=== PATIENT | female | born 1955 | race African-American/Black ===

== ENCOUNTER 2018-06-07 07:00 | Day surgery (SDC) | payer OTHER ==
[2018-06-03 13:21] LABS: Absolute Lymphocytes (CBC) 3.8 K/uL (0.7-4.9); Absolute Monocytes 0.5 K/uL (0.1-1.3); Absolute Neutrophil 3.8 K/uL (1.8-8.0); Basophils % 0.9 % (0-1.3); Eosinophils % 1.6 % (0-4.4); Hematocrit 41.7 % (36.0-45.0); Lymphocytes % 45.6 % (15.3-44.8); MCH 27.2 pg (27.0-35.0); MCV 84.9 fL (80-100); MPV 8.6 fL (7.6-11.3); Monocytes % 6.1 % (3.3-12.3); RBC Red Blood Cell Count 4.91 M/uL (3.86-4.86)
--- NOTE | 2018-06-03 13:22 | RAD REPORT ---
EXAM DESCRIPTION: RAD - Chest Single View - 06/03/2018 1:13 pm CLINICAL HISTORY: Pre-op Chest pain. COMPARISON: Abdomen 1 View (KUB) dated 12/18/2017; Chest Single View dated 04/17/2017; Chest Single Vie w dated 11/29/2016; Chest Single View dated 11/19/2016 FINDINGS: Portable technique limits examination quality. The lungs are grossly clear. The heart is normal in size. No displaced fractures. IMPRESSION: No acute intrathoracic process suspected.
[2018-06-03 13:28] LABS: Protime INR 0.87
[2018-06-03 13:34] LABS: Potassium 4.3 mmol/L (3.5-5.1)
--- OUTSIDE RECORDS SUMMARY | 2018-06-07 07:08 | XMS REPORT ---
:1955 Author Organization eClinicalWorks Care Team Providers Name Role Phone Tre Stevenson Provider Role Unavailable Allergies, Adverse Reactions, Alerts Substance Reaction Event Type Hydrocodone-Chlorpheniramine hives Drug Allergy Cymbalta vomiting Drug Allergy Problems Problem Type Condition Code Onset Dates Condition Status Assessment Pain in joint of right hand M25.541 Active Problem Essential hypertension I10 Active Problem Type 2 diabetes mellitus with E11.65 Active hyperglycemia Problem Mixed hyperlipidemia E78.2 Active Problem detention current use of insulin Z79.4 Active Problem Gastro-esophageal reflux disease K21.9 Active without esophagitis Problem Neuropathy G62.9 Active Problem Chronic maxillary sinusitis J32.0 Active Problem HTN (hypertension) I10 Active Problem Cigarette smoker F17.210 Active Problem Depression F32.9 Active Problem Inflammatory neuropathy G61.9 Active Problem Chronic obstructive pulmonary J44.9 Active disease Problem Dermatitis L30.9 Active Problem 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 Active Problem Trigger finger of right thumb M65.311 Active Problem Pain in joint of right hand M25.541 Active Problem Asthmatic bronchitis without J45.909 Active complication Problem Gastroesophageal reflux disease K21.9 Active without esophagitis Problem Trigger index finger of right hand M65.321 Active Problem Cardiac disease I51.9 Active Problem Chronic stable angina I20.8 Active Problem Stable angina I20.8 Active Problem Slow transit constipation K59.01 Active Problem Apnea, not elsewhere classified R06.81 Active Problem Allergic rhinitis J30.9 Active Assessment Trigger index finger of right hand M65.321 Active Problem Hyperlipidemia E78.5 Active Problem Otalgia, right ear H92.01 Active Problem Obesity E66.9 Active Problem Tachycardia R00.0 Active Problem Obstructive sleep apnea G47.33 Active Problem Diabetes mellitus type 2, E11.9 Active uncontrolled, without complications Problem Gastroparesis K31.84 Active Medications Medication Code Code Instructions Start End Status Dosage System Date Date Nitroglycerin [facility] 86646332518 400 MCG/SPRAY Active 1 spray Translingual Once a day as needed Reglan [facility] 77598817560 10 MG Orally Active not defined Plavix ND 59396460634 75 MG Orally Active 1 tablet Once a day Linzess ND 87445973755 290 MCG Orally April Active 1 capsule Once a day 2017 Meclizine HCl ND 89650603815 25 MG Orally Active 1 tablet as Once a day needed Dexilant [facility] 89019535036 60 MG Orally Active 1 capsule Once a day PredniSONE ND 68955810693 10 MG Orally Active 2 tablet Once a day Pantoprazole [facility] 76034797761 40 MG Orally Active 1 tablet Sodium Once a day Metformin HCl [facility] 09581030612 1000MG Active TAKE ONE TABLET BY MOUTH TWICE DAILY Zoloft [facility] 53706734464 100 MG Orally Active 1 tablet Once a day Patanase [facility] 02580107051 0.6 % Nasally Active 2 sprays in Twice a day each nostril Diflucan [facility] 33606820748 150 MG Orally Active 1 tablet Fluocinolone [facility] 42226855110 0.01 % Otic Active 5 applications Acetonide Twice a day into affected ear Lasix [facility] 19531319537 20 MG Orally Active 1 tablet Once a day Spiriva Respimat [facility] 30995724601 2.5 MCG/ACT March Active 2 puffs Inhalation , Once a day 2018 Cyclobenzaprine [facility] 88262408614 10 MG Orally Active 1 tablet as HCl Three times a needed day Gralise [facility] 88252874124 600 MG Orally Active 3 tablet with Once a day the evening meal Furosemide ND 42059384998 20MG Active TAKE ONE TABLET BY MOUTH ONCE DAILY IN THE MORNING NEEDED FOR EDEMA Irbesartan [facility] 55152382633 300MG Active TAKE ONE TABLET BY MOUTH ONCE DAILY Toujeo SoloStar [facility] 38804462254 300 UNIT/ML Active 60 units Subcutaneous once a day Toprol XL ND 09361502596 100 MG Orally Active 1 tablet Once a day Avapro [facility] 90073961686 300 MG Orally Active 1 tablet Once a day Gralise [facility] 79798779647 600MG Active TAKE THREE TABLETS BY MOUTH ONCE DAILY Xyzal [facility] 83090025234 5 MG Orally Active 1 tablet in Once a day the evening Albuterol Sulfate [facility] 07566302901 108 (90 Base) Active 2 puffs as HFA MCG/ACT needed Inhalation every 6 hrs Tramadol HCl [facility] 09565862060 50 MG Orally Active 1 tablet as every 6 hrs needed Invokana [facility] 12869180095 300 MG Orally Active 1 tablet Once a day Results No Known Results Summary Purpose eClinicalWorks Submission
--- OUTSIDE RECORDS SUMMARY | 2018-06-07 07:08 | XMS REPORT ---
:1955 Author Organization eClinicalWorks Care Team Providers Name Role Phone Huff, Micki Provider Role Unavailable Allergies, Adverse Reactions, Alerts Substance Reaction Event Type Hydrocodone-Chlorpheniramine hives Drug Allergy Cymbalta vomiting Drug Allergy Problems Problem Type Condition Code Onset Dates Condition Status Assessment detention current use of insulin Z79.4 Active Assessment Mixed hyperlipidemia E78.2 Active Assessment Chronic obstructive pulmonary J44.9 Active disease Assessment Neuropathy G62.9 Active Assessment Gastro-esophageal reflux disease K21.9 Active without esophagitis Assessment Type 2 diabetes mellitus with E11.65 Active hyperglycemia Problem Chronic maxillary sinusitis J32.0 Active Problem Type 2 diabetes mellitus with E11.65 Active hyperglycemia Problem Essential hypertension I10 Active Problem Chronic obstructive pulmonary J44.9 Active disease Problem Mixed hyperlipidemia E78.2 Active Problem Cigarette smoker F17.210 Active Problem detention current use of insulin Z79.4 Active Problem Inflammatory neuropathy G61.9 Active Problem Gastroesophageal reflux disease K21.9 Active without esophagitis Problem Cardiac disease I51.9 Active Problem 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 Active Problem Apnea, not elsewhere classified R06.81 Active Problem Obesity E66.9 Active Problem Neuropathy G62.9 Active Problem Dermatitis L30.9 Active Problem Gastro-esophageal reflux disease K21.9 Active without esophagitis Problem Otalgia, right ear H92.01 Active Problem Asthmatic bronchitis without J45.909 Active complication Problem Chronic stable angina I20.8 Active Problem Stable angina I20.8 Active Assessment Dermatitis L30.9 Active Problem Diabetes mellitus type 2, E11.9 Active uncontrolled, without complications Assessment Essential hypertension I10 Active Problem Gastroparesis K31.84 Active Assessment 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 Active Problem Allergic rhinitis J30.9 Active Assessment Chronic stable angina I20.8 Active Problem Hyperlipidemia E78.5 Active Problem HTN (hypertension) I10 Active Problem Depression F32.9 Active Problem Tachycardia R00.0 Active Problem Obstructive sleep apnea G47.33 Active Medications Medication Code Code Instructions Start End Status Dosage System Date Date [facility] 53880338824 10 MG Orally Active not defined Sia Hood ND 82464058792 300 UNIT/ML Active 54 units Subcutaneous once a day Metformin HCl ND 10016908951 1000 MG Orally Active 1 tablet with Twice a day meals Zoloft ND 50848134892 100 MG Orally Active 1 tablet Once a day Toprol XL ND 71946863826 100 MG Orally Active 1 tablet Once a day Xyzal ND 78409034199 5 MG Orally Active 1 tablet in Once a day the evening Lasix ND 31604908343 20 MG Orally Active 1 tablet Once a day Fluocinolone ND 63344791748 0.01 % Otic Active 5 Acetonide Twice a day applications into affected ear Albuterol Sulfate [facility] 85075909622 108 (90 Base) Active 2 puffs as HFA MCG/ACT needed Inhalation every 6 hrs Gralise [facility] 98316213686 600 MG Orally Active 3 tablet with Once a day the evening meal Furosemide ND 22144327738 20MG Active TAKE ONE TABLET BY MOUTH ONCE DAILY IN THE MORNING NEEDED FOR EDEMA Patanase [facility] 02147072943 0.6 % Nasally Active 2 sprays in Twice a day each nostril PredniSONE ND 49686933710 10 MG Orally Active 2 tablet Once a day Nitroglycerin [facility] 16379239197 400 MCG/SPRAY Active 1 spray Translingual Once a day as needed Spiriva Respimat [facility] 05560052964 2.5 MCG/ACT December Active 2 puffs Inhalation , Once a day 2018 Diflucan ND 06759389790 150 MG Orally Active 1 tablet Avapro [facility] 96855683912 300 MG Orally Active 1 tablet Once a day Tramadol HCl ND 51122254012 50 MG Orally Active 1 tablet as every 6 hrs needed Pantoprazole ND 73056523179 40 MG Orally [place] Active 1 tablet Sodium Once a day 2017 Dexilant [facility] 98015974896 60 MG Orally Active 1 capsule Once a day Plavix ND 69306750728 75 MG Orally Active 1 tablet Once a day Cyclobenzaprine ND 40655906978 10 MG Orally Active 1 tablet as HCl Three times a needed day Invokana [facility] 20288368903 300 MG Orally Active 1 tablet Once a day Meclizine HCl [facility] 91355172806 25 MG Orally Active 1 tablet as Once a day needed Results No Known Results Summary Purpose eClinicalWorks Submission
--- OUTSIDE RECORDS SUMMARY | 2018-06-07 07:08 | XMS REPORT ---
:1955 Author Organization eClinicalWorks Care Team Providers Name Role Phone Huff, Na Provider Role Unavailable Allergies, Adverse Reactions, Alerts Substance Reaction Event Type Hydrocodone-Chlorpheniramine hives Drug Allergy Cymbalta vomiting Drug Allergy Problems Problem Type Condition Code Onset Dates Condition Status Assessment Mixed hyperlipidemia E78.2 Active Assessment Chronic stable angina I20.8 Active Assessment Type 2 diabetes mellitus with E11.65 Active hyperglycemia Assessment Essential hypertension I10 Active Problem Type 2 diabetes mellitus with E11.65 Active hyperglycemia Problem Essential hypertension I10 Active Problem Mixed hyperlipidemia E78.2 Active 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 Problem Gastroparesis K31.84 Active Problem Gastro-esophageal reflux disease K21.9 Active without esophagitis Problem Tachycardia R00.0 Active Problem Neuropathy G62.9 Active Problem Obstructive sleep apnea G47.33 Active Problem Depression F32.9 Active Problem HTN (hypertension) I10 Active Problem Apnea, not elsewhere classified R06.81 Active Problem Chronic stable angina I20.8 Active Problem Inflammatory neuropathy G61.9 Active Problem Cigarette smoker F17.210 Active Assessment 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 Active Problem Slow transit constipation K59.01 Active Problem Chronic maxillary sinusitis J32.0 Active Assessment Hoarseness of voice R49.0 Active Problem 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 Active Assessment Polyp of larynx J38.1 Active Problem Chronic obstructive pulmonary J44.9 Active disease Problem Stable angina I20.8 Active Problem Dermatitis L30.9 Active Assessment Chronic obstructive pulmonary J44.9 Active disease Problem Asthmatic bronchitis without J45.909 Active complication Assessment Neuropathy G62.9 Active Problem Otalgia, right ear H92.01 Active Assessment Otalgia of right ear H92.01 Active Problem Cardiac disease I51.9 Active 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.4 Active Problem Gastroesophageal reflux disease K21.9 Active without esophagitis Assessment Gastro-esophageal reflux disease K21.9 Active without esophagitis Problem Hyperlipidemia E78.5 Active Assessment Slow transit constipation K59.01 Active Problem Diabetes mellitus type 2, E11.9 Active uncontrolled, without complications Problem Obesity E66.9 Active Problem Allergic rhinitis J30.9 Active Medications Medication Code Code Instructions Start End Status Dosage System Date Date Edison [facility] 84767297478 5 MG Orally Active 1 tablet in Once a day the evening Toprol XL ND 02646852300 100 MG Orally Active 1 tablet Once a day Zoloft ND 26291447717 100 MG Orally Active 1 tablet Once a day Tousarinao AdrianaoStar [facility] 48259150131 300 UNIT/ML Active 60 units Subcutaneous once a day Acetic Acid ND 49911867802 2 % Otic Three April Active 5 drops into times a day , affected ear 2017 2017 Metformin HCl [facility] 26463379679 1000MG Active TAKE ONE TABLET BY MOUTH TWICE DAILY Nitroglycerin [facility] 13919050463 400 MCG/SPRAY Active 1 spray Translingual Once a day as needed Patanase [facility] 22147209748 0.6 % Nasally Active 2 sprays in Twice a day each nostril Tramadol HCl [facility] 88488775114 50 MG Orally Active 1 tablet as every 6 hrs needed Lasix [facility] 54064635085 20 MG Orally Active 1 tablet Once a day Gralise [facility] 22411624123 600 MG Orally Active 3 tablet with Once a day the evening meal Furosemide ND 36792912043 20MG Active TAKE ONE TABLET BY MOUTH ONCE DAILY IN THE MORNING NEEDED FOR EDEMA Linzess [facility] 63221147596 290 MCG Orally April Active 1 capsule Once a day 2017 Gralise [facility] 22989282535 600MG Active TAKE THREE TABLETS BY MOUTH ONCE DAILY Spiriva Respimat [facility] 29267237935 2.5 MCG/ACT March Active 2 puffs Inhalation , Once a day 2018 Plavix [facility] 65364235553 75 MG Orally Active 1 tablet Once a day Cyclobenzaprine ND 88514728270 10 MG Orally Active 1 tablet as HCl Three times a needed day Irbesartan [facility] 61986660795 300MG Active TAKE ONE TABLET BY MOUTH ONCE DAILY Pantoprazole [facility] 95986831119 40 MG Orally Active 1 tablet Sodium Once a day Avapro [facility] 19860313738 300 MG Orally Active 1 tablet Once a day Reglan [facility] 13295429574 10 MG Orally Active not defined Diflucan [facility] 43154454579 150 MG Orally Active 1 tablet Meclizine HCl [facility] 32863432297 25 MG Orally Active 1 tablet as Once a day needed Albuterol Sulfate [facility] 83044217181 108 (90 Base) Active 2 puffs as HFA MCG/ACT needed Inhalation every 6 hrs PredniSONE [facility] 75582197698 10 MG Orally Active 2 tablet Once a day Invokana [facility] 76797059586 300 MG Orally Active 1 tablet Once a day Fluocinolone [facility] 98583477448 0.01 % Otic Active 5 applications Acetonide Twice a day into affected ear Dexilant [facility] 71015867539 60 MG Orally Active 1 capsule Once a day Results No Known Results Summary Purpose eClinicalWorks Submission
--- OUTSIDE RECORDS SUMMARY | 2018-06-07 07:08 | XMS REPORT ---
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 Active Problem Chronic obstructive pulmonary J44.9 Active disease Problem Stable angina I20.8 Active Problem Dermatitis L30.9 Active Problem Asthmatic bronchitis without J45.909 Active complication Problem Otalgia, right ear H92.01 Active Problem Cardiac disease I51.9 Active Problem Gastroesophageal reflux disease K21.9 Active without esophagitis Problem Hyperlipidemia E78.5 Active Problem Diabetes mellitus type 2, E11.9 Active uncontrolled, without complications Problem Obesity E66.9 Active Problem Allergic rhinitis J30.9 Active Medications No Known Medications Results No Known Results Summary Purpose eClinicalWorks Submission
[2018-06-07] MEDS ORDERED: HEPA 1000U/500MLS 1,000 UNIT/500 ML BAG IV ONE (07:18)
[2018-06-07] MEDS ORDERED: NICARDIPINE HCL 25 MG/10 ML IV ONE (07:19)
[2018-06-07] MEDS ORDERED: HEPARIN 5000 UNIT/ML 1 ML VIAL ONE (07:19)
[2018-06-07] MEDS ORDERED: LIDOCAINE 1% MPF 2 ML AMPULE ONE (07:19)
[2018-06-07] MEDS ORDERED: NITROGLYCERIN/D5W 25 MG/250 ML BTL IV ONE (07:20)
[2018-06-07] MEDS ORDERED: ATROPINE SULF 1 MG/10 ML SYR IV ONE (07:20)
[2018-06-07] MEDS ORDERED: NA CHLORIDE 0.9% 0 ML ONE (07:21)
[2018-06-07] MEDS ORDERED: LIDOCAINE 1% MPF 5 ML VIAL ONE (07:22)
[2018-06-07] MEDS ORDERED: NA CHLORIDE 0.9% 500 ML ONE (07:22)
[2018-06-07] MEDS ORDERED: FENTANYL CITR 100 MCG/2 ML ONE (08:15)
[2018-06-07] MEDS ORDERED: MIDAZOLAM HCL 2 MG/2 ML INJ ONE (08:15)
[2018-06-07 09:24] VITALS: TEMP 97
[2018-06-07 11:11] VITALS: BP 112/48; O2SAT 96
--- NOTE | 2018-06-07 19:28 | OP ---
Surgeon: Eloy Kapadia MD Primary Care Physician: Micki Huff DO. Procedures: Left heart catheterization, coronary left ventricular angiography. Findings: The patient's ejection fraction is hyperdynamic. Her left ventricular end-diastolic press ure was elevated at 20. Her coronaries have mild plaque, no significant stenosis. Procedure In Detail: The patient was brought to the cardiac shop laborer in a fasting state, sedated wit h Versed and fentanyl. Prepared and draped in usual sterile fashion. Right radial artery was identi fied. The Barbeau test was normal. A 1% lidocaine was used to anesthetize the skin around the right radial artery. The artery was then entered using a 21-gauge needle. A 0.021-inch diameter guidewir e was used to cannulate the artery. Then we used the modified Seldinger technique to place a 6-Frenc h radial sheath. The sheath was flushed and a radial cocktail was given consisting of nicardipine, h eparin, and nitroglycerin. We used a TIG catheter, guided into the ascending aorta using fluoroscopy and a Terumo Glidewire. We were able to use the same catheter to angiogram the right coronary, left coronary, and left ventricle. At the end of the procedure, the catheter was withdrawn over a J-wire . The sheath was flushed, removed, and the arteriotomy was closed using a TR band. Complications: None. Impression: The patient's dyspnea is due to COPD, continued smoking, and hypertensive heart disease. ALCIDES/MODL Voice ID: [id number] Report ID: [id number]
== END 2018-06-07 11:25 | disposition home or self-care (01) ==
LOC: CCL 07:00
PROVIDERS: ATTEND Internal Medicine
PROC: 4A023N7 Measurement of Cardiac Sampling and Pressure, Left Heart, Percutaneous Approach (ICD-10-PCS; principal; 2018-06-07)
PROC: B201YZZ Plain Radiography of Multiple Coronary Arteries using Other Contrast (ICD-10-PCS; 2018-06-07)
PROC: B205YZZ Plain Radiography of Left Heart using Other Contrast (ICD-10-PCS; 2018-06-07)
DX: I11.9 Hypertensive heart disease without heart failure (principal); I25.110 Atherosclerotic heart disease of native coronary artery with unstable angina pectoris; J44.9 Chronic obstructive pulmonary disease, unspecified; I10 Essential (primary) hypertension; I25.2 Old myocardial infarction; E11.9 Type 2 diabetes mellitus without complications; F17.210 Nicotine dependence, cigarettes, uncomplicated; Z79.4 Long term (current) use of insulin; Z88.6 Allergy status to analgesic agent; Z82.49 Family history of ischemic heart disease and other diseases of the circulatory system
CPT/HCPCS: 36415; 71045; 80048; 82962; 85025; 85610; 85730; 93458; C1893; J0583; J1644; J2001; J2250; J3010

== ENCOUNTER 2019-07-08 20:22 | Inpatient (IN) | payer OTHER ==
--- OUTSIDE RECORDS SUMMARY | 2019-07-08 20:24 | XMS REPORT ---
:1955 Author Organization [facility] Address [address] [place] [address] Dr. Marshall. [address] [place] [id number] Care Team Providers Name Role Phone Unavailable Unavailable Unavailable Problems This patient has no known problems. Allergies, Adverse Reactions, Alerts This patient has no known allergies or adverse reactions. Medications This patient has no known medications.
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
--- OUTSIDE RECORDS SUMMARY | 2019-07-08 20:25 | XMS REPORT ---
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 Active Problem Cigarette smoker F17.210 Active Problem Stable angina I20.8 Active Problem Chronic stable angina I20.8 Active Assessment Cigarette nicotine dependence F17.210 Active without complication Assessment Pain due to dental caries K02.9 Active Assessment Proteinuria, unspecified R80.9 Active Assessment Allergic rhinitis J30.9 Active Problem Apnea, not elsewhere classified R06.81 Active Problem 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 Active Problem Dermatitis L30.9 Active Problem Hypoglycemia associated with type 2 E11.649 Active diabetes mellitus Problem Pain in joint of right hand M25.541 Active Problem Slow transit constipation K59.01 Active Problem Cigarette nicotine dependence F17.210 Active without complication Problem Routine gynecological examination Z01.419 Active Problem Adult general medical exam Z00.00 Active Problem Trigger finger of right thumb M65.311 Active Problem Trigger index finger of right hand M65.321 Active Assessment Neuropathy G62.9 Active Assessment Chronic obstructive pulmonary J44.9 Active disease Assessment CKD (chronic kidney disease), stage N18.3 Active III Assessment Gingivitis, acute K05.00 Active Assessment Type 2 diabetes mellitus with other E11.69 Active specified complication Assessment Type 2 diabetes mellitus with other E11.29 Active diabetic kidney complication Assessment Urinary incontinence in female R32 Active Assessment Depression F32.9 Active Assessment Mixed hyperlipidemia E78.2 Active Assessment Essential hypertension I10 Active Problem Essential hypertension I10 Active Problem Neuropathy G62.9 Active Problem Mixed hyperlipidemia E78.2 Active Problem Other chronic pain G89.29 Active Assessment Type 2 diabetes mellitus with E11.65 Active hyperglycemia Problem Angina of effort I20.8 Active Problem Seasonal allergies J30.2 Active Problem Type 2 diabetes mellitus with other E11.29 Active diabetic kidney complication Problem JOSUÉ (obstructive sleep apnea) G47.33 Active Problem Chronic otitis externa of right H60.61 Active ear, unspecified type Problem Acute bronchitis, unspecified J20.9 Active organism Problem Chronic obstructive pulmonary J44.0 Active disease with acute lower respiratory infection Problem Otalgia, right ear H92.01 Active Problem Type 2 diabetes mellitus with other E11.69 Active specified complication Problem Chronic maxillary sinusitis J32.0 Active Problem Type 2 diabetes mellitus with E11.22 Active diabetic chronic kidney disease Problem Type 2 diabetes mellitus with E11.65 Active hyperglycemia Problem Cough productive of yellow sputum R05 Active Problem Gastro-esophageal reflux disease K21.9 Active without esophagitis Problem CKD (chronic kidney disease), stage N18.3 Active III Problem alf current use of insulin Z79.4 Active Problem Diabetes mellitus type 2, E11.9 Active uncontrolled, without complications Problem Gastroparesis K31.84 Active Problem Asthmatic bronchitis without J45.909 Active complication Problem Chronic obstructive pulmonary J44.9 Active disease Problem Cardiac disease I51.9 Active Problem Gastroesophageal reflux disease K21.9 Active without esophagitis Medications Medication Code Code Instructions Start End Status Dosage System Date Date Doxycycline [facility] 98836588302 100 MG Orally Active 1 capsule Hyclate twice a day Lasix [facility] 23328152233 20 MG Orally Active 1 tablet Once a day Patanase [facility] 08110499322 0.6 % Nasally Active 2 sprays in Twice a day each nostril FreeStyle Enriqueta [facility] 39204594091 - dailyk Active as directed Copan Flonase [facility] 01132557347 50 MCG/ACT Active 2 spray in Nasally Once a each nostril day Plavix [facility] 44889216080 75 MG Orally Active 1 tablet Once a day Albuterol Sulfate [facility] 66926656426 (2.5 MG/3ML) Active 3 ml as needed 0.083% Inhalation Three times a day prn sob/wheezing Albuterol Sulfate [facility] 00772044627 108 (90 Base) Active 2 puffs as MCG/ACT needed Inhalation every 6 hrs Reglan [facility] 13053476259 10 MG Orally Active not defined Azithromycin [facility] 18424044750 500 MG Orally Active as directed once a day Zyrtec Allergy [facility] 60208242904 10 MG Orally Active 1 tablet Once a day Zoloft [facility] 06710323012 100 MG Orally Active 1 tablet Once a day Spiriva Respimat [facility] 82696736324 2.5 MCG/ACT Active 2 puffs Inhalation Once a day Atorvastatin [facility] 27172341180 40 MG Orally Active 1 tablet Calcium Once a day Linzess [facility] 48245862773 290 MCG Orally Aug Active 1 capsule Once a day 2018 Acetic Acid [facility] 63680704501 2 % Otic Three Active 5 drops into times a day affected ear Humalog KwikPen [facility] 66655692076 100 UNIT/ML Active as directed Subcutaneous 4 units with each meal tid Metformin HCl [facility] 96570741985 1000MG Active TAKE ONE TABLET BY MOUTH TWICE DAILY FreeStyle Enriqueta [facility] 30535373164 - ND Active as directed Sensor System Fluocinolone [facility] 21354622395 0.01 % Otic Active 5 applications Acetonide Twice a day into affected ear Lantus SoloStar [facility] 07200969103 100 UNIT/ML Active 60 units Subcutaneous once a day Cyclobenzaprine [facility] 16727364466 10 MG Orally Active 1 tablet as HCl Three times a needed day Nitroglycerin [facility] 18052415531 400 MCG/SPRAY Active 1 spray Translingual Once a day as needed Metformin HCl [facility] 78955834706 1000MG Active TAKE ONE TABLET BY MOUTH TWICE DAILY Pantoprazole [facility] 83313669941 40 MG Orally Active 1 tablet Sodium Once a day Olmesartan-Amlodi [facility] 26928876908 20-5-12.5 MG Active 1 tablet pine-HCTZ Orally Once a day Tramadol HCl [facility] 49395071156 50 MG Orally Active 1 tablet as every 6 hrs needed PredniSONE [place] 41116444441 10 MG Orally Active 2 tablet Once a day Gabapentin [facility] 54722723031 600 MG orally Active 1 tablet Three times a day Results No Known Results Summary Purpose [employer] Submission
--- NOTE | 2019-07-08 20:57 | ER ---
Nurse's Notes [facility] Name: Tammy Walsh Age: 64 yrs Sex: Female : 1955 Arrival Date: 07/08/2019 Time: 20:24 Bed 6 Private MD: Diagnosis: Other chest pain;Chronic obstructive pulmonary disease, unspecified;Essential (primary) hypertension;Tobacco abuse counseling;Tobacco use;Type 2 diabetes mellitus;Obesity, unspecified;Unspecified kidney failure-insufficency;Hypomagnesemia Presentation: 07/08 20:41 Presenting complaint: Patient states: Left sided chest pain that radiates to her left aj1 shoulder, shortness of breath and fever since yesterday. Reports that she took some NTG and it helped for a little bit but then the pain came right back. Reports the pain is aggravated by walking. Patient wears home O2 PRN. Transition of care: patient was not received from another setting of care. Onset of symptoms was July 07, 2019. Risk Assessment: Do you want to hurt yourself or someone else? Patient reports no desire to harm self or others. Initial Sepsis Screen: Does the patient meet any 2 criteria? RR > 20 per min. HR > 90 bpm. Does the patient have a suspected source of infection? Yes: Productive cough/pneumonia If YES to both, name of provider notified: Toby Figueroa MD. Care prior to arrival: None. 20:41 Method Of Arrival: Wheelchair aj1 20:41 Acuity: PATRICIA 3 aj1 Triage Assessment: 20:48 General: Appears uncomfortable, Behavior is calm, cooperative, appropriate for age. aj1 Pain: Complains of pain in anterior aspect of left upper chest Pain radiates to posterior aspect of left shoulder Aggravated by walking. Neuro: Level of Consciousness is awake, alert, obeys commands. Cardiovascular: Reports chest pain, Patient's skin is warm and dry. Respiratory: Reports shortness of breath cough that is productive, Airway is patent Respiratory effort is even, Respiratory pattern is regular, symmetrical, tachypnea. Historical: - Allergies: 20:48 Hydrocodone-Acetaminophen (Sever Itching); aj1 - Home Meds: 20:48 aspirin 81 mg Oral chew 1 tab once daily [Active]; atorvastatin 40 mg Oral tab 1 tab aj1 once daily [Active]; Breo Ellipta inhalation [Active]; Cartia XT 180 mg Oral cp24 2 caps once daily [Active]; Gralise 600 mg Oral Tb24 3 tabs once daily [Active]; Humalog 4units before every meal or snack. Sub-Q [Active]; hydrochlorothiazide 12.5 mg Oral cap once daily [Active]; Lantus 65 units in the morning. Sub-Q [Active]; metformin 1,000 mg Oral tab 1 tab 2 times per day [Active]; metoprolol er 200mg daily [Active]; Nitroglycerin SL [Active]; olmesartan 12.5 Oral once daily [Active]; Plavix 75 mg Oral tab 1 tab once daily [Active]; Spiriva with HandiHaler inhalation [Active]; Symbicort 160-4.5 mcg/actuation inhalation HFAA 2 puffs 2 times per day [Active]; - PMHx: 20:48 COPD; Diabetes - NIDDM; Gastroparesis; Hypertension; Myocardial infarction; aj1 - Immunization history:: Flu vaccine is not up to date. - Social history:: Smoking status: Patient uses tobacco products. - Family history:: not pertinent. - Ebola Screening: : Patient denies travel to an Ebola-affected area in the 21 days before illness onset. Screenin:59 Abuse screen: Denies threats or abuse. Denies injuries from another. Nutritional ak1 screening: No deficits noted. Tuberculosis screening: No symptoms or risk factors identified. Fall Risk None identified. Assessment: 20:59 Reassessment: Patient appears in no apparent distress at this time. General: Appears in ak1 no apparent distress. comfortable, Behavior is calm, cooperative. Pain: Complains of pain in chest Pain began 1 day ago. Neuro: Level of Consciousness is awake, alert, obeys commands, Oriented to person, place, time, situation, Curriculum Specialist are equal bilaterally Moves all extremities. Gait is steady, Speech is normal. Cardiovascular: Reports chest pain, shortness of breath, Heart tones S1 S2 present. Respiratory: Reports shortness of breath cough that is Airway is patent Respiratory effort is labored, Breath sounds are clear Onset: The symptoms/episode began/occurred yesterday. GI: No signs and/or symptoms were reported involving the gastrointestinal system. : No signs and/or symptoms were reported regarding the genitourinary system. EENT: Nares pt wearing mask due to wound, burn from smoking while wearing oxygen. . Derm: No signs and/or symptoms reported regarding the dermatologic system. Musculoskeletal: No signs and/or symptoms reported regarding the musculoskeletal system. 21:02 General: Charge nurse at bedside to place midline for access. pt stated she either has ak1 an EJ or midline when coming to hospital. . 21:21 Reassessment: Patient appears in no apparent distress at this time. No changes from ak1 previously documented assessment. Patient and/or family updated on plan of care and expected duration. Pain level reassessed. Patient is alert, oriented x 3, equal unlabored respirations, skin warm/dry/pink. Patient states symptoms have improved. 22:10 Reassessment: Room available in 224, report called and handed over to RN Gina walker for continuity of care and management, informed her that patient is still for IV Magnesium Sulfate to be given. Vital Signs: 20:48 BP 142 / 40; Pulse 105; Resp 28; Temp 99.3; Pulse Ox 96% on R/A; Weight 115.67 kg (R); aj1 Height 5 ft. 5 in. (165.10 cm) (R); Pain 6/10; 21:21 BP 126 / 75; Pulse 101; Resp 26; Temp 99.3; Pulse Ox 100% on Nebulizer Mask; ak1 20:48 Body Mass Index 42.43 (115.67 kg, 165.10 cm) aj1 ED Course: 20:24 Patient arrived in ED. cl3 20:34 Toby Figueroa MD is Attending Physician. hannah 20:43 Triage completed. aj1 20:49 Radiology exam delayed due to lab results not completed at this time. (BUN/Creatinine) nj IV insertion attempt and/or patient not having appropriate IV at this time. 20:52 Adeola De Los Santos, RN is Primary Nurse. ak1 20:54 Austyn Lorenzo DO is Hospitalizing Provider. hannah 20:54 Arm band placed on Patient Patient triaged in ER bed 6. aj1 20:59 Patient has correct armband on for positive identification. Placed in gown. Bed in low ak1 position. Call light in reach. Side rails up X 1. Adult w/ patient. pvc monitor on. Pulse ox on. NIBP on. 20:59 Patient maintains SpO2 saturation greater than 95% on room air. O2 via pt uses c-pap ak1 and/or 2L NC as needed at home. 21:07 Initial lab(s) drawn, by me, sent to lab. First set of blood cultures drawn by me. fc Inserted 18 gauge 10 cm midline to right upper basilic vein on first attempt. Line with good blood return and flushes well. 21:27 XRAY Chest (1 view) In Process Unspecified. EDMS 22:[address] via stretcher. jg6 23:39 No provider procedures requiring assistance completed. Patient admitted, IV remains in ak1 place. Administered Medications: 21:15 Drug: Lovenox 1 mg/kg Route: Sub-Q; Site: right lower abdomen; ak1 21:23 Follow up: Response: No adverse reaction ak1 21:15 Drug: Zofran 4 mg Route: IVP; Site: right upper arm; ak1 21:22 Follow up: Response: No adverse reaction ak1 21:16 Drug: NS 0.9% 1000 ml Route: IV; Rate: 1 bolus; Site: right upper arm; ak1 23:09 Follow up: IV Status: Completed infusion; IV Intake: 1000ml ak1 21:16 Drug: Aspirin 81 mg Route: PO; ak1 21:22 Follow up: Response: No adverse reaction ak1 21:20 Drug: fentaNYL (PF) 25 mcg Route: IVP; Site: right upper arm; ak1 21:37 Follow up: Response: No adverse reaction; Pain is decreased; RASS: Alert and Calm (0) ak1 21:20 Drug: fentaNYL (PF) 25 mcg Route: IVP; Site: right upper arm; ak1 21:37 Follow up: Response: No adverse reaction; Pain is decreased; RASS: Alert and Calm (0) ak1 21:20 Drug: Xopenex 1.25 mg Route: Inhalation; ak1 21:20 Drug: AtroVENT Aerosol 0.5 mg Route: Inhalation; ak1 21:45 Drug: Tylenol 650 mg Route: PO; ak1 21:50 Follow up: Response: No adverse reaction ak1 21:45 Drug: SOLU-Medrol 125 mg Route: IVP; Site: right upper arm; ak1 21:50 Follow up: Response: No adverse reaction ak1 21:46 Drug: Xopenex 1.25 mg Route: Inhalation; ak1 21:57 Drug: levofloxacin 500 mg Volume: 100 ml; Route: IVPB; Infused Over: 60 mins; Site: ak1 right upper arm; 23:23 Follow up: Response: No adverse reaction; IV Status: Completed infusion; IV Intake: cc3 100ml 23:37 Drug: Magnesium Sulfate 2 grams {Note: sent up with pt for floor RN to continue .} ak1 Route: IVPB; Infused Over: 2 hrs; Site: right upper arm; 23:37 Follow up: IV Status: Infusion continued upon admission ak1 Point of Care Testing: Blood Glucose: 21:24 Blood Glucose: 180 mg/dL; ak1 Ranges: Intake: 23:09 IV: 1000ml; Total: 1000ml. ak1 23:23 IV: 100ml; Total: 1100ml. cc3 Outcome: 20:55 Decision to Hospitalize by Provider. [facility] 23:38 Patient left the ED. ak1 23:39 Admitted to Tele accompanied by tech, via wheelchair, with chart. ak1 23:39 Condition: improved 23:39 Instructed on the need for admit. Signatures: Dispatcher [employer] Ruma Irene, RN RN Toby Hugo MD MD cha Chretien, Felicia RN RN Adeola Wolff RN RN Vinh Finney Charlene cc3 Bonnie Orellana Charde 3
--- NOTE | 2019-07-08 20:57 | EDPHYS ---
Physician Documentation [facility] Name: Tammy Walsh Age: 64 yrs Sex: Female : 1955 Arrival Date: 07/08/2019 Time: 20:24 Bed 6 Private MD: ELAINE Physician Toby Figueroa HPI: 07/08 20:47 This 64 yrs old Black Female presents to ER via Wheelchair with complaints of Chest hannah Pain. 20:47 The patient or guardian reports chest pain that is located primarily in the substernal hannah area. Onset: 2 day(s) ago. The pain does not radiate. Associated signs and symptoms: The patient has no apparent associated signs or symptoms. The chest pain is described as a pressure. Duration: The patient or guardian reports multiple episodes, with no pattern. Modifying factors: The symptoms are alleviated by remaining still, the symptoms are aggravated by exertion. Severity of pain: At its worst the pain was mild moderate in the emergency department the pain is unchanged. Historical: - Allergies: 20:48 Hydrocodone-Acetaminophen (Sever Itching); aj1 - Home Meds: 20:48 aspirin 81 mg Oral chew 1 tab once daily [Active]; atorvastatin 40 mg Oral tab 1 tab aj1 once daily [Active]; Breo Ellipta inhalation [Active]; Cartia XT 180 mg Oral cp24 2 caps once daily [Active]; Gralise 600 mg Oral Tb24 3 tabs once daily [Active]; Humalog 4units before every meal or snack. Sub-Q [Active]; hydrochlorothiazide 12.5 mg Oral cap once daily [Active]; Lantus 65 units in the morning. Sub-Q [Active]; metformin 1,000 mg Oral tab 1 tab 2 times per day [Active]; metoprolol er 200mg daily [Active]; Nitroglycerin SL [Active]; olmesartan 12.5 Oral once daily [Active]; Plavix 75 mg Oral tab 1 tab once daily [Active]; Spiriva with HandiHaler inhalation [Active]; Symbicort 160-4.5 mcg/actuation inhalation HFAA 2 puffs 2 times per day [Active]; - PMHx: 20:48 COPD; Diabetes - NIDDM; Gastroparesis; Hypertension; Myocardial infarction; aj1 - Immunization history:: Flu vaccine is not up to date. - Social history:: Smoking status: Patient uses tobacco products. - Family history:: not pertinent. - Ebola Screening: : Patient denies travel to an Ebola-affected area in the 21 days before illness onset. ROS: 20:47 Constitutional: Negative for fever, chills, and weight loss, Eyes: Negative for injury, hannah pain, redness, and discharge, ENT: Negative for injury, pain, and discharge, Neck: Negative for injury, pain, and swelling, Abdomen/GI: Negative for abdominal pain, nausea, vomiting, diarrhea, and constipation, Back: Negative for injury and pain, : Negative for injury, bleeding, discharge, and swelling, MS/Extremity: Negative for injury and deformity, Skin: Negative for injury, rash, and discoloration, Neuro: Negative for headache, weakness, numbness, tingling, and seizure, Psych: Negative for depression, anxiety, suicide ideation, homicidal ideation, and hallucinations, Allergy/Immunology: Negative for hives, rash, and allergies, Endocrine: Negative for neck swelling, polydipsia, polyuria, polyphagia, and marked weight changes, Hematologic/Lymphatic: Negative for swollen nodes, abnormal bleeding, and unusual bruising. 20:47 Cardiovascular: Positive for chest pain. 20:47 Respiratory: Positive for cough, shortness of breath. Exam: 20:47 Constitutional: This is a well developed, well nourished patient who is awake, alert, hannah and in no acute distress. Head/Face: Normocephalic, atraumatic. Eyes: Pupils equal round and reactive to light, extra-ocular motions intact. Lids and lashes normal. Conjunctiva and sclera are non-icteric and not injected. Cornea within normal limits. Periorbital areas with no swelling, redness, or edema. ENT: Nares patent. No nasal discharge, no septal abnormalities noted. Tympanic membranes are normal and external auditory canals are clear. Oropharynx with no redness, swelling, or masses, exudates, or evidence of obstruction, uvula midline. Mucous membranes moist. Neck: Trachea midline, no thyromegaly or masses palpated, and no cervical lymphadenopathy. Supple, full range of motion without nuchal rigidity, or vertebral point tenderness. No Meningismus. Cardiovascular: Regular rate and rhythm with a normal S1 and S2. No gallops, murmurs, or rubs. Normal PMI, no JVD. No pulse deficits. Abdomen/GI: Soft, non-tender, with normal bowel sounds. No distension or tympany. No guarding or rebound. No evidence of tenderness throughout. Back: No spinal tenderness. No costovertebral tenderness. Full range of motion. Female : Normal external genitalia. Skin: Warm, dry with normal turgor. Normal color with no rashes, no lesions, and no evidence of cellulitis. MS/ Extremity: Pulses equal, no cyanosis. Neurovascular intact. Full, normal range of motion. Neuro: Awake and alert, GCS 15, oriented to person, place, time, and situation. Cranial nerves II-XII grossly intact. Motor strength 5/5 in all extremities. Sensory grossly intact. Cerebellar exam normal. Normal gait. Psych: Awake, alert, with orientation to person, place and time. Behavior, mood, and affect are within normal limits. 20:47 Chest/axilla: Inspection: normal, Palpation: tenderness, that is mild, Axilla: are normal, no abscess, Breasts: no acute changes, Lymph nodes: 20:47 Musculoskeletal/extremity: DVT Exam: No signs of deep vein thrombosis. no pain, no swelling, no tenderness, negative Homans' sign noted on exam, no appreciated bluish discoloration, no erythema, no increased warmth. Vital Signs: 20:48 BP 142 / 40; Pulse 105; Resp 28; Temp 99.3; Pulse Ox 96% on R/A; Weight 115.67 kg (R); aj1 Height 5 ft. 5 in. (165.10 cm) (R); Pain 6/10; 21:21 BP 126 / 75; Pulse 101; Resp 26; Temp 99.3; Pulse Ox 100% on Nebulizer Mask; ak1 20:48 Body Mass Index 42.43 (115.67 kg, 165.10 cm) aj MDM: 20:34 Patient medically screened. [facility] 20:50 Data reviewed: vital signs, nurses notes, lab test result(s), EKG, radiologic studies, [facility] CT scan, plain films. 07/08 20:36 Order name: Basic Metabolic Panel; Complete Time: 22:05 [facility] 07/08 20:36 Order name: CBC with Diff; Complete Time: 21:44 [facility] 07/08 20:36 Order name: LFT's; Complete Time: 22:05 [facility] 07/08 20:36 Order name: Magnesium; Complete Time: 22:05 [facility] 07/08 20:36 Order name: NT PRO-BNP; Complete Time: 22:05 [facility] 07/08 20:36 Order name: PT-INR; Complete Time: 21:46 [facility] 07/08 20:36 Order name: Troponin (emerg Dept Use Only); Complete Time: 22:05 [facility] 07/08 20:36 Order name: XRAY Chest (1 view) [facility] 07/08 20:47 Order name: Lipase; Complete Time: 21:44 [facility] 07/08 20:47 Order name: Blood Culture Adult (2) [facility] 07/08 20:47 Order name: Lactate; Complete Time: 22:05 [facility] 07/08 20:47 Order name: CT Aorta for Dissection [facility] 07/08 21:12 Order name: Influenza Screen (a \T\ B); Complete Time: 21:50 [facility] 07/08 20:36 Order name: EKG; Complete Time: 20:38 [facility] 07/08 20:36 Order name: Cardiac monitoring; Complete Time: 20:37 [facility] 07/08 20:36 Order name: EKG - Nurse/Tech; Complete Time: 20:37 [facility] 07/08 20:36 Order name: IV Saline Lock; Complete Time: 21:16 [facility] 07/08 20:36 Order name: Labs collected and sent; Complete Time: 21:16 [facility] 07/08 20:36 Order name: O2 Per Protocol; Complete Time: 20:37 [facility] 07/08 20:36 Order name: O2 Sat Monitoring; Complete Time: 20:37 [facility] Administered Medications: 21:15 Drug: Lovenox 1 mg/kg Route: Sub-Q; Site: right lower abdomen; ak1 21:23 Follow up: Response: No adverse reaction ak1 21:15 Drug: Zofran 4 mg Route: IVP; Site: right upper arm; ak1 21:22 Follow up: Response: No adverse reaction ak1 21:16 Drug: NS 0.9% 1000 ml Route: IV; Rate: 1 bolus; Site: right upper arm; ak1 23:09 Follow up: IV Status: Completed infusion; IV Intake: 1000ml ak1 21:16 Drug: Aspirin 81 mg Route: PO; ak1 21:22 Follow up: Response: No adverse reaction ak1 21:20 Drug: fentaNYL (PF) 25 mcg Route: IVP; Site: right upper arm; ak1 21:37 Follow up: Response: No adverse reaction; Pain is decreased; RASS: Alert and Calm (0) ak1 21:20 Drug: fentaNYL (PF) 25 mcg Route: IVP; Site: right upper arm; ak1 21:37 Follow up: Response: No adverse reaction; Pain is decreased; RASS: Alert and Calm (0) ak1 21:20 Drug: Xopenex 1.25 mg Route: Inhalation; ak1 21:20 Drug: AtroVENT Aerosol 0.5 mg Route: Inhalation; ak1 21:45 Drug: Tylenol 650 mg Route: PO; ak1 21:50 Follow up: Response: No adverse reaction ak1 21:45 Drug: SOLU-Medrol 125 mg Route: IVP; Site: right upper arm; ak1 21:50 Follow up: Response: No adverse reaction ak1 21:46 Drug: Xopenex 1.25 mg Route: Inhalation; ak1 21:57 Drug: levofloxacin 500 mg Volume: 100 ml; Route: IVPB; Infused Over: 60 mins; Site: [facility] right upper arm; 23:23 Follow up: Response: No adverse reaction; IV Status: Completed infusion; IV Intake: cc3 100ml 23:37 Drug: Magnesium Sulfate 2 grams {Note: sent up with pt for floor RN to continue .} ak1 Route: IVPB; Infused Over: 2 hrs; Site: right upper arm; 23:37 Follow up: IV Status: Infusion continued upon admission ak1 Point of Care Testing: Blood Glucose: 21:24 Blood Glucose: 180 mg/dL; ak1 Ranges: Critical Glucose Levels:Adult <50 mg/dl or >400 mg/dl <40 mg/dl or >180 mg/dl Disposition: 07/08/19 20:55 Hospitalization ordered by Austyn Lorenzo for Inpatient Admission. Preliminary diagnosis are Other chest pain, Chronic obstructive pulmonary disease, unspecified, Essential (primary) hypertension, Tobacco abuse counseling, Tobacco use, Type 2 diabetes mellitus, Obesity, unspecified, Unspecified kidney failure - insufficency, Hypomagnesemia. - Bed requested for Telemetry/MedSurg (Inpatient). - Status is Inpatient Admission. ak1 - Condition is Fair. - Problem is new. - Symptoms have improved. UTI on Admission? No Signatures: Dispatcher [employer] EDMS Ruma Dodge RN RN aj1 Toby Figueroa MD MD cha Krenek, Amber RN RN ak1 Sun Orellana RN RN Becca Espinoza cc3 Corrections: (The following items were deleted from the chart) 21:58 20:55 Hospitalization Ordered by Austyn Lorenzo DO for Inpatient Admission. Preliminary cg diagnosis is Other chest pain; Chronic obstructive pulmonary disease, unspecified; Essential (primary) hypertension; Tobacco abuse counseling; Tobacco use; Type 2 diabetes mellitus; Obesity, unspecified. Bed requested for Telemetry/MedSurg (Inpatient). Status is Inpatient Admission. Condition is Fair. Problem is new. Symptoms have improved. UTI on Admission? No. hannah 22:01 21:58 07/08/2019 20:55 Hospitalization Ordered by Austyn Lorenzo DO for Inpatient cg Admission. Preliminary diagnosis is Other chest pain; Chronic obstructive pulmonary disease, unspecified; Essential (primary) hypertension; Tobacco abuse counseling; Tobacco use; Type 2 diabetes mellitus; Obesity, unspecified. Bed requested for Telemetry/MedSurg (Inpatient). Status is Inpatient Admission. Condition is Fair. Problem is new. Symptoms have improved. UTI on Admission? No. cg 22:07 22:01 07/08/2019 20:55 Hospitalization Ordered by Austyn Lorenzo DO for Inpatient hannah Admission. Preliminary diagnosis is Other chest pain; Chronic obstructive pulmonary disease, unspecified; Essential (primary) hypertension; Tobacco abuse counseling; Tobacco use; Type 2 diabetes mellitus; Obesity, unspecified. Bed requested for Telemetry/MedSurg (Inpatient). Status is Inpatient Admission. Condition is Fair. Problem is new. Symptoms have improved. UTI on Admission? No. cg 23:38 22:07 07/08/2019 20:55 Hospitalization Ordered by Austyn Lorenzo DO for Inpatient ak1 Admission. Preliminary diagnosis is Other chest pain; Chronic obstructive pulmonary disease, unspecified; Essential (primary) hypertension; Tobacco abuse counseling; Tobacco use; Type 2 diabetes mellitus; Obesity, unspecified; Unspecified kidney failure - insufficency; Hypomagnesemia. Bed requested for Telemetry/MedSurg (Inpatient). Status is Inpatient Admission. Condition is Fair. Problem is new. Symptoms have improved. UTI on Admission? No. hannah
[2019-07-08] MEDS ORDERED: ASPIRIN 81 MG CHEWABLE TABLET ONE ×2 (20:58)
[2019-07-08] MEDS ORDERED: ONDANSETRON 4 MG/2 ML VIAL ONE (20:59)
[2019-07-08] MEDS ORDERED: ENOXAPARIN 100 MG/ML SYR SQ ONE (20:59)
[2019-07-08] MEDS ORDERED: FENTANYL CITR 100 MCG/2 ML ONE (20:59)
[2019-07-08] MEDS ORDERED: IPRATROPIUM BROM 0.5MG/2.5ML ONE (21:06)
[2019-07-08] MEDS ORDERED: LEVALBUTEROL 1.25 MG/3 ML NEB ONE ×2 (21:06→21:41)
[2019-07-08 21:23] LABS: Absolute Lymphocytes (CBC) 3.1 K/uL (0.7-4.9); Basophils % 1.1 % (0-1.3); Hematocrit 32.2 % (36.0-45.0); Lymphocytes % 27.1 % (15.3-44.8); RBC Red Blood Cell Count 3.88 M/uL (3.86-4.86)
[2019-07-08 21:39] LABS: Protime INR 0.97
[2019-07-08] MEDS ORDERED: ACETAMINOPHEN 325 MG TABLET ONE (21:41)
[2019-07-08] MEDS ORDERED: METHYLPREDNISOLONE 125 MG INJ ONE (21:41)
[2019-07-08] MEDS ORDERED: Levofloxacin500mg IV 500 MG/100 ML BAG IV ONE (21:55)
[2019-07-08 22:02] LABS: ALT/SGPT 22 U/L (12-78); AST/SGOT 17 U/L (15-37); Albumin 2.4 g/dL (3.4-5.0); Alkaline Phosphatase 112 U/L (45-117); BUN Blood Urea Nitrogen 15 mg/dL (7-18); Bicarbonate 30 mmol/L (21-32); Bilirubin Direct < 0.1 mg/dL (0-0.2); Bilirubin Total 0.1 mg/dL (0.2-1.0); Glucose Level 148 mg/dL (74-106); NT PRO-BNP 177 pg/mL (<125); Potassium 4.1 mmol/L (3.5-5.1); Protein, Total 6.9 g/dL (6.4-8.2); Sodium Level 136 mmol/L (136-145); Troponin (Emerg Dept Use Only) < 0.02 ng/mL (0.0-0.045)
[2019-07-08 22:05] LABS: Magnesium 1.3 mg/dL (1.8-2.4)
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
[2019-07-08] MEDS ORDERED: NITROGLYCERIN 0.4 MG/TAB SL PRN (22:42)
[2019-07-08] MEDS ORDERED: ALBUTEROL 2.5 MG/3 ML NEB SOL NEB PRN (22:42)
[2019-07-08] MEDS ORDERED: ACETAMINOPHEN 500 MG TAB PO PRN (22:42)
[2019-07-08] MEDS ORDERED: ONDANSETRON 4 MG/2 ML VIAL IV PRN (22:42)
[2019-07-08] MEDS ORDERED: Magnesium Sulfate 2gm IVPB 2 G/50 ML BAG IV ONE (23:35)
[2019-07-09] MEDS: NICOTINE 21 MG/PAT TD SCH ×2 (00:17→08:47)
[2019-07-09 00:36] LABS: CKMB Creatine Kinase MB 1.5 ng/mL (0.3-3.6); Creatine Phosphokinase 218 U/L (26-192); Ferritin 172.4 ng/mL (8-388); Transferrin 155 mg/dL (200-360); Troponin I < 0.02 ng/mL (0.0-0.045)
[2019-07-09 01:26] LABS: Urine Appearance CLEAR; Urine Bilirubin NEGATIVE (NEG); Urine Blood NEGATIVE (NEG); Urine Color YELLOW; Urine Glucose NEGATIVE (NEG); Urine Protein 2+ (NEG); Urine Specific Gravity >=1.030 (1.005-1.030); Urine Urobilinogen 0.2 mg/dL (0.2-1.0); Urine pH 5.5 (5.0-7.0)
[2019-07-09 01:35] LABS: Urine Microscopic Reflex ORDER UMIC
[2019-07-09 03:32] LABS: Urine Bacteria <20 /HPF (<20); Urine Culture Reflex Order NOT NEEDED; Urine RBC <5 /HPF (NONE SEEN)
[2019-07-09] MEDS: METOPROLOL XL 100 MG TAB PO SCH ×2 (05:04→17:03)
[2019-07-09 06:16] LABS: Absolute Lymphocytes (CBC) 1.3 K/uL (0.7-4.9); Basophils % 0.3 % (0-1.3); Hematocrit 29.2 % (36.0-45.0); Lymphocytes % 11.3 % (15.3-44.8); MPV 9.7 fL (7.6-11.3); RBC Red Blood Cell Count 3.66 M/uL (3.86-4.86)
[2019-07-09] MEDS: ARFORMOTEROL TARTRATE 15 MCG/2 ML VIAL.NEB NEB SCH ×2 (08:00→20:00)
[2019-07-09 08:13] LABS: CKMB Creatine Kinase MB 1.7 ng/mL (0.3-3.6); Creatine Phosphokinase 272 U/L (26-192); Troponin I < 0.02 ng/mL (0.0-0.045)
[2019-07-09 08:21] LABS: Magnesium 1.7 mg/dL (1.8-2.4); Potassium 5.2 mmol/L (3.5-5.1); Thyroid Stimulating Hormone 0.683 uIU/mL (0.360-3.740)
[2019-07-09] MEDS: CLOPIDOGREL 75 MG TABLET PO SCH (08:46)
[2019-07-09] MEDS: ASPIRIN EC 81 MG TAB PO SCH (08:46)
[2019-07-09] MEDS: ENOXAPARIN 40 MG/0.4 ML SQ SCH (08:46)
[2019-07-09] MEDS: INSULIN -REGULAR HUMAN 50 UNIT/0.5 ML ML SQ SCH ×4 (08:46→21:43)
[2019-07-09] MEDS: predniSONE 20 MG TAB PO SCH ×2 (08:47→21:44)
[2019-07-09] MEDS: DILTIAZEM HCL 180 MG SR CAP PO SCH (08:47)
[2019-07-09] MEDS: FAMOTIDINE 20 MG TAB PO SCH (08:47)
[2019-07-09] MEDS ORDERED: FAMOTIDINE 20 MG TAB PO SCH (09:00)
[2019-07-09 09:38] LABS: Anisocytosis 1+; Blood Morphology Comment NOTED (NOT SEEN); Platelet Estimate INCR; Poikilocytosis 1+; Urine White Blood Cell Casts OK
--- NOTE | 2019-07-09 11:43 | RAD REPORT ---
EXAM DESCRIPTION: RAD - Chest Single View - 07/08/2019 9:27 pm CLINICAL HISTORY: CHEST PAIN Chest pain. COMPARISON: Chest Single View dated 04/21/2019; Chest Single View dated 06/03/2018; Abdomen 1 View (KUB ) dated 12/18/2017; Chest Single View dated 04/17/2017; Angio Aorta For Dissection dated 07/08/2019 FINDINGS: Portable technique limits examination quality. Prominent diffuse COPD. Mild interstitial pulmonary edema suspected. The heart is moderately enlarged . No displaced fractures. IMPRESSION: Mild CHF.
[2019-07-09] MEDS ORDERED: SOD POLYSTYREN SUL 15 GM/60 ML UCUP PO ONE (12:01)
[2019-07-09] MEDS ORDERED: D50W 25 GM/50 ML SYRINGE IV PRN (12:49)
[2019-07-09] MEDS: INSULIN GLARGINE 100 UNITS/ML SQ SCH (13:11)
[2019-07-09] MEDS: NA CHLORIDE 0.9% 1,000 ML IV SCH (13:13)
--- NOTE | 2019-07-09 14:15 | EKG ---
Test Date: 2019-07-08 Test Time: 20:32:42 Supervisor Dials: GORGE MEASUREMENT RESULTS: Intervals: Rate: 106 LA: 224 QRSD: 66 QT: 322 QTc: 427 [place]: P: 83 LA: 224 QRS: 52 T: 77 INTERPRETIVE STATEMENTS: Sinus tachycardia with 1st degree AV block Septal infarct, age undetermined Abnormal ECG Compared to ECG 04/21/2019 20:08:18 First degree AV block now present Myocardial infarct finding now present Sinus rhythm no longer present Electronically Signed On 07-09-19 14:13:29 CDT by Malcolm Delacrzu
[2019-07-09 15:40] LABS: Creatine Phosphokinase 388 U/L (26-192); Troponin I < 0.02 ng/mL (0.0-0.045)
[2019-07-09] MEDS ORDERED: INSULIN -REGULAR HUMAN 50 UNIT/0.5 ML ML IV ONE ×2 (16:00→19:00)
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
[2019-07-09] MEDS: INSULIN LISPRO 100 UNIT/1 ML SQ SCH (16:56)
[2019-07-09] MEDS ORDERED: MAGNESIUM SULFATE 1 gm IVPB 1 GM/100 ML BAG IV ONE (17:00)
[2019-07-09] MEDS: IPRATROPIUM BROM 0.5MG/2.5ML NEB PRN (20:00)
[2019-07-09] MEDS ORDERED: TRAMADOL HCL 50 MG TAB PO PRN (20:06)
[2019-07-09] MEDS: HOME MED 1 EA UNK (Gabapentin [Gralise] 600 MG) PO SCH (21:00)
[2019-07-09 21:07] LABS: Potassium 4.7 mmol/L (3.5-5.1)
[2019-07-09] MEDS: ATORVASTATIN 40 MG TAB PO SCH (21:44)
[2019-07-10] MEDS: NA CHLORIDE 0.9% 1,000 ML IV SCH ×2 (01:13→14:40)
[2019-07-10] MEDS: METOPROLOL XL 100 MG TAB PO SCH ×2 (05:59→17:49)
[2019-07-10] MEDS: ARFORMOTEROL TARTRATE 15 MCG/2 ML VIAL.NEB NEB SCH ×3 (06:05→20:00)
[2019-07-10] MEDS: IPRATROPIUM BROM 0.5MG/2.5ML NEB PRN (06:05)
[2019-07-10 06:24] LABS: Absolute Lymphocytes (CBC) 1.7 K/uL (0.7-4.9); Basophils % 0.5 % (0-1.3); Hematocrit 27.5 % (36.0-45.0); Lymphocytes % 8.2 % (15.3-44.8); MPV 8.1 fL (7.6-11.3); RBC Red Blood Cell Count 3.35 M/uL (3.86-4.86)
[2019-07-10 06:38] LABS: Albumin 2.5 g/dL (3.4-5.0); Bilirubin Total 0.2 mg/dL (0.2-1.0); Potassium 4.8 mmol/L (3.5-5.1); Protein, Total 6.6 g/dL (6.4-8.2)
[2019-07-10] MEDS: INSULIN -REGULAR HUMAN 50 UNIT/0.5 ML ML SQ SCH ×5 (07:30→21:30)
[2019-07-10 08:43] LABS: Blood Morphology Comment NOT SEEN (NOT SEEN); Platelet Estimate ADEQ
[2019-07-10] MEDS: CLOPIDOGREL 75 MG TABLET PO SCH (09:00)
[2019-07-10] MEDS: HOME MED 1 EA UNK (Gabapentin [Gralise] 600 MG) PO SCH ×2 (09:00→21:00)
[2019-07-10] MEDS: NICOTINE 21 MG/PAT TD SCH (09:26)
[2019-07-10] MEDS: predniSONE 20 MG TAB PO SCH (09:27)
[2019-07-10] MEDS: FAMOTIDINE 20 MG TAB PO SCH (09:27)
[2019-07-10] MEDS: INSULIN LISPRO 100 UNIT/1 ML SQ SCH ×3 (09:27→17:49)
[2019-07-10] MEDS: ASPIRIN EC 81 MG TAB PO SCH (09:27)
[2019-07-10] MEDS: DILTIAZEM HCL 180 MG SR CAP PO SCH (09:28)
[2019-07-10] MEDS: INSULIN GLARGINE 100 UNITS/ML SQ SCH (09:28)
[2019-07-10] MEDS: ENOXAPARIN 40 MG/0.4 ML SQ SCH (09:30)
[2019-07-10 10:23] LABS: Phosphorus 5.3 mg/dL (2.5-4.9)
[2019-07-10] MEDS ORDERED: GLUCAGON 1 MG/VIAL IM PRN (11:38)
[2019-07-10] MEDS ORDERED: NA CHLORIDE 0.9% 1,000 ML IV ONE (12:00)
[2019-07-10] MEDS: PSEUDOEPHEDRINE 30 MG TAB PO SCH ×2 (12:41→21:32)
[2019-07-10] MEDS ORDERED: NA CHLORIDE 0.9% 1,000 ML IV SCH (18:00)
[2019-07-10] MEDS ORDERED: INSULIN GLARGINE 100 UNITS/ML SQ SCH (21:00)
[2019-07-10] MEDS: ATORVASTATIN 40 MG TAB PO SCH (21:31)
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
[2019-07-11 03:13] VITALS: O2SAT 96
[2019-07-11 04:57] VITALS: BMI 45.3
[2019-07-11] MEDS: METOPROLOL XL 100 MG TAB PO SCH (05:47)
[2019-07-11] MEDS: CLOPIDOGREL 75 MG TABLET PO SCH (08:07)
[2019-07-11] MEDS: DILTIAZEM HCL 180 MG SR CAP PO SCH (08:07)
[2019-07-11] MEDS: ASPIRIN EC 81 MG TAB PO SCH (08:07)
[2019-07-11] MEDS: FAMOTIDINE 20 MG TAB PO SCH (08:07)
[2019-07-11] MEDS: ENOXAPARIN 40 MG/0.4 ML SQ SCH ×2 (08:10→08:17)
[2019-07-11] MEDS: NICOTINE 21 MG/PAT TD SCH (08:10)
[2019-07-11] MEDS: INSULIN GLARGINE 100 UNITS/ML SQ SCH (08:11)
[2019-07-11] MEDS: INSULIN LISPRO 100 UNIT/1 ML SQ SCH (08:11)
[2019-07-11 08:31] VITALS: BP 135/70; TEMP 97.3
[2019-07-11 08:49] LABS: Potassium 4.3 mmol/L (3.5-5.1)
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
--- NOTE | 2019-07-11 11:21 | RAD REPORT ---
EXAM DESCRIPTION: Abdomen Pelvis W Contrast CLINICAL HISTORY: Upper abdomen pain COMPARISON: None. TECHNIQUE: CT ABDOMEN PELVIS WITH IV CONTRAST on 07/08/2019 10:27 PM CDT This exam was performed according to our departmental dose-optimization program, which includes autom ated exposure control, adjustment of the mA and/or kV according to patient size and/or use of iterati ve reconstruction technique. FINDINGS: Lower lungs are clear. Abdomen: The liver is normal in appearance. There is no biliary dilatation. Gallbladder is normal in appearance. There is fatty in attenuation. The pancreas and spleen are normal in appearance. Right ad renal low-density nodule measures 1.9 cm. Left low density adrenal nodule measures 1.5 cm. Kidneys ar e unremarkable. Abdominal aorta is normal in course and caliber without aneurysm. There is no free air. There is no r etroperitoneal adenopathy. Pelvis: There is no bowel obstruction. Urinary bladder is unremarkable. There is no free fluid. Appen diego is normal. Skeleton: There are no acute osseous findings. No suspicious bony lesions. IMPRESSION: No acute inflammatory process. Bilateral probable adrenal adenomas. Electronically signed by: Efren Graves MD 07/08/2019 11:27 PM CDT Due to temporary technical issues with the PACS/Fluency reporting system, reports are being signed by the in house radiologist as a courtesy to ensure prompt reporting. The interpreting radiologist is f ully responsible for the content of the report.
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
[2019-07-11] MEDS ORDERED: INSULIN GLARGINE 100 UNITS/ML SQ SCH (21:00)
[2019-07-12] MEDS ORDERED: predniSONE 10 MG TAB PO SCH (09:00)
== END 2019-07-11 09:45 | disposition home or self-care (01) | DRG 191 ==
LOC: ER 20:22 → 2ND 22:21 → OBSVTOIN 07-09 12:00
PROVIDERS: ADMIT Family Medicine; ATTEND Family Medicine
DX: J44.1 Chronic obstructive pulmonary disease with (acute) exacerbation (principal); I25.110 Atherosclerotic heart disease of native coronary artery with unstable angina pectoris; J96.10 Chronic respiratory failure, unspecified whether with hypoxia or hypercapnia; N17.9 Acute kidney failure, unspecified; E87.2 Acidosis; E87.1 Hypo-osmolality and hyponatremia; Z68.42 Body mass index [BMI] 45.0-49.9, adult; M62.82 Rhabdomyolysis; C34.90 Malignant neoplasm of unspecified part of unspecified bronchus or lung; Z99.81 Dependence on supplemental oxygen; E11.22 Type 2 diabetes mellitus with diabetic chronic kidney disease; E11.65 Type 2 diabetes mellitus with hyperglycemia; I12.9 Hypertensive chronic kidney disease with stage 1 through stage 4 chronic kidney disease, or unspecified chronic kidney disease; N18.3 Chronic kidney disease, stage 3 (moderate); E78.2 Mixed hyperlipidemia; E83.42 Hypomagnesemia; E87.5 Hyperkalemia; E66.01 Morbid (severe) obesity due to excess calories; K21.9 Gastro-esophageal reflux disease without esophagitis; G47.33 Obstructive sleep apnea (adult) (pediatric); F17.210 Nicotine dependence, cigarettes, uncomplicated
CPT/HCPCS: 36415; 71045; 71275; 74175; 80048; 80053; 80061; 80076; 81003; 81015; 82550; 82553; 82607; 82728; 82947; 82962; 83540; 83605; 83690; 83735; 83880; 84100; 84145; 84439; 84443; 84466; 84484; 85025; 85610; 87040; 87804; 93005; 94660; 96361; 96365; 96372; 96375; 99285; G0378; J1650; J2405; J2930; J3010; J3475; J7030; J7512; J7605; Q9967

== ENCOUNTER 2019-08-01 12:48 | Observation (INO) | payer OTHER ==
[2019-08-01 14:25] LABS: Absolute Lymphocytes (CBC) 3.6 K/uL (0.7-4.9); Basophils % 1.3 % (0-1.3); Hematocrit 32.9 % (36.0-45.0); Lymphocytes % 34.9 % (15.3-44.8); MPV 7.7 fL (7.6-11.3); RBC Red Blood Cell Count 3.96 M/uL (3.86-4.86)
[2019-08-01 14:26] LABS: Protime INR 0.95
--- NOTE | 2019-08-01 14:28 | EDPHYS ---
Physician Documentation [facility] Name: Tammy Walsh Age: 64 yrs Sex: Female : 1955 Arrival Date: 08/01/2019 Time: 12:49 Bed 26 Private MD: ED Physician Toby Figueroa HPI: 08/01 14:21 This 64 yrs old Black Female presents to ER via Wheelchair with complaints of Chest hannah Pain. 14:21 The patient or guardian reports chest pain that is located primarily in the substernal hannah area, anterior chest wall. Onset: just prior to arrival, this morning. The pain does not radiate. Associated signs and symptoms: The patient has no apparent associated signs or symptoms. The chest pain is described as a pressure. Severity of pain: At its worst the pain was mild moderate in the emergency department the pain is unchanged. The patient has experienced similar episodes in the past, several times. Historical: - Allergies: 12:57 Hydrocodone-Acetaminophen (Sever Itching); bp - PMHx: 12:57 COPD; Diabetes - NIDDM; Gastroparesis; Hypertension; Myocardial infarction; bp - Immunization history:: Adult Immunizations up to date. - Social history:: Smoking status: Patient uses tobacco products, smokes one pack cigarettes per day. - Ebola Screening: : No symptoms or risks identified at this time. - Family history:: not pertinent. ROS: 14:21 Constitutional: Negative for fever, chills, and weight loss, Eyes: Negative for injury, hannah pain, redness, and discharge, ENT: Negative for injury, pain, and discharge, Neck: Negative for injury, pain, and swelling, Respiratory: Negative for shortness of breath, cough, wheezing, and pleuritic chest pain, Abdomen/GI: Negative for abdominal pain, nausea, vomiting, diarrhea, and constipation, Back: Negative for injury and pain, : Negative for injury, bleeding, discharge, and swelling, MS/Extremity: Negative for injury and deformity, Skin: Negative for injury, rash, and discoloration, Neuro: Negative for headache, weakness, numbness, tingling, and seizure, Psych: Negative for depression, anxiety, suicide ideation, homicidal ideation, and hallucinations, Allergy/Immunology: Negative for hives, rash, and allergies, Endocrine: Negative for neck swelling, polydipsia, polyuria, polyphagia, and marked weight changes, Hematologic/Lymphatic: Negative for swollen nodes, abnormal bleeding, and unusual bruising. 14:21 Cardiovascular: Positive for chest pain, of the chest. Exam: 14:21 Constitutional: This is a well developed, well nourished patient who is awake, alert, hannah and in no acute distress. Head/Face: Normocephalic, atraumatic. Eyes: Pupils equal round and reactive to light, extra-ocular motions intact. Lids and lashes normal. Conjunctiva and sclera are non-icteric and not injected. Cornea within normal limits. Periorbital areas with no swelling, redness, or edema. ENT: Nares patent. No nasal discharge, no septal abnormalities noted. Tympanic membranes are normal and external auditory canals are clear. Oropharynx with no redness, swelling, or masses, exudates, or evidence of obstruction, uvula midline. Mucous membranes moist. Neck: Trachea midline, no thyromegaly or masses palpated, and no cervical lymphadenopathy. Supple, full range of motion without nuchal rigidity, or vertebral point tenderness. No Meningismus. Chest/axilla: Normal chest wall appearance and motion. Nontender with no deformity. No lesions are appreciated. Cardiovascular: Regular rate and rhythm with a normal S1 and S2. No gallops, murmurs, or rubs. Normal PMI, no JVD. No pulse deficits. Respiratory: Lungs have equal breath sounds bilaterally, clear to auscultation and percussion. No rales, rhonchi or wheezes noted. No increased work of breathing, no retractions or nasal flaring. Abdomen/GI: Soft, non-tender, with normal bowel sounds. No distension or tympany. No guarding or rebound. No evidence of tenderness throughout. Back: No spinal tenderness. No costovertebral tenderness. Full range of motion. Female : Normal external genitalia. Skin: Warm, dry with normal turgor. Normal color with no rashes, no lesions, and no evidence of cellulitis. MS/ Extremity: Pulses equal, no cyanosis. Neurovascular intact. Full, normal range of motion. Neuro: Awake and alert, GCS 15, oriented to person, place, time, and situation. Cranial nerves II-XII grossly intact. Motor strength 5/5 in all extremities. Sensory grossly intact. Cerebellar exam normal. Normal gait. Psych: Awake, alert, with orientation to person, place and time. Behavior, mood, and affect are within normal limits. Vital Signs: 12:58 BP 151 / 60; Pulse 98; Resp 20; Temp 97.8; Pulse Ox 97% ; Weight 115.21 kg; Height 5 bp ft. 5 in. (165.10 cm); 14:56 BP 116 / 65; Pulse 93; Resp 17; Temp 98.4(O); Pulse Ox 97% ; lt1 16:00 BP 132 / 67; Pulse 95; Resp 18; Pulse Ox 98% on R/A; aj1 17:00 BP 107 / 51; Pulse 92; Resp 20; Pulse Ox 96% on R/A; aj1 12:58 Body Mass Index 42.27 (115.21 kg, 165.10 cm) bp NIH Stroke Scale Scores: 14:29 NIHSS Score: 0 hannah Procedures: 14:29 Peripheral line: by aseptic technique a peripheral line was placed in the left external hannah jugular vein. MDM: 13:12 Patient medically screened. hannah 14:24 Data reviewed: vital signs, nurses notes, lab test result(s), EKG, radiologic studies, the [facility] CT scan, plain films. 08/01 13:13 Order name: Basic Metabolic Panel; Complete Time: 15:36 [facility] 08/01 13:13 Order name: CBC with Diff; Complete Time: 15:36 [facility] 08/01 13:13 Order name: LFT's; Complete Time: 15:36 [facility] 08/01 13:13 Order name: Magnesium; Complete Time: 15:36 [facility] 08/01 13:13 Order name: NT PRO-BNP; Complete Time: 15:36 [facility] 08/01 13:13 Order name: PT-INR; Complete Time: 15:36 [facility] 08/01 13:13 Order name: Troponin (emerg Dept Use Only); Complete Time: 15:36 [facility] 08/01 13:13 Order name: XRAY Chest (1 view); Complete Time: 15:36 [facility] 08/01 13:13 Order name: Lipase; Complete Time: 15:36 [facility] 08/01 13:13 Order name: Urine Culture [facility] 08/01 13:13 Order name: EKG; Complete Time: 13:15 [facility] 08/01 13:13 Order name: Cardiac monitoring; Complete Time: 13:18 [facility] 08/01 13:13 Order name: EKG - Nurse/Tech; Complete Time: 13:18 [facility] 08/01 13:13 Order name: IV Saline Lock; Complete Time: 14:25 [facility] 08/01 13:13 Order name: Labs collected and sent; Complete Time: 14:25 [facility] 08/01 13:13 Order name: O2 Per Protocol; Complete Time: 13:17 [facility] 08/01 13:13 Order name: O2 Sat Monitoring; Complete Time: 13:17 [facility] Administered Medications: 14:36 Drug: morphine 4 mg {Note: RASS score 1 patient is restless.} Route: IVP; Site: left aj1 jugular; 15:21 Follow up: Response: No adverse reaction; Pain is decreased; RASS: Alert and Calm (0) [facility] 14:37 Drug: Zofran 4 mg Route: IVP; Site: left jugular; aj1 15:21 Follow up: Response: No adverse reaction aj1 15:08 Drug: Aspirin 162 mg Route: PO; ca1 15:21 Follow up: Response: No adverse reaction [facility] 15:55 Drug: Magnesium Sulfate 1 grams Route: IVPB; Infused Over: 1 hrs; Site: left jugular; ca1 17:06 Follow up: IV Status: Completed infusion; IV Intake: 100ml aj Disposition: 08/01/19 14:26 Hospitalization ordered by Shayna Pleitez for Inpatient Admission. Preliminary diagnosis are Other chest pain, Obesity, unspecified, Type 2 diabetes mellitus, Hypomagnesemia, Unspecified kidney failure. - Bed requested for Telemetry/MedSurg (Inpatient). - Status is Inpatient Admission. aj1 - Condition is Stable. - Problem is new. - Symptoms have improved. UTI on Admission? No NIH Stroke Scale - NIH Stroke Score Date: 08/01/2019 Time: 14:29 Total Score = 0 1a. Level of Consciousness (LOC) - 0(Alert) 1b. Level of Consciousness (LOC) (Year \T\ Age) - 0(Both) 1c. LOC Commands (Open \T\ Closes Eyes/Cooling System Operator) - 0(Both) 2. Best Gaze (Lateral Gaze Paresis) - 0(Normal) 3. Visual Field Loss - 0(No visual loss) 4. Facial Palsy - 0(Normal) 5a. Left Arm: Motor (10-second hold) - 0(No drift) 5b. Right Arm: Motor (10-second hold) - 0(No drift) 6a. Left Leg: Motor (5-second hold - always test supine) - 0(No drift) 6b. Right Leg: Motor (5-second hold - always test supine) - 0(No drift) 7. Limb Ataxia (finger/nose \T\ heel/kyle - test with eyes open) - 0(Absent) 8. Sensory Loss (pinprick arms/legs/face) - 0(Normal) 9. Best Language: Aphasia (description/naming/reading) - 0(No aphasia) 10. Dysarthria (speech clarity - read or repeat words) - 0(Normal) 11. Extinction and Inattention (visual/tactile/auditory/spatial/personal) - 0(No abnormality) Initials: hannah Signatures: Dispatcher [employer] EDMS Ruma Dodge RN RN aj1 Liliana Parada RN RN dw Anderson, Corey, MD MD cha Peltier, Brian, RN RN bp Acob, Cheryl, RN RN ca1 Corrections: (The following items were deleted from the chart) 16:13 14:26 Hospitalization Ordered by Shayna Pleitez MD for Inpatient Admission. [facility] Preliminary diagnosis is Other chest pain; Obesity, unspecified; Type 2 diabetes mellitus. Bed requested for Telemetry/MedSurg (Inpatient). Status is Inpatient Admission. Condition is Stable. Problem is new. Symptoms have improved. UTI on Admission? No. hannah 17:06 16:13 08/01/2019 14:26 Hospitalization Ordered by Shayna Pleitez MD for Inpatient Admission. Preliminary diagnosis is Other chest pain; Obesity, unspecified; Type 2 diabetes mellitus; Hypomagnesemia; Unspecified kidney failure. Bed requested for Telemetry/MedSurg (Inpatient). Status is Inpatient Admission. Condition is Stable. Problem is new. Symptoms have improved. UTI on Admission? No. hannah 18:08 17:06 08/01/2019 14:26 Hospitalization Ordered by Shayna Pleitez MD for Inpatient aj1 Admission. Preliminary diagnosis is Other chest pain; Obesity, unspecified; Type 2 diabetes mellitus; Hypomagnesemia; Unspecified kidney failure. Bed requested for Telemetry/MedSurg (Inpatient). Status is Inpatient Admission. Condition is Stable. Problem is new. Symptoms have improved. UTI on Admission? No.
--- NOTE | 2019-08-01 14:28 | ER ---
Nurse's Notes [facility] Name: Tammy Walsh Age: 64 yrs Sex: Female : 1955 Arrival Date: 08/01/2019 Time: 12:49 Bed 26 Private MD: Diagnosis: Other chest pain;Obesity, unspecified;Type 2 diabetes mellitus;Hypomagnesemia;Unspecified kidney failure Presentation: 08/01 12:57 Presenting complaint: Patient states: SUBSTERNAL CHEST PAIN x2 HR, RELIEVED WITH NTG. bp Transition of care: patient was not received from another setting of care. Onset of symptoms is unknown. Risk Assessment: Do you want to hurt yourself or someone else? Patient reports no desire to harm self or others. Initial Sepsis Screen: Does the patient meet any 2 criteria? No. Patient's initial sepsis screen is negative. Does the patient have a suspected source of infection? No. Patient's initial sepsis screen is negative. Care prior to arrival: Medication(s) given: Nitroglycerin, 0.4 mg SL x 1. 12:57 Method Of Arrival: Wheelchair bp 12:57 Acuity: PATRICIA 2 bp Historical: - Allergies: 12:57 Hydrocodone-Acetaminophen (Sever Itching); bp - PMHx: 12:57 COPD; Diabetes - NIDDM; Gastroparesis; Hypertension; Myocardial infarction; bp - Immunization history:: Adult Immunizations up to date. - Social history:: Smoking status: Patient uses tobacco products, smokes one pack cigarettes per day. - Ebola Screening: : No symptoms or risks identified at this time. - Family history:: not pertinent. Screenin:00 Abuse screen: Denies threats or abuse. Denies injuries from another. Nutritional aj1 screening: No deficits noted. Tuberculosis screening: No symptoms or risk factors identified. 18:07 Fall Risk None identified. aj1 Assessment: 13:00 General: Appears uncomfortable, Behavior is cooperative, anxious. Pain: Complains of aj1 pain in mid-sternal area Pain does not radiate. Pain currently is 9 out of 10 on a pain scale. Quality of pain is described as sharp, Pain began 2 hours ago. Neuro: Level of Consciousness is awake, alert, obeys commands, Oriented to person, place, time, situation. Cardiovascular: Reports chest pain, Heart tones S1 S2 present Patient's skin is warm and dry. Rhythm is regular. Cardiovascular: Denies diaphoresis, nausea, palpitations. Respiratory: Reports shortness of breath Airway is patent Respiratory effort is even, unlabored, Respiratory pattern is symmetrical, Breath sounds are clear bilaterally. GI: No signs and/or symptoms were reported involving the gastrointestinal system. : No signs and/or symptoms were reported regarding the genitourinary system. EENT: No signs and/or symptoms were reported regarding the EENT system. Derm: No signs and/or symptoms reported regarding the dermatologic system. Skin is pink, warm \T\ dry. normal. Musculoskeletal: No signs and/or symptoms reported regarding the musculoskeletal system. Circulation, motion, and sensation intact. 14:00 Reassessment: Patient appears in no apparent distress at this time. No changes from aj1 previously documented assessment. Patient and/or family updated on plan of care and expected duration. Pain level reassessed. Patient is alert, oriented x 3, equal unlabored respirations, skin warm/dry/pink. 14:30 Reassessment: Patient states that she would like medication for pain and something for aj1 muscle spasms as well. Reports that she is having muscle spasms in her upper back. Notified Dr. Figueroa. Order received. 15:00 Reassessment: Patient and/or family updated on plan of care and expected duration. Pain aj1 level reassessed. General: Appears in no apparent distress. comfortable, Behavior is calm, cooperative, appropriate for age. Pain: Pain currently is 4 out of 10 on a pain scale. Neuro: Level of Consciousness is awake, alert, obeys commands. Cardiovascular: Patient's skin is warm and dry. Rhythm is sinus rhythm. Respiratory: Airway is patent Respiratory effort is even, unlabored, Respiratory pattern is regular, symmetrical. Derm: No signs and/or symptoms reported regarding the dermatologic system. Skin is pink, warm \T\ dry. normal. 16:00 Reassessment: Patient appears in no apparent distress at this time. No changes from aj1 previously documented assessment. Patient and/or family updated on plan of care and expected duration. Pain level reassessed. Patient is alert, oriented x 3, equal unlabored respirations, skin warm/dry/pink. 17:04 Reassessment: Patient and/or family updated on plan of care and expected duration. Pain aj1 level reassessed. General: Appears in no apparent distress. comfortable, Behavior is calm, cooperative, appropriate for age. Neuro: Level of Consciousness is awake, alert, obeys commands, Oriented to person, place, time, situation. Cardiovascular: Patient's skin is warm and dry. Rhythm is sinus rhythm. Respiratory: Airway is patent Respiratory effort is even, unlabored, Respiratory pattern is regular, symmetrical. GI: No signs and/or symptoms were reported involving the gastrointestinal system. : No signs and/or symptoms were reported regarding the genitourinary system. EENT: No signs and/or symptoms were reported regarding the EENT system. Derm: No signs and/or symptoms reported regarding the dermatologic system. Skin is pink, warm \T\ dry. normal. Musculoskeletal: No signs and/or symptoms reported regarding the musculoskeletal system. Circulation, motion, and sensation intact. 17:45 Reassessment: Patient appears in no apparent distress at this time. No changes from aj1 previously documented assessment. Patient and/or family updated on plan of care and expected duration. Pain level reassessed. Patient is alert, oriented x 3, equal unlabored respirations, skin warm/dry/pink. Vital Signs: 12:58 BP 151 / 60; Pulse 98; Resp 20; Temp 97.8; Pulse Ox 97% ; Weight 115.21 kg; Height 5 bp ft. 5 in. (165.10 cm); 14:56 BP 116 / 65; Pulse 93; Resp 17; Temp 98.4(O); Pulse Ox 97% ; lt1 16:00 BP 132 / 67; Pulse 95; Resp 18; Pulse Ox 98% on R/A; aj1 17:00 BP 107 / 51; Pulse 92; Resp 20; Pulse Ox 96% on R/A; aj1 12:58 Body Mass Index 42.27 (115.21 kg, 165.10 cm) bp NIH Stroke Scale Scores: 14:29 NIHSS Score: 0 hannah ED Course: 12:49 Patient arrived in ED. as 12:57 Triage completed. bp 12:58 Arm band placed on. EKG completed in triage. Results shown to MD. bp 12:59 Ruma Dodge, RN is Primary Nurse. aj1 13:00 Patient has correct armband on for positive identification. classroom monitor on. Pulse aj1 ox on. NIBP on. 13:00 No provider procedures requiring assistance completed. Patient maintains SpO2 aj1 saturation greater than 95% on room air. 13:12 Toby Figueroa MD is Attending Physician. hannah 14:25 Shayna Pleitez MD is Hospitalizing Provider. hannah 14:28 XRAY Chest (1 view) In Process Unspecified. EDMS 16:07 EKG done, by biomedical instrument technician. reviewed by Toby Figueroa MD. sm3 18:07 Patient admitted, IV remains in place. aj1 Administered Medications: 14:36 Drug: morphine 4 mg {Note: RASS score 1 patient is restless.} Route: IVP; Site: left aj1 jugular; 15:21 Follow up: Response: No adverse reaction; Pain is decreased; RASS: Alert and Calm (0) aj1 14:37 Drug: Zofran 4 mg Route: IVP; Site: left jugular; aj1 15:21 Follow up: Response: No adverse reaction aj1 15:08 Drug: Aspirin 162 mg Route: PO; ca1 15:21 Follow up: Response: No adverse reaction aj1 15:55 Drug: Magnesium Sulfate 1 grams Route: IVPB; Infused Over: 1 hrs; Site: left jugular; ca1 17:06 Follow up: IV Status: Completed infusion; IV Intake: 100ml aj1 Intake: 17:06 IV: 100ml; Total: 100ml. aj1 Outcome: 14:26 Decision to Hospitalize by Provider. hannah 18:07 Admitted to Tele accompanied by tech, via stretcher, with chart. aj1 18:07 Condition: good 18:07 Discharge instructions given to patient, Instructed on the need for admit, Demonstrated understanding of instructions. 18:08 Patient left the ED. aj1 NIH Stroke Scale - NIH Stroke Score Date: 08/01/2019 Time: 14:29 Total Score = 0 1a. Level of Consciousness (LOC) - 0(Alert) 1b. Level of Consciousness (LOC) (Year \T\ Age) - 0(Both) 1c. LOC Commands (Open \T\ Closes Eyes/Taping Supervisor) - 0(Both) 2. Best Gaze (Lateral Gaze Paresis) - 0(Normal) 3. Visual Field Loss - 0(No visual loss) 4. Facial Palsy - 0(Normal) 5a. Left Arm: Motor (10-second hold) - 0(No drift) 5b. Right Arm: Motor (10-second hold) - 0(No drift) 6a. Left Leg: Motor (5-second hold - always test supine) - 0(No drift) 6b. Right Leg: Motor (5-second hold - always test supine) - 0(No drift) 7. Limb Ataxia (finger/nose \T\ heel/kyle - test with eyes open) - 0(Absent) 8. Sensory Loss (pinprick arms/legs/face) - 0(Normal) 9. Best Language: Aphasia (description/naming/reading) - 0(No aphasia) 10. Dysarthria (speech clarity - read or repeat words) - 0(Normal) 11. Extinction and Inattention (visual/tactile/auditory/spatial/personal) - 0(No abnormality) Initials: hannah Signatures: Dispatcher [employer] Ruma Irene RN RN aj1 Toby Figueroa MD MD cha Martinez, Adolph Ann RN RN Tasha uSltana sm3 Sarika Sneed RN RN ca1 Mirlande Worthy lt1
[2019-08-01] MEDS ORDERED: MORPHINE 4 MG/ML SYR ONE (14:29)
[2019-08-01] MEDS ORDERED: ONDANSETRON 4 MG/2 ML VIAL ONE (14:29)
[2019-08-01 14:48] LABS: BUN Blood Urea Nitrogen 24 mg/dL (7-18); Bicarbonate 26 mmol/L (21-32); Glucose Level 212 mg/dL (74-106); Potassium 4.1 mmol/L (3.5-5.1); Sodium Level 135 mmol/L (136-145)
[2019-08-01 14:49] LABS: ALT/SGPT 22 U/L (12-78); AST/SGOT 18 U/L (15-37); Albumin 2.4 g/dL (3.4-5.0); Alkaline Phosphatase 108 U/L (45-117); Bilirubin Direct < 0.1 mg/dL (0-0.2); Lipase 135 U/L (73-393); Magnesium 1.7 mg/dL (1.8-2.4); NT PRO-BNP 186 pg/mL (<125); Protein, Total 7.1 g/dL (6.4-8.2); Troponin (Emerg Dept Use Only) < 0.02 ng/mL (0.0-0.045)
--- NOTE | 2019-08-01 14:52 | RAD REPORT ---
EXAM DESCRIPTION: RAD - Chest Single View - 08/01/2019 2:27 pm CLINICAL HISTORY: Chest pain COMPARISON: July 08 TECHNIQUE: AP portable chest image was obtained 1414 hours . FINDINGS: Motion degradation is present. Large body habitus also contributes to limited evaluation. No focal mass or consolidations seen. Cardiac silhouette is enlarged similar to comparison. No vascul ar engorgement. Trachea is midline. No measurable pleural effusion and no pneumothorax. No acute bony abnormality seen. No acute aortic findings suspected. IMPRESSION: Motion degraded, limited examination showing no acute cardiopulmonary finding. No significant change from comparison.
[2019-08-01 14:54] LABS: Bilirubin Total < 0.1 mg/dL (0.2-1.0)
[2019-08-01] MEDS ORDERED: ASPIRIN EC 81 MG TAB PO ONE (15:07)
[2019-08-01] MEDS ORDERED: MAGNESIUM SULFATE 1 gm IVPB 1 GM/100 ML BAG IV ONE (15:50)
--- NOTE | 2019-08-01 15:50 | EKG ---
Test Date: 2019-08-01 Test Time: 12:55:59 Java Tech: STACEY MEASUREMENT RESULTS: Intervals: Rate: 98 MA: 186 QRSD: 66 QT: 330 QTc: 421 Alpha: P: 80 MA: 186 QRS: 42 T: 77 INTERPRETIVE STATEMENTS: Normal sinus rhythm Normal ECG Compared to ECG 07/08/2019 20:32:42 Sinus tachycardia no longer present First degree AV block no longer present Myocardial infarct finding no longer present Electronically Signed On 08-01-19 15:49:52 CDT by Eloy Kapadia
[2019-08-01] MEDS: INSULIN -REGULAR HUMAN 50 UNIT/0.5 ML ML SQ SCH ×2 (17:50→19:50)
[2019-08-01] MEDS ORDERED: MORPHINE 4 MG/ML SYR IV PRN (17:50)
[2019-08-01] MEDS ORDERED: ALPRAZOLAM 0.25 MG TABLET PO PRN (17:50)
[2019-08-01] MEDS ORDERED: NITROGLYCERIN 0.4 MG/TAB SL PRN (17:50)
--- NOTE | 2019-08-01 17:52 | P.HP ---
Certification for Inpatient Patient admitted to: Observation With expected LOS: <2 Midnights Practitioner: I am a practitioner with admitting privileges, knowledge of patient current condition, hospital course, and medical plan of care. Services: Services provided to patient in accordance with Admission requirements found in Title 42 Section 412.3 of the Code of Federal Regulations Patient History Date of Service: 08/01/19 Primary Care Provider: Dr. Huff Reason for admission: Chest pain History of Present Illness: This is a 64-year-old female with past medical history of nicotine dependence, COPD, hypertension, myocardial infarction 2003, diabetes who presents to the emergency room with complaints of chest pain. Patient complains of right-sided and mid sternal chest pain that started when she was lying on her couch, radiating to her back and up to her throat. She describes it as a steady common BD pain that has been progressively getting worse. She did take nitro x3. The pain improved with this but returned afterwards and got progressively worse. This pain is associated with shortness of breath and lightheadedness. She states that any movement worsens this. No alleviating factors. She also started to have some right arm pain and the pain was so unbearable that she came to the emergency room. In the ER, blood pressure was 151/60, heart rate of 98, respirations of 20, afebrile at 97.8 and satting 97% on room air. His labs were remarkable for creatinine slightly elevated at 1.51 and blood sugars elevated to 212. Troponin was negative x1. EKG was normal sinus rhythm. Chest x-ray without any acute abnormalities. In the ER, she received morphine, Zofran, aspirin and magnesium. At the time of my exam, she was alert oriented x3, in no acute distress and hemodynamically stable. She stated that the pain was still there, she could feel it but not as bad as when she 1st came in. Allergies hydrocodone Allergy (Intermediate, Verified 07/08/19 23:50) Itching Hydrocodone-Acetaminophen Allergy (Uncoded 07/08/19 23:50) Itching Home medications list reviewed: Yes Home Medications: Aspirin Enteric Coated [ASPIRIN 81 MG EC*] 81 mg PO DAILY 07/29/13 Clopidogrel Bisulfate [Plavix*] 75 mg PO DAILY 07/29/13 Metformin HCl [Glucophage*] 1,000 mg PO BID 07/29/13 Nitroglycerin [place] [Nitrolingual [place]*] 4.9 gm TL PRN PRN 08/10/13 Dexlansoprazole [Dexilant] 60 mg PO DAILY 05/06/16 Gabapentin [Gralise] 600 mg PO BID 06/13/16 Metoprolol Succinate [Toprol Xl] 1 pill PO BID 11/19/16 Insulin Glargine,Hum.rec.anlog [Lantus] 65 units SQ AMB AD NAS 07/08/19 Diltiazem Cd [Cardizem Cd] 180 mg PO DAILY #0 cap 07/11/19 Insulin Lispro [Humalog*] 8 unit SQ TIDWM #1 vial 07/11/19 predniSONE [Deltasone*] 10 mg PO DAILY #5 tab 07/11/19 - Past Medical/Surgical History Diabetic: Yes -: Hypertension -: COPD, chronic oxygen use -: Diabetes mellitus type 2, non insulin dependent -: CAD -: History of TIA -: Hyperlipidemia -: Obstructive sleep apnea on CPAP -: Tobacco abuse -: Cholecystectomy -: Tubal -: -: Exploratory laparoscopic -: Breast biopsy Psychosocial/ Personal History: Patient is , lives at home - Family History mom -: Hypertension, Cancer Notes: lung cx dad -: Heart disease, Hypertension - Social History Alcohol use: Yes CD- Drugs: No Caffeine use: Yes Review of Systems 10-point ROS is otherwise unremarkable Physical Examination - Physical Exam General: Alert, In no apparent distress, Oriented x3, Obese HEENT: Atraumatic, PERRLA, Mucous membr. moist/pink, EOMI, Sclerae nonicteric Neck: Supple, 2+ carotid pulse no bruit, No LAD, Without JVD or thyroid abnormality Respiratory: Clear to auscultation bilaterally, Normal air movement Cardiovascular: Regular rate/rhythm, Normal S1 S2 Gastrointestinal: Normal bowel sounds, No tenderness Musculoskeletal: No tenderness Integumentary: No rashes Neurological: Normal gait, Normal speech, Normal strength at 5/5 x4 extr, Normal tone, Normal affect Lymphatics: No axilla or inguinal lymphadenopathy - Studies Laboratory Data (last 24 hrs) 08/01/19 14:05: PT 11.2, INR 0.95 08/01/19 14:05: WBC 10.2, Hgb 10.8 L, Hct 32.9 L, Plt Count 553 H 08/01/19 14:05: Sodium 135 L, Potassium 4.1, BUN 24 H, Creatinine 1.51 H, Glucose 212 H, Magnesium 1.7 L, Total Bilirubin < 0.1 L, AST 18, ALT 22, Alkaline Phosphatase 108, Lipase 135 Assessment and Plan - Problems (Diagnosis) (1) Chest pain Onset Date: 05/06/16 Current Visit: No Status: Acute Plan: Admit to floor with tele -Heart score:4 -troponin negative x1. Trend troponin -EKG with normal sinus rhythm -chest pain guidelines: Beta-yosvany, aspirin, Plavix, statin and IVIS-inhibitor -morphine for pain control -sublingual nitro as needed -echo ordered, pending -cardiology consults, waiting recommendations Qualifiers: Chest pain type: unspecified Qualified Code(s): R07.9 - Chest pain, unspecified (2) Coronary artery disease Current Visit: No Status: Chronic Qualifiers: Coronary Disease-Associated Artery/Lesion type: [place] artery [place] vs. transplanted heart: [place] heart Associated angina: with stable angina Qualified Code(s): I25.118 - Atherosclerotic heart disease of [place] coronary artery with other forms of angina pectoris (3) Essential hypertension Current Visit: No Status: Chronic Plan: Stable, continue to monitor and adjust medications as needed (4) Diabetes mellitus Current Visit: Yes Status: Acute Plan: Accu-Cheks, mild sliding scale insulin -monitor blood sugars and adjust as needed Qualifiers: Diabetes mellitus type: type 2 Diabetes mellitus nursing home insulin use: without middle or intermediate school principal use Diabetes mellitus complication status: with hyperglycemia Qualified Code(s): E11.65 - Type 2 diabetes mellitus with hyperglycemia (5) ARSENIO (acute kidney injury) Current Visit: Yes Status: Acute Plan: Unsure if patient with underlying chronic renal disease. -gentle hydration -monitor kidney function via labs -avoid nephrotoxic medications (6) Hyperlipidemia Current Visit: No Status: Chronic Plan: Continue statin therapy Qualifiers: Hyperlipidemia type: mixed hyperlipidemia Qualified Code(s): E78.2 - Mixed hyperlipidemia (7) Nicotine dependence Current Visit: Yes Status: Chronic Plan: Counseled Qualifiers: Nicotine product type: cigarettes Substance use status: uncomplicated Qualified Code(s): F17.210 - Nicotine dependence, cigarettes, uncomplicated (8) Lung mass Current Visit: Yes Status: Acute Plan: Patient continues to have outpatient workup with Dr. Simmons -she will continue management as an outpatient (9) Adrenal mass Current Visit: Yes Status: Acute Plan: Patient states that she was also found to have an adrenal mass, workup is pending as an outpatient. She does have an appointment scheduled with a physician in [place] on . (10) Morbid obesity Current Visit: No Status: Chronic - Plan DVT prophylaxis: Aspirin/Plavix GI prophylaxis: None Diet: Heart healthy Disposition: Pending symptomatic improvement. Anticipate discharge in the next 24 hr once cleared by Cardiology Discharge Plan: Home Plan to discharge in: 48 Hours - Advance Directives Does patient have a Living Will: No Does patient have a Durable POA for Healthcare: No Time Spent Managing Pts Care (In Minutes): 55
[2019-08-01] MEDS: METOPROLOL TAR 25 MG TAB PO SCH (19:48)
[2019-08-01 19:51] VITALS: BMI 42.5
[2019-08-01 20:52] LABS: Urine Appearance CLOUDY; Urine Bilirubin NEGATIVE (NEG); Urine Blood NEGATIVE (NEG); Urine Color YELLOW; Urine Glucose 1+ (NEG); Urine Protein 3+ (NEG); Urine Urobilinogen 0.2 mg/dL (0.2-1.0)
[2019-08-01 20:53] LABS: Urine Microscopic Reflex ORDER UMIC
[2019-08-01 22:15] LABS: Urine Bacteria >50 /HPF (<20); Urine RBC <5 /HPF (NONE SEEN)
[2019-08-01 22:16] LABS: Urine Culture Reflex Order REFLEXED; Urine Mucus 2+ /HPF (NONE SEEN)
[2019-08-01 23:48] VITALS: O2SAT 96
--- NOTE | 2019-08-02 05:32 | EKG ---
Test Date: 2019-08-01 Test Time: 15:41:20 Mac Operator: ANETTE MEASUREMENT RESULTS: Intervals: Rate: 87 ND: 194 QRSD: 70 QT: 342 QTc: 411 [place]: P: 78 ND: 194 QRS: 83 T: 53 INTERPRETIVE STATEMENTS: Normal sinus rhythm Low voltage QRS Borderline ECG Compared to ECG 08/01/2019 12:55:59 Low QRS voltage now present Electronically Signed On 08-02-19 05:32:12 CDT by Eloy Kapadia
[2019-08-02] MEDS: INSULIN -REGULAR HUMAN 50 UNIT/0.5 ML ML SQ SCH ×2 (07:30→11:30)
[2019-08-02 07:31] LABS: Absolute Lymphocytes (CBC) 2.9 K/uL (0.7-4.9); Basophils % 0.8 % (0-1.3); Hematocrit 29.7 % (36.0-45.0); MPV 7.9 fL (7.6-11.3); RBC Red Blood Cell Count 3.61 M/uL (3.86-4.86)
[2019-08-02 07:39] LABS: Potassium 4.7 mmol/L (3.5-5.1)
[2019-08-02] MEDS: METOPROLOL TAR 25 MG TAB PO SCH (08:44)
[2019-08-02] MEDS ORDERED: ASPIRIN EC 81 MG TAB PO SCH (09:00)
[2019-08-02] MEDS ORDERED: D5 0.45 NS 1,000 ML IV SCH (09:00)
[2019-08-02] MEDS ORDERED: LISINOPRIL 10 MG TAB PO SCH (09:00)
[2019-08-02] MEDS ORDERED: CYCLOBENZAPRINE 10 MG TAB PO PRN (11:57)
[2019-08-02] MEDS ORDERED: NYSTATIN PO PRN (11:57)
--- NOTE | 2019-08-02 12:11 | EKG ---
Test Date: 2019-08-02 Test Time: 11:27:58 Metal Roofer: STACEY MEASUREMENT RESULTS: Intervals: Rate: 95 DC: 204 QRSD: 64 QT: 322 QTc: 404 [place]: P: 87 DC: 204 QRS: 65 T: 78 INTERPRETIVE STATEMENTS: Normal sinus rhythm Low voltage QRS Borderline ECG Compared to ECG 08/01/2019 15:41:20 No significant changes Electronically Signed On 08-02-19 12:10:01 CDT by Malcolm Delacruz
[2019-08-02] MEDS: INSULIN LISPRO 100 UNIT/1 ML SQ SCH ×2 (13:00→13:13)
[2019-08-02] MEDS ORDERED: ALBUTEROL INHALER 60 PUFF/8 GM IH SCH (13:00)
[2019-08-02] MEDS ORDERED: METOPROLOL XL 100 MG TAB PO SCH (14:00)
[2019-08-02] MEDS ORDERED: GABAPENTIN 300 MG CAP PO SCH (14:00)
--- NOTE | 2019-08-02 16:26 | ECHO ---
HEIGHT: 5 ft 5 in WEIGHT: 255 lb 0 oz DATE OF STUDY: 08/02/[address]: Shayna Pleitez MD 2-DIMENSIONAL: YES M.MODE: YES DOPPLER: YES COLOR FLOW: YES TDS: PORTABLE: DEFINITY: BUBBLE STUDY: DIAGNOSIS: CHEST PAIN CARDIAC HISTORY: CATHERIZATION: NO SURGERY: NO PROSTHETIC VALVE: NO PACEMAKER: NO MEASUREMENTS (cm) DIASTOLIC (NORMALS) SYSTOLIC (NORMALS) IVSd 1.4 (0.6-1.2) LA Diam 3.4 (1.9-4.0) LVEF 61% LVIDd 3.8 (3.5-5.7) LVIDs 2.6 (2.0-3.5) %FS 32% LVPWd 1.1 (0.6-1.2) Ao Diam 3.1 (2.0-3.7) 2 DIMENSIONAL ASSESSMENT: RIGHT ATRIUM: NORMAL LEFT ATRIUM: NORMAL RIGHT VENTRICLE: NORMAL LEFT VENTRICLE: NORMAL TRICUSPID VALVE: NORMAL MITRAL VALVE: NORMAL PULMONIC VALVE: NORMAL AORTIC VALVE: NORMAL PERICARDIAL EFFUSION: NONE AORTIC ROOT: NORMAL LEFT VENTRICULAR WALL MOTION: NORMAL DOPPLER/COLOR FLOW: NORMAL COMMENTS: NORMAL TWO DIMENSIONAL ECHOCARDIOGRAM WITH DOPPLER. NO WALL MOTION ABNORMALITY. NO EFFUSION. TECHNOLOGIST: BENTON SIGALA
[2019-08-02] MEDS ORDERED: SUCRALFATE 1 GM TABLET PO SCH (16:30)
[2019-08-02 16:44] VITALS: BP 112/57; TEMP 98
[2019-08-02] MEDS ORDERED: VENTOLIN IH SCH (17:00)
[2019-08-02] MEDS ORDERED: HOME MED 1 EA UNK (Metoprolol Succinate [Toprol Xl] 200 MG) PO SCH (21:00)
[2019-08-02] MEDS ORDERED: DILTIAZEM HCL 180 MG SR CAP PO SCH (21:00)
[2019-08-02] MEDS ORDERED: ATORVASTATIN 40 MG TAB PO SCH (21:00)
--- NOTE | 2019-08-03 00:11 | DS ---
Date of Discharge: 08/02/2019 Consultants: Dr. Delacruz with Cardiology. Procedures: None. Discharge Diagnoses: 1.Unstable angina, ACS ruled out. 2.Coronary artery disease, [place] artery and [place] heart, status post cardiac catheterization last year with angina. 3.Essential hypertension, stable. 4.Acute kidney injury versus acute on chronic kidney injury. 5.Lung mass. Patient does not want any further workup. Understands that this could be malignant. 6.Nicotine dependence with cigarette smoking, counseled. 7.Mixed hyperlipidemia, stable. 8.Diabetes mellitus type 2 with long-term use of insulin with hyperglycemia, uncontrolled. 9.Morbid obesity, body mass index of 42. Hospital Course: Patient is a 64-year-old female with past medical history of hypertension, hyperlip idemia, diabetes, coronary artery disease who has had a cardiac catheterization last year with no richie nts placed, comes in again with chest pain. Patient was admitted to the hospital. ACS was ruled out . Patient was seen by Cardiology, did not recommend any further invasive workup echocardiogram was o btained. Her triglyceride levels did show elevation, levels were 160. HDL was low. 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 Her kidney function was slightly above baseline, unclear if she has chronic kidney disease, narciso galvan, has had elevated kidney function since April of this year. Patient's pain improved, may be relat ed to her lung mass versus musculoskeletal pain. She has decided not to pursue any further diagnosis of her lung mass. She understands that this is very likely malignant and can spread leading to othe r morbidity and possibly even . She has seen Pulmonology in the past. Since she does not wish to have any chemotherapy or radiation therapy, no biopsy or bronchoscopy was done as outpatient. Brittany tania does follow with Pulmonology on an outpatient basis. She also has an adrenal nodule that was fo und incidentally last visit and is following up with urologist at the [facility] for further eval uation. The patient overall did well over the course of the hospital stay. She was then cleared for discharge from cardiac standpoint. Discharge Condition: Stable. Activity: As tolerated. Medications: As per medication reconciliation list. Followup: Follow up with primary care physician in 2-3 days. Follow up with organ tuner, Dr. Lilliam hogue in 2 weeks. Return to ER for worsening condition. Keep appointment with urologist at [facility] as scheduled. Physical Examination: General: Awake, alert, oriented, appears older than stated age. Morbidly obese female. CV: S1, S2. Regular rate and rhythm. Peripheral pulses present. Respiratory: Moving air well bilaterally. No wheezing or stridor. Gastrointestinal: Abdomen is soft, nontender, nondistended. Positive bowel sounds. Extremities: No clubbing, cyanosis, or edema. Neurologic: Nonfocal. SA/MODL Voice ID: [id number] Report ID: [id number]
--- NOTE | 2019-08-03 01:05 | CON ---
Date of Consultation: 08/02/[address] Pleitez's service on 08/01/2019. Patient was seen on 08/02/2019. Reason For Consultation: Chest pain. History Of Present Illness: Ms. Walsh is a 64-year-old black woman, who has a history of COPD, [place], coronary artery disease, hypertension, and dyslipidemia. Her last catheterization in 2018 cal[place] ws very minimal coronary artery disease. She has a history of gastroparesis. She apparently has a h istory of lung mass in the right upper lobe and she had decided not to do any workup on her. Marixa tly, because of her COPD, she has a very high risk for biopsy. The patient decided not to have any f urther workup or treatment for it, came in with right-sided chest pain, nonradiating. No nausea, vom iting, diaphoresis, PND, orthopnea, pedal edema, palpitations, or syncope. Her creatinine was 1.51. Magnesium was 1.7. Troponin and BNP were negative. Chest x-ray was negative. EKG showed nonspecif ic changes. The patient also has a history of sleep apnea. Allergies: SHE IS ALLERGIC TO CODEINE. Review of Systems: Negative. Social History: Negative. Family History: Negative. Medications: Listed by Dr. Pleitez. Physical Examination: Vital Signs: Stable. She was afebrile. HEENT: Negative. Neck: Supple with no bruit. Chest: Clear to auscultation and percussion. Cardiac: Revealed a regular rhythm and rate. No murmurs, gallops, or rubs. Abdomen: Benign. Extremities: Revealed no clubbing, cyanosis, or edema. Diagnostic Data: Diagnostic data that were available were stated earlier. Impression And Plan: Atypical chest pain, most likely pleuritic in nature. Recent catheterization a year ago showed minimal coronary artery disease. I doubt that she has progressed since her symptoms are not cardiac in nature. Echocardiogram has been ordered to rule out pericardial effusion or sandoval carditis. I do not think she is a candidate for a Lexiscan secondary to her weight. Her blood press ure, diabetes, COPD, and dyslipidemia seems to be well controlled. She needs to have her magnesium s upplemented. She has renal insufficiency that needs to be observed. Her sleep apnea is controlled w ith CPAP. Her obesity needs to be addressed, and she was counseled on diet, low-fat, low-cholesterol , low-salt diet. She has a pulmonary mass that she does not want have to be worked up because of her COPD and her risk factors. We will see what her echo shows prior to making any final decisions. RADHA Voice ID: [id number] Report ID: [id number]
[2019-08-03] MEDS ORDERED: INSULIN GLARGINE 100 UNITS/ML SQ SCH (09:00)
[2019-08-03] MEDS ORDERED: CLOPIDOGREL 75 MG TABLET PO SCH (09:00)
--- OUTSIDE RECORDS SUMMARY | 2019-08-27 19:58 | XMS REPORT ---
:1955 Author Organization [facility] Address [address] [place] [address] Dr. Colón [address] [place] [id number] Care Team Providers Name Role Phone CLINTON FROST I. Unavailable Unavailable Problems This patient has no known problems. Allergies, Adverse Reactions, Alerts This patient has no known allergies or adverse reactions. Medications This patient has no known medications. Results Test Description Test Time Test Comments Text Results Atomic Results Result Comments POCT-GLUCOSE METER 2019-08-22 17:11:00 Test Item Value Reference Range Comments POC-GLUCOSE METER (BEAKER) 330 mg/dL 70-110 : TESTED AT [address] (test nnkl=5794) [place], [address]: Application Dba/Commercial Intelligence Manager [id number] for Cha Valadez POCT-GLUCOSE [id number] 13:26:00 Test Item Value Reference Range Comments POC-GLUCOSE METER (BEAKER) 343 mg/dL 70-110 : TESTED AT [address] (test occv=5244) [facility], [address]: Application Dba/Commercial Intelligence Manager [id number] for TIMOTHYMOIZ ANDERSONT C-REACTIVE [id number] 11:30:00 Test Item Value Reference Range Comments C-REACTIVE PROTEIN (BEAKER) (test sxjl=524) 2.34 mg/dL 0.00-0.50 [id number] 11:27:00 Test Item Value Reference Range Comments FIBRINOGEN LEVEL (BEAKER) (test jwaq=127) 866 mg/dl 225-434 [id number] 11:24:00 Test Item Value Reference Range Comments D-DIMER QUANTITATIVE (BEAKER) (test leyz=862) 1.66 MG/L FEU <0.50 Intended Use: The D-Dimer Assay can be used to aid in the diagnosis of Deep Vein Thrombosis (DVT) and Pulmonary Embolism Disease (PED).In patients with low pre-test probability, various studies concerning STA Liatest D-dimer test have reported that with a cutoff value of 0.50 MG/L FEU, the Negative Predictive Value (NPV) regarding the exclusion of thrombosis is within 95-100% range.POCT- GLUCOSE [id number] 09:05:00 Test Item Value Reference Range Comments POC-GLUCOSE METER (BEAKER) 283 mg/dL 70-110 : TESTED AT [facility] [address] [facility] (test hfkd=3258) [facility], [address]: Application Dba/Commercial Intelligence Manager [id number] for OMEGA, JASON RAD, CHEST, 1 VIEW, NON [id number] 07:47:00Reason for exam:->CHFFINAL REPORT CLINICAL HISTORY: CHF TECHNIQUE: 1 view of the chest. COMPARISON: 08/19/2019 IMPRESSION: Pulmonary vascular congestive findings appear slightly decreased. There is no lobar consolidation or significant pleural fluid. Cardiomegaly is unchanged. Signed: Monisha Castro MDReport Verified Date/Time: 08/22/2019 07:47:58 Reading Location: [facility] Radiology Reading Room Electronically signed by: MONISHA CASTRO M.D. on 07:47 AMBASIC METABOLIC [id number] 05:32:00 Test Item Value Reference Range Comments SODIUM (BEAKER) (test 136 meq/L 136-145 kegk=086) POTASSIUM (BEAKER) (test 4.8 meq/L 3.5-5.1 rymr=035) CHLORIDE (BEAKER) (test 98 meq/L 98-107 xhng=594) CO2 (BEAKER) (test 31 meq/L 22-29 eaqg=206) BLOOD UREA NITROGEN 26 mg/dL 7-21 (BEAKER) (test vcuy=335) CREATININE (BEAKER) (test 1.54 mg/dL 0.57-1.25 jdvr=670) GLUCOSE RANDOM (BEAKER) 224 mg/dL 70-105 (test sayj=068) CALCIUM (BEAKER) (test 9.0 mg/dL 8.4-10.2 tikb=578) EGFR (BEAKER) (test 41 mL/min/1.73 sq m ESTIMATED GFR IS NOT yrmt=6821) ACCURATE CREATININE CLEARANCE IN PREDICTING GLOMERULAR FILTRATION RATE. ESTIMATED GFR IS NOT APPLICABLE FOR DIALYSIS PATIENTS. B-TYPE NATRIURETIC FACTOR (BNP)2019-08-22 05:21:00 Test Item Value Reference Range Comments B-TYPE NATRIURETIC PEPTIDE (BEAKER) (test wdaz=876) 15 pg/mL 0-100 CBC W/PLT COUNT & AUTO [id number] 04:59:00 Test Item Value Reference Range Comments WHITE BLOOD CELL COUNT (BEAKER) (test wtne=069) 9.1 K/ L 3.5-10.5 RED BLOOD CELL COUNT (BEAKER) (test iifa=032) 3.57 M/ L 3.93-5.22 HEMOGLOBIN (BEAKER) (test esje=312) 9.3 GM/DL 11.2-15.7 HEMATOCRIT (BEAKER) (test ftoh=480) 30.4 % 34.1-44.9 MEAN CORPUSCULAR VOLUME (BEAKER) (test xbyw=550) 85.2 fL 79.4-94.8 MEAN CORPUSCULAR HEMOGLOBIN (BEAKER) (test 26.1 pg 25.6-32.2 lgtq=415) MEAN CORPUSCULAR HEMOGLOBIN CONC (BEAKER) (test 30.6 GM/DL 32.2-35.5 ihjq=321) RED CELL DISTRIBUTION WIDTH (BEAKER) (test 14.9 % 11.7-14.4 xegt=951) PLATELET COUNT (BEAKER) (test iamz=346) 447 K/CU MM 150-450 MEAN PLATELET VOLUME (BEAKER) (test ojkc=228) 9.4 fL 9.4-12.3 NUCLEATED RED BLOOD CELLS (BEAKER) (test 0 /100 WBC 0-0 spde=215) NEUTROPHILS RELATIVE PERCENT (BEAKER) (test 64 % refh=257) LYMPHOCYTES RELATIVE PERCENT (BEAKER) (test 24 % awii=724) MONOCYTES RELATIVE PERCENT (BEAKER) (test 8 % wpwa=416) EOSINOPHILS RELATIVE PERCENT (BEAKER) (test 2 % hwdz=536) BASOPHILS RELATIVE PERCENT (BEAKER) (test 1 % kbim=975) NEUTROPHILS ABSOLUTE COUNT (BEAKER) (test 5.89 K/ L 1.56-6.13 thlg=928) LYMPHOCYTES ABSOLUTE COUNT (BEAKER) (test 2.23 K/ L 1.18-3.74 zacw=702) MONOCYTES ABSOLUTE COUNT (BEAKER) (test 0.75 K/ L 0.24-0.36 doar=007) EOSINOPHILS ABSOLUTE COUNT (BEAKER) (test 0.18 K/ L 0.04-0.36 farm=694) BASOPHILS ABSOLUTE COUNT (BEAKER) (test 0.06 K/ L 0.01-0.08 vjda=881) IMMATURE GRANULOCYTES-RELATIVE PERCENT (BEAKER) 0 % 0-1 (test ekul=5335) POCT-GLUCOSE [id number] 18:31:00 Test Item Value Reference Range Comments POC-GLUCOSE METER (BEAKER) 220 mg/dL 70-110 : TESTED AT [address] (test qefc=5590) [facility], [address]: Application Dba/Commercial Intelligence Manager [id number] for LEAH, AURA POCT-GLUCOSE [id number] 18:30:00 Test Item Value Reference Range Comments POC-GLUCOSE METER (BEAKER) 186 mg/dL 70-110 : TESTED AT [address] (test gumh=2919) [facility], [address]: Application Dba/Commercial Intelligence Manager [id number] for LEAH, AURA POCT-GLUCOSE [id number] 18:29:00 Test Item Value Reference Range Comments POC-GLUCOSE METER (BEAKER) 183 mg/dL 70-110 : Notified RN/MD: TESTED AT (test esem=0053) [address], [address]: Application Dba/Commercial Intelligence Manager [id number] for LEAH, AURA POCT-GLUCOSE [id number] 18:29:00 Test Item Value Reference Range Comments POC-GLUCOSE METER (BEAKER) 66 mg/dL 70-110 : Notified RN/MD: TESTED AT (test zkef=7497) [address], [address]: Application Dba/Commercial Intelligence Manager [id number] for LEAH, AURA POCT-GLUCOSE [id number] 18:29:00 Test Item Value Reference Range Comments POC-GLUCOSE METER (BEAKER) 49 mg/dL 70-110 : TESTED AT [address] (test ehby=6691) [facility], [address]: Application Dba/Commercial Intelligence Manager [id number] for LEAH, AURA CALCIUM, [id number] 10:55:00 Test Item Value Reference Range Comments CALCIUM IONIZED (BEAKER) (test zqff=714) 1.07 mmol/L 1.12-1.27 PH, BLOOD (BEAKER) (test izia=6692) 7.35 [id number] 08:46:00 Test Item Value Reference Range Comments MAGNESIUM (BEAKER) (test gpda=594) 2.4 mg/dL 1.6-2.6 BASIC METABOLIC [id number] 06:27:00 Test Item Value Reference Range Comments SODIUM (BEAKER) (test 138 meq/L 136-145 ocqu=892) POTASSIUM (BEAKER) (test 4.2 meq/L 3.5-5.1 vjjh=042) CHLORIDE (BEAKER) (test 99 meq/L 98-107 uevx=368) CO2 (BEAKER) (test 31 meq/L 22-29 ashy=169) BLOOD UREA NITROGEN 26 mg/dL 7-21 (BEAKER) (test ubkf=110) CREATININE (BEAKER) (test 1.59 mg/dL 0.57-1.25 ztdp=490) GLUCOSE RANDOM (BEAKER) 67 mg/dL 70-105 (test jfzm=014) CALCIUM (BEAKER) (test 9.3 mg/dL 8.4-10.2 zskm=198) EGFR (BEAKER) (test 40 mL/min/1.73 sq m ESTIMATED GFR IS NOT ocpc=1735) ACCURATE CREATININE CLEARANCE IN PREDICTING GLOMERULAR FILTRATION RATE. ESTIMATED GFR IS NOT APPLICABLE FOR DIALYSIS PATIENTS. CBC W/PLT COUNT & AUTO [id number] 05:23:00 Test Item Value Reference Range Comments WHITE BLOOD CELL COUNT (BEAKER) (test qlzt=437) 9.9 K/ L 3.5-10.5 RED BLOOD CELL COUNT (BEAKER) (test yfkc=551) 3.50 M/ L 3.93-5.22 HEMOGLOBIN (BEAKER) (test zzyd=572) 9.0 GM/DL 11.2-15.7 HEMATOCRIT (BEAKER) (test mtli=369) 29.3 % 34.1-44.9 MEAN CORPUSCULAR VOLUME (BEAKER) (test ftra=316) 83.7 fL 79.4-94.8 MEAN CORPUSCULAR HEMOGLOBIN (BEAKER) (test 25.7 pg 25.6-32.2 kcot=830) MEAN CORPUSCULAR HEMOGLOBIN CONC (BEAKER) (test 30.7 GM/DL 32.2-35.5 vhfb=711) RED CELL DISTRIBUTION WIDTH (BEAKER) (test 15.0 % 11.7-14.4 vvnf=886) PLATELET COUNT (BEAKER) (test zofx=531) 522 K/CU MM 150-450 MEAN PLATELET VOLUME (BEAKER) (test stnl=852) 9.5 fL 9.4-12.3 NUCLEATED RED BLOOD CELLS (BEAKER) (test 0 /100 WBC 0-0 eczl=500) NEUTROPHILS RELATIVE PERCENT (BEAKER) (test 66 % zdca=661) LYMPHOCYTES RELATIVE PERCENT (BEAKER) (test 25 % nrra=195) MONOCYTES RELATIVE PERCENT (BEAKER) (test 7 % lyee=682) EOSINOPHILS RELATIVE PERCENT (BEAKER) (test 1 % qtqe=549) BASOPHILS RELATIVE PERCENT (BEAKER) (test 1 % xibp=509) NEUTROPHILS ABSOLUTE COUNT (BEAKER) (test 6.46 K/ L 1.56-6.13 hrdv=588) LYMPHOCYTES ABSOLUTE COUNT (BEAKER) (test 2.44 K/ L 1.18-3.74 vdps=929) MONOCYTES ABSOLUTE COUNT (BEAKER) (test 0.71 K/ L 0.24-0.36 bbzc=857) EOSINOPHILS ABSOLUTE COUNT (BEAKER) (test 0.14 K/ L 0.04-0.36 qiuy=288) BASOPHILS ABSOLUTE COUNT (BEAKER) (test 0.06 K/ L 0.01-0.08 iism=070) IMMATURE GRANULOCYTES-RELATIVE PERCENT (BEAKER) 0 % 0-1 (test zygw=9741) POCT-GLUCOSE [id number] 21:59:00 Test Item Value Reference Range Comments POC-GLUCOSE METER (BEAKER) 242 mg/dL 70-110 : Notified RN/MD: TESTED AT (test yqht=8696) [address], [address]: Application Dba/Commercial Intelligence Manager [id number] for SHMUEL DUNCAN POCT-GLUCOSE [id number] 18:12:00 Test Item Value Reference Range Comments POC-GLUCOSE METER (BEAKER) 230 mg/dL 70-110 : Notified RN/MD: TESTED AT (test nssh=5132) [address], [address]: Application Dba/Commercial Intelligence Manager [id number] for KEHINDE LYNN [id number] 13:39:00 Test Item Value Reference Range Comments RPR SCREEN (BEAKER) (test hxne=955) Nonreactive Nonreactive POCT-GLUCOSE [id number] 12:07:00 Test Item Value Reference Range Comments POC-GLUCOSE METER (BEAKER) 142 mg/dL 70-110 : Notified RN/MD: TESTED AT (test ndmt=5169) [address], [address]: Application Dba/Commercial Intelligence Manager [id number] for KEHINDE LYNN POCT-GLUCOSE [id number] 10:56:00 Test Item Value Reference Range Comments POC-GLUCOSE METER (BEAKER) 116 mg/dL 70-110 : TESTED AT [address] (test stnm=1730) [facility], [address]: Application Dba/Commercial Intelligence Manager [id number] for KEHINDE LYNN HEMOGLOBIN [id number] 08:52:00 Test Item Value Reference Range Comments HEMOGLOBIN A1C (BEAKER) (test xcks=788) 10.3 % 4.3-6.1 BASIC METABOLIC [id number] 05:10:00 Test Item Value Reference Range Comments SODIUM (BEAKER) (test 138 meq/L 136-145 huez=375) POTASSIUM (BEAKER) (test 4.8 meq/L 3.5-5.1 ylkc=586) CHLORIDE (BEAKER) (test 101 meq/L 98-107 psym=738) CO2 (BEAKER) (test 30 meq/L 22-29 jqvf=687) BLOOD UREA NITROGEN 25 mg/dL 7-21 (BEAKER) (test kliw=258) CREATININE (BEAKER) (test 1.30 mg/dL 0.57-1.25 ojxw=292) GLUCOSE RANDOM (BEAKER) 168 mg/dL 70-105 (test yhur=642) CALCIUM (BEAKER) (test 9.2 mg/dL 8.4-10.2 pfuo=826) EGFR (BEAKER) (test 50 mL/min/1.73 sq m ESTIMATED GFR IS NOT aril=3181) ACCURATE CREATININE CLEARANCE IN PREDICTING GLOMERULAR FILTRATION RATE. ESTIMATED GFR IS NOT APPLICABLE FOR DIALYSIS PATIENTS. CBC W/PLT COUNT & AUTO [id number] 04:56:00 Test Item Value Reference Range Comments WHITE BLOOD CELL COUNT (BEAKER) (test hvtn=737) 12.3 K/ L 3.5-10.5 RED BLOOD CELL COUNT (BEAKER) (test udhc=433) 3.48 M/ L 3.93-5.22 HEMOGLOBIN (BEAKER) (test tafx=000) 9.2 GM/DL 11.2-15.7 HEMATOCRIT (BEAKER) (test ibvo=474) 29.2 % 34.1-44.9 MEAN CORPUSCULAR VOLUME (BEAKER) (test pfuf=881) 83.9 fL 79.4-94.8 MEAN CORPUSCULAR HEMOGLOBIN (BEAKER) (test 26.4 pg 25.6-32.2 bgos=089) MEAN CORPUSCULAR HEMOGLOBIN CONC (BEAKER) (test 31.5 GM/DL 32.2-35.5 rmis=861) RED CELL DISTRIBUTION WIDTH (BEAKER) (test 15.1 % 11.7-14.4 qlwv=701) PLATELET COUNT (BEAKER) (test njjm=948) 500 K/CU MM 150-450 MEAN PLATELET VOLUME (BEAKER) (test zyrz=759) 10.0 fL 9.4-12.3 NUCLEATED RED BLOOD CELLS (BEAKER) (test 0 /100 WBC 0-0 dnty=179) NEUTROPHILS RELATIVE PERCENT (BEAKER) (test 71 % qgnd=783) LYMPHOCYTES RELATIVE PERCENT (BEAKER) (test 21 % mbux=711) MONOCYTES RELATIVE PERCENT (BEAKER) (test 7 % xonk=094) EOSINOPHILS RELATIVE PERCENT (BEAKER) (test 1 % vkeg=288) BASOPHILS RELATIVE PERCENT (BEAKER) (test 1 % cjmb=717) NEUTROPHILS ABSOLUTE COUNT (BEAKER) (test 8.73 K/ L 1.56-6.13 ywyr=775) LYMPHOCYTES ABSOLUTE COUNT (BEAKER) (test 2.59 K/ L 1.18-3.74 zcwn=584) MONOCYTES ABSOLUTE COUNT (BEAKER) (test 0.81 K/ L 0.24-0.36 vjjc=632) EOSINOPHILS ABSOLUTE COUNT (BEAKER) (test 0.10 K/ L 0.04-0.36 lzrg=046) BASOPHILS ABSOLUTE COUNT (BEAKER) (test 0.06 K/ L 0.01-0.08 xbra=693) IMMATURE GRANULOCYTES-RELATIVE PERCENT (BEAKER) 0 % 0-1 (test tryw=2666) TSH/FREE T4 IF [id number] 04:12:00 Test Item Value Reference Range Comments THYROID STIMULATING HORMONE (BEAKER) (test 0.80 uIU/mL 0.35-4.94 zgfs=740) VITAMIN B12 AND [id number] 04:12:00 Test Item Value Reference Range Comments VITAMIN B12 (BEAKER) (test eiti=287) 733 pg/mL 213-816 FOLATE (BEAKER) (test pjgq=547) 10.6 ng/mL >=7.0 RAD, CHEST, 1 VIEW, NON [id number] 02:03:00Reason for exam:->respiratory distressShould this be performed at the bedside?->YesFINAL REPORT INDICATION: respiratory distress COMPARISON: None TECHNIQUE: Single frontal view of the chest. FINDINGS: Lungs and pleura: Diffuse pulmonary venous congestion with hazy borders compatible interstitial edema. No consolidative airspace. No effusion.Heart and mediastinum: Mild cardiomegaly. Moderate calcifications of the aortic arch.Osseous structures: No acute abnormality.Other: None. IMPRESSION: Pulmonary venous congestion with diffuse interstitial edema. An atypical pneumonia could have a similar appearance which would need to be excluded clinically. Signed: Archie Ramirez [facility] Verified Date/Time: 08/20/2019 02:03:23 TROPONIN [id number] 23:15:00 Test Item Value Reference Range Comments TROPONIN I (BEAKER) (test enyf=065) < ng/mL 0.00-0.03 Troponin I (TnI) levels must be interpreted in the context of the presenting symptoms and the clinical findings. Elevated TnI levels indicate myocardial damage, but are not specific for ischemic heart disease. Elevated TnI levels are seen in patients with other cardiac conditions (including myocarditis and congestive heart failure), and slight TnI elevations occur in patients with other conditions, including sepsis, renal failure, acidosis, acute neurological disease, and persistent tachyarrhythmia.LIPID [id number] 23:09:00 Test Item Value Reference Range Comments TRIGLYCERIDES (BEAKER) (test ppmg=565) 63 mg/dL CHOLESTEROL (BEAKER) (test hqjv=236) 124 mg/dL HDL CHOLESTEROL (CALLIE) (test sxls=893) 38 mg/dL LDL CHOLESTEROL CALCULATED (TULIOAKER) (test 73 mg/dL ksmr=576) Triglyceride Reference Range: Low Risk <150 Borderline 150- 199 High Risk 200-499 Very High Risk >=500Cholesterol Reference Range: Low Risk <200 Borderline 200-239 High Risk > 240HDL Cholesterol Reference Range: Low Risk >=60 High Risk <40LDL Cholesterol Reference Range: Optimal <100 Near Optimal 100-129 Borderline 130-159 High 160-189 Very High >=190CT, CTANG [id number] 20:23:00FINAL REPORT CT, BRAIN/STROKE PROTOCOL, CT, CEREBRAL PERFUSION ANALYSIS, CT, CAROTID , ANGIO, CT, CTANGIO BRAIN INDICATION: stroke COMPARISON: None TECHNIQUE: Rapid acquisition spiral images were obtained between the aortic arch and the cranial vertex during intravenous contrastinfusion to reconstruct axial images and angiographic 3D maximum intensity projections (MIP) .Three dimensional reformatted images were created at a dedicated workstation. Precontrast images of the brain were also obtained. Perfusion imaging technique:Arterial input function: ACAVenous outflow function: TorcularSite of normal perfusion: right anterior territory Stenosis evaluation reported in compliance with NASCET criteria. DOSE REDUCTION: Dose modulation, iterative reconstruction, and/or weight-based adjustment of the mA/kV was utilized to reduce the radiation dose to as low as reasonably achievable. FINDINGS:CTA head:There are areas of hypoattenuation with loss of jacobsen-white differentiation in the anterior left temporal lobe. No acute intracranial hemorrhage. There is no hydrocephalus or midline shift. The skull is intact. No intracranial aneurysm, focal stenosis, or proximal branch vessel occlusion. Left [employer]RA[employer] is predominantly supplied by P- comm. Diminutive vertebrobasilar system. The major intradural venous sinuses are patent. CTA neck:Great vessel origins: No occlusion or high-grade stenosis. Carotid arteries: No occlusion or high-grade stenosis. Vertebral arteries: Poor visualization of the bilateral vertebral arteries due to diminutive caliber. Moderate degenerative changes of the cervical spine. There is a 1.5 x 2 cm spiculated nodule in the posterior right lung apex. Emphysema inthe visualized lung apices. CT PERFUSION PARAMETRIC MAPS: CBF: Decreased in the left MCA territory.MTT: Elevated in the left MCA territory.CBV: Small region of decreased CBV in the left MCA territory, remainder symmetric.TTP: Elevated in the left MCA territory. IMPRESSION: 1.Small acute infarct in the left MCA territory, with a larger region of tissue at risk.2.No acute intracranial hemorrhage.3.Nocorresponding arterial occlusion or high-grade stenosis.4.Diminutive bilateral cervical vertebral arteries, poorly visualized.5.Incidental right lung apex spiculated nodule measuring up to 2 cm. These findings were discussed with CLINTON FROST MD on 08/19/2019 8:16 PM. Signed: Mckenzie Esquivel MDReport Verified Date/Time: 08/19/2019 20:23:29 CT, CAROTID, [id number] 20:23:00FINAL REPORT CT, BRAIN/ STROKE PROTOCOL, CT, CEREBRAL PERFUSION ANALYSIS, CT, CAROTID, ANGIO, CT, CTANGIO BRAIN INDICATION: stroke COMPARISON: None TECHNIQUE: Rapid acquisition spiral images were obtained between the aortic arch and the cranial vertex during intravenous contrastinfusion to reconstruct axial images and angiographic 3D maximum intensity projections (MIP) .Three dimensional reformatted images were created at a dedicated workstation. Precontrast images of the brain were also obtained. Perfusion imaging technique:Arterial input function: ACAVenous outflow function: TorcularSite of normal perfusion: right anterior territory Stenosis evaluation reported in compliance with NASCET criteria. DOSE REDUCTION: Dose modulation, iterative reconstruction, and/or weight-based adjustment of the mA/kV was utilized to reduce the radiation dose to as low as reasonably achievable. FINDINGS:CTA head:There are areas of hypoattenuation with loss of jacobsen-white differentiation in the anterior left temporal lobe. No acute intracranial hemorrhage. There is no hydrocephalus or midline shift. The skull is intact. No intracranial aneurysm, focal stenosis, or proximal branch vessel occlusion. Left [employer] is predominantly supplied by P- comm. Diminutive vertebrobasilar system. The major intradural venous sinuses are patent. CTA neck:Great vessel origins: No occlusion or high-grade stenosis. Carotid arteries: No occlusion or high-grade stenosis. Vertebral arteries: Poor visualization of the bilateral vertebral arteries due to diminutive caliber. Moderate degenerative changes of the cervical spine. There is a 1.5 x 2 cm spiculated nodule in the posterior right lung apex. Emphysema inthe visualized lung apices. CT PERFUSION PARAMETRIC MAPS: CBF: Decreased in the left MCA territory.MTT: Elevated in the left MCA territory.CBV: Small region of decreased CBV in the left MCA territory, remainder symmetric.TTP: Elevated in the left MCA territory. IMPRESSION: 1.Small acute infarct in the left MCA territory, with a larger region of tissue at risk.2.No acute intracranial hemorrhage.3.Nocorresponding arterial occlusion or high-grade stenosis.4.Diminutive bilateral cervical vertebral arteries, poorly visualized.5.Incidental right lung apex spiculated nodule measuring up to 2 cm. These findings were discussed with CLINTON FROST MD on 08/19/2019 8:16 PM. Signed: Mckenzie Esquivel Verified Date/Time: 08/19/2019 20:23:29 CT, CEREBRAL PERFUSION [id number] 20:23:00FINAL REPORT CT, BRAIN/STROKE PROTOCOL, CT, CEREBRAL PERFUSION ANALYSIS, CT, CAROTID , ANGIO, CT, CTANGIO BRAIN INDICATION: stroke COMPARISON: None TECHNIQUE: Rapid acquisition spiral images were obtained between the aortic arch and the cranial vertex during intravenous contrastinfusion to reconstruct axial images and angiographic 3D maximum intensity projections (MIP) .Three dimensional reformatted images were created at a dedicated workstation. Precontrast images of the brain were also obtained. Perfusion imaging technique:Arterial input function: ACAVenous outflow function: TorcularSite of normal perfusion: right anterior territory Stenosis evaluation reported in compliance with NASCET criteria. DOSE REDUCTION: Dose modulation, iterative reconstruction, and/or weight-based adjustment of the mA/kV was utilized to reduce the radiation dose to as low as reasonably achievable. FINDINGS:CTA head:There are areas of hypoattenuation with loss of jacobsen-white differentiation in the anterior left temporal lobe. No acute intracranial hemorrhage. There is no hydrocephalus or midline shift. The skull is intact. No intracranial aneurysm, focal stenosis, or proximal branch vessel occlusion. Left [employer] is predominantly supplied by P- comm. Diminutive vertebrobasilar system. The major intradural venous sinuses are patent. CTA neck:Great vessel origins: No occlusion or high-grade stenosis. Carotid arteries: No occlusion or high-grade stenosis. Vertebral arteries: Poor visualization of the bilateral vertebral arteries due to diminutive caliber. Moderate degenerative changes of the cervical spine. There is a 1.5 x 2 cm spiculated nodule in the posterior right lung apex. Emphysema inthe visualized lung apices. CT PERFUSION PARAMETRIC MAPS: CBF: Decreased in the left MCA territory.MTT: Elevated in the left MCA territory.CBV: Small region of decreased CBV in the left MCA territory, remainder symmetric.TTP: Elevated in the left MCA territory. IMPRESSION: 1.Small acute infarct in the left MCA territory, with a larger region of tissue at risk.2.No acute intracranial hemorrhage.3.Nocorresponding arterial occlusion or high-grade stenosis.4.Diminutive bilateral cervical vertebral arteries, poorly visualized.5.Incidental right lung apex spiculated nodule measuring up to 2 cm. These findings were discussed with CLINTON FROST MD on 08/19/2019 8:16 PM. Signed: Mckenzie Esquivel Verified Date/Time: 08/19/2019 20:23:29 CT, BRAIN/STROKE [id number] 20:23:00FINAL REPORT CT, BRAIN/STROKE PROTOCOL, CT, CEREBRAL PERFUSION ANALYSIS, CT, CAROTID, ANGIO, CT, CTANGIO BRAIN INDICATION: stroke COMPARISON: None TECHNIQUE: Rapid acquisition spiral images were obtained between the aortic arch and the cranial vertex during intravenous contrastinfusion to reconstruct axial images and angiographic 3D maximum intensity projections (MIP) .Three dimensional reformatted images were created at a dedicated workstation. Precontrast images of the brain were also obtained. Perfusion imaging technique:Arterial input function: ACAVenous outflow function: TorcularSite of normal perfusion: right anterior territory Stenosis evaluation reported in compliance with NASCET criteria. DOSE REDUCTION: Dose modulation, iterative reconstruction, and/or weight-based adjustment of the mA/kV was utilized to reduce the radiation dose to as low as reasonably achievable. FINDINGS:CTA head:There are areas of hypoattenuation with loss of jacobsen-white differentiation in the anterior left temporal lobe. No acute intracranial hemorrhage. There is no hydrocephalus or midline shift. The skull is intact. No intracranial aneurysm, focal stenosis, or proximal branch vessel occlusion. Left [employer] is predominantly supplied by P- comm. Diminutive vertebrobasilar system. The major intradural venous sinuses are patent. CTA neck:Great vessel origins: No occlusion or high-grade stenosis. Carotid arteries: No occlusion or high-grade stenosis. Vertebral arteries: Poor visualization of the bilateral vertebral arteries due to diminutive caliber. Moderate degenerative changes of the cervical spine. There is a 1.5 x 2 cm spiculated nodule in the posterior right lung apex. Emphysema inthe visualized lung apices. CT PERFUSION PARAMETRIC MAPS: CBF: Decreased in the left MCA territory.MTT: Elevated in the left MCA territory.CBV: Small region of decreased CBV in the left MCA territory, remainder symmetric.TTP: Elevated in the left MCA territory.
--- OUTSIDE RECORDS SUMMARY | 2019-08-27 19:58 | XMS REPORT ---
:1955 Author Organization [employer] Care Team Providers Name Role Phone Huff, Micki Provider Role Unavailable Allergies No Known Allergies Problems Problem Type Condition Code Onset Dates Condition Status Problem Depression F32.9 Active Problem HTN (hypertension) I10 Active Problem Inflammatory neuropathy G61.9 Active Problem Obstructive sleep apnea G47.33 Active Problem Cigarette smoker F17.210 Active Problem Stable angina I20.8 Active Problem Chronic stable angina I20.8 Active Problem Dermatitis L30.9 Active Problem 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 Active Problem Apnea, not elsewhere classified R06.81 Active Problem Slow transit constipation K59.01 Active Problem Pain in joint of right hand M25.541 Active Problem Hypoglycemia associated with type 2 E11.649 Active diabetes mellitus Problem Cigarette nicotine dependence F17.210 Active without complication Problem Routine gynecological examination Z01.419 Active Problem Adult general medical exam Z00.00 Active Problem Trigger finger of right thumb M65.311 Active Problem Trigger index finger of right hand M65.321 Active Problem CKD (chronic kidney disease), stage N18.3 Active III Problem Seasonal allergies J30.2 Active Problem Other chronic pain G89.29 Active Problem Angina of effort I20.8 Active Problem Neuropathy G62.9 Active Problem Essential hypertension I10 Active Problem skilled nursing current use of insulin Z79.4 Active Problem Gastro-esophageal reflux disease K21.9 Active without esophagitis Problem Type 2 diabetes mellitus with E11.65 Active hyperglycemia Problem Chronic maxillary sinusitis J32.0 Active Problem JOSUÉ (obstructive sleep apnea) G47.33 Active Problem Mixed hyperlipidemia E78.2 Active Problem Type 2 diabetes mellitus with other E11.29 Active diabetic kidney complication Problem Type 2 diabetes mellitus with E11.22 Active diabetic chronic kidney disease Problem Chronic obstructive pulmonary J44.0 Active disease with acute lower respiratory infection Problem Type 2 diabetes mellitus with other E11.69 Active specified complication Problem Unstable angina I20.0 Active Problem Gastroesophageal reflux disease, K21.9 Active esophagitis presence not specified Problem Hypomagnesemia E83.42 Active Problem Chronic obstructive pulmonary J44.9 Active disease Problem Chronic otitis externa of right H60.61 Active ear, unspecified type Problem Asthmatic bronchitis without J45.909 Active complication Problem Acute bronchitis, unspecified J20.9 Active organism Problem Gastroesophageal reflux disease K21.9 Active without esophagitis Problem Mass of both adrenal glands E27.8 Active Problem Cardiac disease I51.9 Active Problem Cough productive of yellow sputum R05 Active Problem Otalgia, right ear H92.01 Active Problem Allergic rhinitis J30.9 Active Problem Hyperlipidemia E78.5 Active Problem Tachycardia R00.0 Active Problem Obesity E66.9 Active Problem Diabetes mellitus type 2, E11.9 Active uncontrolled, without complications Problem Gastroparesis K31.84 Active Medications No Known Medications Results No Known Results Summary Purpose [employer] Submission
--- OUTSIDE RECORDS SUMMARY | 2019-08-27 19:59 | XMS REPORT ---
[...] Active Problem Essential hypertension I10 Active Problem longterm current use of insulin Z79.4 Active Problem [...]
== END 2019-08-02 17:30 | disposition home or self-care (01) ==
LOC: ER 12:48 → ERHOLD 15:46 → 4TH 17:40
PROVIDERS: ADMIT Family Medicine; ATTEND Family Medicine
DX: I25.110 Atherosclerotic heart disease of native coronary artery with unstable angina pectoris (principal); I10 Essential (primary) hypertension; R91.8 Other nonspecific abnormal finding of lung field; F17.210 Nicotine dependence, cigarettes, uncomplicated; E78.2 Mixed hyperlipidemia; N17.9 Acute kidney failure, unspecified; E11.65 Type 2 diabetes mellitus with hyperglycemia; E66.01 Morbid (severe) obesity due to excess calories; Z68.41 Body mass index [BMI] 40.0-44.9, adult; I25.2 Old myocardial infarction; J44.9 Chronic obstructive pulmonary disease, unspecified; Z99.81 Dependence on supplemental oxygen
CPT/HCPCS: 96365; 93005 ×3; 93306; 87088; 85025 ×2; 87086; 80048 ×2; 36415; 83735; 85610; 80061; 82962 ×6; 80076; 84484 ×3; 83690; 83880; 71045; 96375; 99285; J1815; J3475; J2405; G0378 ×3; 81003; 81015

== ENCOUNTER 2019-08-08 17:51 | Inpatient (IN) | payer OTHER ==
[2019-08-08] MEDS ORDERED: ALBUTEROL 2.5 MG/3 ML NEB SOL ONE (18:37)
--- NOTE | 2019-08-08 19:27 | RAD REPORT ---
EXAM DESCRIPTION: RAD - Chest Single View - 08/08/2019 6:58 pm CLINICAL HISTORY: Chest pain COMPARISON: August 01 TECHNIQUE: AP portable chest image was obtained 1851 hours . FINDINGS: No focal lung parenchymal process. Prominent soft tissues overlie the chest increasing den sity. This is an artifact of body habitus and portable technique. Heart and vasculature are normal. N o measurable pleural effusion and no pneumothorax. No acute bony abnormality seen. No acute aortic fi ndings suspected. IMPRESSION: No acute cardiopulmonary process. No significant change from comparison.
[2019-08-08 19:59] LABS: Absolute Lymphocytes (CBC) 3.3 K/uL (0.7-4.9); Hematocrit 30.5 % (36.0-45.0); Lymphocytes % 31.5 % (15.3-44.8); MPV 7.7 fL (7.6-11.3); RBC Red Blood Cell Count 3.72 M/uL (3.86-4.86)
[2019-08-08 20:02] LABS: Protime INR 0.94
[2019-08-08 20:31] LABS: ALT/SGPT 28 U/L (12-78); AST/SGOT 30 U/L (15-37); Albumin 2.6 g/dL (3.4-5.0); Alkaline Phosphatase 117 U/L (45-117); BUN Blood Urea Nitrogen 26 mg/dL (7-18); Bicarbonate 29 mmol/L (21-32); Bilirubin Direct < 0.1 mg/dL (0-0.2); Bilirubin Total 0.1 mg/dL (0.2-1.0); Creatine Phosphokinase 219 U/L (26-192); Glucose Level 99 mg/dL (74-106); Lipase 77 U/L (73-393); Magnesium 1.7 mg/dL (1.8-2.4); NT PRO-BNP 196 pg/mL (<125); Potassium 4.3 mmol/L (3.5-5.1); Protein, Total 7.3 g/dL (6.4-8.2); Sodium Level 140 mmol/L (136-145); Troponin (Emerg Dept Use Only) < 0.02 ng/mL (0.0-0.045)
[2019-08-08] MEDS ORDERED: LORazepam 2 MG/ML VIAL ONE (21:57)
[2019-08-08] MEDS ORDERED: predniSONE 20 MG TAB ONE (21:57)
--- NOTE | 2019-08-08 22:03 | ER ---
Nurse's Notes [facility] Name: Tammy Walsh Age: 64 yrs Sex: Female : 1955 Arrival Date: 08/08/2019 Time: 17:53 Bed 2 Private MD: Micki Huff Diagnosis: Shortness of breath;Chest Pain;Back Pain Presentation: 08/08 18:19 Presenting complaint: Patient states: midsternal chest pain started yesterday, SOB when iw lying back, productive cough. Transition of care: patient was not received from another setting of care. Onset of symptoms was August 07, 2019. Risk Assessment: Do you want to hurt yourself or someone else? Patient reports no desire to harm self or others. Initial Sepsis Screen: Does the patient meet any 2 criteria? No. Patient's initial sepsis screen is negative. Does the patient have a suspected source of infection? No. Patient's initial sepsis screen is negative. Care prior to arrival: None. 18:19 Method Of Arrival: Wheelchair iw 18:19 Acuity: PATRICIA 3 iw Historical: - Allergies: 18:21 Hydrocodone-Acetaminophen (Sever Itching); iw - PMHx: 18:21 COPD; Diabetes - NIDDM; Gastroparesis; Hypertension; Myocardial infarction; iw - PSHx: 18:21 Cholecystectomy; ; Hernia repair; Tubal ligation; iw - Social history:: Smoking status: Patient uses tobacco products, smokes one pack cigarettes per day. - Ebola Screening: : Patient negative for fever greater than or equal to 101.5 degrees Fahrenheit, and additional compatible Ebola Virus Disease symptoms Patient denies exposure to infectious person Patient denies travel to an Ebola-affected area in the 21 days before illness onset No symptoms or risks identified at this time. - Family history:: not pertinent. - Hospitalizations: : No recent hospitalization is reported. Screenin:38 Abuse screen: Denies threats or abuse. Nutritional screening: No deficits noted. ea Tuberculosis screening: No symptoms or risk factors identified. Fall Risk None identified. Assessment: 19:38 General: Appears uncomfortable, Behavior is calm, cooperative, appropriate for age. ea Pain: Complains of pain in chest Pain does not radiate. Pain currently is 7 out of 10 on a pain scale. Neuro: Level of Consciousness is awake, alert, obeys commands, Oriented to person, place, time, situation. Cardiovascular: Patient's skin is warm and dry. Respiratory: Airway is patent Respiratory effort is even, unlabored, Respiratory pattern is regular, symmetrical. Derm: Skin is pink, warm \T\ dry. Musculoskeletal: Circulation, motion, and sensation intact. 20:51 Reassessment: Patient and/or family updated on plan of care and expected duration. Pain ea level reassessed. Patient is alert, oriented x 3, equal unlabored respirations, skin warm/dry/pink. 21:30 Reassessment: Patient and/or family updated on plan of care and expected duration. Pain ea level reassessed. Patient is alert, oriented x 3, equal unlabored respirations, skin warm/dry/pink. Pt refused multiple sticks, reports she rather wait for lab results before being stuck for IV. 22:00 Reassessment: Patient and/or family updated on plan of care and expected duration. Pain ea level reassessed. Patient is alert, oriented x 3, equal unlabored respirations, skin warm/dry/pink. 23:55 Reassessment: Patient and/or family updated on plan of care and expected duration. Pain ea level reassessed. Patient is alert, oriented x 3, equal unlabored respirations, skin warm/dry/pink. Report called to Jigar DANGELO on fourth floor. 08/09 00:07 Reassessment: Patient and/or family updated on plan of care and expected duration. Pain ea level reassessed. Patient is alert, oriented x 3, equal unlabored respirations, skin warm/dry/pink. Pt admitted to fourth floor via stretcher, per tech. Pt tolerating well. Vital Signs: 08/08 18:21 BP 96 / 79; Pulse 96; Resp 22 S; Pulse Ox 96% on R/A; iw 19:39 BP 116 / 68; Pulse 90; Resp 18; Pulse Ox 99% on R/A; ea 20:51 BP 111 / 61; Pulse 88; Resp 20; Pulse Ox 96% on R/A; ea 21:00 BP 90 / 65; Pulse 88; Resp 20; Pulse Ox 90% ; ea 22:00 BP 111 / 61; Pulse 90; Resp 21; Pulse Ox 98% ; ea 23:30 BP 108 / 67; Pulse 88; Resp 20; Temp 98(TE); Pulse Ox 98% on 2 lpm NC; ea 21:00 pt placed on 2 L of O2 per nasal cannula ea ED Course: 17:53 Patient arrived in ED. rg4 17:53 Micki Huff MD is Private Physician. rg4 18:12 Cliff Baig MD is Attending Physician. wa 18:19 Nj Alexander, RN is Primary Nurse. sg 18:20 Triage completed. iw 18:22 Arm band placed on. iw 18:29 Patient has correct armband on for positive identification. Placed in gown. Bed in low mh5 position. Call light in reach. Side rails up X2. Adult w/ patient. Warm blanket given. monitoring analyst on. Pulse ox on. NIBP on. 18:29 EKG done, by ED staff, reviewed by Cliff Baig MD. [facility] 18:52 XRAY CXR (1 view) In Process Unspecified. EDMS 19:39 Patient maintains SpO2 saturation greater than 95% on room air. ea 22:01 Kaye Eduardo MD is Hospitalizing Provider. wa 23:48 No provider procedures requiring assistance completed. Patient did not have IV access ea during this emergency room visit. Administered Medications: 18:45 Drug: Albuterol 2.5 mg Route: Inhalation; ca1 22:24 Drug: predniSONE 60 mg Route: PO; ea 23:56 Follow up: Response: No adverse reaction ea 22:24 Drug: Ativan 0.5 mg Route: IM; Site: right deltoid; ea 23:55 Follow up: Response: No adverse reaction ea 22:34 Drug: Lovenox 100 mg Route: Sub-Q; Site: left lower abdomen; ea 23:55 Follow up: Response: No adverse reaction ea Outcome: 22:00 Instructed on the need for admit. ea 22:01 Decision to Hospitalize by Provider. wa 23:48 Condition: stable ea 08/09 00:08 Admitted to Med/surg accompanied by tech, via stretcher, with oxygen, with chart, ea Report called to Jigar DANGELO 00:09 Patient left the ED. ea Signatures: Dispatcher [employer] EDMS Nj Alexander RN RN sg Williams, Irene, RN RN iw Garcia, Rubi rg4 Valery Espino 5 Pema Kauffman RN RN ea Appiah, William, MD MD or Acob, Sarika, RN RN ca1
--- NOTE | 2019-08-08 22:03 | EDPHYS ---
Physician Documentation [facility] Name: Tammy Walsh Age: 64 yrs Sex: Female : 1955 Arrival Date: 08/08/2019 Time: 17:53 Bed 2 Private MD: Micki Huff ED Physician Cliff Baig HPI: 08/08 19:07 This 64 yrs old Black Female presents to ER via Wheelchair with complaints of Chest wa Pain. 19:07 The patient or guardian reports chest pain that is located primarily in the substernal wa area. Onset: yesterday. The pain does not radiate. Associated signs and symptoms: Pertinent positives: cough, shortness of breath. The chest pain is described as aching. Duration: The patient or guardian reports a single episode, that is now resolved. Modifying factors: The symptoms are alleviated by nothing. the symptoms are aggravated by laying flat. Severity of pain: At its worst the pain was mild in the emergency department the pain is unchanged. The patient has experienced similar episodes in the past, several times. 08/09 10:26 The patient has been recently seen by a physician: in this ED. wa Historical: - Allergies: 08/08 18:21 Hydrocodone-Acetaminophen (Sever Itching); iw - PMHx: 18:21 COPD; Diabetes - NIDDM; Gastroparesis; Hypertension; Myocardial infarction; iw - PSHx: 18:21 Cholecystectomy; ; Hernia repair; Tubal ligation; iw - Social history:: Smoking status: Patient uses tobacco products, smokes one pack cigarettes per day. - Ebola Screening: : Patient negative for fever greater than or equal to 101.5 degrees Fahrenheit, and additional compatible Ebola Virus Disease symptoms Patient denies exposure to infectious person Patient denies travel to an Ebola-affected area in the 21 days before illness onset No symptoms or risks identified at this time. - Family history:: not pertinent. - Hospitalizations: : No recent hospitalization is reported. ROS: 19:09 Constitutional: Negative for fever, chills, and weight loss, Eyes: Negative for injury, wa pain, redness, and discharge, ENT: Negative for injury, pain, and discharge, Neck: Negative for injury, pain, and swelling, Abdomen/GI: Negative for abdominal pain, nausea, vomiting, diarrhea, and constipation, Back: Negative for injury and pain, : Negative for injury, bleeding, discharge, and swelling, MS/Extremity: Negative for injury and deformity, Skin: Negative for injury, rash, and discoloration, Neuro: Negative for headache, weakness, numbness, tingling, and seizure, Psych: Negative for depression, anxiety, suicide ideation, homicidal ideation, and hallucinations. 19:09 Cardiovascular: Positive for chest pain, Negative for edema, palpitations. 19:09 Respiratory: Positive for cough, shortness of breath, at rest. Negative for acute changes. Exam: 19:10 Constitutional: This is a well developed, well nourished patient who is awake, alert, wa and in no acute distress. Head/Face: Normocephalic, atraumatic. Eyes: Pupils equal round and reactive to light, extra-ocular motions intact. Lids and lashes normal. Conjunctiva and sclera are non-icteric and not injected. Cornea within normal limits. Periorbital areas with no swelling, redness, or edema. ENT: Nares patent. No nasal discharge, no septal abnormalities noted. Tympanic membranes are normal and external auditory canals are clear. Oropharynx with no redness, swelling, or masses, exudates, or evidence of obstruction, uvula midline. Mucous membranes moist. Neck: Trachea midline, no thyromegaly or masses palpated, and no cervical lymphadenopathy. Supple, full range of motion without nuchal rigidity, or vertebral point tenderness. No Meningismus. Chest/axilla: Normal chest wall appearance and motion. Nontender with no deformity. No lesions are appreciated. Cardiovascular: Regular rate and rhythm with a normal S1 and S2. No gallops, murmurs, or rubs. Normal PMI, no JVD. No pulse deficits. Respiratory: Lungs have equal breath sounds bilaterally, clear to auscultation and percussion. No rales, rhonchi or wheezes noted. No increased work of breathing, no retractions or nasal flaring. Abdomen/GI: Soft, non-tender, with normal bowel sounds. No distension or tympany. No guarding or rebound. No evidence of tenderness throughout. Back: No spinal tenderness. No costovertebral tenderness. Full range of motion. Skin: Warm, dry with normal turgor. Normal color with no rashes, no lesions, and no evidence of cellulitis. MS/ Extremity: Pulses equal, no cyanosis. Neurovascular intact. Full, normal range of motion. Neuro: Awake and alert, GCS 15, oriented to person, place, time, and situation. Cranial nerves II-XII grossly intact. Motor strength 5/5 in all extremities. Sensory grossly intact. Cerebellar exam normal. Normal gait. Vital Signs: 18:21 BP 96 / 79; Pulse 96; Resp 22 S; Pulse Ox 96% on R/A; iw 19:39 BP 116 / 68; Pulse 90; Resp 18; Pulse Ox 99% on R/A; ea 20:51 BP 111 / 61; Pulse 88; Resp 20; Pulse Ox 96% on R/A; ea 21:00 BP 90 / 65; Pulse 88; Resp 20; Pulse Ox 90% ; ea 22:00 BP 111 / 61; Pulse 90; Resp 21; Pulse Ox 98% ; ea 23:30 BP 108 / 67; Pulse 88; Resp 20; Temp 98(TE); Pulse Ox 98% on 2 lpm NC; ea 21:00 pt placed on 2 L of O2 per nasal cannula ea MDM: 18:12 Patient medically screened. mi 19:12 Differential diagnosis: abnormal EKG, acute myocardial infarction, acute pericarditis, wa coronary artery disease chest wall pain, congestive heart failure pulmonary embolus, unstable angina, COPD. 21:45 Data reviewed: vital signs, nurses notes. Test interpretation: by ED physician or mi midlevel provider: labs noted for renal insufficiency. anemia. elevated d-dimer. CXR noted with no acute process. 21:47 Test interpretation: by ED physician or midlevel provider: EKG: HR 92. sinus. 1st deg mi AV block. no acute ischemic changes. 21:55 Response to treatment: the patient's symptoms have mildly improved after treatment. ED mi course: mildly improved. will admit for further eval. pulm consult. may need VQ to r/o PE. will give lovenox. 22:00 Physician consultation: Kaye Eduardo MD. mi 08/08 18:33 Order name: BMP; Complete Time: 20:55 mi 08/08 18:33 Order name: CBC with Diff; Complete Time: 20:55 mi 08/08 18:33 Order name: CPK; Complete Time: 20:55 mi 08/08 18:33 Order name: D-Dimer; Complete Time: 20:55 08/08 18:33 Order name: Hepatic Function; Complete Time: 20:55 08/08 18:33 Order name: Lipase; Complete Time: 20:55 08/08 18:33 Order name: Magnesium; Complete Time: 20:55 08/08 18:33 Order name: NT PRO-BNP; Complete Time: 20:55 08/08 18:33 Order name: PT-INR; Complete Time: 20:55 08/08 18:33 Order name: Troponin (emerg Dept Use Only); Complete Time: 20:55 08/08 18:34 Order name: Urine Microscopic Only mi 08/08 22:54 Order name: CBC with Automated Diff EDMS 08/08 22:54 Order name: CBC with Automated Diff EDMS 08/08 22:54 Order name: Comprehensive Metabolic Panel EDMS 08/08 18:33 Order name: XRAY CXR (1 view); Complete Time: 20:55 08/08 22:54 Order name: Comprehensive Metabolic Panel EDMS 08/08 22:54 Order name: Lactate EDMS 08/08 22:54 Order name: Lactate EDMS 08/08 22:54 Order name: Lipid Profile EDMS 08/08 22:54 Order name: Lipid Profile EDMS 08/08 22:54 Order name: Magnesium EDMS 08/08 22:54 Order name: Magnesium EDMS 08/08 22:54 Order name: Phosphorus EDMS 08/08 22:54 Order name: Phosphorus EDMS 08/08 22:54 Order name: NT PRO-BNP EDMS 08/08 22:54 Order name: NT PRO-BNP EDMS 08/08 23:05 Order name: Pulmonary Ventilation Imag EDMS 08/08 18:33 Order name: EKG; Complete Time: 18:34 08/08 18:33 Order name: Cardiac monitoring; Complete Time: 18:38 08/08 18:33 Order name: EKG - Nurse/Tech; Complete Time: 18:38 08/08 18:33 Order name: O2 Per Protocol; Complete Time: 18:38 08/08 18:33 Order name: O2 Sat Monitoring; Complete Time: 18:39 08/08 18:34 Order name: Urine Dipstick-Ancillary (obtain specimen); Complete Time: 18:48 08/08 22:54 Order name: CONS Physician Consult EDMS 08/08 22:54 Order name: Regular EDMS Administered Medications: 18:45 Drug: Albuterol 2.5 mg Route: Inhalation; ca1 22:24 Drug: predniSONE 60 mg Route: PO; ea 23:56 Follow up: Response: No adverse reaction ea 22:24 Drug: Ativan 0.5 mg Route: IM; Site: right deltoid; ea 23:55 Follow up: Response: No adverse reaction ea 22:34 Drug: Lovenox 100 mg Route: Sub-Q; Site: left lower abdomen; ea 23:55 Follow up: Response: No adverse reaction ea Disposition: 08/08/19 22:01 Hospitalization ordered by Kaye Eduardo for Observation. Preliminary diagnosis are Shortness of breath, Chest Pain, Back Pain. - Bed requested for Telemetry/MedSurg (observation). - Status is Observation. ea - Condition is Stable. - Problem is an acute exacerbation. - Symptoms have improved. UTI on Admission? No Signatures: Dispatcher [employer] [facility] Esther Albarado RN RN iw Garcia, Cindy, RN RN cg Antunez, Elena, RN RN ea Appiah, William, MD MD wa Acob, Cheryl RN RN ca1 Corrections: (The following items were deleted from the chart) 22: 22:01 Hospitalization Ordered by Kaye Eduardo MD for Observation. Preliminary mi diagnosis is Shortness of breath; Chest Pain; Back Pain. Bed requested for Telemetry/MedSurg (observation). Status is Observation. Condition is Stable. Problem is an acute exacerbation. Symptoms have improved. UTI on Admission? No. mi 23:10 22:02 08/08/2019 22:01 Hospitalization Ordered by Kaye Eduardo MD for Observation. Preliminary diagnosis is Shortness of breath; Chest Pain; Back Pain. Bed requested for Telemetry/MedSurg (observation). Status is Observation. Condition is Stable. Problem is an acute exacerbation. Symptoms have improved. UTI on Admission? No. mi 08/09 00:09 08/08 23:10 08/08/2019 22:01 Hospitalization Ordered by Kaye Eduardo MD for ea Observation. Preliminary diagnosis is Shortness of breath; Chest Pain; Back Pain. Bed requested for Telemetry/MedSurg (observation). Status is Observation. Condition is Stable. Problem is an acute exacerbation. Symptoms have improved. UTI on Admission? No. cg
[2019-08-08] MEDS ORDERED: ENOXAPARIN 100 MG/ML SYR SQ ONE (22:32)
[2019-08-08] MEDS ORDERED: ACETAMINOPHEN 500 MG TAB PO PRN (22:47)
[2019-08-08] MEDS ORDERED: ONDANSETRON 4 MG/2 ML VIAL IV PRN (22:47)
[2019-08-08] MEDS ORDERED: NA CHLORIDE 0.9% 1,000 ML IV SCH (23:00)
[2019-08-08] MEDS ORDERED: dexAMETHasone 10 MG/ML VIAL IM ONE (23:03)
[2019-08-08] MEDS ORDERED: TRAMADOL 37.5mg/APAP 325mg PER TAB PO PRN (23:31)
[2019-08-09] MEDS: dexAMETHasone 4 MG/ML VIAL ONE ×2 (00:49→02:17)
[2019-08-09] MEDS ORDERED: ALBUTEROL 2.5 MG/3 ML NEB SOL NEB SCH (02:00)
[2019-08-09] MEDS ORDERED: IPRATROPIUM BROM 0.5MG/2.5ML NEB SCH (02:00)
[2019-08-09 06:43] LABS: Basophils % 0.5 % (0-1.3); Hematocrit 30.5 % (36.0-45.0); Lymphocytes % 11.2 % (15.3-44.8); MPV 8.2 fL (7.6-11.3); RBC Red Blood Cell Count 3.72 M/uL (3.86-4.86)
[2019-08-09] MEDS ORDERED: IPRATROPIUM BROM 0.5MG/2.5ML NEB PRN (06:56)
[2019-08-09 06:58] VITALS: BMI 42.5
[2019-08-09 06:58] LABS: Albumin 2.5 g/dL (3.4-5.0); Bilirubin Total 0.1 mg/dL (0.2-1.0); Magnesium 1.8 mg/dL (1.8-2.4); Phosphorus 4.9 mg/dL (2.5-4.9); Protein, Total 7.7 g/dL (6.4-8.2)
[2019-08-09 07:04] LABS: Blood Morphology Comment NOTED (NOT SEEN); Burr Cells 1+; Hypochromasia 1+; Platelet Estimate INCR; Poikilocytosis 1+
[2019-08-09] MEDS ORDERED: CYCLOBENZAPRINE 10 MG TAB PO PRN (07:33)
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
[2019-08-09] MEDS ORDERED: PNEUMOCOCCAL VACCINE 0.5 ML IMVAC ONE (08:00)
[2019-08-09] MEDS ORDERED: INFLUENZA VACCINE (for 3y+) 0.5 ML DOSE IMVAC ONE ×2 (08:00→21:00)
[2019-08-09] MEDS: ARFORMOTEROL TARTRATE 15 MCG/2 ML VIAL.NEB NEB SCH ×2 (08:10→20:00)
[2019-08-09] MEDS: ALBUTEROL 2.5 MG/3 ML NEB SOL NEB PRN ×2 (08:10→14:30)
[2019-08-09 08:21] LABS: Urine Appearance CLEAR; Urine Bilirubin NEGATIVE (NEG); Urine Blood NEGATIVE (NEG); Urine Color YELLOW; Urine Glucose NEGATIVE (NEG); Urine Protein 2+ (NEG); Urine Specific Gravity 1.015 (1.005-1.030); Urine Urobilinogen 0.2 mg/dL (0.2-1.0); Urine pH 5.5 (5.0-7.0)
[2019-08-09 08:27] LABS: Urine Microscopic Reflex ORDER UMIC
--- NOTE | 2019-08-09 08:33 | P.CNS ---
Date of Consult: 08/09/19 Chief Complaint: Respiratory distress History of Present Illness: Patient is 64 years of age well known to me with a history of COPD recurrent frequent exacerbations active smoker admitted to the hospital again with worsening shortness of breath orthopnea productive cough Ray maximum bronchodilator therapy at home unable to use CPAP recently diagnosed with the right upper lobe lung mass denies any fever chills his renal impairment Allergies hydrocodone Allergy (Intermediate, Verified 07/08/19 23:50) Itching Hydrocodone-Acetaminophen Allergy (Uncoded 07/08/19 23:50) Itching Home Medications: Acetaminophen 650 mg PO Q4H PRN 08/09/19 Albuterol Sulfate [Proair Hfa] 2 puff IH QID 08/09/19 Aspirin Chewable [Aspirin Chewable*] 81 mg PO DAILY 08/09/19 Atorvastatin Calcium [Lipitor] 40 mg PO BEDTIME 08/09/19 Budesonide/Formoterol Fumarate [Symbicort 160-4.5 Mcg Inhaler] 1 puff IH DAILY 08/09/19 Clopidogrel Bisulfate [Plavix*] 75 mg PO DAILY 08/09/19 Cyclobenzaprine [Flexeril] 5 mg PO BEDTIME 08/09/19 Diltiazem HCl [Cartia Xt] 1 cap PO BID 08/09/19 Ibuprofen [Ibu] 600 mg PO Q6H PRN 08/09/19 Insulin Glargine Human [Lantus*] 65 units SQ DAILY 08/09/19 Insulin Lispro [Humalog*] 8 units SQ TIDWM 08/09/19 Metformin HCl 1,000 mg PO BID 08/09/19 Metoprolol Tartrate [Lopressor] 200 mg PO BID 08/09/19 Olmesartan/Amlodipin/Hcthiazid [Flfnlvd-Snmoky-Vouc 20-5-12.5] 1 tab PO DAILY Pantoprazole [Protonix Tab*] 40 mg PO DAILY 08/09/19 hydroCHLOROthiazide [Hydrochlorothiazide*] 12.5 mg PO DAILY 08/09/19 predniSONE [Deltasone*] 10 mg PO DAILY 08/09/19 - Past Medical/Surgical History Diabetic: Yes -: Hypertension -: COPD, chronic oxygen use -: Diabetes mellitus type 2, insulin dependent -: CAD -: History of TIA -: Hyperlipidemia -: Obstructive sleep apnea on CPAP -: Tobacco abuse -: [place] 2003 -: DIABETIC NEUROPATHY -: Cholecystectomy -: Tubal (ECTOPIC) -: -: Exploratory laparotomy -: Breast biopsy Psychosocial/ Personal History: Patient is , lives at home - Family History Father Medical History: Heart disease, Hypertension Mother Medical History: Hypertension, Cancer Sister Medical History: Cancer Notes: - BREAST CANCER Brother Medical History: Cancer Notes: - LUNG AND BRAIN CANCER mom Medical History: Hypertension, Cancer Notes: lung cx dad Medical History: Heart disease, Hypertension - Social History Smoking Status: Current every day smoker Alcohol use: No CD- Drugs: No Caffeine use: No Place of Residence: Home Review of Systems General: Weakness Respiratory: Cough, Shortness of Breath Cardiovascular: Edema (Bilateral edema) Physical Examination Temp Pulse Resp BP Pulse Ox 97.2 F 90 20 135/62 95 08/09/19 07:46 08/09/19 07:46 08/09/19 07:46 08/09/19 07:46 08/09/19 07:46 General: Alert, Oriented x3, Mild distress Respiratory: Expiratory wheezes Cardiovascular: Regular rate/rhythm, Normal S1 S2, Edema (1+ edema) Gastrointestinal: Normal bowel sounds, Soft and benign Musculoskeletal: No clubbing Laboratory Data (last 24 hrs) 08/08/19 19:47: PT 11.1, INR 0.94 08/08/19 19:47: WBC 10.6, Hgb 10.1 L, Hct 30.5 L, Plt Count 570 H 08/08/19 19:47: Sodium 140, Potassium 4.3, BUN 26 H, Creatinine 1.65 H, Glucose 99, Magnesium 1.7 L, Total Bilirubin 0.1 L, AST 30, ALT 28, Alkaline Phosphatase 117, Lipase 77 - Problems (1) COPD with acute exacerbation Current Visit: Yes Status: Acute Plan: Patient is 64 years of age admitted with COPD exacerbation she has recurrent frequent exacerbations continues to smoke non compliant with CPAP in worse in the past 2 weeks complaining of orthopnea normal echocardiogram is chronic renal failure white count is normal chest x-ray no obvious infiltrate patient appears to be mildly hypoxic the diagnosis right upper lobe lung mass workup is pending suggest some diuresis may have diastolic dysfunction of the recent echocardiogram was normal sputum cultures levofloxacin patient is at risk for resistant organisms
[2019-08-09 08:46] LABS: Urine Bacteria <20 /HPF (<20); Urine Culture Reflex Order NOT NEEDED; Urine RBC NONE SEEN /HPF (NONE SEEN)
[2019-08-09] MEDS ORDERED: INSULIN GLARGINE 100 UNITS/ML SQ SCH (09:00)
[2019-08-09] MEDS: DILTIAZEM HCL 180 MG SR CAP PO SCH ×2 (09:00→20:47)
[2019-08-09] MEDS ORDERED: CEFTRIAXONE 1 GM/NS 50 ML 1 GM/50 ML BAG IV SCH (09:00)
[2019-08-09] MEDS ORDERED: AZITHROMYCIN IV 500 MG in NA CHLORIDE 0.9% 250 ML IVPB SCH (09:00)
[2019-08-09] MEDS ORDERED: OLMESARTAN PO SCH (09:00)
[2019-08-09] MEDS ORDERED: HCTHIAZID PO SCH (09:00)
[2019-08-09] MEDS ORDERED: ASPIRIN 81 MG CHEWABLE TABLET PO SCH (09:00)
[2019-08-09] MEDS ORDERED: AZITHROMYCIN 250 MG TAB PO SCH (09:00)
[2019-08-09] MEDS ORDERED: predniSONE 20 MG TAB PO SCH (09:00)
[2019-08-09] MEDS: FUROSEMIDE 20 MG/ 2ML VIAL IV SCH ×2 (09:00→18:09)
[2019-08-09] MEDS ORDERED: AMLODIPIN PO SCH (09:00)
[2019-08-09] MEDS ORDERED: [UNRECOGNIZED DRUG - OTHER] PO SCH (09:00)
[2019-08-09] MEDS: METOPROLOL XL 100 MG TAB PO SCH ×2 (09:29→20:48)
[2019-08-09] MEDS: SUCRALFATE 1 GM TABLET PO SCH ×2 (09:29→15:40)
[2019-08-09] MEDS: predniSONE 10 MG TAB PO SCH ×2 (09:30→20:48)
[2019-08-09] MEDS: VALSARTAN 80 MG TAB PO SCH (09:30)
[2019-08-09] MEDS: levoFLOXacin 500 MG TAB PO SCH (09:30)
[2019-08-09] MEDS: CLOPIDOGREL 75 MG TABLET PO SCH (09:30)
[2019-08-09] MEDS: AMLODIPINE 5 MG TAB PO SCH (09:30)
[2019-08-09] MEDS: PANTOPRAZOLE 40MG TABLET PO SCH (09:30)
[2019-08-09] MEDS: ASPIRIN 81 MG CHEWABLE TABLET PO SCH (09:30)
[2019-08-09] MEDS: hydroCHLOROthiazide 12.5 MG CAP PO SCH (09:31)
[2019-08-09] MEDS: ENOXAPARIN 40 MG/0.4 ML SQ SCH (09:31)
--- NOTE | 2019-08-09 10:32 | P.PN ---
Subjective Date of Service: 08/09/19 Primary Care Provider: Dr. Huff; Pulmonary-Dr. Simmons Chief Complaint: Respiratory distress Subjective: Doing well (Patient slightly improved.) Physical Examination - Vital Signs Temperature: 98.5 F Blood Pressure: 137/62 Pulse: 92 Respirations: 20 Pulse Ox (%): 93 - Physical Exam General: Alert, In no apparent distress, Oriented x3, Cooperative HEENT: Atraumatic Neck: Supple Respiratory: Expiratory wheezes, Inspiratory wheezes Cardiovascular: Normal pulses, Regular rate/rhythm Gastrointestinal: Normal bowel sounds, Soft and benign, Non-distended, No tenderness, No masses, No rebound, No guarding Musculoskeletal: No erythema, No tenderness, No warmth Integumentary: No tenderness/swelling, No erythema, No warmth, No cyanosis Neurological: Normal speech, Normal strength at 5/5 x4 extr, Normal tone, Normal affect - Studies Laboratory Data (last 24 hrs) 08/08/19 19:47: PT 11.1, INR 0.94 08/08/19 19:47: WBC 10.6, Hgb 10.1 L, Hct 30.5 L, Plt Count 570 H 08/08/19 19:47: Sodium 140, Potassium 4.3, BUN 26 H, Creatinine 1.65 H, Glucose 99, Magnesium 1.7 L, Total Bilirubin 0.1 L, AST 30, ALT 28, Alkaline Phosphatase 117, Lipase 77 Medications List Reviewed: Yes Assessment & Plan Discharge Plan: Home Plan to discharge in: 24 Hours Physician Review Additional Text: Impression: Acute on chronic respiratory failure secondary to COPD exacerbation with possible acute on chronic diastolic CHF Diabetes mellitus type 2, insulin dependent Hypertension Adrenal adenoma with noted pulmonary nodule Chronic renal disease stage III Hyperlipidemia Tobacco abuse Obstructive sleep apnea Obesity, BMI 42 Plan: Acute on chronic respiratory failure secondary to COPD exacerbation with possible acute on chronic diastolic CHF: Continue with COPD treatment. Spoke with pulmonology. Pulmonology suspects CHF. Patient started on IV Lasix. Continue 1500 cc per day fluid restriction. Continue to monitor closely. Will recheck chest x-ray tomorrow. Recent echocardiogram reviewed. Continue DVT prophylaxis-Lovenox. Patient will need continue with home oxygen at discharge. Patient desires a more portable oxygen. Will have social secretary help in this. Anticipate discharge in the next 24 hr with clinical improvement and clearance by pulmonology. Diabetes mellitus type 2, insulin dependent: Continue basal insulin. Patient on sliding scale as well. Will monitor and adjust appropriately. Hypertension: Patient takes multiple medications. Restart hypertensive medication. Will monitor and adjust appropriately. Adrenal adenoma with noted pulmonary nodule: Patient reports seen a specialist up in [place]. Patient to have special CT scan to further evaluate. Patient will likely get PET-CT in the near future. Chronic renal disease stage III: Continue to monitor closely. Hyperlipidemia: Continue home medication. Tobacco abuse: Tobacco cessation addressed in detail. Obstructive sleep apnea: Patient non compliant with CPAP. Obesity, BMI 42: Continue to address lifestyle modification education.
--- NOTE | 2019-08-09 12:13 | EKG ---
Test Date: 2019-08-08 Test Time: 18:22:47 Manager Branch: [place] MEASUREMENT RESULTS: Intervals: Rate: 92 NH: 230 QRSD: 72 QT: 344 QTc: 425 [place]: P: 78 NH: 230 QRS: 68 T: 72 INTERPRETIVE STATEMENTS: Sinus rhythm with 1st degree AV block Otherwise normal ECG Compared to ECG 08/02/2019 11:27:58 First degree AV block now present Electronically Signed On 08-09-19 12:09:27 CDT by Malcolm Delacruz
--- NOTE | 2019-08-09 12:24 | RAD REPORT ---
EXAM DESCRIPTION: Prachi Burkett And Danny (2 Views)08/09/2019 12:00 pm CLINICAL HISTORY: Shortness of breath COMPARISON: August 08, 2019 FINDINGS: The lungs appear clear of acute infiltrate. The heart is normal size Prominence of the mediastinum is present IMPRESSION: Prominence of the mediastinum likely lymphadenopathy
[2019-08-09] MEDS ORDERED: D50W 25 GM/50 ML SYRINGE IV PRN (14:01)
[2019-08-09] MEDS ORDERED: GLUCAGON 1 MG/VIAL IM PRN (14:01)
[2019-08-09] MEDS: IPRATROPIUM BROM 0.5MG/2.5ML NEB SCH ×2 (14:30→20:00)
[2019-08-09 14:41] LABS: Blood Gas Oxyhemoglobin 83.5 % (94-97); Blood O2 Saturation 85.6 % (92-98.5)
[2019-08-09] MEDS: INSULIN -REGULAR HUMAN 50 UNIT/0.5 ML ML SQ SCH ×3 (15:40→20:48)
[2019-08-09] MEDS ORDERED: ATORVASTATIN 40 MG TAB PO SCH (21:00)
[2019-08-09] MEDS ORDERED: BENZONATATE 100 MG CAP PO PRN (21:55)
[2019-08-09] MEDS ORDERED: INSULIN 70/30 100 UNITS/ML SQ ONE (23:00)
[2019-08-10] MEDS: IPRATROPIUM BROM 0.5MG/2.5ML NEB SCH (02:00)
[2019-08-10 05:40] LABS: Absolute Lymphocytes (CBC) 1.9 K/uL (0.7-4.9); Basophils % 0.5 % (0-1.3); Hematocrit 27.9 % (36.0-45.0); Lymphocytes % 14.2 % (15.3-44.8); MPV 7.5 fL (7.6-11.3); RBC Red Blood Cell Count 3.41 M/uL (3.86-4.86)
[2019-08-10 06:14] LABS: Magnesium 1.9 mg/dL (1.8-2.4); Potassium 5.2 mmol/L (3.5-5.1)
[2019-08-10] MEDS ORDERED: IPRATROPIUM BROM 0.5MG/2.5ML NEB PRN (07:21)
[2019-08-10] MEDS: ARFORMOTEROL TARTRATE 15 MCG/2 ML VIAL.NEB NEB SCH (07:25)
[2019-08-10] MEDS: ALBUTEROL 2.5 MG/3 ML NEB SOL NEB PRN (07:25)
[2019-08-10] MEDS: INSULIN -REGULAR HUMAN 50 UNIT/0.5 ML ML SQ SCH ×2 (08:01→11:34)
[2019-08-10] MEDS: ENOXAPARIN 40 MG/0.4 ML SQ SCH (08:01)
[2019-08-10] MEDS: hydroCHLOROthiazide 12.5 MG CAP PO SCH (08:02)
[2019-08-10] MEDS: METOPROLOL XL 100 MG TAB PO SCH (08:02)
[2019-08-10] MEDS: SUCRALFATE 1 GM TABLET PO SCH (08:03)
[2019-08-10] MEDS: ASPIRIN 81 MG CHEWABLE TABLET PO SCH (08:03)
[2019-08-10] MEDS: PANTOPRAZOLE 40MG TABLET PO SCH (08:03)
[2019-08-10] MEDS: AMLODIPINE 5 MG TAB PO SCH (08:03)
[2019-08-10] MEDS: levoFLOXacin 500 MG TAB PO SCH (08:04)
[2019-08-10] MEDS: predniSONE 10 MG TAB PO SCH (08:04)
[2019-08-10] MEDS: CLOPIDOGREL 75 MG TABLET PO SCH (08:04)
[2019-08-10 09:00] VITALS: TEMP 97
[2019-08-10] MEDS ORDERED: INSULIN GLARGINE 100 UNITS/ML SQ SCH (09:00)
--- NOTE | 2019-08-10 09:13 | RAD REPORT ---
EXAM DESCRIPTION: Prachi Burkett And Lat (2 Views)08/10/2019 8:48 am CLINICAL HISTORY: Shortness of breath COMPARISON: August 09, 2019 FINDINGS: There is borderline mild interstitial pulmonary edema. The heart remains enlarged. Mediastinal lymphadenopathy is again demonstrated
[2019-08-10] MEDS: DILTIAZEM HCL 180 MG SR CAP PO SCH (10:08)
[2019-08-10] MEDS: VALSARTAN 80 MG TAB PO SCH (10:09)
[2019-08-10] MEDS: FUROSEMIDE 20 MG/ 2ML VIAL IV SCH (10:13)
--- NOTE | 2019-08-10 10:13 | P.DS ---
Admission Date: 08/09/19 Discharge Date: 08/10/19 Primary Care Provider: Dr. Huff; Pulmonary-Dr. Simmons Disposition: DC HOME/HOME HEALTH CARE Discharge Condition: GOOD Reason for Admission: Respiratory distress Consultations: Pulmonary-Dr. Simmons Procedures: Follow up CXR: COMPARISON: August 09, 2019 FINDINGS: There is borderline mild interstitial pulmonary edema. The heart remains enlarged. Mediastinal lymphadenopathy is again demonstrated Medical Problem List: Acute on chronic respiratory failure secondary to COPD exacerbation with possible acute on chronic diastolic CHF Diabetes mellitus type 2, insulin dependent Hypertension Adrenal adenoma with noted pulmonary nodule Chronic renal disease stage III Hyperlipidemia Tobacco abuse Obstructive sleep apnea Obesity, BMI 42 GERD Brief History of Present Illness: 64-year-old female presented to the emergency room with shortness of breath. Patient with underlying COPD. Possible CHF was suspected. Patient was admitted for further evaluation and treatment. Hospital Course: Patient presented with acute on chronic respiratory failure secondary to COPD exacerbation with possible acute on chronic diastolic CHF. Patient was given COPD treatment. Pulmonology was consulted. Pulmonology suspected diastolic CHF. Patient was started on IV Lasix with improvement. Education on fluid restriction was addressed in detail. Recent echocardiogram reviewed. Normal ejection fraction was noted. Patient responded to diuretic therapy. Repeat x- ray showed improvement. Case discussed at length with pulmonology. At discharge she will continue with Lasix 40 mg 1 pill once daily. She will continue with a 1500 cc per day fluid restriction and low-salt diet. She is to monitor her weight daily. If her weight increases by more than 5 lb she is to contact pulmonology for further recommendation. Patient will continue with her COPD medications-Symbicort 2 puffs twice daily and albuterol 2 puffs 3 times a day as needed for shortness of breath. Patient also takes chronic steroid- prednisone 10 mg daily. Patient will continue with chronic home oxygen to maintain sats above 93%. Compliance with oxygen addressed in detail. Compliance with tobacco cessation addressed in detail. Patient not to smoke when using her oxygen. Recommend follow up with pulmonology in 1-2 weeks to follow up this hospitalization and continue her care. Recommend to recheck lab -BMP in 1 week to monitor her progress. Patient with diabetes mellitus type 2 insulin dependent. Blood sugar remained stable. Metformin was discontinued due to her chronic renal disease. At discharge metformin will remain discontinued. She will continue with Lantus 65 units subcu daily and Humalog 8 units 3 times a day with meals for her diabetes. Recommend to maintain blood sugars less 140 fasting and less than 200 after meals. Further adjustment can be done by her PCP. Patient with hypertension. Patient takes multiple medications. She will continue with her current regimen-cardia XT 180 mg 1 pill twice daily, metoprolol 200 mg 1 pill twice daily, Olmesartan/Norvasc/hydrochlorothiazide 5/ 20/12.5 mg daily and hydrochlorothiazide 12.5 mg daily.. Recommend to maintain blood pressure less than 150/80. Further adjustment can be done by her PCP. Patient with chronic renal disease stage III. This has remained stable. At discharge metformin has been discontinued. Recommend no further use of nonsteroidal anti-inflammatories. Future medications will need to be renally dosed. Recommend to recheck lab-BMP in 1 week to monitor progress. Patient with hyperlipidemia. Patient will continue with her medication-Lipitor 40 mg daily at discharge. Patient with GERD. Patient will continue with Protonix 40 mg daily. Patient with history of CAD. Patient will continue with aspirin 81 mg daily and Plavix 75 mg daily. Patient with tobacco abuse. Tobacco cessation addressed in detail. Patient plans to quit. Patient with obstructive sleep apnea. Patient has been non compliant in the past with her CPAP. Education in the importance of compliance addressed in detail. Patient plans to continue with her CPAP. Patient with history of adrenal adenoma with pulmonary nodule. Patient plans to follow up with pulmonology to further address. Patient likely to get a PET- CT scan in the near future to further evaluate. Vital Signs/Physical Exam: Temp Pulse Resp BP Pulse Ox 97.0 F 97 H 18 117/59 L 100 08/10/19 08:00 08/10/19 08:03 08/10/19 08:00 08/10/19 08:03 08/10/19 08:00 General: Alert, In no apparent distress, Oriented x3, Cooperative HEENT: Atraumatic Neck: Supple Respiratory: Clear to auscultation bilaterally, Normal air movement Cardiovascular: Normal pulses, Regular rate/rhythm Gastrointestinal: Normal bowel sounds, Soft and benign, Non-distended, No tenderness, No masses, No rebound, No guarding Musculoskeletal: No erythema, No tenderness, No warmth Integumentary: No tenderness/swelling, No erythema, No warmth, No cyanosis Neurological: Normal speech, Normal strength at 5/5 x4 extr, Normal tone, Normal affect Laboratory Data at Discharge: WBC 13.4 K/uL (4.3-10.9) H D 08/10/19 05:23 Hgb 9.4 g/dL (12.0-15.0) L 08/10/19 05:23 Hct 27.9 % (36.0-45.0) L 08/10/19 05:23 Plt Count 538 K/uL (152-406) H 08/10/19 05:23 PT 11.1 SECONDS (9.5-12.5) 08/08/19 19:47 INR 0.94 08/08/19 19:47 Sodium 138 mmol/L (136-145) 08/10/19 05:23 Potassium 4.9 mmol/L (3.5-5.1) 08/10/19 09:05 BUN 37 mg/dL (7-18) H 08/10/19 05:23 Creatinine 1.37 mg/dL (0.55-1.3) H 08/10/19 05:23 Glucose 191 mg/dL (74-106) H 08/10/19 05:23 Phosphorus 4.9 mg/dL (2.5-4.9) 08/09/19 06:08 Magnesium 1.9 mg/dL (1.8-2.4) 08/10/19 05:23 Total Bilirubin 0.1 mg/dL (0.2-1.0) L 08/09/19 06:08 AST 25 U/L (15-37) 08/09/19 06:08 ALT 30 U/L (12-78) 08/09/19 06:08 Alkaline Phosphatase 124 U/L (45-117) H 08/09/19 06:08 Triglycerides 72 mg/dL (<150) 08/09/19 06:08 Cholesterol 116 mg/dL (<200) 08/09/19 06:08 HDL Cholesterol 40 mg/dL (40-60) 08/09/19 06:08 Cholesterol/HDL Ratio 2.90 08/09/19 06:08 Lipase 77 U/L (73-393) 08/08/19 19:47 Home Medications: Acetaminophen 650 mg PO Q4H PRN 08/09/19 Albuterol Sulfate [Proair Hfa] 2 puff IH QID 08/09/19 Aspirin Chewable [Aspirin Chewable*] 81 mg PO DAILY 08/09/19 Atorvastatin Calcium [Lipitor*] 40 mg PO BEDTIME 08/09/19 Budesonide/Formoterol Fumarate [Symbicort 160-4.5 Mcg Inhaler] 1 puff IH DAILY 08/09/19 Clopidogrel Bisulfate [Plavix*] 75 mg PO DAILY 08/09/19 Cyclobenzaprine [Flexeril*] 5 mg PO BEDTIME 08/09/19 Diltiazem HCl [Cartia Xt] 1 cap PO BID 08/09/19 Insulin Glargine Human [Lantus*] 65 units SQ DAILY 08/09/19 Insulin Lispro [Humalog*] 8 units SQ TIDWM 08/09/19 Metoprolol Tartrate [Lopressor*] 200 mg PO BID 08/09/19 Olmesartan/Amlodipin/Hcthiazid [Thitmxv-Yeeyvz-Zmkl 20-5-12.5] 1 tab PO DAILY Pantoprazole [Protonix Tab*] 40 mg PO DAILY 08/09/19 hydroCHLOROthiazide [Hydrochlorothiazide*] 12.5 mg PO DAILY 08/09/19 predniSONE [Deltasone*] 10 mg PO DAILY 08/09/19 Furosemide [Lasix] 40 mg PO DAILY #30 tab 08/10/19 New Medications: Furosemide [Lasix] 40 mg PO DAILY #30 tab Patient Discharge Instructions: 1. Recommend follow up with her PCP in 1 week to follow up this hospitalization. 2. Patient presented with acute on chronic respiratory failure secondary to COPD exacerbation with possible acute on chronic diastolic CHF. Patient was given COPD treatment. Pulmonology was consulted. Pulmonology suspected diastolic CHF. Patient was started on IV Lasix with improvement. Education on fluid restriction was addressed in detail. Recent echocardiogram reviewed. Normal ejection fraction was noted. Patient responded to diuretic therapy. Repeat x-ray showed improvement. Case discussed at length with pulmonology. At discharge she will continue with Lasix 40 mg 1 pill once daily. She will continue with a 1500 cc per day fluid restriction and low-salt diet. She is to monitor her weight daily. If her weight increases by more than 5 lb she is to contact pulmonology for further recommendation. Patient will continue with her COPD medications-Symbicort 2 puffs twice daily and albuterol 2 puffs 3 times a day as needed for shortness of breath. Patient also takes chronic steroid-prednisone 10 mg daily. Patient will continue with chronic home oxygen to maintain sats above 93%. Compliance with oxygen addressed in detail. Compliance with tobacco cessation addressed in detail. Patient not to smoke when using her oxygen. Recommend follow up with pulmonology in 1-2 weeks to follow up this hospitalization and continue her care. Recommend to recheck lab-BMP in 1 week to monitor her progress. 3. Patient with diabetes mellitus type 2 insulin dependent. Blood sugar remained stable. Metformin was discontinued due to her chronic renal disease. At discharge metformin will remain discontinued. She will continue with Lantus 65 units subcu daily and Humalog 8 units 3 times a day with meals for her diabetes. Recommend to maintain blood sugars less 140 fasting and less than 200 after meals. Further adjustment can be done by her PCP. 4. Patient with hypertension. Patient takes multiple medications. She will continue with her current regimen-cardia XT 180 mg 1 pill twice daily, metoprolol 200 mg 1 pill twice daily, Olmesartan/Norvasc/hydrochlorothiazide 5/20/12.5 mg daily and hydrochlorothiazide 12.5 mg daily.. Recommend to maintain blood pressure less than 150/80. Further adjustment can be done by her PCP. 5. Patient with chronic renal disease stage III. This has remained stable. At discharge metformin has been discontinued. Recommend no further use of nonsteroidal anti- inflammatories. Future medications will need to be renally dosed. Recommend to recheck lab-BMP in 1 week to monitor progress. 6. Patient with hyperlipidemia. Patient will continue with her medication-Lipitor 40 mg daily at discharge. 7. Patient with GERD. Patient will continue with Protonix 40 mg daily. 8. Patient with history of CAD. Patient will continue with aspirin 81 mg daily and Plavix 75 mg daily. 9. Patient with tobacco abuse. Tobacco cessation addressed in detail. Patient plans to quit. 10. Patient with obstructive sleep apnea. Patient has been non compliant in the past with her CPAP. Education in the importance of compliance addressed in detail. Patient plans to continue with her CPAP. 11. Patient with history of adrenal adenoma with pulmonary nodule. Patient plans to follow up with pulmonology to further address. Patient likely to get a PET-CT scan in the near future to further evaluate. Diet: ADA Activity: Fall precautions Time spent managing pt's care (in minutes): 55
[2019-08-10 10:14] VITALS: BP 110/60
[2019-08-10 11:26] VITALS: O2SAT 94
--- NOTE | 2019-08-10 12:03 | P.PN ---
Subjective Date of Service: 08/10/19 Primary Care Provider: Dr. Huff; Pulmonary-Dr. Simmons Chief Complaint: COPD exacerbation Subjective: Improving (Improving patient was able to lie down still has some cough congestion patient has oxygen at home suffer non compliant with her medication) Review of Systems General: Weakness Respiratory: Cough, Shortness of Breath Physical Examination - Vital Signs Temperature: 97.0 F Blood Pressure: 110/60 Pulse: 97 Respirations: 18 Pulse Ox (%): 100 - Physical Exam General: Alert, In no apparent distress, Oriented x3 Respiratory: Expiratory wheezes Cardiovascular: No edema, Regular rate/rhythm, Normal S1 S2 - Studies Medications List Reviewed: Yes Assessment & Plan - Problems (Diagnosis) (1) COPD with acute exacerbation Current Visit: Yes Status: Acute Plan: Patient admitted with COPD exacerbation patient has 3+ gram-negative rods in the sputum recommend treatment with levofloxacin 250 mg for 7 days wait final identification was likely Pseudomonas continue with diuretics may have diastolic dysfunction patient is hypoxic hypercapnic he is scheduled to have out patient CT scan Physician Review Additional Text: Impression: Acute on chronic respiratory failure secondary to COPD exacerbation with possible acute on chronic diastolic CHF Diabetes mellitus type 2, insulin dependent Hypertension Adrenal adenoma with noted pulmonary nodule Chronic renal disease stage III Hyperlipidemia Tobacco abuse Obstructive sleep apnea Obesity, BMI 42 Plan: Acute on chronic respiratory failure secondary to COPD exacerbation with possible acute on chronic diastolic CHF: Continue with COPD treatment. Spoke with pulmonology. Pulmonology suspects CHF. Patient started on IV Lasix. Continue 1500 cc per day fluid restriction. Continue to monitor closely. Will recheck chest x-ray tomorrow. Recent echocardiogram reviewed. Continue DVT prophylaxis-Lovenox. Patient will need continue with home oxygen at discharge. Patient desires a more portable oxygen. Will have social worker aide help in this. Anticipate discharge in the next 24 hr with clinical improvement and clearance by pulmonology. Diabetes mellitus type 2, insulin dependent: Continue basal insulin. Patient on sliding scale as well. Will monitor and adjust appropriately. Hypertension: Patient takes multiple medications. Restart hypertensive medication. Will monitor and adjust appropriately. Adrenal adenoma with noted pulmonary nodule: Patient reports seen a specialist up in [place]. Patient to have special CT scan to further evaluate. Patient will likely get PET-CT in the near future. Chronic renal disease stage III: Continue to monitor closely. Hyperlipidemia: Continue home medication. Tobacco abuse: Tobacco cessation addressed in detail. Obstructive sleep apnea: Patient non compliant with CPAP. Obesity, BMI 42: Continue to address lifestyle modification education.
[2019-08-10] MEDS ORDERED: INSULIN 70/30 100 UNITS/ML SQ ONE (21:54)
== END 2019-08-10 12:51 | disposition home health service (06) | DRG 291 ==
LOC: ER 17:51 → ERHOLD 22:50 → 4TH 23:58 → OBSVTOIN 08-09 16:18
PROVIDERS: ADMIT Hospitalist; ATTEND Hospitalist
DX: I13.0 Hypertensive heart and chronic kidney disease with heart failure and stage 1 through stage 4 chronic kidney disease, or unspecified chronic kidney disease (principal); I50.33 Acute on chronic diastolic (congestive) heart failure; J96.20 Acute and chronic respiratory failure, unspecified whether with hypoxia or hypercapnia; J44.1 Chronic obstructive pulmonary disease with (acute) exacerbation; Z68.41 Body mass index [BMI] 40.0-44.9, adult; N18.3 Chronic kidney disease, stage 3 (moderate); E11.22 Type 2 diabetes mellitus with diabetic chronic kidney disease; E78.5 Hyperlipidemia, unspecified; K21.9 Gastro-esophageal reflux disease without esophagitis; I25.10 Atherosclerotic heart disease of native coronary artery without angina pectoris; F17.210 Nicotine dependence, cigarettes, uncomplicated; G47.33 Obstructive sleep apnea (adult) (pediatric); D35.00 Benign neoplasm of unspecified adrenal gland; E66.9 Obesity, unspecified
CPT/HCPCS: 36415; 71045; 71046; 80048; 80053; 80061; 80076; 81003; 81015; 82550; 82805; 82947; 83605; 83690; 83735; 83880; 84100; 84132; 84484; 85025; 85379; 85610; 87070; 87077; 87186; 87205; 93005; 94640; 94760; 96372; 99285; G0378; J1650; J1815; J1940; J7512; J7605

== ENCOUNTER 2019-08-19 17:30 | Emergency (ER) | payer OTHER ==
--- NOTE | 2019-08-19 17:57 | RAD REPORT ---
EXAM DESCRIPTION: CT - Ct Stroke Brain Wo Cont - 08/19/2019 5:50 pm CLINICAL HISTORY: CONFUSED Headache, CVA symptomology COMPARISON: Head Brain Wo Cont dated 04/17/2017; Facial Bones W/ Mpr dated 04/17/2017 TECHNIQUE: All CT scans are performed using dose optimization technique as appropriate and may inclu de automated exposure control or mA/KV adjustment according to patient size. FINDINGS: No intracranial hemorrhage, hydrocephalus or extra-axial fluid collection.Moderate diminis hed density is seen in the distribution of the left middle cerebral artery compatible with nonhemorrh agic acute CVA. The paranasal sinuses and mastoids are clear. The calvarium is intact. IMPRESSION: Moderate-size nonhemorrhagic acute CVA suspected left MCA territory. The findings were discussed with Dr. Yang in the ER 5:48 p.m. 08/19/2019 by telephone.
[2019-08-19] MEDS ORDERED: ONDANSETRON 4 MG/2 ML VIAL ONE (18:02)
--- NOTE | 2019-08-19 18:13 | EDPHYS ---
Physician Documentation [facility] Name: Tammy Walsh Age: 64 yrs Sex: Female : 1955 Arrival Date: 08/19/2019 Time: 17:31 Bed 4 Private MD: Micki Huff ED Physician Everett Yang HPI: 08/19 17:51 This 64 yrs old Black Female presents to ER via Unassigned with complaints of Altered rn Mental Status. 17:51 The patient presents with confusion, decreased responsiveness. Onset: The rn symptoms/episode began/occurred at 14:00. Possible causes: unknown. Family reports last known normal 1330 today, after that family and caregiver noticed repetitive speech, decreased responsiveness, and slumping to her right side. Patient began vomiting shortly before arrival. Takes plavix and aspirin for cardiac problems. No recent trauma or surgery/procedure.. 17:51 Current symptoms: In the emergency department the patient's symptoms are unchanged from rn the initial presentation. The patient has not experienced similar symptoms in the past. Historical: - Allergies: 17:48 Hydrocodone-Acetaminophen (Sever Itching); sg - PMHx: 17:48 COPD; Diabetes - NIDDM; Gastroparesis; Hypertension; Myocardial infarction; sg - PSHx: 17:48 Cholecystectomy; ; Hernia repair; Tubal ligation; sg - Immunization history:: Adult Immunizations unknown. - Social history:: Smoking status: Patient/guardian denies using tobacco. - Ebola Screening: : Patient negative for fever greater than or equal to 101.5 degrees Fahrenheit, and additional compatible Ebola Virus Disease symptoms Patient denies exposure to infectious person Patient denies travel to an Ebola-affected area in the 21 days before illness onset No symptoms or risks identified at this time. - Family history:: not pertinent. - Hospitalizations: : No recent hospitalization is reported. Vital Signs: 17:45 Temp 97.9; sg 17:46 Weight 115.8 kg (M); sg 17:50 BP 155 / 78; Pulse 88; Resp 18; Pulse Ox 99% on R/A; sg NIH Stroke Scale Scores: 17:48 NIHSS Score: 12 sg Esther Coma Score: 17:48 Eye Response: to pain(2). Verbal Response: inappropriate words(3). Motor Response: sg withdraws from pain(4). Total: 9. 17:51 Eye Response: spontaneous(4). Verbal Response: inappropriate words(3). Motor Response: rn obeys commands(6). Total: 13. MDM: 17:47 Patient medically screened. rn 17:54 ED course: Call to [facility] for consultation regarding TPA or not.. rn 18:09 ED course: Consulted with Neurologist at [facility], , sent him video image and read rn neurology read, given size, and on 2 blood thinners, with expanded tpa window, does not currently recommend TPA at this time. Recommends expedited transfer, [facility], as she is thrombectomy candidate. . 08/19 17:42 Order name: Ct Stroke Brain Wo Cont EDMS 08/19 17:49 Order name: CT Stroke Brain w/o Contrast rn 08/19 17:49 Order name: Stroke CXR 1 View rn 08/19 18:29 Order name: Glucose, Ancillary Testing EDHI 08/19 17:49 Order name: Accucheck; Complete Time: 17:50 rn 08/19 17:49 Order name: Cardiac monitoring; Complete Time: 17:49 rn 08/19 17:49 Order name: IV Saline Lock; Complete Time: 18:41 rn 08/19 17:49 Order name: NPO; Complete Time: 17:49 rn 08/19 17:49 Order name: O2 Per Protocol; Complete Time: 17:49 rn 08/19 17:49 Order name: O2 Sat Monitoring; Complete Time: 17:49 rn 08/19 17:49 Order name: Stroke Swallow Screen; Complete Time: 19:38 rn Administered Medications: 18:25 Drug: Zofran 4 mg Route: IM; Site: left deltoid; sg 18:50 Follow up: Response: No adverse reaction; Vomiting decreased sg 18:41 Not Given (Other Intervention Used): Zofran 4 mg IVP once; over 2 minutes sg Disposition: 18:09 Critical Care:. rn Disposition: 08/19/19 18:13 Transfer ordered to [facility]. Diagnosis are Acute ischemic stroke, left MCA, Altered mental status, unspecified. - Reason for transfer: Higher level of care. - Accepting physician is . - Condition is Serious. - Problem is new. - Symptoms are unchanged. Critical care time excluding procedures: 18:09 Critical care time: Bedside Care: 25 minutes, Consultation: 5 minutes. Total time: 30 rn minutes NIH Stroke Scale - NIH Stroke Score Date: 08/19/2019 Time: 17:48 Total Score = 12 1a. Level of Consciousness (LOC) - 1(Not Alert) 1b. Level of Consciousness (LOC) (Year \T\ Age) - 2(Neither) 1c. LOC Commands (Open \T\ Closes Eyes/[employer] Ambassador) - 2(Neither) 2. Best Gaze (Lateral Gaze Paresis) - 0(Normal) 3. Visual Field Loss - 0(No visual loss) 4. Facial Palsy - 0(Normal) 5a. Left Arm: Motor (10-second hold) - 0(No drift) 5b. Right Arm: Motor (10-second hold) - 0(No drift) 6a. Left Leg: Motor (5-second hold - always test supine) - 0(No drift) 6b. Right Leg: Motor (5-second hold - always test supine) - 0(No drift) 7. Limb Ataxia (finger/nose \T\ heel/kyle - test with eyes open) - 0(Absent) 8. Sensory Loss (pinprick arms/legs/face) - 2(Severe to total loss) 9. Best Language: Aphasia (description/naming/reading) - 2(Severe aphasia) 10. Dysarthria (speech clarity - read or repeat words) - 2(Severe) 11. Extinction and Inattention (visual/tactile/auditory/spatial/personal) - 1(Present) Initials: sg Signatures: Dispatcher [employer] Nj Huynh RN RN Everett Yang MD MD international editorial producer: (The following items were deleted from the chart) 18:58 18:13 08/19/2019 18:13 Transfer ordered to [facility]. sg Diagnosis is Acute ischemic stroke, left MCA; Altered mental status, unspecified. Reason for transfer: Higher level of care. Accepting physician is . Condition is Serious. Problem is new. Symptoms are unchanged. rn
--- NOTE | 2019-08-19 18:13 | ER ---
Nurse's Notes [facility] Name: Tammy Walsh Age: 64 yrs Sex: Female : 1955 Arrival Date: 08/19/2019 Time: 17:31 Bed 4 Private MD: Micki Huff Diagnosis: Acute ischemic stroke, left MCA;Altered mental status, unspecified Presentation: 08/19 17:47 Presenting complaint: family stats confusion, repeating sentences since 1300 and la1 vomiting. Onset of symptoms was August 19, 2019 at 13:00. 17:47 Acuity: PATRICIA 2 la1 17:50 Transition of care: patient was not received from another setting of care. Risk jl7 Assessment: Do you want to hurt yourself or someone else? Patient reports no desire to harm self or others. Initial Sepsis Screen: Does the patient meet any 2 criteria? No. Patient's initial sepsis screen is negative. Does the patient have a suspected source of infection? No. Patient's initial sepsis screen is negative. Care prior to arrival: None. 17:50 Method Of Arrival: Wheelchair jl7 Historical: - Allergies: 17:48 Hydrocodone-Acetaminophen (Sever Itching); sg - PMHx: 17:48 COPD; Diabetes - NIDDM; Gastroparesis; Hypertension; Myocardial infarction; sg - PSHx: 17:48 Cholecystectomy; ; Hernia repair; Tubal ligation; sg - Immunization history:: Adult Immunizations unknown. - Social history:: Smoking status: Patient/guardian denies using tobacco. - Ebola Screening: : Patient negative for fever greater than or equal to 101.5 degrees Fahrenheit, and additional compatible Ebola Virus Disease symptoms Patient denies exposure to infectious person Patient denies travel to an Ebola-affected area in the 21 days before illness onset No symptoms or risks identified at this time. - Family history:: not pertinent. - Hospitalizations: : No recent hospitalization is reported. Screenin:48 The patient has not been NPO before screening. The patient is not alert, or is unable sg to follow commands. Bedside swallow screening discontinued. Patient kept NPO until cleared by Speech Therapy or Physician. The patient failed the bedside swallow screening. The patient will be kept NPO until cleared by Speech Therapy or Physician. 17:48 VAN Screening: Arm Drift: Patient shows no arm weakness. sg 18:55 Abuse screen: Denies threats or abuse. Denies injuries from another. Nutritional sg screening: No deficits noted. Tuberculosis screening: No symptoms or risk factors identified. Never had TB. Fall Risk None identified. Assessment: 17:33 Reassessment: pt to CT via wheelchair with LORETO Acosta. jl7 17:42 Reassessment: pt returned from CT. sg 17:45 Reassessment: pt actively vomiting undigested food at this time, suction available at HOB. 17:48 Reassessment: xray at bedside. sg 17:50 General: Appears distressed, obese, well groomed, well developed, well nourished, sg Behavior is agitated, uncooperative. Pain: Unable to use pain scale. Does not appear to understand pain scale. FLACC scale score is 6 out of 10. Neuro: Level of Consciousness is awake, confused, Oriented to none Moves all extremities. Speech is slurred, Facial symmetry appears normal. Cardiovascular: Heart tones S1 S2 present Capillary refill is brisk in bilateral fingers Patient's skin is warm and dry. Respiratory: Airway is patent Respiratory effort is even, unlabored, Respiratory pattern is regular, symmetrical. GI: Abdomen is round obese, Parent/caregiver reports the patient having vomiting. EENT: Nares are clear bilaterally Oral mucosa is moist. Derm: Skin is intact, is healthy with good turgor, Skin is dry, Skin is normal, Skin temperature is warm. Musculoskeletal: Circulation, motion, and sensation intact. Range of motion: intact in all extremities. 18:00 Reassessment: states " locate someone to insert a line." will attempt to sg obatin IV access. 18:24 Reassessment: pt confused, unable to answer questions appropriately at this time, pt sg family at bedside, 20 G LFA access established at this time, unable to obtain blood specimen, notified. 18:30 Reassessment: No changes from previously documented assessment. pt appears drowsy, sg unable to follow commands at this time, has episodes of restlessness and attempts to get out of bed. 18:38 Reassessment: at bedside updating pt and pt family that the pt will need sg transfer to Neuro unit due to CT scan results, instructed that the receiving facility neurologist states that due to the patients medical history and the onset of symptoms the patient is not a candidate for TPA, pt family stated understanding. 18:40 Reassessment: Report given to Brian DANGELO with [facility]. Reassessment: [facility] at bedside for IV attempt due to Transfer center requesting 18 G IV access for probable procedure once arrives at facility, IV attempt unsuccessful to left forearm, a pressure dressing has been applied and bleeding contolled. 18:50 Reassessment: pt states that the pt had a CVA in the year of 1987. 18:52 Reassessment: [employer] at bedside, report given to flight nurse and in flight refueling manager pt family at bedside at this time. Vital Signs: 17:45 Temp 97.9; sg 17:46 Weight 115.8 kg (M); sg 17:50 BP 155 / 78; Pulse 88; Resp 18; Pulse Ox 99% on R/A; sg [place] Coma Score: 17:48 Eye Response: to pain(2). Verbal Response: inappropriate words(3). Motor Response: sg withdraws from pain(4). Total: 9. 17:51 Eye Response: spontaneous(4). Verbal Response: inappropriate words(3). Motor Response: rn obeys commands(6). Total: 13. NIH Stroke Scale Scores: 17:48 NIHSS Score: 12 sg ED Course: 17:20 Inserted saline lock: 20 gauge in left forearm, using aseptic technique. sg 17:20 unable to obtain blood specimen from IV, IV flushed with 10 mL NS no signs of sg infiltration noted at this time. research phlebotomist at bedside at this time, no blood specimen obtained. 17:31 Patient arrived in ED. ag5 17:32 Micki Huff MD is Private Physician. ag5 17:34 Rosario Tirado RN is Primary Nurse. jl7 17:[address] via wheelchair. eh 17:44 Patient has correct armband on for positive identification. Bed in low position. Call sg light in reach. Side rails up X2. environmental monitoring specialist on. Pulse ox on. NIBP on. Verbal reassurance given. Head of bed elevated. 17:45 Ct Stroke Brain Wo Cont In Process Unspecified. EDMS 17:47 Everett Yang MD is Attending Physician. rn 17:47 Arm band placed on. sg 17:48 Triage completed. la1 18:29 Stroke CXR 1 View In Process Unspecified. EDMS 18:50 No provider procedures requiring assistance completed. Patient transferred, IV remains sg in place. intact, No redness/swelling at site. Administered Medications: 18:25 Drug: Zofran 4 mg Route: IM; Site: left deltoid; sg 18:50 Follow up: Response: No adverse reaction; Vomiting decreased sg 18:41 Not Given (Other Intervention Used): Zofran 4 mg IVP once; over 2 minutes sg Outcome: 18:13 ER care complete, transfer ordered by . rn 18:55 Transferred by helicopter to [facility], Transfer form completed. sg 18:55 critical 18:55 Instructed on the need for transfer, safety practices, Demonstrated understanding of instructions. 18:58 Patient left the ED. NIH Stroke Scale - NIH Stroke Score Date: 08/19/2019 Time: 17:48 Total Score = 12 1a. Level of Consciousness (LOC) - 1(Not Alert) 1b. Level of Consciousness (LOC) (Year \\T\\ Age) - 2(Neither) 1c. LOC Commands (Open \\T\\ Closes Eyes/Imaging Account Manager) - 2(Neither) 2. Best Gaze (Lateral Gaze Paresis) - 0(Normal) 3. Visual Field Loss - 0(No visual loss) 4. Facial Palsy - 0(Normal) 5a. Left Arm: Motor (10-second hold) - 0(No drift) 5b. Right Arm: Motor (10-second hold) - 0(No drift) 6a. Left Leg: Motor (5-second hold - always test supine) - 0(No drift) 6b. Right Leg: Motor (5-second hold - always test supine) - 0(No drift) 7. Limb Ataxia (finger/nose \\T\\ heel/kyle - test with eyes open) - 0(Absent) 8. Sensory Loss (pinprick arms/legs/face) - 2(Severe to total loss) 9. Best Language: Aphasia (description/naming/reading) - 2(Severe aphasia) 10. Dysarthria (speech clarity - read or repeat words) - 2(Severe) 11. Extinction and Inattention (visual/tactile/auditory/spatial/personal) - 1(Present) Initials: sg Signatures: Dispatcher [employer] EDNj Acharya RN RN sg Hagler, Ervin eh Nieto, Roman, MD MD rn Christa, Dave RN RN la1 Rosario Tirado RN RN jl7 Idalia Aaron 5
--- NOTE | 2019-08-19 18:37 | RAD REPORT ---
EXAM DESCRIPTION: RAD - Chest Single View - 08/19/2019 6:29 pm CLINICAL HISTORY: AMS Chest pain. COMPARISON: Chest Pa And Lat (2 Views) dated 08/10/2019; Chest Pa And Lat (2 Views) dated 08/09/2019 ; Chest Single View dated 08/08/2019; Chest Single View dated 08/01/2019 FINDINGS: Portable technique limits examination quality. Mild interstitial pulmonary edema. The heart is mildly enlarged in size. No displaced fractures. IMPRESSION: Mild CHF.
[2019-08-19 19:14] VITALS: TEMP 97.9
[2019-08-19 19:15] VITALS: BP 155/78; O2SAT 99
== END 2019-08-19 18:58 | disposition short-term general hospital (02) ==
LOC: ER 17:30
DX: I63.9 Cerebral infarction, unspecified (principal); I25.2 Old myocardial infarction; Z88.6 Allergy status to analgesic agent
CPT/HCPCS: 82947; 70450; 71045; 96372; 99285; J2405; 93005

== ENCOUNTER 2019-08-23 10:57 | Emergency (ER) | payer OTHER ==
[2019-08-23] MEDS ORDERED: dexAMETHasone 10 MG/ML VIAL ONE (11:28)
[2019-08-23] MEDS ORDERED: Magnesium Sulfate 2gm IVPB 2 G/50 ML BAG IV ONE (11:28)
[2019-08-23] MEDS ORDERED: IPRATROPIUM BROM 0.5MG/2.5ML ONE ×2 (11:28→15:16)
[2019-08-23] MEDS ORDERED: ALBUTEROL 2.5 MG/3 ML NEB SOL ONE ×2 (11:28→15:16)
--- NOTE | 2019-08-23 12:19 | EKG ---
Test Date: 2019-08-23 Test Time: 11:31:54 Shredder Operator: STACEY MEASUREMENT RESULTS: Intervals: Rate: 100 RI: 168 QRSD: 68 QT: 322 QTc: 415 Cutler: P: 88 RI: 168 QRS: 74 T: 59 INTERPRETIVE STATEMENTS: Normal sinus rhythm Low voltage QRS Cannot rule out Anterior infarct, age undetermined Abnormal ECG Compared to ECG 08/08/2019 18:22:47 Low QRS voltage now present Myocardial infarct finding now present First degree AV block no longer present Electronically Signed On 08-23-19 12:19:06 CARE DIRECTOR by Malcolm Delacruz
--- NOTE | 2019-08-23 12:28 | RAD REPORT ---
EXAM DESCRIPTION: RAD - Chest Single View - 08/23/2019 11:49 am CLINICAL HISTORY: Cough COMPARISON: August 19 TECHNIQUE: AP portable chest image was obtained 1142 hours . FINDINGS: Lungs are underinflated. Very large body habitus and portable technique are substantially limiting factors. Lung bases are poorly visualized. In the mid and upper lung prakash no focal mass or consolidation. Upper lobe vasculature within normal limits. Heart size is normal. No measurable pleural effusion and no pneumothorax. No acute bony abno rmality seen. No acute aortic findings suspected. IMPRESSION: Exam is substantially limited but no acute cardiopulmonary process seen.
[2019-08-23 14:22] LABS: ALT/SGPT 32 U/L (12-78); AST/SGOT 28 U/L (15-37); Albumin 2.5 g/dL (3.4-5.0); Alkaline Phosphatase 97 U/L (45-117); BUN Blood Urea Nitrogen 21 mg/dL (7-18); Bicarbonate 33 mmol/L (21-32); Bilirubin Direct < 0.1 mg/dL (0-0.2); Bilirubin Total 0.1 mg/dL (0.2-1.0); Glucose Level 193 mg/dL (74-106); NT PRO-BNP 302 pg/mL (<125); Potassium 4.7 mmol/L (3.5-5.1); Protein, Total 7.6 g/dL (6.4-8.2); Sodium Level 140 mmol/L (136-145); Troponin (Emerg Dept Use Only) < 0.02 ng/mL (0.0-0.045)
[2019-08-23 14:36] LABS: Hematocrit 28.4 % (36.0-45.0)
[2019-08-23 14:40] LABS: Absolute Lymphocytes (CBC) 1.7 K/uL (0.7-4.9); Lymphocytes % 18.8 % (15.3-44.8); MPV 8.5 fL (7.6-11.3); RBC Red Blood Cell Count 3.51 M/uL (3.86-4.86)
[2019-08-23] MEDS ORDERED: LIDOCAINE 1% MPF 5 ML VIAL ONE (14:56)
[2019-08-23] MEDS ORDERED: DIPHENHYDRAMINE 50 MG/ML VIAL ONE (15:02)
--- NOTE | 2019-08-23 16:46 | EDPHYS ---
Physician Documentation [facility] Name: Tammy Walsh Age: 64 yrs Sex: Female : 1955 Arrival Date: 08/23/2019 Time: 11:01 Bed 16 Private MD: ED Physician Cliff Baig HPI: 08/23 11:30 This 64 yrs old Black Female presents to ER via EMS with complaints of Shortness Of wa Breath. 11:30 The patient has shortness of breath at rest. Onset: The symptoms/episode began/occurred wa today. Duration: The symptoms are continuous, and are steadily getting worse. The patient's shortness of breath is aggravated by coughing, is alleviated by nothing. Associated signs and symptoms: Pertinent positives: productive cough, Pertinent negatives: fever, nausea, vomiting. Severity of symptoms: At their worst the symptoms were moderate in the emergency department the symptoms are worse moderately. The patient has experienced similar episodes in the past, multiple times. The patient has been recently seen by a physician: just returned home from [facility] after a mild stroke, per family.. h/o COPD. still smokes. . Historical: - Allergies: 11:04 Hydrocodone-Acetaminophen (Sever Itching); sg - PMHx: 11:04 COPD; Diabetes - NIDDM; Gastroparesis; Hypertension; Myocardial infarction; CVA; sg - PSHx: 11:04 Cholecystectomy; ; Hernia repair; Tubal ligation; sg - Immunization history:: Adult Immunizations up to date. - Social history:: Smoking status: Patient/guardian denies using tobacco. - Ebola Screening: : Patient negative for fever greater than or equal to 101.5 degrees Fahrenheit, and additional compatible Ebola Virus Disease symptoms Patient denies exposure to infectious person Patient denies travel to an Ebola-affected area in the 21 days before illness onset No symptoms or risks identified at this time. - Family history:: not pertinent. - Hospitalizations: : No recent hospitalization is reported. ROS: 11:32 Constitutional: Negative for fever, chills, and weight loss, Eyes: Negative for injury, wa pain, redness, and discharge, ENT: Negative for injury, pain, and discharge, Neck: Negative for injury, pain, and swelling, Abdomen/GI: Negative for abdominal pain, nausea, vomiting, diarrhea, and constipation, Back: Negative for injury and pain, : Negative for injury, bleeding, discharge, and swelling, MS/Extremity: Negative for injury and deformity, Skin: Negative for injury, rash, and discoloration, Neuro: Negative for headache, weakness, numbness, tingling, and seizure, Psych: Negative for depression, anxiety, suicide ideation, homicidal ideation, and hallucinations. 11:32 Cardiovascular: Negative for chest pain, edema, orthopnea, palpitations, paroxysmal nocturnal dyspnea. 11:32 Respiratory: Positive for cough, with clear sputum, shortness of breath, on exertion. wheezing, expiratory. 11:32 All other systems are negative. Exam: 11:33 Head/Face: Normocephalic, atraumatic. Eyes: Pupils equal round and reactive to light, wa extra-ocular motions intact. Lids and lashes normal. Conjunctiva and sclera are non-icteric and not injected. Cornea within normal limits. Periorbital areas with no swelling, redness, or edema. ENT: Nares patent. No nasal discharge, no septal abnormalities noted. Tympanic membranes are normal and external auditory canals are clear. Oropharynx with no redness, swelling, or masses, exudates, or evidence of obstruction, uvula midline. Mucous membranes moist. Neck: Trachea midline, no thyromegaly or masses palpated, and no cervical lymphadenopathy. Supple, full range of motion without nuchal rigidity, or vertebral point tenderness. No Meningismus. Chest/axilla: Normal chest wall appearance and motion. Nontender with no deformity. No lesions are appreciated. Abdomen/GI: Soft, non-tender, with normal bowel sounds. No distension or tympany. No guarding or rebound. No evidence of tenderness throughout. Back: No spinal tenderness. No costovertebral tenderness. Full range of motion. Skin: Warm, dry with normal turgor. Normal color with no rashes, no lesions, and no evidence of cellulitis. MS/ Extremity: Pulses equal, no cyanosis. Neurovascular intact. Full, normal range of motion. Neuro: Awake and alert, GCS 15, oriented to person, place, time, and situation. Cranial nerves II-XII grossly intact. Motor strength 5/5 in all extremities. Sensory grossly intact. Cerebellar exam normal. Normal gait. Psych: Awake, alert, with orientation to person, place and time. Behavior, mood, and affect are within normal limits. 11:33 Constitutional: The patient appears alert, appears winded. noted paroxysmal coughing spells 11:33 Cardiovascular: Rate: tachycardic, Rhythm: regular, Pulses: no pulse deficits are appreciated, Heart sounds: normal, Edema: is not appreciated, JVD: is not appreciated. 11:33 Respiratory: mild respiratory distress is noted, Respirations: normal, Breath sounds: decreased breath sounds, are heard in the right posterior middle lobe and right posterior lower lobe, wheezing: that is mild, is heard diffusely. Vital Signs: 11:05 BP 109 / 77; Pulse 103; Resp 17; Temp 98.4; Pulse Ox 92% on R/A; sg 14:04 BP 110 / 72; Pulse 97; Resp 17; Temp 98.7; Pulse Ox 98% on 2 lpm NC; sg MDM: 11:10 Patient medically screened. fl 11:35 Differential diagnosis: Bronchitis CHF exacerbation, Chronic Obstructive Pulmonary wa Disease Myocardial Infarction pneumonia, pulmonary edema, reactive airway disease. 13:51 Data reviewed: vital signs, nurses notes. ED course: moving air a bit better. hard wa stick. just obtained IV. will give meds and reassess. 17:12 Special discussion: improved prior to departure. declined observation for further fl monitoring and treatments. I advised for her to return immediately if worsening and or change her mind about getting admitted. 08/23 11:20 Order name: Flu; Complete Time: 14:51 fl 08/23 11:21 Order name: Blood Culture Adult (2) fl 08/23 11:21 Order name: BMP; Complete Time: 14:38 fl 08/23 11:21 Order name: CBC with Diff; Complete Time: 14:50 fl 08/23 11:21 Order name: Hepatic Function; Complete Time: 14:50 fl 08/23 11:21 Order name: Magnesium; Complete Time: 14:51 fl 08/23 11:21 Order name: XRAY CXR (1 view); Complete Time: 12:42 fl 08/23 11:21 Order name: NT PRO-BNP; Complete Time: 14:50 fl 08/23 11:21 Order name: PT-INR; Complete Time: 14:51 fl 08/23 11:21 Order name: Troponin (emerg Dept Use Only); Complete Time: 14:51 fl 08/23 11:21 Order name: EKG; Complete Time: 11: fl 08/23 11:21 Order name: Cardiac monitoring; Complete Time: 13: fl 08/23 11:21 Order name: EKG - Nurse/Tech; Complete Time: 13: fl 08/23 11:21 Order name: O2 Per Protocol; Complete Time: 13: fl 08/23 11:21 Order name: O2 Sat Monitoring; Complete Time: 13: fl Administered Medications: 11:42 Drug: Albuterol 2.5 mg Route: Inhalation; sg 11:42 Drug: AtroVENT Aerosol 0.5 mg Route: Inhalation; sg 13:50 Drug: Magnesium Sulfate 2 grams Route: IVPB; Infused Over: 2 hrs; Site: left sg antecubital; 13:50 Drug: Decadron - Dexamethasone 10 mg Route: IVP; Site: left antecubital; sg 15:10 Drug: Benadryl 6.25 mg Route: IVP; Site: left antecubital; sg 15:11 Not Given (Duplicate Order): Benadryl 12.5 mg IVP once sg Disposition: 08/23/19 16:45 Discharged to Home. Impression: Cough, Shortness of Breath, COPD Exacerbation. - Condition is Stable. - Discharge Instructions: Chronic Obstructive Pulmonary Disease Exacerbation. - Prescriptions for Robitussin Cough- Chest Ilan DM - take 10 milliliter by ORAL route every 6 hours As needed; 150 milliliter. - Medication Reconciliation Form, Thank You Letter, Antibiotic Education, Prescription Opioid Use form. - Follow up: Private Physician; When: 1 - 2 days; Reason: Recheck today's complaints. - Problem is an acute exacerbation. - Symptoms have improved. - Notes: use your albuterol as needed as discussed. return here immediately if worsening Signatures: Dispatcher [employer] EDMS Nj Alexander RN RN Cliff Baig MD MD fl Corrections: (The following items were deleted from the chart) 17:01 16:45 08/23/2019 16:45 Discharged to Home. Impression: Cough; Shortness of Breath; COPD sg Exacerbation. Condition is Stable. Forms are Medication Reconciliation Form, Thank You Letter, Antibiotic Education, Prescription Opioid Use. Follow up: Private Physician; When: 1 - 2 days; Reason: Recheck today's complaints. Problem is an acute exacerbation. Symptoms have improved. wa
--- NOTE | 2019-08-23 16:46 | ER ---
Nurse's Notes [facility] Name: Tammy Walsh Age: 64 yrs Sex: Female : 1955 Arrival Date: 08/23/2019 Time: 11:01 Bed 16 Private MD: Diagnosis: Cough;Shortness of Breath;COPD Exacerbation Presentation: 08/23 11:01 Presenting complaint: EMS states: pt has had shortness of breath this morning, reports sg a cough, denies fever chills that she knows of at this time, denies use of home o2. Transition of care: patient was not received from another setting of care. Onset of symptoms was August 23, 2019. Risk Assessment: Do you want to hurt yourself or someone else? Patient reports no desire to harm self or others. Initial Sepsis Screen: Does the patient meet any 2 criteria? No. Patient's initial sepsis screen is negative. Does the patient have a suspected source of infection? No. Patient's initial sepsis screen is negative. Care prior to arrival: None. 11:01 Method Of Arrival: EMS: [facility] sg 11: Acuity: PATRICIA 3 sg Triage Assessment: 11:04 General: Appears in no apparent distress. ill, well groomed, well developed, well sg nourished, Behavior is calm, cooperative, appropriate for age, quiet. Pain: Denies pain. Neuro: Level of Consciousness is awake, alert, obeys commands, Oriented to person, place, time, situation. Cardiovascular: Capillary refill is brisk in bilateral fingers Patient's skin is warm and dry. Chest pain is denied. Respiratory: Reports cough that is productive, since yesterday Airway is patent Respiratory effort is even, unlabored, Respiratory pattern is regular, symmetrical, Onset: The symptoms/episode began/occurred yesterday, the patient has mild shortness of breath. GI: Abdomen is round non-distended, obese, Reports tolerance of fluids, tolerance of food. Derm: Skin is pink, warm \T\ dry. Musculoskeletal: Circulation, motion, and sensation intact. Range of motion: intact in all extremities. Historical: - Allergies: 11:04 Hydrocodone-Acetaminophen (Sever Itching); sg - PMHx: 11:04 COPD; Diabetes - NIDDM; Gastroparesis; Hypertension; Myocardial infarction; CVA; sg - PSHx: 11:04 Cholecystectomy; ; Hernia repair; Tubal ligation; sg - Immunization history:: Adult Immunizations up to date. - Social history:: Smoking status: Patient/guardian denies using tobacco. - Ebola Screening: : Patient negative for fever greater than or equal to 101.5 degrees Fahrenheit, and additional compatible Ebola Virus Disease symptoms Patient denies exposure to infectious person Patient denies travel to an Ebola-affected area in the 21 days before illness onset No symptoms or risks identified at this time. - Family history:: not pertinent. - Hospitalizations: : No recent hospitalization is reported. Screenin:15 Abuse screen: Denies threats or abuse. Denies injuries from another. Nutritional sg screening: No deficits noted. Tuberculosis screening: No symptoms or risk factors identified. Never had TB. Fall Risk None identified. Assessment: 11:10 Reassessment: Patient appears in no apparent distress at this time. sg 12:00 Reassessment: [place] DANGELO, notified of no IV access for pt at this time. sg 12:30 Reassessment: notified of no IV access established. sg 13:50 Reassessment: at bedside updating pt on radiology results, awaiting lab sg results at this time, pt reports feeling hungry and not having eaten today, orders reg diet tray at this time. 14:06 Reassessment: Patient appears in no apparent distress at this time. Patient and/or sg family updated on plan of care and expected duration. Pain level reassessed. Patient is alert, oriented x 3, equal unlabored respirations, skin warm/dry/pink. pt eating reg diet tray at this time, tolerating well, will continue to monitor Patient states feeling better. Vital Signs: 11:05 BP 109 / 77; Pulse 103; Resp 17; Temp 98.4; Pulse Ox 92% on R/A; sg 14:04 BP 110 / 72; Pulse 97; Resp 17; Temp 98.7; Pulse Ox 98% on 2 lpm NC; sg ED Course: 11:01 Patient arrived in ED. sg 11:01 Arm band placed on. sg 11:03 Triage completed. sg 11:06 Nj Alexander, LORETO is Primary Nurse. sg 11:10 Cliff Baig MD is Attending Physician. wa 11:15 Patient has correct armband on for positive identification. Bed in low position. Call sg light in reach. supervisor poultry farm on. Pulse ox on. NIBP on. Warm blanket given. Head of bed elevated. 11:37 EKG done, by principal technologist. reviewed by Cliff Baig MD. at1 11:51 XRAY CXR (1 view) In Process Unspecified. EDMS 12:00 Missed attempt(s): 22 gauge in right antecubital area. Bleeding controlled, band aid sg applied, catheter tip intact. 12:30 Missed attempt(s): 22 gauge in right wrist. Bleeding controlled, band aid applied, sg catheter tip intact. 13:50 Initial lab(s) drawn, by ED staff, sent to lab. Inserted saline lock: 22 gauge in left sg antecubital area, using aseptic technique. Blood collected. 17:00 No provider procedures requiring assistance completed. IV discontinued, intact, sg bleeding controlled, No redness/swelling at site. Pressure dressing applied. Administered Medications: 11:42 Drug: Albuterol 2.5 mg Route: Inhalation; sg 11:42 Drug: AtroVENT Aerosol 0.5 mg Route: Inhalation; sg 13:50 Drug: Magnesium Sulfate 2 grams Route: IVPB; Infused Over: 2 hrs; Site: left sg antecubital; 13:50 Drug: Decadron - Dexamethasone 10 mg Route: IVP; Site: left antecubital; sg 15:10 Drug: Benadryl 6.25 mg Route: IVP; Site: left antecubital; sg 15:11 Not Given (Duplicate Order): Benadryl 12.5 mg IVP once sg Outcome: 16:45 Discharge ordered by . [place] 17:00 Discharged to home via wheelchair, with family. 17:00 Condition: good 17:00 Discharge instructions given to patient, family, Instructed on discharge instructions, follow up and referral plans. medication usage, safety practices, Demonstrated understanding of instructions, follow-up care, medications, Prescriptions given X 1. 17:01 Patient left the ED. Signatures: Dispatcher [employer] EDMS Nj Alexander RN RN Silvia Patel, manager highway EKG Tat1 Cliff Baig MD MD wa
[2019-08-23 18:09] VITALS: BP 110/72; TEMP 98.7; O2SAT 98
--- OUTSIDE RECORDS SUMMARY | 2019-08-28 23:17 | XMS REPORT ---
[...] Active Problem Essential hypertension I10 Active Problem [facility] current use of insulin Z79.4 Active Problem [...]
--- OUTSIDE RECORDS SUMMARY | 2019-08-28 23:17 | XMS REPORT ---
:1955 [facility] Address [address] [place] [address] Dr. Colón [address] [place] [id number] Care Team Providers Name Role Phone CLINTON [...] (BEAKER) 330 mg/dL 70-110 : TESTED AT [address] (test sqvs=1370) [place], [address]: Buffing Turner And Counter/Blood Bank Technologist [id number] for Cha Valadez POCT-GLUCOSE [id number] 13:26:00 Test Item Value Reference Range Comments POC-GLUCOSE METER (BEAKER) 343 mg/dL 70-110 : TESTED AT [address] (test ynuu=8074) [facility], [address]: Buffing Turner And Counter/Blood Bank Technologist [id number] for TIMOTHYMOIZ ANDERSONT C-REACTIVE [id number] 11:30:00 Test Item Value Reference Range Comments C-REACTIVE PROTEIN (BEAKER) (test jdeh=274) 2.34 mg/dL 0.00-0.50 [id number] 11:27:00 Test Item Value Reference Range Comments FIBRINOGEN LEVEL (BEAKER) (test kgpp=568) 866 mg/dl 225-434 [id number] 11:24:00 Test Item Value Reference Range Comments D-DIMER QUANTITATIVE (BEAKER) (test wabb=551) 1.66 MG/L FEU <0.50 Intended Use: The [...] of thrombosis is within 95-100% range.POCT- GLUCOSE [id number] 09:05:00 Test Item Value Reference Range Comments POC-GLUCOSE METER (BEAKER) 283 mg/dL 70-110 : TESTED AT [facility] [address] [facility] (test omkk=7692) [facility], [address]: Buffing [employer] And Counter/Blood Bank Technologist [id number] for OMEGA, JASON RAD, CHEST, 1 VIEW, NON [id number] 07:47:00Reason for exam:->CHFFINAL REPORT CLINICAL HISTORY: CHF TECHNIQUE: 1 view of the chest. COMPARISON: 08/19/2019 IMPRESSION: Pulmonary vascular congestive findings appear slightly decreased. There is no lobar consolidation or significant pleural fluid. Cardiomegaly is unchanged. Signed: Monisha Castro MDReport Verified Date/Time: 08/22/2019 07:47:58 Reading Location: [facility] Radiology Reading Room Electronically signed by: MONISHA CASTRO M.D. on 07:47 AMBASIC METABOLIC [id number] 05:32:00 Test Item Value Reference Range Comments SODIUM (BEAKER) (test 136 meq/L 136-145 clrk=050) POTASSIUM (BEAKER) (test 4.8 meq/L 3.5-5.1 cqnq=699) CHLORIDE (BEAKER) (test 98 meq/L 98-107 crsj=603) CO2 (BEAKER) (test 31 meq/L 22-29 xlvn=356) BLOOD UREA NITROGEN 26 mg/dL 7-21 (BEAKER) (test kens=520) CREATININE (BEAKER) (test 1.54 mg/dL 0.57-1.25 oguv=003) GLUCOSE RANDOM (BEAKER) 224 mg/dL 70-105 (test gykq=640) CALCIUM (BEAKER) (test 9.0 mg/dL 8.4-10.2 ajwc=342) EGFR (BEAKER) (test 41 mL/min/1.73 sq m ESTIMATED GFR IS NOT aelb=8695) ACCURATE CREATININE CLEARANCE IN PREDICTING GLOMERULAR FILTRATION RATE. ESTIMATED GFR IS NOT APPLICABLE FOR DIALYSIS PATIENTS. B-TYPE NATRIURETIC FACTOR (BNP)2019-08-22 05:21:00 Test Item Value Reference Range Comments B-TYPE NATRIURETIC PEPTIDE (BEAKER) (test gwpv=865) 15 pg/mL 0-100 CBC W/PLT COUNT & AUTO [id number] 04:59:00 Test Item Value Reference Range Comments WHITE BLOOD CELL COUNT (BEAKER) (test ceff=303) 9.1 K/ L 3.5-10.5 RED BLOOD CELL COUNT (BEAKER) (test tzuo=450) 3.57 M/ L 3.93-5.22 HEMOGLOBIN (BEAKER) (test qwik=295) 9.3 GM/DL 11.2-15.7 HEMATOCRIT (BEAKER) (test sodn=397) 30.4 % 34.1-44.9 MEAN CORPUSCULAR VOLUME (BEAKER) (test coda=701) 85.2 fL 79.4-94.8 MEAN CORPUSCULAR HEMOGLOBIN (BEAKER) (test 26.1 pg 25.6-32.2 oiys=183) MEAN CORPUSCULAR HEMOGLOBIN CONC (BEAKER) (test 30.6 GM/DL 32.2-35.5 tdbf=170) RED CELL DISTRIBUTION WIDTH (BEAKER) (test 14.9 % 11.7-14.4 msrv=489) PLATELET COUNT (BEAKER) (test pcjq=203) 447 K/CU MM 150-450 MEAN PLATELET VOLUME (BEAKER) (test srll=452) 9.4 fL 9.4-12.3 NUCLEATED RED BLOOD CELLS (BEAKER) (test 0 /100 WBC 0-0 wazz=974) NEUTROPHILS RELATIVE PERCENT (BEAKER) (test 64 % fjfj=691) LYMPHOCYTES RELATIVE PERCENT (BEAKER) (test 24 % wymg=765) MONOCYTES RELATIVE PERCENT (BEAKER) (test 8 % ectn=625) EOSINOPHILS RELATIVE PERCENT (BEAKER) (test 2 % kxjy=739) BASOPHILS RELATIVE PERCENT (BEAKER) (test 1 % hzyq=629) NEUTROPHILS ABSOLUTE COUNT (BEAKER) (test 5.89 K/ L 1.56-6.13 geru=382) LYMPHOCYTES ABSOLUTE COUNT (BEAKER) (test 2.23 K/ L 1.18-3.74 frrz=195) MONOCYTES ABSOLUTE COUNT (BEAKER) (test 0.75 K/ L 0.24-0.36 wtex=030) EOSINOPHILS ABSOLUTE COUNT (BEAKER) (test 0.18 K/ L 0.04-0.36 cegt=759) BASOPHILS ABSOLUTE COUNT (BEAKER) (test 0.06 K/ L 0.01-0.08 pbty=846) IMMATURE GRANULOCYTES-RELATIVE PERCENT (BEAKER) 0 % 0-1 (test grsa=6362) POCT-GLUCOSE [id number] 18:31:00 Test Item Value Reference Range Comments POC-GLUCOSE METER (BEAKER) 220 mg/dL 70-110 : TESTED AT [address] (test gkwu=4684) [facility], [address]: Buffing Turner And Counter/Blood Bank Technologist [id number] for LEAH, AURA POCT-GLUCOSE [id number] 18:30:00 Test Item Value Reference Range Comments POC-GLUCOSE METER (BEAKER) 186 mg/dL 70-110 : TESTED AT [address] (test iapj=7046) [facility], [address]: Buffing Turner And Counter/Blood Bank Technologist [id number] for LEAH, AURA POCT-GLUCOSE [id number] 18:29:00 Test Item Value Reference Range Comments POC-GLUCOSE METER (BEAKER) 183 mg/dL 70-110 : Notified RN/MD: TESTED AT (test tqns=6355) [address], [address]: Buffing Turner And Counter/Blood Bank Technologist [id number] for LEAH, AURA POCT-GLUCOSE [id number] 18:29:00 Test Item Value Reference Range Comments POC-GLUCOSE METER (BEAKER) 66 mg/dL 70-110 : Notified RN/MD: TESTED AT (test bgeo=4132) [address], [address]: Buffing Turner And Counter/Blood Bank Technologist [id number] for LEAH, AURA POCT-GLUCOSE [id number] 18:29:00 Test Item Value Reference Range Comments POC-GLUCOSE METER (BEAKER) 49 mg/dL 70-110 : TESTED AT [address] (test bpog=8522) [facility], [address]: Buffing Turner And Counter/Blood Bank Technologist [id number] for LEAH, AURA CALCIUM, [id number] 10:55:00 Test Item Value Reference Range Comments CALCIUM IONIZED (BEAKER) (test hhhj=329) 1.07 mmol/L 1.12-1.27 PH, BLOOD (BEAKER) (test cgtb=0025) 7.35 [id number] 08:46:00 Test Item Value Reference Range Comments MAGNESIUM (BEAKER) (test frvf=834) 2.4 mg/dL 1.6-2.6 BASIC METABOLIC [id number] 06:27:00 Test Item Value Reference Range Comments SODIUM (BEAKER) (test 138 meq/L 136-145 djah=811) POTASSIUM (BEAKER) (test 4.2 meq/L 3.5-5.1 etnd=141) CHLORIDE (BEAKER) (test 99 meq/L 98-107 lfok=286) CO2 (BEAKER) (test 31 meq/L 22-29 ksye=414) BLOOD UREA NITROGEN 26 mg/dL 7-21 (BEAKER) (test pddp=527) CREATININE (BEAKER) (test 1.59 mg/dL 0.57-1.25 sfmm=756) GLUCOSE RANDOM (BEAKER) 67 mg/dL 70-105 (test zogj=535) CALCIUM (BEAKER) (test 9.3 mg/dL 8.4-10.2 ozmp=964) EGFR (BEAKER) (test 40 mL/min/1.73 sq m ESTIMATED GFR IS NOT eksk=3723) ACCURATE CREATININE CLEARANCE IN PREDICTING GLOMERULAR FILTRATION RATE. ESTIMATED GFR IS NOT APPLICABLE FOR DIALYSIS PATIENTS. CBC W/PLT COUNT & AUTO [id number] 05:23:00 Test Item Value Reference Range Comments WHITE BLOOD CELL COUNT (BEAKER) (test sycx=316) 9.9 K/ L 3.5-10.5 RED BLOOD CELL COUNT (BEAKER) (test gshf=360) 3.50 M/ L 3.93-5.22 HEMOGLOBIN (BEAKER) (test oahm=055) 9.0 GM/DL 11.2-15.7 HEMATOCRIT (BEAKER) (test fkvg=103) 29.3 % 34.1-44.9 MEAN CORPUSCULAR VOLUME (BEAKER) (test vmqt=778) 83.7 fL 79.4-94.8 MEAN CORPUSCULAR HEMOGLOBIN (BEAKER) (test 25.7 pg 25.6-32.2 zeuq=754) MEAN CORPUSCULAR HEMOGLOBIN CONC (BEAKER) (test 30.7 GM/DL 32.2-35.5 nonp=230) RED CELL DISTRIBUTION WIDTH (BEAKER) (test 15.0 % 11.7-14.4 xegb=486) PLATELET COUNT (BEAKER) (test ekqq=613) 522 K/CU MM 150-450 MEAN PLATELET VOLUME (BEAKER) (test vtml=735) 9.5 fL 9.4-12.3 NUCLEATED RED BLOOD CELLS (BEAKER) (test 0 /100 WBC 0-0 zfrp=317) NEUTROPHILS RELATIVE PERCENT (BEAKER) (test 66 % twmq=055) LYMPHOCYTES RELATIVE PERCENT (BEAKER) (test 25 % qkqu=969) MONOCYTES RELATIVE PERCENT (BEAKER) (test 7 % phjf=066) EOSINOPHILS RELATIVE PERCENT (BEAKER) (test 1 % plqn=088) BASOPHILS RELATIVE PERCENT (BEAKER) (test 1 % xwzu=560) NEUTROPHILS ABSOLUTE COUNT (BEAKER) (test 6.46 K/ L 1.56-6.13 hvis=537) LYMPHOCYTES ABSOLUTE COUNT (BEAKER) (test 2.44 K/ L 1.18-3.74 ippm=145) MONOCYTES ABSOLUTE COUNT (BEAKER) (test 0.71 K/ L 0.24-0.36 pqfo=795) EOSINOPHILS ABSOLUTE COUNT (BEAKER) (test 0.14 K/ L 0.04-0.36 apfy=326) BASOPHILS ABSOLUTE COUNT (BEAKER) (test 0.06 K/ L 0.01-0.08 kvne=951) IMMATURE GRANULOCYTES-RELATIVE PERCENT (BEAKER) 0 % 0-1 (test ehah=6028) POCT-GLUCOSE [id number] 21:59:00 Test Item Value Reference Range Comments POC-GLUCOSE METER (BEAKER) 242 mg/dL 70-110 : Notified RN/MD: TESTED AT (test ymte=9763) [address], [address]: Buffing Turner [employer] Counter/Blood Bank Technologist [id number] for SHMUEL DUNCAN POCT-GLUCOSE [id number] 18:12:00 Test Item Value Reference Range Comments POC-GLUCOSE METER (BEAKER) 230 mg/dL 70-110 : Notified RN/MD: TESTED AT (test bldy=7344) [address], [address]: Buffing Turner And Counter/Blood Bank Technologist [id number] for KEHINDE LYNN [id number] 13:39:00 Test Item Value Reference Range Comments RPR SCREEN (BEAKER) (test mxfa=312) Nonreactive Nonreactive POCT-GLUCOSE [id number] 12:07:00 Test Item Value Reference Range Comments POC-GLUCOSE METER (BEAKER) 142 mg/dL 70-110 : Notified RN/MD: TESTED AT (test fgql=5761) [address], [address]: Buffing Turner And Counter/Blood Bank Technologist [id number] for KEHINDE LYNN POCT-GLUCOSE [id number] 10:56:00 Test Item Value Reference Range Comments POC-GLUCOSE METER (BEAKER) 116 mg/dL 70-110 : TESTED AT [address] (test yean=9858) [facility], [address]: Buffing Turner And Counter/Blood Bank Technologist [id number] for KEHINDE LYNN HEMOGLOBIN [id number] 08:52:00 Test Item Value Reference Range Comments HEMOGLOBIN A1C (BEAKER) (test cwtb=123) 10.3 % 4.3-6.1 BASIC METABOLIC [id number] 05:10:00 Test Item Value Reference Range Comments SODIUM (BEAKER) (test 138 meq/L 136-145 iklt=614) POTASSIUM (BEAKER) (test 4.8 meq/L 3.5-5.1 hypc=891) CHLORIDE (BEAKER) (test 101 meq/L 98-107 fgdq=017) CO2 (BEAKER) (test 30 meq/L 22-29 qqag=007) BLOOD UREA NITROGEN 25 mg/dL 7-21 (BEAKER) (test nafx=846) CREATININE (BEAKER) (test 1.30 mg/dL 0.57-1.25 bgnc=284) GLUCOSE RANDOM (BEAKER) 168 mg/dL 70-105 (test hent=692) CALCIUM (BEAKER) (test 9.2 mg/dL 8.4-10.2 invi=704) EGFR (BEAKER) (test 50 mL/min/1.73 sq m ESTIMATED GFR IS NOT tmva=4168) ACCURATE CREATININE CLEARANCE IN PREDICTING GLOMERULAR FILTRATION RATE. ESTIMATED GFR IS NOT APPLICABLE FOR DIALYSIS PATIENTS. CBC W/PLT COUNT & AUTO [id number] 04:56:00 Test Item Value Reference Range Comments WHITE BLOOD CELL COUNT (BEAKER) (test omfx=265) 12.3 K/ L 3.5-10.5 RED BLOOD CELL COUNT (BEAKER) (test yzzy=593) 3.48 M/ L 3.93-5.22 HEMOGLOBIN (BEAKER) (test gzdc=267) 9.2 GM/DL 11.2-15.7 HEMATOCRIT (BEAKER) (test crfq=280) 29.2 % 34.1-44.9 MEAN CORPUSCULAR VOLUME (BEAKER) (test thnd=025) 83.9 fL 79.4-94.8 MEAN CORPUSCULAR HEMOGLOBIN (BEAKER) (test 26.4 pg 25.6-32.2 nllm=464) MEAN CORPUSCULAR HEMOGLOBIN CONC (BEAKER) (test 31.5 GM/DL 32.2-35.5 dhrq=841) RED CELL DISTRIBUTION WIDTH (BEAKER) (test 15.1 % 11.7-14.4 vkwp=718) PLATELET COUNT (BEAKER) (test pcot=556) 500 K/CU MM 150-450 MEAN PLATELET VOLUME (BEAKER) (test qhcq=642) 10.0 fL 9.4-12.3 NUCLEATED RED BLOOD CELLS (BEAKER) (test 0 /100 WBC 0-0 mpqr=145) NEUTROPHILS RELATIVE PERCENT (BEAKER) (test 71 % xjah=696) LYMPHOCYTES RELATIVE PERCENT (BEAKER) (test 21 % vhta=423) MONOCYTES RELATIVE PERCENT (BEAKER) (test 7 % fvbn=054) EOSINOPHILS RELATIVE PERCENT (BEAKER) (test 1 % jrfc=705) BASOPHILS RELATIVE PERCENT (BEAKER) (test 1 % ktgs=209) NEUTROPHILS ABSOLUTE COUNT (BEAKER) (test 8.73 K/ L 1.56-6.13 yjcm=069) LYMPHOCYTES ABSOLUTE COUNT (BEAKER) (test 2.59 K/ L 1.18-3.74 aocj=158) MONOCYTES ABSOLUTE COUNT (BEAKER) (test 0.81 K/ L 0.24-0.36 ejuk=010) EOSINOPHILS ABSOLUTE COUNT (BEAKER) (test 0.10 K/ L 0.04-0.36 dwtq=542) BASOPHILS ABSOLUTE COUNT (BEAKER) (test 0.06 K/ L 0.01-0.08 dogm=609) IMMATURE GRANULOCYTES-RELATIVE PERCENT (BEAKER) 0 % 0-1 (test cpxo=7182) TSH/FREE T4 IF [id number] 04:12:00 Test Item Value Reference Range Comments THYROID STIMULATING HORMONE (BEAKER) (test 0.80 uIU/mL 0.35-4.94 kxtv=156) VITAMIN B12 AND [id number] 04:12:00 Test Item Value Reference Range Comments VITAMIN B12 (BEAKER) (test dtjw=726) 733 pg/mL 213-816 FOLATE (BEAKER) (test zzop=513) 10.6 ng/mL >=7.0 RAD, CHEST, 1 VIEW, NON [id number] 02:03:00Reason for exam:->respiratory distressShould this be performed [...] to be excluded clinically. Signed: Archie Ramirez [facility] Verified Date/Time: 08/20/2019 02:03:23 TROPONIN [id number] 23:15:00 Test Item Value Reference Range Comments TROPONIN I (BEAKER) (test hzfp=849) < ng/mL 0.00-0.03 Troponin I (TnI) levels [...] acidosis, acute neurological disease, and persistent tachyarrhythmia.LIPID [id number] 23:09:00 Test Item Value Reference Range Comments TRIGLYCERIDES (BEAKER) (test zddp=481) 63 mg/dL CHOLESTEROL (BEAKER) (test qubk=201) 124 mg/dL HDL CHOLESTEROL (CALLIE) (test rlsk=501) 38 mg/dL LDL CHOLESTEROL CALCULATED (TULIOAKER) (test 73 mg/dL fhyk=444) Triglyceride Reference Range: Low Risk <150 Borderline 150- 199 High Risk 200-499 Very High Risk >=500Cholesterol Reference Range: Low Risk <200 Borderline 200-239 High Risk > 240HDL Cholesterol Reference Range: Low Risk >=60 High Risk <40LDL Cholesterol Reference Range: Optimal <100 Near Optimal 100-129 Borderline 130-159 High 160-189 Very High >=190CT, CTANG [id number] 20:23:00FINAL REPORT CT, BRAIN/STROKE PROTOCOL, CT, CEREBRAL [...] stenosis, or proximal branch vessel occlusion. Left FIELD KILN BURNER is predominantly supplied by P- comm. Diminutive [...] MDReport Verified Date/Time: 08/19/2019 20:23:29 CT, CAROTID, [id number] 20:23:00FINAL REPORT CT, BRAIN/ STROKE PROTOCOL, CT, [...] stenosis, or proximal branch vessel occlusion. Left FIELD KILN BURNER is predominantly supplied by P- comm. Diminutive [...] Verified Date/Time: 08/19/2019 20:23:29 CT, CEREBRAL PERFUSION [id number] 20:23:00FINAL REPORT CT, BRAIN/STROKE PROTOCOL, CT, CEREBRAL [...] stenosis, or proximal branch vessel occlusion. Left FIELD KILN BURNER is predominantly supplied by P- comm. Diminutive [...] Esquivel Verified Date/Time: 08/19/2019 20:23:29 CT, BRAIN/STROKE [id number] 20:23:00FINAL REPORT CT, BRAIN/STROKE PROTOCOL, CT, CEREBRAL [...] stenosis, or proximal branch vessel occlusion. Left FIELD KILN BURNER is predominantly supplied by P- comm. Diminutive [...]
== END 2019-08-23 17:01 | disposition home or self-care (01) ==
LOC: ER 10:57
DX: J44.1 Chronic obstructive pulmonary disease with (acute) exacerbation (principal); R05 Cough; I10 Essential (primary) hypertension; I25.2 Old myocardial infarction; Z88.5 Allergy status to narcotic agent
CPT/HCPCS: 93005; 87040; 85025; 80048; 36415; 83735; 85610; 80076; 84484; 83880; 87804 ×2; 71045; 96375; 96374; 99285; J1200; J1100; J3475

== ENCOUNTER 2019-08-28 15:10 | Observation (INO) | payer OTHER ==
[2019-08-28] MEDS: METOPROLOL XL 100 MG TAB PO SCH ×2 (06:00→21:32)
[2019-08-28] MEDS ORDERED: METHYLPREDNISOLONE 125 MG INJ ONE (16:03)
[2019-08-28] MEDS ORDERED: AZITHROMYCIN 250 MG TAB ONE (16:03)
[2019-08-28] MEDS ORDERED: LEVALBUTEROL 1.25 MG/3 ML NEB ONE (16:03)
[2019-08-28] MEDS ORDERED: FUROSEMIDE 40 MG/4 ML VIAL ONE (16:04)
[2019-08-28] MEDS ORDERED: KETOROLAC 30 MG/ML INJ ONE (16:04)
[2019-08-28 16:35] LABS: Absolute Lymphocytes (CBC) 2.2 K/uL (0.7-4.9); Hematocrit 30.3 % (36.0-45.0); Lymphocytes % 16.4 % (15.3-44.8); MPV 7.9 fL (7.6-11.3); RBC Red Blood Cell Count 3.71 M/uL (3.86-4.86)
[2019-08-28 16:41] LABS: Protime INR 0.99
[2019-08-28 16:51] LABS: ALT/SGPT 41 U/L (12-78); AST/SGOT 36 U/L (15-37); Albumin 2.6 g/dL (3.4-5.0); Alkaline Phosphatase 96 U/L (45-117); BUN Blood Urea Nitrogen 27 mg/dL (7-18); Bicarbonate 33 mmol/L (21-32); Bilirubin Direct < 0.1 mg/dL (0-0.2); Bilirubin Total 0.1 mg/dL (0.2-1.0); CKMB Creatine Kinase MB 1.2 ng/mL (0.3-3.6); Creatine Phosphokinase 144 U/L (26-192); Glucose Level 156 mg/dL (74-106); Lipase 133 U/L (73-393); Magnesium 1.9 mg/dL (1.8-2.4); NT PRO-BNP 240 pg/mL (<125); Potassium 4.8 mmol/L (3.5-5.1); Protein, Total 7.5 g/dL (6.4-8.2); Sodium Level 138 mmol/L (136-145); Troponin (Emerg Dept Use Only) < 0.02 ng/mL (0.0-0.045)
--- NOTE | 2019-08-28 17:01 | ER ---
Nurse's Notes [facility] Name: Tammy Walsh Age: 64 yrs Sex: Female : 1955 Arrival Date: 08/28/2019 Time: 15:12 Bed 5 Private MD: Micki Huff Diagnosis: Other chest pain Presentation: 08/28 15:16 Presenting complaint: Mother states: I have had chest pain since yesterday, had recent la1 stroke. On plavix. Transition of care: patient was not received from another setting of care. Onset of symptoms was August 28, 2019. Risk Assessment: Do you want to hurt yourself or someone else? Patient reports no desire to harm self or others. Initial Sepsis Screen: Does the patient meet any 2 criteria? No. Patient's initial sepsis screen is negative. Does the patient have a suspected source of infection? No. Patient's initial sepsis screen is negative. Care prior to arrival: None. 15:16 Method Of Arrival: Wheelchair la1 15:16 Acuity: PATRICIA 2 la1 Historical: - Allergies: 15:17 Hydrocodone-Acetaminophen (Sever Itching); la1 - PMHx: 15:17 COPD; CVA; Diabetes - NIDDM; Gastroparesis; Hypertension; Myocardial infarction; la1 - Immunization history:: Adult Immunizations up to date. - Social history:: Smoking status: unknown Patient/guardian denies using alcohol, street drugs, The patient lives with family. - Ebola Screening: : No symptoms or risks identified at this time. - Family history:: not pertinent. Screenin:30 Abuse screen: Denies threats or abuse. Denies injuries from another. Nutritional hb screening: No deficits noted. Tuberculosis screening: No symptoms or risk factors identified. Fall Risk None identified. Assessment: 15:35 General: Appears in no apparent distress. Behavior is calm, cooperative. Pain: hb Complains of pain in chest Pain does not radiate. Pain currently is 2 out of 10 on a pain scale. Quality of pain is described as pressure, Pain began 1 day ago. Neuro: Level of Consciousness is awake, alert, obeys commands, Oriented to person, place, time, situation. Cardiovascular: Heart tones S1 S2 present Capillary refill < 3 seconds Patient's skin is warm and dry. Respiratory: Reports shortness of breath on exertion cough that is productive, Airway is patent Respiratory effort is even, unlabored, Respiratory pattern is regular, symmetrical, Breath sounds are clear bilaterally. GI: No signs and/or symptoms were reported involving the gastrointestinal system. : No signs and/or symptoms were reported regarding the genitourinary system. EENT: No signs and/or symptoms were reported regarding the EENT system. Derm: Skin is intact, is healthy with good turgor. Musculoskeletal: No signs and/or symptoms reported regarding the musculoskeletal system. 16:20 Reassessment: Patient appears in no apparent distress at this time. No changes from hb previously documented assessment. Patient and/or family updated on plan of care and expected duration. Pain level reassessed. Patient is alert, oriented x 3, equal unlabored respirations, skin warm/dry/pink. 17:18 Reassessment: Pt c/o nausea. Dr. Dyson notified, Zofran administered as ordered. hb Family remains at bedside. 17:59 Reassessment: Patient appears in no apparent distress at this time. Patient and/or hb family updated on plan of care and expected duration. Pain level reassessed. Patient is alert, oriented x 3, equal unlabored respirations, skin warm/dry/pink. 18:25 Reassessment: Patient appears in no apparent distress at this time. No changes from previously documented assessment. Patient and/or family updated on plan of care and expected duration. Pain level reassessed. Patient is alert, oriented x 3, equal unlabored respirations, skin warm/dry/pink. 20:01 Reassessment: Patient appears in no apparent distress at this time. Patient resting, lp1 eyes closed, respirations unlabored; family at bedside, aware of admission. Vital Signs: 15:17 BP 109 / 64; Pulse 100; Resp 16; Temp 98.3; Pulse Ox 100% on R/A; la1 16:05 BP 126 / 70; Pulse 98; Resp 20; Pulse Ox 96% on R/A; hb 17:02 Pulse 89; Resp 18; Pulse Ox 97% on R/A; hb 17:57 BP 133 / 74; Pulse 95; Resp 22; Pulse Ox 95% on 2 lpm NC; hb 19:45 BP 142 / 66; Pulse 92; Resp 22; Pulse Ox 97% on 2 lpm NC; lp1 ED Course: 15:12 Patient arrived in ED. mr 15:13 Micki Huff MD is Private Physician. mr 15:16 Triage completed. la1 15:17 Arm band placed on left wrist. la1 15:35 Kaye Dyson MD is Attending Physician. ma2 15:44 Orin Javed RN is Primary Nurse. hb 16:02 Patient maintains SpO2 saturation greater than 95% on room air. hb 16:30 Patient has correct armband on for positive identification. Placed in gown. Bed in low hb position. Call light in reach. Side rails up X 1. pvc monitor on. Pulse ox on. NIBP on. 16:31 Inserted saline lock: 22 gauge in left antecubital area, using aseptic technique. Blood ss collected. 16:59 XRAY CXR (1 view) In Process Unspecified. EDMS 17:00 Gerry Simmons MD is Hospitalizing Provider. ma2 19:55 No provider procedures requiring assistance completed. Patient admitted, IV remains in lp1 place. Administered Medications: 16:10 Drug: Xopenex 1.25 mg Route: Inhalation; hb 17:17 Follow up: Response: No adverse reaction hb 16:28 Drug: Lasix 40 mg Route: IVP; Site: left antecubital; hb 17:17 Follow up: Response: No adverse reaction hb 16:28 Drug: TORadol 30 mg Route: IVP; Site: left antecubital; hb 16:28 Follow up: Response: No adverse reaction hb 16:29 Drug: SOLU-Medrol 125 mg Route: IVP; Site: left antecubital; hb 17:05 Follow up: Response: No adverse reaction sg 16:30 Drug: Zithromax 500 mg Route: PO; hb 17:16 Follow up: Response: No adverse reaction hb 17:16 Drug: Zofran 4 mg Route: IVP; Site: left antecubital; hb 18:00 Follow up: Response: No adverse reaction sg 18:00 Follow up: Response: No adverse reaction sg Outcome: 17:00 Decision to Hospitalize by Provider. ma2 19:56 Condition: stable lp1 19:56 Instructed on the need for admit. 20:01 Admitted to Med/surg via stretcher, room 225, with oxygen, with chart, Report called to lp1 LORETO Collins 20:15 Patient left the ED. lp1 Signatures: Dispatcher [employer] EDMS Nj Alexander RN RN Vidhi Martini mr RodolfoIndia zaidi RN RN ss Eva Quiroz RN RN lp1 Dave Goodwin RN RN la1 Baxter, Heather, RN RN hb Alzahri, Mohammad, MD MD ma2 Corrections: (The following items were deleted from the chart) 17:59 17:02 Pulse 89bpm; Resp 18bpm; Pulse Ox 99% RA; hb hb
--- NOTE | 2019-08-28 17:01 | EDPHYS ---
Physician Documentation [facility] Name: Tammy Walsh Age: 64 yrs Sex: Female : 1955 Arrival Date: 08/28/2019 Time: 15:12 Bed 5 Private MD: Micki Huff ED Physician Kaye Dyson HPI: 08/28 15:48 This 64 yrs old Black Female presents to ER via Wheelchair with complaints of Chest ma2 Pain. 15:48 The patient or guardian reports chest pain that is located primarily in the substernal ma2 area. Onset: gradually, 2 day(s) ago. Associated signs and symptoms: Pertinent negatives: abdominal pain, dizziness, lower extremity pain, lightheadedness, syncope, vomiting. Severity of pain: At its worst the pain was moderate in the emergency department the pain is unchanged. The patient has not experienced similar symptoms in the past. Historical: - Allergies: 15:17 Hydrocodone-Acetaminophen (Sever Itching); la1 - PMHx: 15:17 COPD; CVA; Diabetes - NIDDM; Gastroparesis; Hypertension; Myocardial infarction; la1 - Immunization history:: Adult Immunizations up to date. - Social history:: Smoking status: unknown Patient/guardian denies using alcohol, street drugs, The patient lives with family. - Ebola Screening: : No symptoms or risks identified at this time. - Family history:: not pertinent. ROS: 15:48 Constitutional: Negative for fever, chills, and weight loss. ma2 15:48 All other systems are negative. Exam: 15:48 Constitutional: This is a well developed, well nourished patient who is awake, alert, ma2 and in no acute distress. Head/Face: Normocephalic, atraumatic. Eyes: Pupils equal round and reactive to light, extra-ocular motions intact. Lids and lashes normal. Conjunctiva and sclera are non-icteric and not injected. Cornea within normal limits. Periorbital areas with no swelling, redness, or edema. ENT: Nares patent. No nasal discharge, no septal abnormalities noted. Tympanic membranes are normal and external auditory canals are clear. Oropharynx with no redness, swelling, or masses, exudates, or evidence of obstruction, uvula midline. Mucous membranes moist. Neck: Trachea midline, no thyromegaly or masses palpated, and no cervical lymphadenopathy. Supple, full range of motion without nuchal rigidity, or vertebral point tenderness. No Meningismus. Chest/axilla: Normal chest wall appearance and motion. Nontender with no deformity. No lesions are appreciated. Cardiovascular: Regular rate and rhythm with a normal S1 and S2. No gallops, murmurs, or rubs. Normal PMI, no JVD. No pulse deficits. Respiratory: Lungs wheezes expiratory equal bilaterally. No rales, rhonchi or wheezes noted. No increased work of breathing, no retractions or nasal flaring. Abdomen/GI: Soft, non-tender, with normal bowel sounds. No distension or tympany. No guarding or rebound. No evidence of tenderness throughout. MS/ Extremity: Pulses equal, no cyanosis. Neurovascular intact. Full, normal range of motion. Vital Signs: 15:17 BP 109 / 64; Pulse 100; Resp 16; Temp 98.3; Pulse Ox 100% on R/A; la1 16:05 BP 126 / 70; Pulse 98; Resp 20; Pulse Ox 96% on R/A; hb 17:02 Pulse 89; Resp 18; Pulse Ox 97% on R/A; hb 17:57 BP 133 / 74; Pulse 95; Resp 22; Pulse Ox 95% on 2 lpm NC; hb 19:45 BP 142 / 66; Pulse 92; Resp 22; Pulse Ox 97% on 2 lpm NC; lp1 MDM: 15:35 Patient medically screened. ma2 15:48 Differential diagnosis: abnormal EKG, gastroesophageal reflux disease (GERD), pulmonary ma2 embolus. 15:50 Differential diagnosis: pulmonary embolus, stable angina. ma2 16:59 JENNIFER Risk Score: 1- Known CAD. Data reviewed: vital signs, nurses notes. Counseling: I ma2 had a detailed discussion with the patient and/or guardian regarding: the historical points, exam findings, and any diagnostic results supporting the discharge/admit diagnosis, the presence of at least one elevated blood pressure reading (>120/80) during this emergency department visit, the need for further work-up and treatment in the hospital. ED course: will admit for chest pain discussed with dr. simmons. 08/28 15:48 Order name: BMP; Complete Time: 16:52 ma2 08/28 15:48 Order name: CBC with Diff; Complete Time: 16:52 wy2 08/28 15:48 Order name: Ckmb; Complete Time: 16:52 wy2 08/28 15:48 Order name: CPK; Complete Time: 16:52 wy2 08/28 15:48 Order name: D-Dimer; Complete Time: 16:52 wy2 08/28 15:48 Order name: Hepatic Function; Complete Time: 16:52 wy2 08/28 15:48 Order name: XRAY CXR (1 view) [facility] 08/28 15:48 Order name: Lipase; Complete Time: 16:52 wy2 08/28 15:48 Order name: Magnesium; Complete Time: 16:52 [facility] 08/28 15:48 Order name: NT PRO-BNP; Complete Time: 16:52 wy2 08/28 15:48 Order name: PT-INR; Complete Time: 16:52 wy2 08/28 15:48 Order name: Ptt, Activated; Complete Time: 16:52 [facility] 08/28 15:48 Order name: Troponin (emerg Dept Use Only); Complete Time: 16:52 [facility] 08/28 17:28 Order name: Urine Dipstick--Ancillary (enter results) 08/28 15:48 Order name: EKG; Complete Time: 15:49 wy2 08/28 15:48 Order name: Cardiac monitoring; Complete Time: 16:29 wy2 08/28 15:48 Order name: EKG - Nurse/Tech; Complete Time: 16:29 wy2 08/28 15:48 Order name: IV Saline Lock; Complete Time: 16:29 wy2 08/28 15:48 Order name: Labs collected and sent; Complete Time: 16:29 wy2 08/28 15:48 Order name: O2 Per Protocol; Complete Time: 16:30 wy2 08/28 15:48 Order name: O2 Sat Monitoring; Complete Time: 16:30 wy2 08/28 17:13 Order name: CONS Physician Consult EDDC 08/28 17:13 Order name: Heart Healthy EDDC Administered Medications: 16:10 Drug: Xopenex 1.25 mg Route: Inhalation; hb 17:17 Follow up: Response: No adverse reaction hb 16:28 Drug: Lasix 40 mg Route: IVP; Site: left antecubital; hb 17:17 Follow up: Response: No adverse reaction hb 16:28 Drug: TORadol 30 mg Route: IVP; Site: left antecubital; hb 16:28 Follow up: Response: No adverse reaction hb 16:29 Drug: SOLU-Medrol 125 mg Route: IVP; Site: left antecubital; hb 17:05 Follow up: Response: No adverse reaction sg 16:30 Drug: Zithromax 500 mg Route: PO; hb 17:16 Follow up: Response: No adverse reaction hb 17:16 Drug: Zofran 4 mg Route: IVP; Site: left antecubital; hb 18:00 Follow up: Response: No adverse reaction sg 18:00 Follow up: Response: No adverse reaction sg Disposition: 08/28/19 17:00 Hospitalization ordered by Gerry Simmons for Observation. Preliminary diagnosis is Other chest pain. - Bed requested for Telemetry/MedSurg (observation). - Status is Observation. lp1 - Condition is Stable. - Problem is new. - Symptoms are unchanged. UTI on Admission? No Signatures: Dispatcher [employer] EDLiliana Temple RN RN dw Eva Quiroz RN RN lp1 Dave Goodwin RN RN la1 Orin Javed RN RN Kaye Dyson MD MD ma2 Brittney Warren Steven RN sg Corrections: (The following items were deleted from the chart) 17:25 17:00 Hospitalization Ordered by Gerry Simmons MD for Observation. Preliminary eb diagnosis is Other chest pain. Bed requested for Telemetry/MedSurg (observation). Status is Observation. Condition is Stable. Problem is new. Symptoms are unchanged. UTI on Admission? No. ma2 19:08 17:25 08/28/2019 17:00 Hospitalization Ordered by Gerry Simmons MD for Observation. dw Preliminary diagnosis is Other chest pain. Bed requested for Telemetry/MedSurg (observation). Status is Observation. Condition is Stable. Problem is new. Symptoms are unchanged. UTI on Admission? No. eb 20:15 19:08 08/28/2019 17:00 Hospitalization Ordered by Gerry Simmons MD for Observation. lp1 Preliminary diagnosis is Other chest pain. Bed requested for Telemetry/MedSurg (observation). Status is Observation. Condition is Stable. Problem is new. Symptoms are unchanged. UTI on Admission? No. dw
[2019-08-28] MEDS ORDERED: MORPHINE 2 MG/ML SYR IV PRN (17:08)
[2019-08-28] MEDS ORDERED: NITROGLYCERIN 0.4 MG/TAB SL PRN (17:08)
[2019-08-28] MEDS ORDERED: ONDANSETRON 4 MG/2 ML VIAL ONE (17:11)
--- NOTE | 2019-08-28 17:26 | RAD REPORT ---
EXAM DESCRIPTION: Prachi Single View08/28/2019 4:59 pm CLINICAL HISTORY: Congestion COMPARISON: August 19, 2019 FINDINGS: The lungs appear clear of acute infiltrate. The heart is normal size Mediastinum is prominent consistent with lymphadenopathy
--- NOTE | 2019-08-28 18:29 | P.HP ---
Certification for Inpatient Patient admitted to: Observation With expected LOS: <2 Midnights Practitioner: I am a practitioner with admitting privileges, knowledge of patient current condition, hospital course, and medical plan of care. Services: Services provided to patient in accordance with Admission requirements found in Title 42 Section 412.3 of the Code of Federal Regulations Patient History Date of Service: 08/28/19 Reason for admission: Chest pain History of Present Illness: Patient is 64 years of age with multiple medical problems recurrent hospital admission history of terminal COPD presumed lung cancer and coronary artery disease started having some chest discomfort for the past 3-4 days described this is retrosternal intermittently with nitroglycerin she does have a history of coronary artery disease and has had stents placed has chronic shortness of breath Allergies hydrocodone Allergy (Intermediate, Verified 07/08/19 23:50) Itching Hydrocodone-Acetaminophen Allergy (Uncoded 07/08/19 23:50) Itching Home Medications: Acetaminophen 650 mg PO Q4H PRN 08/09/19 Albuterol Sulfate [Proair Hfa] 2 puff IH QID 08/09/19 Aspirin Chewable [Aspirin Chewable*] 81 mg PO DAILY 08/09/19 Atorvastatin Calcium [Lipitor*] 40 mg PO BEDTIME 08/09/19 Budesonide/Formoterol Fumarate [Symbicort 160-4.5 Mcg Inhaler] 1 puff IH DAILY 08/09/19 Clopidogrel Bisulfate [Plavix*] 75 mg PO DAILY 08/09/19 Cyclobenzaprine [Flexeril*] 5 mg PO BEDTIME 08/09/19 Diltiazem HCl [Cartia Xt] 1 cap PO BID 08/09/19 Insulin Glargine Human [Lantus*] 65 units SQ DAILY 08/09/19 Insulin Lispro [Humalog*] 8 units SQ TIDWM 08/09/19 Metoprolol Tartrate [Lopressor*] 200 mg PO BID 08/09/19 Olmesartan/Amlodipin/Hcthiazid [Sctxtue-Stfuxl-Ucmw 20-5-12.5] 1 tab PO DAILY Pantoprazole [Protonix Tab*] 40 mg PO DAILY 08/09/19 hydroCHLOROthiazide [Hydrochlorothiazide*] 12.5 mg PO DAILY 08/09/19 predniSONE [Deltasone*] 10 mg PO DAILY 08/09/19 Furosemide [Lasix] 40 mg PO DAILY #30 tab 08/10/19 Levofloxacin [Levaquin] 500 mg PO DAILY #7 tablet 08/10/19 - Past Medical/Surgical History Diabetic: Yes -: Hypertension -: COPD, chronic oxygen use -: Diabetes mellitus type 2, insulin dependent -: CAD -: History of TIA -: Hyperlipidemia -: Obstructive sleep apnea on CPAP -: Tobacco abuse -: [place] 2003 -: DIABETIC NEUROPATHY -: Cholecystectomy -: Tubal (ECTOPIC) -: -: Exploratory laparotomy -: Breast biopsy Psychosocial/ Personal History: Patient is , lives at home - Family History Father -: Heart disease, Hypertension Mother -: Hypertension, Cancer Sister -: Cancer Notes: - BREAST CANCER Brother -: Cancer Notes: - LUNG AND BRAIN CANCER mom -: Hypertension, Cancer Notes: lung cx dad -: Heart disease, Hypertension - Social History Alcohol use: No CD- Drugs: No Caffeine use: No Review of Systems General: Weakness Respiratory: Shortness of Breath Cardiovascular: Chest Pain Musculoskeletal: Other (Patient in complaining some pain in her right leg all however she is able to ambulate) Physical Examination - Vital Signs Temperature: 98.3 F Blood Pressure: 109/64 Pulse: 100 Pulse Ox (%): 100 - Physical Exam General: Alert, In no apparent distress, Oriented x3 Neck: Supple Respiratory: Clear to auscultation bilaterally, Diminished Cardiovascular: No edema, Normal pulses, Regular rate/rhythm, Normal S1 S2 Gastrointestinal: Normal bowel sounds, Soft and benign Musculoskeletal: No clubbing, No swelling Integumentary: No rashes - Studies Laboratory Data (last 24 hrs) 08/28/19 16:24: PT 11.7, INR 0.99, APTT 22.3 L 08/28/19 16:24: WBC 13.3 H D, Hgb 10.1 L, Hct 30.3 L, Plt Count 619 H 08/28/19 16:24: Sodium 138, Potassium 4.8, BUN 27 H, Creatinine 1.28, Glucose 156 H, Magnesium 1.9, Total Bilirubin 0.1 L, AST 36, ALT 41, Alkaline Phosphatase 96, Lipase 133 Assessment and Plan - Problems (Diagnosis) (1) Chest pain Onset Date: 05/06/16 Current Visit: No Status: Acute Plan: Patient is 64 years of age multiple medical problems admitted with chest pain she has a history of coronary artery disease has been complaining of chest pain for the past 3 or 4 days described as a retrosternal relieved with nitroglycerin chemistries reviewed shows a mildly anemic troponins are so far negative patient was recently transferred to [place] for the possibility of stroke he has had some chest discomfort may be from the ED presumed lung cancer Qualifiers: Chest pain type: unspecified Qualified Code(s): R07.9 - Chest pain, unspecified (2) Lung mass Current Visit: No Status: Acute Plan: Patient has a history of a lung mass and has refused any workup treatment presumed cancer also has mediastinal adenopathy - Advance Directives Does patient have a Living Will: No Does patient have a Durable POA for Healthcare: No
[2019-08-28] MEDS ORDERED: IPRATROPIUM BROM 0.5MG/2.5ML NEB SCH (20:00)
[2019-08-28] MEDS ORDERED: ARFORMOTEROL TARTRATE 15 MCG/2 ML VIAL.NEB NEB SCH (20:00)
[2019-08-28] MEDS: IPRATROPIUM BROM 0.5MG/2.5ML NEB SCH (20:00)
[2019-08-28 20:28] VITALS: BMI 42.7
[2019-08-28 20:45] LABS: Urine Blood NEGATIVE (NEG); Urine Glucose NEGATIVE (NEG); Urine Protein 3+ (NEG); Urine pH 6.5 (5.0-7.0)
[2019-08-28] MEDS: INSULIN -REGULAR HUMAN 50 UNIT/0.5 ML ML SQ SCH (21:00)
[2019-08-28] MEDS ORDERED: METOPROLOL TAR 50 MG TAB PO SCH (21:00)
--- NOTE | 2019-08-28 21:06 | P.PN ---
Subjective Date of Service: 08/28/19 Chief Complaint: Chest pain Physical Examination - Vital Signs Temperature: 98.3 F Blood Pressure: 142/66 Pulse: 92 Respirations: 22 Pulse Ox (%): 100 - Studies Laboratory Data (last 24 hrs) 08/28/19 16:24: PT 11.7, INR 0.99, APTT 22.3 L 08/28/19 16:24: WBC 13.3 H D, Hgb 10.1 L, Hct 30.3 L, Plt Count 619 H 08/28/19 16:24: Sodium 138, Potassium 4.8, BUN 27 H, Creatinine 1.28, Glucose 156 H, Magnesium 1.9, Total Bilirubin 0.1 L, AST 36, ALT 41, Alkaline Phosphatase 96, Lipase 133 Assessment & Plan Physician Review Additional Text: Impression: Chest pain with history of CAD/Chronic diastolic CHF HTN Hyperlipidemia End stage COPD on chronic oxygen/steroid DM Type 2 insulin dependent with Hyperglycemia Chronic renal disease GERD Hx of Lung mass/adrenal adenoma/mediastinal adenopathy
[2019-08-28] MEDS: ENOXAPARIN 100 MG/ML SYR SQ SCH (21:33)
[2019-08-28] MEDS: ARFORMOTEROL TARTRATE 15 MCG/2 ML VIAL.NEB NEB SCH (21:45)
[2019-08-29] MEDS: IPRATROPIUM BROM 0.5MG/2.5ML NEB SCH ×3 (02:00→14:00)
--- OUTSIDE RECORDS SUMMARY | 2019-08-29 07:11 | XMS REPORT ---
:1955 [facility] Address [address] [place] [address] Dr. Colón [address] [place] [id number] Care Team Providers Name Role Phone CLINTON [...] (BEAKER) 330 mg/dL 70-110 : TESTED AT [address] (test hybd=4685) [place], [address]: [employer] Installation Helper/Credit Operations Processor [id number] for Cha Valadez POCT-GLUCOSE [id number] 13:26:00 Test Item Value Reference Range Comments POC-GLUCOSE METER (BEAKER) 343 mg/dL 70-110 : TESTED AT [address] (test hwib=0472) [facility], [address]: [employer] Installation Helper/[employer] Operations Processor [id number] for SERGEY PAUL C-REACTIVE [id number] 11:30:00 Test Item Value Reference Range Comments C-REACTIVE PROTEIN (BEAKER) (test sknl=653) 2.34 mg/dL 0.00-0.50 [id number] 11:27:00 Test Item Value Reference Range Comments FIBRINOGEN LEVEL (BEAKER) (test gwez=966) 866 mg/dl 225-434 [id number] 11:24:00 Test Item Value Reference Range Comments D-DIMER QUANTITATIVE (BEAKER) (test tcxw=439) 1.66 MG/L FEU <0.50 Intended Use: The [...] of thrombosis is within 95-100% range.POCT- GLUCOSE [id number] 09:05:00 Test Item Value Reference Range Comments POC-GLUCOSE METER (BEAKER) 283 mg/dL 70-110 : TESTED AT [facility] [address] [facility] (test rqen=7210) [facility], [address]: [employer] Installation Helper/[employer] Operations Processor [id number] for OMEGA, JASON RAD, CHEST, 1 VIEW, NON [id number] 07:47:00Reason for exam:->CHFFINAL REPORT CLINICAL HISTORY: CHF TECHNIQUE: 1 view of the chest. COMPARISON: 08/19/2019 IMPRESSION: Pulmonary vascular congestive findings appear slightly decreased. There is no lobar consolidation or significant pleural fluid. Cardiomegaly is unchanged. Signed: Monisha Castro MDReport Verified Date/Time: 08/22/2019 07:47:58 Reading Location: [facility] Radiology Reading Room Electronically signed by: MONISHA CASTRO M.D. on 07:47 AMBASIC METABOLIC [id number] 05:32:00 Test Item Value Reference Range Comments SODIUM (BEAKER) (test 136 meq/L 136-145 vfgq=776) POTASSIUM (BEAKER) (test 4.8 meq/L 3.5-5.1 pbxf=242) CHLORIDE (BEAKER) (test 98 meq/L 98-107 pxnw=603) CO2 (BEAKER) (test 31 meq/L 22-29 bwga=958) BLOOD UREA NITROGEN 26 mg/dL 7-21 (BEAKER) (test vxrg=349) CREATININE (BEAKER) (test 1.54 mg/dL 0.57-1.25 twak=580) GLUCOSE RANDOM (BEAKER) 224 mg/dL 70-105 (test gxej=098) CALCIUM (BEAKER) (test 9.0 mg/dL 8.4-10.2 auaw=573) EGFR (BEAKER) (test 41 mL/min/1.73 sq m ESTIMATED GFR IS NOT wwol=9424) ACCURATE CREATININE CLEARANCE IN PREDICTING GLOMERULAR FILTRATION RATE. ESTIMATED GFR IS NOT APPLICABLE FOR DIALYSIS PATIENTS. B-TYPE NATRIURETIC FACTOR (BNP)2019-08-22 05:21:00 Test Item Value Reference Range Comments B-TYPE NATRIURETIC PEPTIDE (BEAKER) (test awtk=163) 15 pg/mL 0-100 CBC W/PLT COUNT & AUTO [id number] 04:59:00 Test Item Value Reference Range Comments WHITE BLOOD CELL COUNT (BEAKER) (test wgkf=834) 9.1 K/ L 3.5-10.5 RED BLOOD CELL COUNT (BEAKER) (test ngku=429) 3.57 M/ L 3.93-5.22 HEMOGLOBIN (BEAKER) (test gtgf=954) 9.3 GM/DL 11.2-15.7 HEMATOCRIT (BEAKER) (test endc=316) 30.4 % 34.1-44.9 MEAN CORPUSCULAR VOLUME (BEAKER) (test ixai=946) 85.2 fL 79.4-94.8 MEAN CORPUSCULAR HEMOGLOBIN (BEAKER) (test 26.1 pg 25.6-32.2 insh=430) MEAN CORPUSCULAR HEMOGLOBIN CONC (BEAKER) (test 30.6 GM/DL 32.2-35.5 imfs=068) RED CELL DISTRIBUTION WIDTH (BEAKER) (test 14.9 % 11.7-14.4 tyep=167) PLATELET COUNT (BEAKER) (test xvsy=411) 447 K/CU MM 150-450 MEAN PLATELET VOLUME (BEAKER) (test ptfr=927) 9.4 fL 9.4-12.3 NUCLEATED RED BLOOD CELLS (BEAKER) (test 0 /100 WBC 0-0 fkgt=801) NEUTROPHILS RELATIVE PERCENT (BEAKER) (test 64 % bmbc=095) LYMPHOCYTES RELATIVE PERCENT (BEAKER) (test 24 % ejzm=160) MONOCYTES RELATIVE PERCENT (BEAKER) (test 8 % brvm=017) EOSINOPHILS RELATIVE PERCENT (BEAKER) (test 2 % yqgm=768) BASOPHILS RELATIVE PERCENT (BEAKER) (test 1 % vgmm=422) NEUTROPHILS ABSOLUTE COUNT (BEAKER) (test 5.89 K/ L 1.56-6.13 rtiy=596) LYMPHOCYTES ABSOLUTE COUNT (BEAKER) (test 2.23 K/ L 1.18-3.74 jjmw=094) MONOCYTES ABSOLUTE COUNT (BEAKER) (test 0.75 K/ L 0.24-0.36 atnv=440) EOSINOPHILS ABSOLUTE COUNT (BEAKER) (test 0.18 K/ L 0.04-0.36 qgwg=164) BASOPHILS ABSOLUTE COUNT (BEAKER) (test 0.06 K/ L 0.01-0.08 ilob=941) IMMATURE GRANULOCYTES-RELATIVE PERCENT (BEAKER) 0 % 0-1 (test lclf=3364) POCT-GLUCOSE [id number] 18:31:00 Test Item Value Reference Range Comments POC-GLUCOSE METER (BEAKER) 220 mg/dL 70-110 : TESTED AT [address] (test qfns=7850) [facility], [address]: Marble Installation Helper/Credit Operations Processor [id number] for LEAH, AURA POCT-GLUCOSE [id number] 18:30:00 Test Item Value Reference Range Comments POC-GLUCOSE METER (BEAKER) 186 mg/dL 70-110 : TESTED AT [address] (test gxmy=4602) [facility], [address]: Marble Installation Helper/Credit Operations Processor [id number] for LEAH, AURA POCT-GLUCOSE [id number] 18:29:00 Test Item Value Reference Range Comments POC-GLUCOSE METER (BEAKER) 183 mg/dL 70-110 : Notified RN/MD: TESTED AT (test czmx=6903) [address], [address]: Marble Installation Helper/Credit Operations Processor [id number] for LEAH, AURA POCT-GLUCOSE [id number] 18:29:00 Test Item Value Reference Range Comments POC-GLUCOSE METER (BEAKER) 66 mg/dL 70-110 : Notified RN/MD: TESTED AT (test cxsj=6314) [address], [address]: Marble Installation Helper/Credit Operations Processor [id number] for LEAH, AURA POCT-GLUCOSE [id number] 18:29:00 Test Item Value Reference Range Comments POC-GLUCOSE METER (BEAKER) 49 mg/dL 70-110 : TESTED AT [address] (test ouak=2827) [facility], [address]: Marble Installation Helper/Credit Operations Processor EK=[id number] for LEAH, AURA CALCIUM, [id number] 10:55:00 Test Item Value Reference Range Comments CALCIUM IONIZED (BEAKER) (test lhdz=496) 1.07 mmol/L 1.12-1.27 PH, BLOOD (BEAKER) (test coze=8834) 7.35 [id number] 08:46:00 Test Item Value Reference Range Comments MAGNESIUM (BEAKER) (test vkwu=122) 2.4 mg/dL 1.6-2.6 BASIC METABOLIC [id number] 06:27:00 Test Item Value Reference Range Comments SODIUM (BEAKER) (test 138 meq/L 136-145 vbld=575) POTASSIUM (BEAKER) (test 4.2 meq/L 3.5-5.1 cwpc=885) CHLORIDE (BEAKER) (test 99 meq/L 98-107 hkde=216) CO2 (BEAKER) (test 31 meq/L 22-29 kbiz=780) BLOOD UREA NITROGEN 26 mg/dL 7-21 (BEAKER) (test fhil=616) CREATININE (BEAKER) (test 1.59 mg/dL 0.57-1.25 hfww=856) GLUCOSE RANDOM (BEAKER) 67 mg/dL 70-105 (test tseg=007) CALCIUM (BEAKER) (test 9.3 mg/dL 8.4-10.2 ztcw=264) EGFR (BEAKER) (test 40 mL/min/1.73 sq m ESTIMATED GFR IS NOT ogaz=2699) ACCURATE CREATININE CLEARANCE IN PREDICTING GLOMERULAR FILTRATION RATE. ESTIMATED GFR IS NOT APPLICABLE FOR DIALYSIS PATIENTS. CBC W/PLT COUNT & AUTO [id number] 05:23:00 Test Item Value Reference Range Comments WHITE BLOOD CELL COUNT (BEAKER) (test urqx=937) 9.9 K/ L 3.5-10.5 RED BLOOD CELL COUNT (BEAKER) (test rthm=284) 3.50 M/ L 3.93-5.22 HEMOGLOBIN (BEAKER) (test njxc=679) 9.0 GM/DL 11.2-15.7 HEMATOCRIT (BEAKER) (test wmni=886) 29.3 % 34.1-44.9 MEAN CORPUSCULAR VOLUME (BEAKER) (test zute=202) 83.7 fL 79.4-94.8 MEAN CORPUSCULAR HEMOGLOBIN (BEAKER) (test 25.7 pg 25.6-32.2 dyuy=490) MEAN CORPUSCULAR HEMOGLOBIN CONC (BEAKER) (test 30.7 GM/DL 32.2-35.5 cgku=635) RED CELL DISTRIBUTION WIDTH (BEAKER) (test 15.0 % 11.7-14.4 wlwk=741) PLATELET COUNT (BEAKER) (test klxi=424) 522 K/CU MM 150-450 MEAN PLATELET VOLUME (BEAKER) (test mhzt=074) 9.5 fL 9.4-12.3 NUCLEATED RED BLOOD CELLS (BEAKER) (test 0 /100 WBC 0-0 agrx=528) NEUTROPHILS RELATIVE PERCENT (BEAKER) (test 66 % jpxx=659) LYMPHOCYTES RELATIVE PERCENT (BEAKER) (test 25 % wjdw=249) MONOCYTES RELATIVE PERCENT (BEAKER) (test 7 % mzfj=802) EOSINOPHILS RELATIVE PERCENT (BEAKER) (test 1 % tvgp=694) BASOPHILS RELATIVE PERCENT (BEAKER) (test 1 % cybl=083) NEUTROPHILS ABSOLUTE COUNT (BEAKER) (test 6.46 K/ L 1.56-6.13 gsne=855) LYMPHOCYTES ABSOLUTE COUNT (BEAKER) (test 2.44 K/ L 1.18-3.74 siqa=083) MONOCYTES ABSOLUTE COUNT (BEAKER) (test 0.71 K/ L 0.24-0.36 wexf=347) EOSINOPHILS ABSOLUTE COUNT (BEAKER) (test 0.14 K/ L 0.04-0.36 hmrv=493) BASOPHILS ABSOLUTE COUNT (BEAKER) (test 0.06 K/ L 0.01-0.08 vbpe=301) IMMATURE GRANULOCYTES-RELATIVE PERCENT (BEAKER) 0 % 0-1 (test erig=6400) POCT-GLUCOSE [id number] 21:59:00 Test Item Value Reference Range Comments POC-GLUCOSE METER (BEAKER) 242 mg/dL 70-110 : Notified RN/MD: TESTED AT (test xzhd=7977) [address], [address]: [employer]ble Installation Helper/Credit Operations Processor [id number] for SHMUEL DUNCAN POCT-GLUCOSE [id number] 18:12:00 Test Item Value Reference Range Comments POC-GLUCOSE METER (BEAKER) 230 mg/dL 70-110 : Notified RN/MD: TESTED AT (test lgzk=5856) [address], [address]: Marble Installation Helper/Credit Operations Processor [id number] for KEHINDE LYNN [id number] 13:39:00 Test Item Value Reference Range Comments RPR SCREEN (BEAKER) (test gqyy=417) Nonreactive Nonreactive POCT-GLUCOSE [id number] 12:07:00 Test Item Value Reference Range Comments POC-GLUCOSE METER (BEAKER) 142 mg/dL 70-110 : Notified RN/MD: TESTED AT (test obaw=3536) [place] [id number] [facility], [address]: Marble Installation Helper/Credit Operations Processor [id number] for KEHINDE LYNN POCT-GLUCOSE [id number] 10:56:00 Test Item Value Reference Range Comments POC-GLUCOSE METER (BEAKER) 116 mg/dL 70-110 : TESTED AT [address] (test sbgn=8925) [facility], [address]: Marble Installation Helper/Credit Operations Processor [id number] for KEHINDE LYNN HEMOGLOBIN [id number] 08:52:00 Test Item Value Reference Range Comments HEMOGLOBIN A1C (BEAKER) (test oawc=594) 10.3 % 4.3-6.1 BASIC METABOLIC [id number] 05:10:00 Test Item Value Reference Range Comments SODIUM (BEAKER) (test 138 meq/L 136-145 gzbf=028) POTASSIUM (BEAKER) (test 4.8 meq/L 3.5-5.1 ytuw=132) CHLORIDE (BEAKER) (test 101 meq/L 98-107 bcel=482) CO2 (BEAKER) (test 30 meq/L 22-29 ihfz=410) BLOOD UREA NITROGEN 25 mg/dL 7-21 (BEAKER) (test weio=121) CREATININE (BEAKER) (test 1.30 mg/dL 0.57-1.25 obnv=387) GLUCOSE RANDOM (BEAKER) 168 mg/dL 70-105 (test iljw=560) CALCIUM (BEAKER) (test 9.2 mg/dL 8.4-10.2 kpxj=873) EGFR (BEAKER) (test 50 mL/min/1.73 sq m ESTIMATED GFR IS NOT hzvw=3881) ACCURATE CREATININE CLEARANCE IN PREDICTING GLOMERULAR FILTRATION RATE. ESTIMATED GFR IS NOT APPLICABLE FOR DIALYSIS PATIENTS. CBC W/PLT COUNT & AUTO [id number] 04:56:00 Test Item Value Reference Range Comments WHITE BLOOD CELL COUNT (BEAKER) (test cpui=974) 12.3 K/ L 3.5-10.5 RED BLOOD CELL COUNT (BEAKER) (test iagb=982) 3.48 M/ L 3.93-5.22 HEMOGLOBIN (BEAKER) (test uyzb=403) 9.2 GM/DL 11.2-15.7 HEMATOCRIT (BEAKER) (test lhka=564) 29.2 % 34.1-44.9 MEAN CORPUSCULAR VOLUME (BEAKER) (test gaeu=139) 83.9 fL 79.4-94.8 MEAN CORPUSCULAR HEMOGLOBIN (BEAKER) (test 26.4 pg 25.6-32.2 wjhs=199) MEAN CORPUSCULAR HEMOGLOBIN CONC (BEAKER) (test 31.5 GM/DL 32.2-35.5 qthy=358) RED CELL DISTRIBUTION WIDTH (BEAKER) (test 15.1 % 11.7-14.4 rjbt=425) PLATELET COUNT (BEAKER) (test dmrk=181) 500 K/CU MM 150-450 MEAN PLATELET VOLUME (BEAKER) (test rkmb=103) 10.0 fL 9.4-12.3 NUCLEATED RED BLOOD CELLS (BEAKER) (test 0 /100 WBC 0-0 gden=626) NEUTROPHILS RELATIVE PERCENT (BEAKER) (test 71 % jzus=434) LYMPHOCYTES RELATIVE PERCENT (BEAKER) (test 21 % tsuv=433) MONOCYTES RELATIVE PERCENT (BEAKER) (test 7 % wyui=787) EOSINOPHILS RELATIVE PERCENT (BEAKER) (test 1 % aaic=645) BASOPHILS RELATIVE PERCENT (BEAKER) (test 1 % muxk=325) NEUTROPHILS ABSOLUTE COUNT (BEAKER) (test 8.73 K/ L 1.56-6.13 dbrp=782) LYMPHOCYTES ABSOLUTE COUNT (BEAKER) (test 2.59 K/ L 1.18-3.74 jgwl=492) MONOCYTES ABSOLUTE COUNT (BEAKER) (test 0.81 K/ L 0.24-0.36 dqsz=021) EOSINOPHILS ABSOLUTE COUNT (BEAKER) (test 0.10 K/ L 0.04-0.36 pfbf=352) BASOPHILS ABSOLUTE COUNT (BEAKER) (test 0.06 K/ L 0.01-0.08 nzyz=557) IMMATURE GRANULOCYTES-RELATIVE PERCENT (BEAKER) 0 % 0-1 (test jpnb=7722) TSH/FREE T4 IF [id number] 04:12:00 Test Item Value Reference Range Comments THYROID STIMULATING HORMONE (BEAKER) (test 0.80 uIU/mL 0.35-4.94 kvac=536) VITAMIN B12 AND [id number] 04:12:00 Test Item Value Reference Range Comments VITAMIN B12 (BEAKER) (test lwos=461) 733 pg/mL 213-816 FOLATE (BEAKER) (test yvat=617) 10.6 ng/mL >=7.0 RAD, CHEST, 1 VIEW, NON [id number] 02:03:00Reason for exam:->respiratory distressShould this be performed [...] to be excluded clinically. Signed: Archie Ramirez [facility] Verified Date/Time: 08/20/2019 02:03:23 TROPONIN [id number] 23:15:00 Test Item Value Reference Range Comments TROPONIN I (BEAKER) (test crel=149) < ng/mL 0.00-0.03 Troponin I (TnI) levels [...] acidosis, acute neurological disease, and persistent tachyarrhythmia.LIPID [id number] 23:09:00 Test Item Value Reference Range Comments TRIGLYCERIDES (BEAKER) (test tcly=689) 63 mg/dL CHOLESTEROL (BEAKER) (test vwde=463) 124 mg/dL HDL CHOLESTEROL (KAITLYNN) (test bynm=056) 38 mg/dL LDL CHOLESTEROL CALCULATED (AKER) (test 73 mg/dL rdfs=065) Triglyceride Reference Range: Low Risk <150 Borderline 150- 199 High Risk 200-499 Very High Risk >=500Cholesterol Reference Range: Low Risk <200 Borderline 200-239 High Risk > 240HDL Cholesterol Reference Range: Low Risk >=60 High Risk <40LDL Cholesterol Reference Range: Optimal <100 Near Optimal 100-129 Borderline 130-159 High 160-189 Very High >=190CT, CTANG [id number] 20:23:00FINAL REPORT CT, BRAIN/STROKE PROTOCOL, CT, CEREBRAL [...] stenosis, or proximal branch vessel occlusion. Left SOLE BLACKER is predominantly supplied by P- comm. Diminutive [...] FROST MD on 08/19/2019 8:16 PM. Signed: Mona Esquivel MDReport Verified Date/Time: 08/19/2019 20:23:29 CT, CAROTID, [id number] 20:23:00FINAL REPORT CT, BRAIN/ STROKE PROTOCOL, CT, [...] stenosis, or proximal branch vessel occlusion. Left SOLE BLACKER is predominantly supplied by P- comm. Diminutive [...] FROST MD on 08/19/2019 8:16 PM. Signed: Mona Esquivel Verified Date/Time: 08/19/2019 20:23:29 CT, CEREBRAL PERFUSION [id number] 20:23:00FINAL REPORT CT, BRAIN/STROKE PROTOCOL, CT, CEREBRAL [...] stenosis, or proximal branch vessel occlusion. Left SOLE BLACKER is predominantly supplied by P- comm. Diminutive [...] FROST MD on 08/19/2019 8:16 PM. Signed: Mona Esquivel Verified Date/Time: 08/19/2019 20:23:29 CT, BRAIN/STROKE [id number] 20:23:00FINAL REPORT CT, BRAIN/STROKE PROTOCOL, CT, CEREBRAL [...] stenosis, or proximal branch vessel occlusion. Left SOLE BLACKER is predominantly supplied by P- comm. Diminutive [...]
--- OUTSIDE RECORDS SUMMARY | 2019-08-29 07:12 | XMS REPORT ---
[...] Active Problem Essential hypertension I10 Active Problem prison current use of insulin Z79.4 Active Problem [...]
--- OUTSIDE RECORDS SUMMARY | 2019-08-29 07:12 | XMS REPORT ---
[...] Active Problem Essential hypertension I10 Active Problem [facility] current use of insulin Z79.4 Active Problem [...]
[2019-08-29] MEDS: ARFORMOTEROL TARTRATE 15 MCG/2 ML VIAL.NEB NEB SCH (08:02)
--- NOTE | 2019-08-29 08:39 | EKG ---
Test Date: 2019-08-28 Test Time: 15:29:18 Gerent[employer] Physiotherapist: JOAN MEASUREMENT RESULTS: Intervals: Rate: 98 MT: 230 QRSD: 62 QT: 308 QTc: 393 [place]: P: 85 MT: 230 QRS: 51 T: 75 INTERPRETIVE STATEMENTS: Sinus rhythm with 1st degree AV block Otherwise normal ECG Compared to ECG 08/23/2019 11:31:54 First degree AV block now present Myocardial infarct finding no longer present Electronically Signed On 08-29-19 08:37:56 REO ASSET MANAGER by Eloy Kapadia
[2019-08-29] MEDS: INSULIN -REGULAR HUMAN 50 UNIT/0.5 ML ML SQ SCH ×2 (08:47→11:58)
[2019-08-29] MEDS: ENOXAPARIN 100 MG/ML SYR SQ SCH (08:48)
[2019-08-29] MEDS ORDERED: predniSONE 10 MG TAB PO SCH (09:00)
[2019-08-29] MEDS ORDERED: PANTOPRAZOLE 40MG TABLET PO SCH (09:00)
[2019-08-29] MEDS ORDERED: CLOPIDOGREL 75 MG TABLET PO SCH (09:00)
[2019-08-29] MEDS ORDERED: HOME MED 1 EA UNK (Budesonide/Formoterol Fumarate [Symbicort 160-4.5 Mcg Inhaler] 1 PUFF) IH SCH (09:00)
[2019-08-29] MEDS ORDERED: METOPROLOL TAR 50 MG TAB PO SCH (09:00)
[2019-08-29] MEDS ORDERED: ASPIRIN 325 MG TAB PO SCH (09:00)
[2019-08-29] MEDS ORDERED: INSULIN GLARGINE 100 UNITS/ML SQ SCH (09:00)
[2019-08-29 10:18] VITALS: O2SAT 95
--- NOTE | 2019-08-29 11:01 | P.DS ---
Admission Date: 08/28/19 Discharge Date: 08/29/19 Primary Care Provider: Pulmonary-Dr. Simmons Disposition: ROUTINE DISCHARGE Discharge Condition: GOOD Reason for Admission: Chest pain Consultations: Cardiology-Dr. Kapadia Procedures: CXR: COMPARISON: August 19, 2019 FINDINGS: The lungs appear clear of acute infiltrate. The heart is normal size Mediastinum is prominent consistent with lymphadenopathy Medical Problem List: Chest pain with history of CAD/Chronic diastolic CHF HTN Hyperlipidemia End stage COPD on chronic oxygen/steroid DM Type 2 insulin dependent with Hyperglycemia Chronic renal disease, stage III GERD Hx of Lung mass/adrenal adenoma/mediastinal adenopathy Brief History of Present Illness: 64-year-old female presented to the emergency room with chest pain. Patient with multiple medical problems including CAD with prior stent, COPD end-stage, presumed lung cancer with metastasis, hypertension, diabetes, chronic renal disease. Patient reported chest pain. Initial cardiac enzymes negative. Patient was admitted for further evaluation. Hospital Course: Patient presented with chest pain. Cardiac enzymes unremarkable. Patient with history of CAD and chronic diastolic CHF. Patient seen and evaluated by Cardiology. Cardiology recommended no further workup at this time. At discharge patient will continue with her current medications including aspirin 81 mg daily, Plavix 75 mg daily, metoprolol 200 mg twice daily, Lipitor 40 mg daily and Lasix 40 mg daily as needed for increased edema. Patient will continue with a 1500 cc per day fluid restriction and low-salt diet. Patient should monitor her weight daily. If her weight increases by more than 5 lb she is to contact her PCP to further address. Recommend follow up with cardiology in 2-4 weeks to monitor progress. Patient with underlying hypertension. Patient takes multiple medications. Medications were adjusted during her stay. Blood pressure was well controlled with only metoprolol 200 mg 1 pill twice daily. Medications including diltiazem , hydrochlorothiazide, combination pill of Olmesartan/Norvasc/ hydrochlorothiazide has been discontinued. At discharge she will only continue with metoprolol 200 mg 1 pill twice daily. She is to monitor blood pressures daily. If ruled blood pressure increases above 150 systolic she is to contact her PCP for further recommendation. Patient with hyperlipidemia. At discharge patient will continue with Lipitor 40 mg daily. Patient with end-stage COPD on chronic oxygen and steroids. Patient will continue with oxygen to maintain sats above 93%. Patient will continue with prednisone 10 mg daily. Patient will also continue with Symbicort 2 puffs twice daily and Pro air 2 puffs 3 times a day as needed for shortness of breath. Recommendation is for the patient to follow up with pulmonology in 2-4 weeks to monitor progress. Patient with did diabetes type 2 insulin dependent with hyperglycemia. Insulin was given during the course of her stay. At discharge she will continue with her insulin regimen of Lantus 65 units at bedtime. Patient will also continue with regular sliding scale. Recommend to maintain blood sugars less 140 fasting and less than 200 after meals. Further adjustment can be done by her PCP. Patient with chronic renal disease stage III. This has remained stable. Recommend no further use of nonsteroidal anti-inflammatories. Future medications will need to be renally dosed. Patient with GERD. At discharge she will continue with Protonix 40 mg daily. Patient with history of lung mass, adrenal mass and mediastinal adenopathy. Patient followed by pulmonology. Pulmonology reports patient does not want any further workup. This was readdressed with the patient. Patient reports that she does not want any further workup even if this is presumed cancer. She prefers not to have any chemotherapy, radiation or cancer treatment in the future. Vital Signs/Physical Exam: Temp Pulse Resp BP Pulse Ox 97.8 F 97 H 18 115/62 93 08/29/19 08:00 08/29/19 08:46 08/29/19 08:00 08/29/19 08:46 08/29/19 08:00 General: Alert, In no apparent distress, Oriented x3, Cooperative HEENT: Atraumatic Neck: Supple Respiratory: Clear to auscultation bilaterally, Normal air movement Cardiovascular: Normal pulses, Regular rate/rhythm Gastrointestinal: Normal bowel sounds, Soft and benign, Non-distended Musculoskeletal: No erythema, No tenderness, No warmth Integumentary: No erythema, No warmth, No cyanosis Neurological: Normal speech, Normal strength at 5/5 x4 extr, Normal tone, Normal affect Laboratory Data at Discharge: WBC 13.3 K/uL (4.3-10.9) H D 08/28/19 16:24 Hgb 10.1 g/dL (12.0-15.0) L 08/28/19 16:24 Hct 30.3 % (36.0-45.0) L 08/28/19 16:24 Plt Count 619 K/uL (152-406) H 08/28/19 16:24 PT 11.7 SECONDS (9.5-12.5) 08/28/19 16:24 INR 0.99 08/28/19 16:24 APTT 22.3 SECONDS (24.3-36.9) L 08/28/19 16:24 Sodium 138 mmol/L (136-145) 08/28/19 16:24 Potassium 4.8 mmol/L (3.5-5.1) 08/28/19 16:24 BUN 27 mg/dL (7-18) H 08/28/19 16:24 Creatinine 1.28 mg/dL (0.55-1.3) 08/28/19 16:24 Glucose 156 mg/dL (74-106) H 08/28/19 16:24 Magnesium 1.9 mg/dL (1.8-2.4) 08/28/19 16:24 Total Bilirubin 0.1 mg/dL (0.2-1.0) L 08/28/19 16:24 AST 36 U/L (15-37) 08/28/19 16:24 ALT 41 U/L (12-78) 08/28/19 16:24 Alkaline Phosphatase 96 U/L (45-117) 08/28/19 16:24 Troponin I < 0.02 ng/mL (0.0-0.045) 08/29/19 05:31 Lipase 133 U/L (73-393) 08/28/19 16:24 Home Medications: Acetaminophen 650 mg PO Q4H PRN 08/09/19 Albuterol Sulfate [Proair Hfa] 2 puff IH QID 08/09/19 Aspirin Chewable [Aspirin Chewable*] 81 mg PO DAILY 08/09/19 Atorvastatin Calcium [Lipitor*] 40 mg PO BEDTIME 08/09/19 Budesonide/Formoterol Fumarate [Symbicort 160-4.5 Mcg Inhaler] 1 puff IH DAILY 08/09/19 Clopidogrel Bisulfate [Plavix*] 75 mg PO DAILY 08/09/19 Insulin Glargine Human [Lantus*] 65 units SQ DAILY 08/09/19 Insulin Lispro [Humalog*] 8 units SQ TIDWM 08/09/19 Metoprolol Tartrate [Lopressor*] 200 mg PO BID 08/09/19 Pantoprazole [Protonix Tab*] 40 mg PO DAILY 08/09/19 Furosemide [Lasix*] 40 mg PO DAILY PRN #30 tab 08/29/19 predniSONE [Deltasone*] 10 mg PO DAILY tab 08/29/19 New Medications: Furosemide [Lasix*] 40 mg PO DAILY PRN #30 tab PRN Reason: Shortness Of Breath Patient Discharge Instructions: 1. Recommend follow up with her PCP in 1 week to follow up this hospitalization. 2. Patient presented with chest pain. Cardiac enzymes unremarkable. Patient with history of CAD and chronic diastolic CHF. Patient seen and evaluated by Cardiology. Cardiology recommended no further workup at this time. At discharge patient will continue with her current medications including aspirin 81 mg daily, Plavix 75 mg daily, metoprolol 200 mg twice daily, Lipitor 40 mg daily and Lasix 40 mg daily as needed for increased edema. Patient will continue with a 1500 cc per day fluid restriction and low-salt diet. Patient should monitor her weight daily. If her weight increases by more than 5 lb she is to contact her PCP to further address. Recommend follow up with cardiology in 2-4 weeks to monitor progress. 3. Patient with underlying hypertension. Patient takes multiple medications. Medications were adjusted during her stay. Blood pressure was well controlled with only metoprolol 200 mg 1 pill twice daily. Medications including diltiazem, hydrochlorothiazide, combination pill of Olmesartan/Norvasc /hydrochlorothiazide has been discontinued. At discharge she will only continue with metoprolol 200 mg 1 pill twice daily. She is to monitor blood pressures daily. If ruled blood pressure increases above 150 systolic she is to contact her PCP for further recommendation. 4. Patient with hyperlipidemia. At discharge patient will continue with Lipitor 40 mg daily. 5. Patient with end-stage COPD on chronic oxygen and steroids. Patient will continue with oxygen to maintain sats above 93%. Patient will continue with prednisone 10 mg daily. Patient will also continue with Symbicort 2 puffs twice daily and Pro air 2 puffs 3 times a day as needed for shortness of breath. Recommendation is for the patient to follow up with pulmonology in 2-4 weeks to monitor progress. 6. Patient with did diabetes type 2 insulin dependent with hyperglycemia. Insulin was given during the course of her stay. At discharge she will continue with her insulin regimen of Lantus 65 units at bedtime. Patient will also continue with regular sliding scale. Recommend to maintain blood sugars less 140 fasting and less than 200 after meals. Further adjustment can be done by her PCP. 7. Patient with chronic renal disease stage III. This has remained stable. Recommend no further use of nonsteroidal anti-inflammatories. Future medications will need to be renally dosed. 8. Patient with GERD. At discharge she will continue with Protonix 40 mg daily. 9. Patient with history of lung mass, adrenal mass and mediastinal adenopathy. Patient followed by pulmonology. Pulmonology reports patient does not want any further workup. This was readdressed with the patient. Patient reports that she does not want any further workup even if this is presumed cancer. She prefers not to have any chemotherapy, radiation or cancer treatment in the future. Diet: ADA Activity: Fall precautions Time spent managing pt's care (in minutes): 55
[2019-08-29 14:03] VITALS: BP 127/60; TEMP 97.9
--- NOTE | 2019-08-29 14:32 | RAD REPORT ---
EXAM DESCRIPTION: US - Extrem Venous W Compress Benjie - 08/29/2019 2:26 pm CLINICAL HISTORY: edema to left leg Bilateral leg edema and swelling. COMPARISON: Extrem Venous W Compress Benjie dated 06/13/2016 TECHNIQUE: Real-time sonographic interrogation of the left and right lower extremity deep venous sys tems was performed. FINDINGS: Normal compressibility, flow augmentation, phasic flow and spontaneous flow is identified in both the left and right lower extremity deep venous systems. IMPRESSION: No sonographic evidence of left or right lower extremity deep venous thrombosis.
--- NOTE | 2019-08-29 16:07 | CON ---
History Of Present Illness: Ms. Walsh came to the hospital with chest pain. Her chest pain lasted for several days without changing. It went away overnight since she has been here. Cardiac enzymes are normal. The patient had a cardiac cath in 2018, roughly 1 year ago that showed no significant c oronary heart disease. She has hyperdynamic left ventricle and echocardiography shows left ventricul ar hypertrophy, although it is not consistent with asymmetric septal hypertrophy and hypertrophic car diomyopathy. We think it is from poorly controlled blood pressure for the most part. She has some e nlarged lymph nodes. A CAT scan of her chest presumed to be malignant, but there is no plan to biops y them. The patient refuses any kind of chemoradiation therapy or resection. She has severe obstruc tive lung disease. Continues to be a tobacco user. Medications: Her outpatient medications have been atorvastatin, olmesartan, amlodipine, hydrochlorot hiazide, insulin, diltiazem, clopidogrel, albuterol, acetaminophen, metoprolol, Protonix, insulin, as pirin, budesonide, formoterol, and furosemide. Physical Examination: Vital Signs: Ms. Walsh is 5 feet 5 inches, 256 pounds. General: Obese, alert, oriented, pleasant, not in distress. Lungs: Do not reveal wheezes. Heart: Regular rate and rhythm. No significant murmur. Laboratory Data: Her EKG does not show infarction, injury, or ischemia. Impression: I think the patient has an unusual medication regimen. She is on 2 different calcium bl ockers, amlodipine in a combination pill and diltiazem. Given her hypertrophic cardiomyopathy, I thi nk I would favor the high doses of diltiazem and metoprolol. It would be okay to continue the high d oses of metoprolol use. The combination pill if that is to be used that I would be used diltiazem. She could use nitroglycerin as needed and most of her pain probably is from her cardiac hypertrophies , given her medicines to slower heart rate, lower her blood pressure should relieve any pain she has. There is no need to repeat a cardiac cath or a s tress test at this point. ALCIDES/FAM Voice ID: [id number] Report ID: [id number]
[2019-08-29] MEDS ORDERED: ATORVASTATIN 20 MG TAB PO SCH (21:00)
[2019-08-29] MEDS ORDERED: CYCLOBENZAPRINE 10 MG TAB PO SCH (21:00)
== END 2019-08-29 14:23 | disposition home or self-care (01) ==
LOC: ER 15:10 → SUPCPDRO 15:10 → ERHOLD 18:59 → 2ND 20:11
PROVIDERS: ADMIT Internal Medicine Sleep Medicine; ATTEND Family Medicine
DX: R07.9 Chest pain, unspecified (principal); I50.32 Chronic diastolic (congestive) heart failure; J44.9 Chronic obstructive pulmonary disease, unspecified; I25.10 Atherosclerotic heart disease of native coronary artery without angina pectoris; E78.5 Hyperlipidemia, unspecified; G47.33 Obstructive sleep apnea (adult) (pediatric); R91.8 Other nonspecific abnormal finding of lung field; I11.0 Hypertensive heart disease with heart failure; E11.22 Type 2 diabetes mellitus with diabetic chronic kidney disease; I13.0 Hypertensive heart and chronic kidney disease with heart failure and stage 1 through stage 4 chronic kidney disease, or unspecified chronic kidney disease; N18.9 Chronic kidney disease, unspecified; K21.9 Gastro-esophageal reflux disease without esophagitis; E11.65 Type 2 diabetes mellitus with hyperglycemia; N18.3 Chronic kidney disease, stage 3 (moderate); Z99.81 Dependence on supplemental oxygen
CPT/HCPCS: 93005; 87070; 85025; 80048; 36415; 83735; 82550; 87205; 85610; 82947 ×4; 85379; 80076; 85730; 81003; 84484 ×3; 82553; 83690; 83880; 71045; 93970; 94640 ×3; 94760 ×2; 96375; 96374; 99285; J1940; J7512; J1650 ×2; J1815; J7605 ×2; J2930; J2405; G0378 ×3

== ENCOUNTER 2019-09-03 00:08 | Emergency (ER) | payer OTHER ==
--- OUTSIDE RECORDS SUMMARY | 2019-09-03 00:12 | XMS REPORT ---
:1955 [facility] Address [address] [place] [address] Dr. Colón [address] [place] [id number] Care Team Providers Name Role Phone CLINTON [...] (BEAKER) 330 mg/dL 70-110 : TESTED AT [address] (test lbiu=0745) [place], [address]: Hand Blocker/Seed Laboratory Assistant [id number] for Cha Valadez POCT-GLUCOSE [id number] 13:26:00 Test Item Value Reference Range Comments POC-GLUCOSE METER (BEAKER) 343 mg/dL 70-110 : TESTED AT [address] (test mzqd=9066) [facility], [address]: Hand Blocker/Seed Laboratory Assistant [id number] for TIMOTHYMOIZ ANDERSONT C-REACTIVE [id number] 11:30:00 Test Item Value Reference Range Comments C-REACTIVE PROTEIN (BEAKER) (test ymwm=287) 2.34 mg/dL 0.00-0.50 [id number] 11:27:00 Test Item Value Reference Range Comments FIBRINOGEN LEVEL (BEAKER) (test ytfi=778) 866 mg/dl 225-434 [id number] 11:24:00 Test Item Value Reference Range Comments D-DIMER QUANTITATIVE (BEAKER) (test bhsl=104) 1.66 MG/L FEU <0.50 Intended Use: The [...] of thrombosis is within 95-100% range.POCT- GLUCOSE [id number] 09:05:00 Test Item Value Reference Range Comments POC-GLUCOSE METER (BEAKER) 283 mg/dL 70-110 : TESTED AT [facility] [address] [facility] (test aalm=4562) [facility], [address]: Hand Blocker/Seed Laboratory Assistant [id number] for OMEGA, JASON RAD, CHEST, 1 VIEW, NON [id number] 07:47:00Reason for exam:->CHFFINAL REPORT CLINICAL HISTORY: CHF TECHNIQUE: 1 view of the chest. COMPARISON: 08/19/2019 IMPRESSION: Pulmonary vascular congestive findings appear slightly decreased. There is no lobar consolidation or significant pleural fluid. Cardiomegaly is unchanged. Signed: Monisha Castro MDReport Verified Date/Time: 08/22/2019 07:47:58 Reading Location: [facility] Radiology Reading Room Electronically signed by: MONISHA CASTRO M.D. on 07:47 AMBASIC METABOLIC [id number] 05:32:00 Test Item Value Reference Range Comments SODIUM (BEAKER) (test 136 meq/L 136-145 mhdl=765) POTASSIUM (BEAKER) (test 4.8 meq/L 3.5-5.1 iwbq=623) CHLORIDE (BEAKER) (test 98 meq/L 98-107 rcsi=705) CO2 (BEAKER) (test 31 meq/L 22-29 nhcc=691) BLOOD UREA NITROGEN 26 mg/dL 7-21 (BEAKER) (test hxxx=690) CREATININE (BEAKER) (test 1.54 mg/dL 0.57-1.25 pcen=261) GLUCOSE RANDOM (BEAKER) 224 mg/dL 70-105 (test jugx=590) CALCIUM (BEAKER) (test 9.0 mg/dL 8.4-10.2 puth=373) EGFR (BEAKER) (test 41 mL/min/1.73 sq m ESTIMATED GFR IS NOT pmyo=8815) ACCURATE CREATININE CLEARANCE IN PREDICTING GLOMERULAR FILTRATION RATE. ESTIMATED GFR IS NOT APPLICABLE FOR DIALYSIS PATIENTS. B-TYPE NATRIURETIC FACTOR (BNP)2019-08-22 05:21:00 Test Item Value Reference Range Comments B-TYPE NATRIURETIC PEPTIDE (BEAKER) (test qina=629) 15 pg/mL 0-100 CBC W/PLT COUNT & AUTO [id number] 04:59:00 Test Item Value Reference Range Comments WHITE BLOOD CELL COUNT (BEAKER) (test auko=522) 9.1 K/ L 3.5-10.5 RED BLOOD CELL COUNT (BEAKER) (test ifgx=597) 3.57 M/ L 3.93-5.22 HEMOGLOBIN (BEAKER) (test jkcm=470) 9.3 GM/DL 11.2-15.7 HEMATOCRIT (BEAKER) (test pvvy=359) 30.4 % 34.1-44.9 MEAN CORPUSCULAR VOLUME (BEAKER) (test henc=787) 85.2 fL 79.4-94.8 MEAN CORPUSCULAR HEMOGLOBIN (BEAKER) (test 26.1 pg 25.6-32.2 tlnn=705) MEAN CORPUSCULAR HEMOGLOBIN CONC (BEAKER) (test 30.6 GM/DL 32.2-35.5 tvcw=191) RED CELL DISTRIBUTION WIDTH (BEAKER) (test 14.9 % 11.7-14.4 mihy=481) PLATELET COUNT (BEAKER) (test lhop=838) 447 K/CU MM 150-450 MEAN PLATELET VOLUME (BEAKER) (test cyhd=165) 9.4 fL 9.4-12.3 NUCLEATED RED BLOOD CELLS (BEAKER) (test 0 /100 WBC 0-0 zlfn=019) NEUTROPHILS RELATIVE PERCENT (BEAKER) (test 64 % kzal=814) LYMPHOCYTES RELATIVE PERCENT (BEAKER) (test 24 % qzfv=450) MONOCYTES RELATIVE PERCENT (BEAKER) (test 8 % cejc=106) EOSINOPHILS RELATIVE PERCENT (BEAKER) (test 2 % vaju=350) BASOPHILS RELATIVE PERCENT (BEAKER) (test 1 % hwub=725) NEUTROPHILS ABSOLUTE COUNT (BEAKER) (test 5.89 K/ L 1.56-6.13 pkuj=842) LYMPHOCYTES ABSOLUTE COUNT (BEAKER) (test 2.23 K/ L 1.18-3.74 usvr=741) MONOCYTES ABSOLUTE COUNT (BEAKER) (test 0.75 K/ L 0.24-0.36 wlhy=130) EOSINOPHILS ABSOLUTE COUNT (BEAKER) (test 0.18 K/ L 0.04-0.36 pqhw=928) BASOPHILS ABSOLUTE COUNT (BEAKER) (test 0.06 K/ L 0.01-0.08 ldsz=660) IMMATURE GRANULOCYTES-RELATIVE PERCENT (BEAKER) 0 % 0-1 (test rpsh=5846) POCT-GLUCOSE [id number] 18:31:00 Test Item Value Reference Range Comments POC-GLUCOSE METER (BEAKER) 220 mg/dL 70-110 : TESTED AT [address] (test ewmx=4001) [facility], [address]: Hand Blocker/Seed Laboratory Assistant [id number] for LEAH, AURA POCT-GLUCOSE [id number] 18:30:00 Test Item Value Reference Range Comments POC-GLUCOSE METER (BEAKER) 186 mg/dL 70-110 : TESTED AT [address] (test jruy=0970) [facility], [address]: Hand Blocker/Seed Laboratory Assistant [id number] for LEAH, AURA POCT-GLUCOSE [id number] 18:29:00 Test Item Value Reference Range Comments POC-GLUCOSE METER (BEAKER) 183 mg/dL 70-110 : Notified RN/MD: TESTED AT (test icao=6231) [address], [address]: Hand Blocker/Seed Laboratory Assistant [id number] for LEAH, AURA POCT-GLUCOSE [id number] 18:29:00 Test Item Value Reference Range Comments POC-GLUCOSE METER (BEAKER) 66 mg/dL 70-110 : Notified RN/MD: TESTED AT (test pxmg=9070) [address], [address]: Hand Blocker/Seed Laboratory Assistant [id number] for LEAH, AURA POCT-GLUCOSE [id number] 18:29:00 Test Item Value Reference Range Comments POC-GLUCOSE METER (BEAKER) 49 mg/dL 70-110 : TESTED AT [address] (test dhuu=6635) [facility], [address]: Hand Blocker/Seed Laboratory Assistant [id number] for LEAH, AURA CALCIUM, [id number] 10:55:00 Test Item Value Reference Range Comments CALCIUM IONIZED (BEAKER) (test mhyq=200) 1.07 mmol/L 1.12-1.27 PH, BLOOD (BEAKER) (test klbi=9170) 7.35 [id number] 08:46:00 Test Item Value Reference Range Comments MAGNESIUM (BEAKER) (test nfdx=760) 2.4 mg/dL 1.6-2.6 BASIC METABOLIC [id number] 06:27:00 Test Item Value Reference Range Comments SODIUM (BEAKER) (test 138 meq/L 136-145 mtmk=529) POTASSIUM (BEAKER) (test 4.2 meq/L 3.5-5.1 odup=400) CHLORIDE (BEAKER) (test 99 meq/L 98-107 mwzh=462) CO2 (BEAKER) (test 31 meq/L 22-29 wdzn=894) BLOOD UREA NITROGEN 26 mg/dL 7-21 (BEAKER) (test yzmo=411) CREATININE (BEAKER) (test 1.59 mg/dL 0.57-1.25 wscc=505) GLUCOSE RANDOM (BEAKER) 67 mg/dL 70-105 (test zbhw=407) CALCIUM (BEAKER) (test 9.3 mg/dL 8.4-10.2 auir=106) EGFR (BEAKER) (test 40 mL/min/1.73 sq m ESTIMATED GFR IS NOT jfli=8103) ACCURATE CREATININE CLEARANCE IN PREDICTING GLOMERULAR FILTRATION RATE. ESTIMATED GFR IS NOT APPLICABLE FOR DIALYSIS PATIENTS. CBC W/PLT COUNT & AUTO [id number] 05:23:00 Test Item Value Reference Range Comments WHITE BLOOD CELL COUNT (BEAKER) (test mbrs=136) 9.9 K/ L 3.5-10.5 RED BLOOD CELL COUNT (BEAKER) (test wwso=884) 3.50 M/ L 3.93-5.22 HEMOGLOBIN (BEAKER) (test vcts=144) 9.0 GM/DL 11.2-15.7 HEMATOCRIT (BEAKER) (test yqpe=032) 29.3 % 34.1-44.9 MEAN CORPUSCULAR VOLUME (BEAKER) (test mgat=037) 83.7 fL 79.4-94.8 MEAN CORPUSCULAR HEMOGLOBIN (BEAKER) (test 25.7 pg 25.6-32.2 gmwj=406) MEAN CORPUSCULAR HEMOGLOBIN CONC (BEAKER) (test 30.7 GM/DL 32.2-35.5 wbol=268) RED CELL DISTRIBUTION WIDTH (BEAKER) (test 15.0 % 11.7-14.4 igon=293) PLATELET COUNT (BEAKER) (test bqln=399) 522 K/CU MM 150-450 MEAN PLATELET VOLUME (BEAKER) (test xzbl=811) 9.5 fL 9.4-12.3 NUCLEATED RED BLOOD CELLS (BEAKER) (test 0 /100 WBC 0-0 otms=863) NEUTROPHILS RELATIVE PERCENT (BEAKER) (test 66 % lhae=470) LYMPHOCYTES RELATIVE PERCENT (BEAKER) (test 25 % anga=115) MONOCYTES RELATIVE PERCENT (BEAKER) (test 7 % qzpm=177) EOSINOPHILS RELATIVE PERCENT (BEAKER) (test 1 % cmpx=278) BASOPHILS RELATIVE PERCENT (BEAKER) (test 1 % hlnb=637) NEUTROPHILS ABSOLUTE COUNT (BEAKER) (test 6.46 K/ L 1.56-6.13 dmfg=227) LYMPHOCYTES ABSOLUTE COUNT (BEAKER) (test 2.44 K/ L 1.18-3.74 ryyp=830) MONOCYTES ABSOLUTE COUNT (BEAKER) (test 0.71 K/ L 0.24-0.36 xnvo=469) EOSINOPHILS ABSOLUTE COUNT (BEAKER) (test 0.14 K/ L 0.04-0.36 ninq=577) BASOPHILS ABSOLUTE COUNT (BEAKER) (test 0.06 K/ L 0.01-0.08 lwhj=575) IMMATURE GRANULOCYTES-RELATIVE PERCENT (BEAKER) 0 % 0-1 (test syjt=4058) POCT-GLUCOSE [id number] 21:59:00 Test Item Value Reference Range Comments POC-GLUCOSE METER (BEAKER) 242 mg/dL 70-110 : Notified RN/MD: TESTED AT (test tsep=1854) [address], [address]: Hand Blocker/Seed Laboratory Assistant [id number] for SHMUEL DUNCAN POCT-GLUCOSE [id number] 18:12:00 Test Item Value Reference Range Comments POC-GLUCOSE METER (BEAKER) 230 mg/dL 70-110 : Notified RN/MD: TESTED AT (test uwqv=7760) [address], [address]: Hand Blocker/Seed Laboratory Assistant [id number] for KEHINDE LYNN [id number] 13:39:00 Test Item Value Reference Range Comments RPR SCREEN (BEAKER) (test ijld=433) Nonreactive Nonreactive POCT-GLUCOSE [id number] 12:07:00 Test Item Value Reference Range Comments POC-GLUCOSE METER (BEAKER) 142 mg/dL 70-110 : Notified RN/MD: TESTED AT (test inhk=3704) [address], [address]: Hand Blocker/Seed Laboratory Assistant [id number] for KEHINDE LYNN POCT-GLUCOSE [id number] 10:56:00 Test Item Value Reference Range Comments POC-GLUCOSE METER (BEAKER) 116 mg/dL 70-110 : TESTED AT [address] (test gusq=3774) [facility], [address]: Hand Blocker/Seed Laboratory Assistant [id number] for KEHINDE LYNN HEMOGLOBIN [id number] 08:52:00 Test Item Value Reference Range Comments HEMOGLOBIN A1C (BEAKER) (test ragk=799) 10.3 % 4.3-6.1 BASIC METABOLIC [id number] 05:10:00 Test Item Value Reference Range Comments SODIUM (BEAKER) (test 138 meq/L 136-145 xmgr=899) POTASSIUM (BEAKER) (test 4.8 meq/L 3.5-5.1 kbvq=197) CHLORIDE (BEAKER) (test 101 meq/L 98-107 llha=905) CO2 (BEAKER) (test 30 meq/L 22-29 aybf=421) BLOOD UREA NITROGEN 25 mg/dL 7-21 (BEAKER) (test tqee=777) CREATININE (BEAKER) (test 1.30 mg/dL 0.57-1.25 wvte=578) GLUCOSE RANDOM (BEAKER) 168 mg/dL 70-105 (test oupc=719) CALCIUM (BEAKER) (test 9.2 mg/dL 8.4-10.2 mtnp=559) EGFR (BEAKER) (test 50 mL/min/1.73 sq m ESTIMATED GFR IS NOT qpzr=9025) ACCURATE CREATININE CLEARANCE IN PREDICTING GLOMERULAR FILTRATION RATE. ESTIMATED GFR IS NOT APPLICABLE FOR DIALYSIS PATIENTS. CBC W/PLT COUNT & AUTO [id number] 04:56:00 Test Item Value Reference Range Comments WHITE BLOOD CELL COUNT (BEAKER) (test ivee=408) 12.3 K/ L 3.5-10.5 RED BLOOD CELL COUNT (BEAKER) (test mpci=929) 3.48 M/ L 3.93-5.22 HEMOGLOBIN (BEAKER) (test rolu=804) 9.2 GM/DL 11.2-15.7 HEMATOCRIT (BEAKER) (test zvhj=780) 29.2 % 34.1-44.9 MEAN CORPUSCULAR VOLUME (BEAKER) (test wxmq=592) 83.9 fL 79.4-94.8 MEAN CORPUSCULAR HEMOGLOBIN (BEAKER) (test 26.4 pg 25.6-32.2 jxav=294) MEAN CORPUSCULAR HEMOGLOBIN CONC (BEAKER) (test 31.5 GM/DL 32.2-35.5 fzyk=202) RED CELL DISTRIBUTION WIDTH (BEAKER) (test 15.1 % 11.7-14.4 asgn=205) PLATELET COUNT (BEAKER) (test admu=181) 500 K/CU MM 150-450 MEAN PLATELET VOLUME (BEAKER) (test erfn=001) 10.0 fL 9.4-12.3 NUCLEATED RED BLOOD CELLS (BEAKER) (test 0 /100 WBC 0-0 qlex=783) NEUTROPHILS RELATIVE PERCENT (BEAKER) (test 71 % zsiz=202) LYMPHOCYTES RELATIVE PERCENT (BEAKER) (test 21 % ftkv=439) MONOCYTES RELATIVE PERCENT (BEAKER) (test 7 % pldj=944) EOSINOPHILS RELATIVE PERCENT (BEAKER) (test 1 % pdhk=682) BASOPHILS RELATIVE PERCENT (BEAKER) (test 1 % ukwz=364) NEUTROPHILS ABSOLUTE COUNT (BEAKER) (test 8.73 K/ L 1.56-6.13 arbx=505) LYMPHOCYTES ABSOLUTE COUNT (BEAKER) (test 2.59 K/ L 1.18-3.74 qoxp=079) MONOCYTES ABSOLUTE COUNT (BEAKER) (test 0.81 K/ L 0.24-0.36 kika=901) EOSINOPHILS ABSOLUTE COUNT (BEAKER) (test 0.10 K/ L 0.04-0.36 uhhp=104) BASOPHILS ABSOLUTE COUNT (BEAKER) (test 0.06 K/ L 0.01-0.08 zqcr=712) IMMATURE GRANULOCYTES-RELATIVE PERCENT (BEAKER) 0 % 0-1 (test uvao=7243) TSH/FREE T4 IF [id number] 04:12:00 Test Item Value Reference Range Comments THYROID STIMULATING HORMONE (BEAKER) (test 0.80 uIU/mL 0.35-4.94 mnws=675) VITAMIN B12 AND [id number] 04:12:00 Test Item Value Reference Range Comments VITAMIN B12 (BEAKER) (test bqkj=031) 733 pg/mL 213-816 FOLATE (BEAKER) (test gymw=040) 10.6 ng/mL >=7.0 RAD, CHEST, 1 VIEW, NON [id number] 02:03:00Reason for exam:->respiratory distressShould this be performed [...] to be excluded clinically. Signed: Archie Ramirez [facility] Verified Date/Time: 08/20/2019 02:03:23 TROPONIN [id number] 23:15:00 Test Item Value Reference Range Comments TROPONIN I (BEAKER) (test ihom=552) < ng/mL 0.00-0.03 Troponin I (TnI) levels [...] acidosis, acute neurological disease, and persistent tachyarrhythmia.LIPID [id number] 23:09:00 Test Item Value Reference Range Comments TRIGLYCERIDES (BEAKER) (test hzbf=751) 63 mg/dL CHOLESTEROL (BEAKER) (test cnum=667) 124 mg/dL HDL CHOLESTEROL (CALLIE) (test fgif=673) 38 mg/dL LDL CHOLESTEROL CALCULATED (TULIOAKER) (test 73 mg/dL zmkn=557) Triglyceride Reference Range: Low Risk <150 Borderline 150- 199 High Risk 200-499 Very High Risk >=500Cholesterol Reference Range: Low Risk <200 Borderline 200-239 High Risk > 240HDL Cholesterol Reference Range: Low Risk >=60 High Risk <40LDL Cholesterol Reference Range: Optimal <100 Near Optimal 100-129 Borderline 130-159 High 160-189 Very High >=190CT, CTANG [id number] 20:23:00FINAL REPORT CT, BRAIN/STROKE PROTOCOL, CT, CEREBRAL [...] stenosis, or proximal branch vessel occlusion. Left COMPANY SECRETARY is predominantly supplied by P- [employer]. Diminutive [...] MDReport Verified Date/Time: 08/19/2019 20:23:29 CT, CAROTID, [id number] 20:23:00FINAL REPORT CT, BRAIN/ STROKE PROTOCOL, CT, [...] stenosis, or proximal branch vessel occlusion. Left COMPANY SECRETARY is predominantly supplied by [employer]- [employer]. Diminutive [...] Verified Date/Time: 08/19/2019 20:23:29 CT, CEREBRAL PERFUSION [id number] 20:23:00FINAL REPORT CT, BRAIN/STROKE PROTOCOL, CT, CEREBRAL [...] stenosis, or proximal branch vessel occlusion. Left COMPANY SECRETARY is predominantly supplied by [employer]- [employer]. Diminutive [...] Esquivel Verified Date/Time: 08/19/2019 20:23:29 CT, BRAIN/STROKE [id number] 20:23:00FINAL REPORT CT, BRAIN/STROKE PROTOCOL, CT, CEREBRAL [...] stenosis, or proximal branch vessel occlusion. Left COMPANY SECRETARY is predominantly supplied by [employer]- [employer]. Diminutive [...]
--- OUTSIDE RECORDS SUMMARY | 2019-09-03 00:14 | XMS REPORT ---
[...] Active Problem Essential hypertension I10 Active Problem alf current use of insulin Z79.4 [...]
--- OUTSIDE RECORDS SUMMARY | 2019-09-03 00:15 | XMS REPORT ---
[...] Active Problem Essential hypertension I10 Active Problem residential current use of insulin Z79.4 Active Problem [...]
[2019-09-03] MEDS ORDERED: ONDANSETRON 4 MG (ODT) TAB ONE (00:37)
[2019-09-03 01:12] LABS: Protime INR 0.97
[2019-09-03 01:25] LABS: ALT/SGPT 30 U/L (12-78); AST/SGOT 26 U/L (15-37); Albumin 2.5 g/dL (3.4-5.0); Alkaline Phosphatase 82 U/L (45-117); BUN Blood Urea Nitrogen 24 mg/dL (7-18); Bicarbonate 29 mmol/L (21-32); Bilirubin Direct < 0.1 mg/dL (0-0.2); Bilirubin Total 0.2 mg/dL (0.2-1.0); Glucose Level 155 mg/dL (74-106); Magnesium 2.1 mg/dL (1.8-2.4); NT PRO-BNP 171 pg/mL (<125); Potassium 4.5 mmol/L (3.5-5.1); Protein, Total 7.2 g/dL (6.4-8.2); Sodium Level 136 mmol/L (136-145); Troponin (Emerg Dept Use Only) < 0.02 ng/mL (0.0-0.045)
[2019-09-03 01:53] LABS: Absolute Lymphocytes (CBC) 2.5 K/uL (0.7-4.9); Basophils % 0.5 % (0-1.3); Hematocrit 30.1 % (36.0-45.0); Lymphocytes % 22.9 % (15.3-44.8); MPV 8.1 fL (7.6-11.3); RBC Red Blood Cell Count 3.71 M/uL (3.86-4.86)
[2019-09-03] MEDS ORDERED: ALBUTEROL 2.5 MG/3 ML NEB SOL ONE (02:14)
[2019-09-03] MEDS ORDERED: IPRATROPIUM BROM 0.5MG/2.5ML ONE (02:14)
[2019-09-03] MEDS ORDERED: FUROSEMIDE 20 MG/ 2ML VIAL ONE (02:14)
[2019-09-03] MEDS ORDERED: KETOROLAC 30 MG/ML INJ ONE (03:10)
--- NOTE | 2019-09-03 05:01 | EDPHYS ---
Physician Documentation [facility] Name: Tammy Walsh Age: 64 yrs Sex: Female : 1955 Arrival Date: 09/03/2019 Time: 00:09 Bed 8 Private MD: ED Physician Jose Guadalupe Carreno HPI: 09/03 03:28 This 64 yrs old Black Female presents to ER via Wheelchair with complaints of Chest tw4 Pain, Shortness Of Breath. 03:28 The patient or guardian reports chest pain that is located primarily in the anterior tw4 aspect of right upper chest and right breast. 03:29 Onset: just prior to arrival, 2 week(s) ago. The pain does not radiate. tw4 03:30 Associated signs and symptoms: Pertinent positives: shortness of breath. The chest pain tw4 is described as dull. Duration: The patient or guardian reports a single episode. Modifying factors: The symptoms are alleviated by nothing. the symptoms are aggravated by nothing. Severity of pain: At its worst the pain was moderate in the emergency department the pain. 05:02 The patient has experienced similar episodes in the past, several times. The patient tw4 has been recently been admitted at [facility], was discharged last week, for similar complaints, and was told to return for re-evaluation. Historical: - Allergies: 00:27 Hydrocodone-Acetaminophen (Sever Itching); aa1 - Home Meds: 00:27 aspirin 81 mg Oral chew 1 tab once daily [Active]; atorvastatin 40 mg Oral tab 1 tab aa1 once daily [Active]; Breo Ellipta inhalation [Active]; Cartia XT 180 mg Oral cp24 2 caps once daily [Active]; Gralise 600 mg Oral Tb24 3 tabs once daily [Active]; Humalog 4units before every meal or snack. Sub-Q [Active]; hydrochlorothiazide 12.5 mg Oral cap once daily [Active]; Lantus 65 units in the morning. Sub-Q [Active]; metformin 1,000 mg Oral tab 1 tab 2 times per day [Active]; metoprolol er 200mg daily [Active]; olmesartan 12.5 Oral once daily [Active]; Nitroglycerin SL [Active]; Plavix 75 mg Oral tab 1 tab once daily [Active]; Spiriva with HandiHaler inhalation [Active]; Symbicort 160-4.5 mcg/actuation inhalation HFAA 2 puffs 2 times per day [Active]; - PMHx: 00:27 COPD; Diabetes - NIDDM; Gastroparesis; CVA; Myocardial infarction; Hypertension; CHF; aa1 - Immunization history:: Flu vaccine is not up to date. - Social history:: Smoking status: Patient uses tobacco products, reports she quit last week. - Ebola Screening: : Patient denies exposure to infectious person Patient denies travel to an Ebola-affected area in the 21 days before illness onset. ROS: 03:30 Constitutional: Negative for fever, chills, and weight loss, Eyes: Negative for injury, tw4 pain, redness, and discharge, ENT: Negative for injury, pain, and discharge, Abdomen/GI: Negative for abdominal pain, nausea, vomiting, diarrhea, and constipation, Back: Negative for injury and pain, MS/Extremity: Negative for injury and deformity, Skin: Negative for injury, rash, and discoloration, Neuro: Negative for headache, weakness, numbness, tingling, and seizure. 03:30 Cardiovascular: Positive for chest pain, Negative for edema, orthopnea, palpitations. 03:30 Respiratory: Positive for shortness of breath, Negative for cough, dyspnea on exertion, hemoptysis, orthopnea, pleurisy. Exam: 03:30 Constitutional: This is a well developed, well nourished patient who is awake, alert, tw4 and in no acute distress. Head/Face: Normocephalic, atraumatic. Chest/axilla: Normal chest wall appearance and motion. Nontender with no deformity. No lesions are appreciated. Cardiovascular: Regular rate and rhythm with a normal S1 and S2. No gallops, murmurs, or rubs. Normal PMI, no JVD. No pulse deficits. Respiratory: Lungs have equal breath sounds bilaterally, clear to auscultation and percussion. No rales, rhonchi or wheezes noted. No increased work of breathing, no retractions or nasal flaring. Abdomen/GI: Soft, non-tender, with normal bowel sounds. No distension or tympany. No guarding or rebound. No evidence of tenderness throughout. Back: No spinal tenderness. No costovertebral tenderness. Full range of motion. MS/ Extremity: Pulses equal, no cyanosis. Neurovascular intact. Full, normal range of motion. Neuro: Awake and alert, GCS 15, oriented to person, place, time, and situation. Cranial nerves II-XII grossly intact. Motor strength 5/5 in all extremities. Sensory grossly intact. Cerebellar exam normal. Normal gait. Vital Signs: 00:27 BP 121 / 50; Pulse 98; Resp 30; Temp 97.4; Pulse Ox 100% on R/A; Weight 115.67 kg (R); aa1 Height 5 ft. 5 in. (165.10 cm); Pain 6/10; 01:13 BP 117 / 56; Pulse 90; Resp 20; Pulse Ox 100% on 3 lpm NC; ak1 02:07 BP 133 / 53; Pulse 89; Resp 20; Pulse Ox 100% on R/A; ak1 03:43 BP 137 / 65; Pulse 92; Resp 19; Pulse Ox 100% on 3 lpm NC; ak1 04:40 BP 132 / 67; Pulse 88; Resp 20 S; Pulse Ox 100% on 3 lpm NC; Pain 0/10; cc3 00:27 Body Mass Index 42.43 (115.67 kg, 165.10 cm) aa1 MDM: 00:13 Patient medically screened. tw4 03:30 Data reviewed: vital signs, nurses notes. Data interpreted: panel monitor: rhythm is tw4 Pulse oximetry: Interpretation: normal. 09/03 00:15 Order name: Basic Metabolic Panel; Complete Time: 02:10 tw4 09/03 00:15 Order name: CBC with Diff; Complete Time: 02:10 4 09/03 00:15 Order name: LFT's; Complete Time: 02:10 tw4 09/03 00:15 Order name: Magnesium; Complete Time: 02:10 tw4 09/03 00:15 Order name: NT PRO-BNP; Complete Time: 02:10 tw4 09/03 00:15 Order name: PT-INR; Complete Time: 02:10 tw4 09/03 00:15 Order name: Troponin (emerg Dept Use Only); Complete Time: 02:10 tw4 09/03 00:15 Order name: XRAY Chest (1 view) tw 09/03 01:06 Order name: Glucose, Ancillary Testing; Complete Time: 02:10 EDMS 11/16 03:00 Order name: Troponin (emerg Dept Use Only); Complete Time: 04:32 tw4 09/03 00:15 Order name: EKG; Complete Time: 00:17 4 09/03 00:15 Order name: Cardiac monitoring; Complete Time: 00:51 tw4 09/03 00:15 Order name: EKG - Nurse/Tech; Complete Time: 00:25 4 09/03 00:15 Order name: IV Saline Lock; Complete Time: 01:36 4 09/03 00:15 Order name: Labs collected and sent; Complete Time: 01:36 4 09/03 00:15 Order name: O2 Per Protocol; Complete Time: 00:25 4 09/03 00:15 Order name: O2 Sat Monitoring; Complete Time: 00:25 tw4 EC:32 Rate is 95 beats/min. Rhythm is regular. QRS Bond is Normal. TX interval is prolonged tw4 at 238 msec. QRS interval is normal. QT interval is normal. No Q waves. T waves are Normal. No ST changes noted. Clinical impression: 1st degree heart block. Interpreted by me. Reviewed by me. Administered Medications: 00:51 Drug: Zofran 4 mg Route: PO; ak1 02:09 Follow up: Response: No adverse reaction ak1 02:19 Drug: Lasix 20 mg Route: IVP; Site: left hand; ak1 03:07 Follow up: Response: No adverse reaction ak1 02:19 Drug: DuoNeb (3:1) (2.5 mg - 0.5 mg) 3 ml Route: Nebulizer; ak1 03:07 Follow up: Response: No adverse reaction ak1 03:14 Drug: TORadol 30 mg Route: IVP; Site: left hand; ak1 04:45 Follow up: Response: No adverse reaction; Pain is decreased cc3 Disposition: 09/03/19 05:00 Discharged to Home. Impression: Dyspnea, unspecified, atypical chest pain. - Condition is Stable. - Discharge Instructions: Nonspecific Chest Pain, Hyperventilation, Shortness of Breath, Shortness of Breath, [id number]. - Prescriptions for Albuterol Sulfate 2.5 mg /3 mL (0.083 %) Inhalation Solution for Nebulization - inhale 1 unit by NEBULIZATION route every 8 hours As needed; 1 box. Albuterol Sulfate 90 mcg/actuation - inhale 1-2 puff by INHALATION route every 4-6 hours; 1 Inhaler. - Medication Reconciliation Form, Thank You Letter, Antibiotic Education, Prescription Opioid Use form. - Follow up: Private Physician; When: Upon discharge from the Emergency Department; Reason: Recheck today's complaints, Continuance of care. - Problem is new. - Symptoms have improved. Signatures: Dispatcher [employer] EDMS Neisha King RN RN aa1 Adeola De Los Santos RN RN ak1 Jose Guadalupe Carreno MD MD tw4 Becca Espinoza cc3 Corrections: (The following items were deleted from the chart) 05:19 05:00 09/03/2019 05:00 Discharged to Home. Impression: Dyspnea, unspecified; atypical cc3 chest pain. Condition is Stable. Forms are Medication Reconciliation Form, Thank You Letter, Antibiotic Education, Prescription Opioid Use. Follow up: Private Physician; When: Upon discharge from the Emergency Department; Reason: Recheck today's complaints, Continuance of care. Problem is new. Symptoms have improved. tw4
--- NOTE | 2019-09-03 05:01 | ER ---
Nurse's Notes [facility] Name: Tammy Walsh Age: 64 yrs Sex: Female : 1955 Arrival Date: 09/03/2019 Time: 00:09 Bed 8 Private MD: Diagnosis: Dyspnea, unspecified;atypical chest pain Presentation: 09/03 00:25 Presenting complaint: Patient states: chest tightness and SOB for past couple hours. aa1 Reports this has been happening off and on for past couple weeks. Transition of care: patient was not received from another setting of care. Onset of symptoms was September 03, 2019. Risk Assessment: Do you want to hurt yourself or someone else? Patient reports no desire to harm self or others. Initial Sepsis Screen: Does the patient meet any 2 criteria? RR > 20 per min. HR > 90 bpm. Yes Does the patient have a suspected source of infection? No. Patient's initial sepsis screen is negative. Care prior to arrival: None. 00:25 Method Of Arrival: Wheelchair aa1 00:25 Acuity: PATRICIA 3 aa1 Triage Assessment: 00:27 General: Appears in no apparent distress. uncomfortable, Behavior is calm, cooperative, aa1 appropriate for age. Historical: - Allergies: 00:27 Hydrocodone-Acetaminophen (Sever Itching); aa1 - Home Meds: 00:27 aspirin 81 mg Oral chew 1 tab once daily [Active]; atorvastatin 40 mg Oral tab 1 tab aa1 once daily [Active]; Breo Ellipta inhalation [Active]; Cartia XT 180 mg Oral cp24 2 caps once daily [Active]; Gralise 600 mg Oral Tb24 3 tabs once daily [Active]; Humalog 4units before every meal or snack. Sub-Q [Active]; hydrochlorothiazide 12.5 mg Oral cap once daily [Active]; Lantus 65 units in the morning. Sub-Q [Active]; metformin 1,000 mg Oral tab 1 tab 2 times per day [Active]; metoprolol er 200mg daily [Active]; olmesartan 12.5 Oral once daily [Active]; Nitroglycerin SL [Active]; Plavix 75 mg Oral tab 1 tab once daily [Active]; Spiriva with HandiHaler inhalation [Active]; Symbicort 160-4.5 mcg/actuation inhalation HFAA 2 puffs 2 times per day [Active]; - PMHx: 00:27 COPD; Diabetes - NIDDM; Gastroparesis; CVA; Myocardial infarction; Hypertension; CHF; aa1 - Immunization history:: Flu vaccine is not up to date. - Social history:: Smoking status: Patient uses tobacco products, reports she quit last week. - Ebola Screening: : Patient denies exposure to infectious person Patient denies travel to an Ebola-affected area in the 21 days before illness onset. Screenin:51 Abuse screen: Denies threats or abuse. Denies injuries from another. Nutritional ak1 screening: No deficits noted. Tuberculosis screening: No symptoms or risk factors identified. Fall Risk None identified. Assessment: 00:51 General: Appears uncomfortable, Behavior is cooperative. Pain: Complains of pain in ak1 chest Pain does not radiate. Pain began 3 hours ago. Neuro: No deficits noted. Cardiovascular: Reports chest pain, nausea, pt coughing up thick clear mucous and has thick clear mucous from nose. Respiratory: Airway is patent Respiratory effort is labored, with nasal flaring, pursed lip, Respiratory pattern is hyperventilation Sputum is thick, clear. GI: Reports nausea. : No signs and/or symptoms were reported regarding the genitourinary system. EENT: No signs and/or symptoms were reported regarding the EENT system. Derm: No signs and/or symptoms reported regarding the dermatologic system. Musculoskeletal: No signs and/or symptoms reported regarding the musculoskeletal system. 02:07 Reassessment: Patient appears in no apparent distress at this time. No changes from ak1 previously documented assessment. 02:19 Reassessment: beside commode placed in pt room prior to Lasix administration. ak1 03:18 Reassessment: lab contacted to draw 2nd troponin. ak1 05:15 Reassessment: Patient appears in no apparent distress at this time. Patient and/or cc3 family updated on plan of care and expected duration. Pain level reassessed. Patient is alert, oriented x 3, equal unlabored respirations, skin warm/dry/pink. Dr. Carreno discharged the patient home with prescriptions given. IV cannula removed and patient left ER vitally stable by wheelchair escorted by her . No valuables left in the patient's room. Patient denies pain at this time. Patient states feeling better. Patient states symptoms have improved. Vital Signs: 00:27 BP 121 / 50; Pulse 98; Resp 30; Temp 97.4; Pulse Ox 100% on R/A; Weight 115.67 kg (R); aa1 Height 5 ft. 5 in. (165.10 cm); Pain 6/10; 01:13 BP 117 / 56; Pulse 90; Resp 20; Pulse Ox 100% on 3 lpm NC; ak1 02:07 BP 133 / 53; Pulse 89; Resp 20; Pulse Ox 100% on R/A; ak1 03:43 BP 137 / 65; Pulse 92; Resp 19; Pulse Ox 100% on 3 lpm NC; ak1 04:40 BP 132 / 67; Pulse 88; Resp 20 S; Pulse Ox 100% on 3 lpm NC; Pain 0/10; cc3 00:27 Body Mass Index 42.43 (115.67 kg, 165.10 cm) aa1 ED Course: 00:09 Patient arrived in ED. ds1 00:12 Jose Guadalupe Carreno MD is Attending Physician. tw4 00:24 Adeola De Los Santos, LORETO is Primary Nurse. ak1 00:25 Triage completed. aa1 00:25 EKG done, by ED staff, reviewed by Jose Guadalupe Carreno MD. ds4 00:27 Arm band placed on right wrist. aa1 00:35 Missed attempt(s): 22 gauge in right antecubital area. Bleeding controlled, band aid ds4 applied, catheter tip intact. 00:37 Missed attempt(s): 22 gauge in right antecubital area. Bleeding controlled, band aid ds4 applied, catheter tip intact. 00:51 Patient has correct armband on for positive identification. Placed in gown. Bed in low ak1 position. Call light in reach. Side rails up X 1. color television console monitor on. Pulse ox on. NIBP on. 00:51 Oxygen administration via nasal cannula pt uses oxygen 2.5L at home. ak1 00:57 Basic Metabolic Panel Sent. ds4 00:57 PT-INR Sent. ds4 00:58 Troponin (emerg Dept Use Only) Sent. ds4 00:58 NT PRO-BNP Sent. ds4 01:35 Inserted saline lock: 22 gauge in left hand, using aseptic technique. ,using aseptic ak1 technique. placed by [facility] DIRECTOR Blood collected. 02:12 XRAY Chest (1 view) In Process Unspecified. EDMS 05:15 No provider procedures requiring assistance completed. IV discontinued, intact, cc3 bleeding controlled, No redness/swelling at site. Pressure dressing applied. Administered Medications: 00:51 Drug: Zofran 4 mg Route: PO; ak1 02:09 Follow up: Response: No adverse reaction ak1 02:19 Drug: Lasix 20 mg Route: IVP; Site: left hand; ak1 03:07 Follow up: Response: No adverse reaction ak1 02:19 Drug: DuoNeb (3:1) (2.5 mg - 0.5 mg) 3 ml Route: Nebulizer; ak1 03:07 Follow up: Response: No adverse reaction ak1 03:14 Drug: TORadol 30 mg Route: IVP; Site: left hand; ak1 04:45 Follow up: Response: No adverse reaction; Pain is decreased cc3 Outcome: 05:00 Discharge ordered by . tw4 05:15 Discharged to home via wheelchair, with family. cc3 05:15 Condition: stable 05:15 Discharge instructions given to patient, family, Instructed on discharge instructions, follow up and referral plans. medication usage, Demonstrated understanding of instructions, follow-up care, medications, Prescriptions given X 2. 05:19 Patient left the ED. cc3 Signatures: Dispatcher [employer] EDMS Neisha King, RN RN sean1 Mey Cunningham ds1 Sander Batista ds4 Adeola De Los Santos RN RN ak1 Jose Guadalupe Carreno MD MD tw4 Becca Espinoza cc3
--- NOTE | 2019-09-03 08:09 | EKG ---
Test Date: 2019-09-03 Test Time: 00:23:21 Mirror Department Supervisor: GORGE MEASUREMENT RESULTS: Intervals: Rate: 95 RI: 238 QRSD: 68 QT: 316 QTc: 397 Sebastian: P: 86 RI: 238 QRS: 67 T: 59 INTERPRETIVE STATEMENTS: Sinus rhythm with 1st degree AV block Otherwise normal ECG Compared to ECG 08/28/2019 15:29:18 No significant changes Electronically Signed On 09-03-19 08:08:45 MANAGER CLINIC by Eloy Kapadia
--- NOTE | 2019-09-03 10:42 | RAD REPORT ---
EXAM DESCRIPTION: RAD - Chest Single View - 09/03/2019 2:12 am CLINICAL HISTORY: CHEST PAIN Chest pain. COMPARISON: Chest Single View dated 08/28/2019; Chest Single View dated 08/23/2019; Chest Single View dated 08/19/2019; Chest Pa And Lat (2 Views) dated 08/10/2019 FINDINGS: Portable technique limits examination quality. Mild to moderate pulmonary edema. The heart is mildly enlarged in size. No displaced fractures. IMPRESSION: Mild to moderate CHF versus volume overload pattern.
[2019-09-03 12:03] VITALS: TEMP 97.4; O2SAT 100
[2019-09-03 12:07] VITALS: BP 137/65
== END 2019-09-03 05:19 | disposition home or self-care (01) ==
LOC: ER 00:08
DX: R07.89 Other chest pain (principal); I10 Essential (primary) hypertension; I50.9 Heart failure, unspecified; E11.9 Type 2 diabetes mellitus without complications; Z79.84 Long term (current) use of oral hypoglycemic drugs; Z79.82 Long term (current) use of aspirin; Z79.4 Long term (current) use of insulin; Z88.5 Allergy status to narcotic agent
CPT/HCPCS: 93005; 85025; 80048; 36415; 83735; 85610; 82947; 80076; 84484 ×2; 83880; 71045; 94640; 96375; 96374; 99285; J1940

== ENCOUNTER 2019-09-05 06:28 | Emergency (ER) | payer OTHER ==
--- OUTSIDE RECORDS SUMMARY | 2019-09-05 06:31 | XMS REPORT ---
:1955 [facility] Address [address] [place] [address] Dr. Colón [address] [place] [id number] Care Team Providers Name Role Phone CLINTON [...] (BEAKER) 330 mg/dL 70-110 : TESTED AT [address] (test fzex=9936) [place], [address]: Pulp Mixer/Reed Repairer HK=[id number] for Cha Valadez POCT-GLUCOSE [id number] 13:26:00 Test Item Value Reference Range Comments POC-GLUCOSE METER (BEAKER) 343 mg/dL 70-110 : TESTED AT [address] (test taca=4526) [facility], [address]: Pulp Mixer/Reed Repairer TE=[id number] for TIMOTHYMOIZ ANDERSONT C-REACTIVE [id number] 11:30:00 Test Item Value Reference Range Comments C-REACTIVE PROTEIN (BEAKER) (test ivwq=906) 2.34 mg/dL 0.00-0.50 [id number] 11:27:00 Test Item Value Reference Range Comments FIBRINOGEN LEVEL (BEAKER) (test lixx=684) 866 mg/dl 225-434 [id number] 11:24:00 Test Item Value Reference Range Comments D-DIMER QUANTITATIVE (BEAKER) (test kugp=047) 1.66 MG/L FEU <0.50 Intended Use: The [...] of thrombosis is within 95-100% range.POCT- GLUCOSE [id number] 09:05:00 Test Item Value Reference Range Comments POC-GLUCOSE METER (BEAKER) 283 mg/dL 70-110 : TESTED AT [facility] [address] [facility] (test miyt=7921) [facility], [address]: Pulp Mixer/Reed Repairer QP=[id number] for OMEGA, JASON RAD, CHEST, 1 VIEW, NON [id number] 07:47:00Reason for exam:->CHFFINAL REPORT CLINICAL HISTORY: CHF TECHNIQUE: 1 view of the chest. COMPARISON: 08/19/2019 IMPRESSION: Pulmonary vascular congestive findings appear slightly decreased. There is no lobar consolidation or significant pleural fluid. Cardiomegaly is unchanged. Signed: Monisha Castro MDReport Verified Date/Time: 08/22/2019 07:47:58 Reading Location: [facility] Radiology Reading Room Electronically signed by: MONISHA CASTRO M.D. on 07:47 AMBASIC METABOLIC [id number] 05:32:00 Test Item Value Reference Range Comments SODIUM (BEAKER) (test 136 meq/L 136-145 cbrt=690) POTASSIUM (BEAKER) (test 4.8 meq/L 3.5-5.1 wsti=550) CHLORIDE (BEAKER) (test 98 meq/L 98-107 nkjo=088) CO2 (BEAKER) (test 31 meq/L 22-29 rtnm=990) BLOOD UREA NITROGEN 26 mg/dL 7-21 (BEAKER) (test tnws=402) CREATININE (BEAKER) (test 1.54 mg/dL 0.57-1.25 alvt=819) GLUCOSE RANDOM (BEAKER) 224 mg/dL 70-105 (test bhww=543) CALCIUM (BEAKER) (test 9.0 mg/dL 8.4-10.2 exdv=343) EGFR (BEAKER) (test 41 mL/min/1.73 sq m ESTIMATED GFR IS NOT scij=3915) ACCURATE CREATININE CLEARANCE IN PREDICTING GLOMERULAR FILTRATION RATE. ESTIMATED GFR IS NOT APPLICABLE FOR DIALYSIS PATIENTS. B-TYPE NATRIURETIC FACTOR (BNP)2019-08-22 05:21:00 Test Item Value Reference Range Comments B-TYPE NATRIURETIC PEPTIDE (BEAKER) (test fslb=470) 15 pg/mL 0-100 CBC W/PLT COUNT & AUTO [id number] 04:59:00 Test Item Value Reference Range Comments WHITE BLOOD CELL COUNT (BEAKER) (test vzqc=518) 9.1 K/ L 3.5-10.5 RED BLOOD CELL COUNT (BEAKER) (test qywk=023) 3.57 M/ L 3.93-5.22 HEMOGLOBIN (BEAKER) (test ffkx=090) 9.3 GM/DL 11.2-15.7 HEMATOCRIT (BEAKER) (test zasm=439) 30.4 % 34.1-44.9 MEAN CORPUSCULAR VOLUME (BEAKER) (test tcay=786) 85.2 fL 79.4-94.8 MEAN CORPUSCULAR HEMOGLOBIN (BEAKER) (test 26.1 pg 25.6-32.2 rqlv=311) MEAN CORPUSCULAR HEMOGLOBIN CONC (BEAKER) (test 30.6 GM/DL 32.2-35.5 osrn=976) RED CELL DISTRIBUTION WIDTH (BEAKER) (test 14.9 % 11.7-14.4 tind=496) PLATELET COUNT (BEAKER) (test gfnk=064) 447 K/CU MM 150-450 MEAN PLATELET VOLUME (BEAKER) (test aymk=744) 9.4 fL 9.4-12.3 NUCLEATED RED BLOOD CELLS (BEAKER) (test 0 /100 WBC 0-0 pxlh=296) NEUTROPHILS RELATIVE PERCENT (BEAKER) (test 64 % danx=276) LYMPHOCYTES RELATIVE PERCENT (BEAKER) (test 24 % remy=880) MONOCYTES RELATIVE PERCENT (BEAKER) (test 8 % mihe=875) EOSINOPHILS RELATIVE PERCENT (BEAKER) (test 2 % apjz=901) BASOPHILS RELATIVE PERCENT (BEAKER) (test 1 % tism=280) NEUTROPHILS ABSOLUTE COUNT (BEAKER) (test 5.89 K/ L 1.56-6.13 ktum=227) LYMPHOCYTES ABSOLUTE COUNT (BEAKER) (test 2.23 K/ L 1.18-3.74 weko=207) MONOCYTES ABSOLUTE COUNT (BEAKER) (test 0.75 K/ L 0.24-0.36 dppo=174) EOSINOPHILS ABSOLUTE COUNT (BEAKER) (test 0.18 K/ L 0.04-0.36 kyqm=929) BASOPHILS ABSOLUTE COUNT (BEAKER) (test 0.06 K/ L 0.01-0.08 epbq=106) IMMATURE GRANULOCYTES-RELATIVE PERCENT (BEAKER) 0 % 0-1 (test sdey=5360) POCT-GLUCOSE [id number] 18:31:00 Test Item Value Reference Range Comments POC-GLUCOSE METER (BEAKER) 220 mg/dL 70-110 : TESTED AT [address] (test bkow=0236) [facility], [address]: Pulp Mixer/Reed Repairer IH=[id number] for LEAH, AURA POCT-GLUCOSE [id number] 18:30:00 Test Item Value Reference Range Comments POC-GLUCOSE METER (BEAKER) 186 mg/dL 70-110 : TESTED AT [address] (test qoem=8584) [facility], [address]: Pulp Mixer/Reed Repairer KU=[id number] for LEAH, AURA POCT-GLUCOSE [id number] 18:29:00 Test Item Value Reference Range Comments POC-GLUCOSE METER (BEAKER) 183 mg/dL 70-110 : Notified RN/MD: TESTED AT (test ablf=1433) [address], [address]: Pulp Mixer/Reed Repairer QI=[id number] for LEAH, AURA POCT-GLUCOSE [id number] 18:29:00 Test Item Value Reference Range Comments POC-GLUCOSE METER (BEAKER) 66 mg/dL 70-110 : Notified RN/MD: TESTED AT (test pdzz=5236) [address], [address]: Pulp Mixer/Reed Repairer XW=[id number] for LEAH, AURA POCT-GLUCOSE [id number] 18:29:00 Test Item Value Reference Range Comments POC-GLUCOSE METER (BEAKER) 49 mg/dL 70-110 : TESTED AT [address] (test dkhe=0797) [facility], [address]: Pulp Mixer/Reed Repairer RX=[id number] for LEAH, AURA CALCIUM, [id number] 10:55:00 Test Item Value Reference Range Comments CALCIUM IONIZED (BEAKER) (test fqri=380) 1.07 mmol/L 1.12-1.27 PH, BLOOD (BEAKER) (test iazy=3416) 7.35 [id number] 08:46:00 Test Item Value Reference Range Comments MAGNESIUM (BEAKER) (test pinu=182) 2.4 mg/dL 1.6-2.6 BASIC METABOLIC [id number] 06:27:00 Test Item Value Reference Range Comments SODIUM (BEAKER) (test 138 meq/L 136-145 qrht=934) POTASSIUM (BEAKER) (test 4.2 meq/L 3.5-5.1 vvkg=310) CHLORIDE (BEAKER) (test 99 meq/L 98-107 gefx=521) CO2 (BEAKER) (test 31 meq/L 22-29 ivmz=180) BLOOD UREA NITROGEN 26 mg/dL 7-21 (BEAKER) (test avbv=347) CREATININE (BEAKER) (test 1.59 mg/dL 0.57-1.25 cwoq=613) GLUCOSE RANDOM (BEAKER) 67 mg/dL 70-105 (test lhbz=991) CALCIUM (BEAKER) (test 9.3 mg/dL 8.4-10.2 gmtp=687) EGFR (BEAKER) (test 40 mL/min/1.73 sq m ESTIMATED GFR IS NOT mhmz=6791) ACCURATE CREATININE CLEARANCE IN PREDICTING GLOMERULAR FILTRATION RATE. ESTIMATED GFR IS NOT APPLICABLE FOR DIALYSIS PATIENTS. CBC W/PLT COUNT & AUTO [id number] 05:23:00 Test Item Value Reference Range Comments WHITE BLOOD CELL COUNT (BEAKER) (test rskb=542) 9.9 K/ L 3.5-10.5 RED BLOOD CELL COUNT (BEAKER) (test gyuk=141) 3.50 M/ L 3.93-5.22 HEMOGLOBIN (BEAKER) (test eobs=121) 9.0 GM/DL 11.2-15.7 HEMATOCRIT (BEAKER) (test paya=052) 29.3 % 34.1-44.9 MEAN CORPUSCULAR VOLUME (BEAKER) (test iltv=987) 83.7 fL 79.4-94.8 MEAN CORPUSCULAR HEMOGLOBIN (BEAKER) (test 25.7 pg 25.6-32.2 xhnd=013) MEAN CORPUSCULAR HEMOGLOBIN CONC (BEAKER) (test 30.7 GM/DL 32.2-35.5 isrw=535) RED CELL DISTRIBUTION WIDTH (BEAKER) (test 15.0 % 11.7-14.4 eeis=604) PLATELET COUNT (BEAKER) (test tpbl=854) 522 K/CU MM 150-450 MEAN PLATELET VOLUME (BEAKER) (test ixwp=813) 9.5 fL 9.4-12.3 NUCLEATED RED BLOOD CELLS (BEAKER) (test 0 /100 WBC 0-0 bvkl=885) NEUTROPHILS RELATIVE PERCENT (BEAKER) (test 66 % bkoe=425) LYMPHOCYTES RELATIVE PERCENT (BEAKER) (test 25 % bwxh=952) MONOCYTES RELATIVE PERCENT (BEAKER) (test 7 % orcn=278) EOSINOPHILS RELATIVE PERCENT (BEAKER) (test 1 % qkco=285) BASOPHILS RELATIVE PERCENT (BEAKER) (test 1 % rzhj=773) NEUTROPHILS ABSOLUTE COUNT (BEAKER) (test 6.46 K/ L 1.56-6.13 rwir=873) LYMPHOCYTES ABSOLUTE COUNT (BEAKER) (test 2.44 K/ L 1.18-3.74 ybsc=051) MONOCYTES ABSOLUTE COUNT (BEAKER) (test 0.71 K/ L 0.24-0.36 ttcl=621) EOSINOPHILS ABSOLUTE COUNT (BEAKER) (test 0.14 K/ L 0.04-0.36 amof=671) BASOPHILS ABSOLUTE COUNT (BEAKER) (test 0.06 K/ L 0.01-0.08 xqdj=758) IMMATURE GRANULOCYTES-RELATIVE PERCENT (BEAKER) 0 % 0-1 (test zphf=3820) POCT-GLUCOSE [id number] 21:59:00 Test Item Value Reference Range Comments POC-GLUCOSE METER (BEAKER) 242 mg/dL 70-110 : Notified RN/MD: TESTED AT (test qvtl=1137) [address], [address]: Pulp Mixer/Reed Repairer GB=[id number] for SHMUEL DUNCAN POCT-GLUCOSE [id number] 18:12:00 Test Item Value Reference Range Comments POC-GLUCOSE METER (BEAKER) 230 mg/dL 70-110 : Notified RN/MD: TESTED AT (test tfpf=2577) [address], [address]: Pulp Mixer/Reed Repairer SZ=[id number] for KEHINDE LYNN [id number] 13:39:00 Test Item Value Reference Range Comments RPR SCREEN (BEAKER) (test gtaa=171) Nonreactive Nonreactive POCT-GLUCOSE [id number] 12:07:00 Test Item Value Reference Range Comments POC-GLUCOSE METER (BEAKER) 142 mg/dL 70-110 : Notified RN/MD: TESTED AT (test xihv=3838) [address], [address]: Pulp Mixer/Reed Repairer KQ=[id number] for KEHINDE LYNN POCT-GLUCOSE [id number] 10:56:00 Test Item Value Reference Range Comments POC-GLUCOSE METER (BEAKER) 116 mg/dL 70-110 : TESTED AT [address] (test xsxl=1396) [facility], [address]: Pulp Mixer/Reed Repairer QD=[id number] for KEHINDE LYNN HEMOGLOBIN [id number] 08:52:00 Test Item Value Reference Range Comments HEMOGLOBIN A1C (BEAKER) (test yinw=612) 10.3 % 4.3-6.1 BASIC METABOLIC [id number] 05:10:00 Test Item Value Reference Range Comments SODIUM (BEAKER) (test 138 meq/L 136-145 zkgj=424) POTASSIUM (BEAKER) (test 4.8 meq/L 3.5-5.1 fcbw=983) CHLORIDE (BEAKER) (test 101 meq/L 98-107 yfjh=908) CO2 (BEAKER) (test 30 meq/L 22-29 zaxt=889) BLOOD UREA NITROGEN 25 mg/dL 7-21 (BEAKER) (test vnwq=724) CREATININE (BEAKER) (test 1.30 mg/dL 0.57-1.25 gsyo=444) GLUCOSE RANDOM (BEAKER) 168 mg/dL 70-105 (test edvm=787) CALCIUM (BEAKER) (test 9.2 mg/dL 8.4-10.2 slrw=654) EGFR (BEAKER) (test 50 mL/min/1.73 sq m ESTIMATED GFR IS NOT xrmh=0342) ACCURATE CREATININE CLEARANCE IN PREDICTING GLOMERULAR FILTRATION RATE. ESTIMATED GFR IS NOT APPLICABLE FOR DIALYSIS PATIENTS. CBC W/PLT COUNT & AUTO [id number] 04:56:00 Test Item Value Reference Range Comments WHITE BLOOD CELL COUNT (BEAKER) (test ivpn=869) 12.3 K/ L 3.5-10.5 RED BLOOD CELL COUNT (BEAKER) (test phpy=380) 3.48 M/ L 3.93-5.22 HEMOGLOBIN (BEAKER) (test sgbu=781) 9.2 GM/DL 11.2-15.7 HEMATOCRIT (BEAKER) (test aacj=343) 29.2 % 34.1-44.9 MEAN CORPUSCULAR VOLUME (BEAKER) (test niac=019) 83.9 fL 79.4-94.8 MEAN CORPUSCULAR HEMOGLOBIN (BEAKER) (test 26.4 pg 25.6-32.2 hvdj=727) MEAN CORPUSCULAR HEMOGLOBIN CONC (BEAKER) (test 31.5 GM/DL 32.2-35.5 qozz=044) RED CELL DISTRIBUTION WIDTH (BEAKER) (test 15.1 % 11.7-14.4 obyz=939) PLATELET COUNT (BEAKER) (test iyhp=040) 500 K/CU MM 150-450 MEAN PLATELET VOLUME (BEAKER) (test vmzy=659) 10.0 fL 9.4-12.3 NUCLEATED RED BLOOD CELLS (BEAKER) (test 0 /100 WBC 0-0 ukxd=517) NEUTROPHILS RELATIVE PERCENT (BEAKER) (test 71 % ovqq=139) LYMPHOCYTES RELATIVE PERCENT (BEAKER) (test 21 % srib=367) MONOCYTES RELATIVE PERCENT (BEAKER) (test 7 % ryja=196) EOSINOPHILS RELATIVE PERCENT (BEAKER) (test 1 % ljkj=218) BASOPHILS RELATIVE PERCENT (BEAKER) (test 1 % docl=486) NEUTROPHILS ABSOLUTE COUNT (BEAKER) (test 8.73 K/ L 1.56-6.13 cijt=455) LYMPHOCYTES ABSOLUTE COUNT (BEAKER) (test 2.59 K/ L 1.18-3.74 gyvi=699) MONOCYTES ABSOLUTE COUNT (BEAKER) (test 0.81 K/ L 0.24-0.36 bxkk=155) EOSINOPHILS ABSOLUTE COUNT (BEAKER) (test 0.10 K/ L 0.04-0.36 ayqk=361) BASOPHILS ABSOLUTE COUNT (BEAKER) (test 0.06 K/ L 0.01-0.08 zwlj=176) IMMATURE GRANULOCYTES-RELATIVE PERCENT (BEAKER) 0 % 0-1 (test ssak=4614) TSH/FREE T4 IF [id number] 04:12:00 Test Item Value Reference Range Comments THYROID STIMULATING HORMONE (BEAKER) (test 0.80 uIU/mL 0.35-4.94 nwbt=828) VITAMIN B12 AND [id number] 04:12:00 Test Item Value Reference Range Comments VITAMIN B12 (BEAKER) (test ztrx=114) 733 pg/mL 213-816 FOLATE (BEAKER) (test mgsj=505) 10.6 ng/mL >=7.0 RAD, CHEST, 1 VIEW, NON [id number] 02:03:00Reason for exam:->respiratory distressShould this be performed [...] to be excluded clinically. Signed: Archie Ramirez [facility] Verified Date/Time: 08/20/2019 02:03:23 TROPONIN [id number] 23:15:00 Test Item Value Reference Range Comments TROPONIN I (BEAKER) (test mkvk=192) < ng/mL 0.00-0.03 Troponin I (TnI) levels [...] acidosis, acute neurological disease, and persistent tachyarrhythmia.LIPID [id number] 23:09:00 Test Item Value Reference Range Comments TRIGLYCERIDES (BEAKER) (test jnrn=424) 63 mg/dL CHOLESTEROL (BEAKER) (test ksnx=540) 124 mg/dL HDL CHOLESTEROL (CALLIE) (test yijc=558) 38 mg/dL LDL CHOLESTEROL CALCULATED (TULIOAKER) (test 73 mg/dL kxto=527) Triglyceride Reference Range: Low Risk <150 Borderline 150- 199 High Risk 200-499 Very High Risk >=500Cholesterol Reference Range: Low Risk <200 Borderline 200-239 High Risk > 240HDL Cholesterol Reference Range: Low Risk >=60 High Risk <40LDL Cholesterol Reference Range: Optimal <100 Near Optimal 100-129 Borderline 130-159 High 160-189 Very High >=190CT, CTANG [id number] 20:23:00FINAL REPORT CT, BRAIN/STROKE PROTOCOL, CT, CEREBRAL [...] stenosis, or proximal branch vessel occlusion. Left BANKRUPTCY LEGAL ASSISTANT is predominantly supplied by P- comm. Diminutive [...] MDReport Verified Date/Time: 08/19/2019 20:23:29 CT, CAROTID, [id number] 20:23:00FINAL REPORT CT, BRAIN/ STROKE PROTOCOL, CT, [...] stenosis, or proximal branch vessel occlusion. Left BANKRUPTCY LEGAL ASSISTANT is predominantly supplied by P- comm. Diminutive [...] Verified Date/Time: 08/19/2019 20:23:29 CT, CEREBRAL PERFUSION [id number] 20:23:00FINAL REPORT CT, BRAIN/STROKE PROTOCOL, CT, CEREBRAL [...] stenosis, or proximal branch vessel occlusion. Left BANKRUPTCY LEGAL ASSISTANT is predominantly supplied by [employer]- [employer]. Diminutive [...] Esquivel Verified Date/Time: 08/19/2019 20:23:29 CT, BRAIN/STROKE [id number] 20:23:00FINAL REPORT CT, BRAIN/STROKE PROTOCOL, CT, CEREBRAL [...] stenosis, or proximal branch vessel occlusion. Left B[employer]RUPTCY LEGAL ASSISTANT is predominantly supplied by [employer]- [employer]. Diminutive [...]
--- OUTSIDE RECORDS SUMMARY | 2019-09-05 06:33 | XMS REPORT ---
[...] Active Problem Essential hypertension I10 Active Problem care home current use of insulin Z79.4 Active Problem [...]
--- OUTSIDE RECORDS SUMMARY | 2019-09-05 06:33 | XMS REPORT ---
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 Problem Depression F32.9 Active Problem Stable angina I20.8 Active Problem Cigarette smoker F17.210 Active Problem Chronic stable angina I20.8 Active Problem Dermatitis L30.9 Active Problem 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 Active Problem Apnea, not elsewhere classified R06.81 Active Problem Slow transit constipation K59.01 Active Problem Cigarette nicotine dependence F17.210 Active without complication Problem Hypoglycemia associated with type 2 E11.649 Active diabetes mellitus Assessment buttermaker continuous churn current use of insulin Z79.4 Active Assessment Mass of upper lobe of right lung R91.8 Active Assessment Unstable angina I20.0 Active Assessment Gastroesophageal reflux disease, K21.9 Active esophagitis presence not specified Assessment Type 2 diabetes mellitus with E11.65 Active hyperglycemia Assessment Acute pain of left thigh M79.652 Active Assessment Chronic diastolic congestive heart I50.32 Active failure Assessment Cigarette nicotine dependence F17.210 Active without complication Problem Trigger index finger of right hand M65.321 Active Problem Trigger finger of right thumb M65.311 Active Problem Pain in joint of right hand M25.541 Active Problem Other chronic pain G89.29 Active Problem Angina of effort I20.8 Active Problem Routine gynecological examination Z01.419 Active Problem Adult general medical exam Z00.00 Active Problem Type 2 diabetes mellitus with other E11.29 Active diabetic kidney complication Problem Type 2 diabetes mellitus with E11.22 Active diabetic chronic kidney disease Problem Seasonal allergies J30.2 Active Problem JOSUÉ (obstructive sleep apnea) G47.33 Active Assessment Cerebrovascular accident (CVA), I63.9 Active unspecified mechanism Assessment Mass of both adrenal glands E27.8 Active Assessment Other chronic pain G89.29 Active Assessment Swelling of left lower extremity M79.89 Active Problem buttermaker continuous churn current use of insulin Z79.4 Active Problem Mixed hyperlipidemia E78.2 Active Assessment Hospital discharge follow-up Z09 Active Problem Neuropathy G62.9 Active Problem Essential hypertension I10 Active Problem Type 2 diabetes mellitus with E11.65 Active hyperglycemia Problem Chronic maxillary sinusitis J32.0 Active Problem Obstructive sleep apnea G47.33 Active Problem Otalgia, right ear H92.01 Active Problem Type 2 diabetes mellitus with other E11.69 Active specified complication Problem Gastro-esophageal reflux disease K21.9 Active without esophagitis Problem CKD (chronic kidney disease), stage N18.3 Active III Problem Chronic otitis externa of right H60.61 Active ear, unspecified type Problem Cough productive of yellow sputum R05 Active Problem Acute bronchitis, unspecified J20.9 Active organism Problem Cerebrovascular accident (CVA), I63.9 Active unspecified mechanism Problem Mass of both adrenal glands E27.8 Active Problem Chronic diastolic congestive heart I50.32 Active failure Problem Diabetes mellitus type 2, E11.9 Active uncontrolled, without complications Problem Gastroesophageal reflux disease, K21.9 Active esophagitis presence not specified Problem Chronic obstructive pulmonary J44.9 Active disease Problem Chronic obstructive pulmonary J44.0 Active disease with acute lower respiratory infection Problem Asthmatic bronchitis without J45.909 Active complication Problem Hypomagnesemia E83.42 Active Problem Gastroesophageal reflux disease K21.9 Active without esophagitis Problem Unstable angina I20.0 Active Problem Cardiac disease I51.9 Active Problem Hyperlipidemia E78.5 Active Problem HTN (hypertension) I10 Active Problem Obesity E66.9 Active Problem Allergic rhinitis J30.9 Active Problem Gastroparesis K31.84 Active Problem Tachycardia R00.0 Active Medications Medication Code Code Instructions Start End Status Dosage System Date Date Atorvastatin [facility] 88715403712 40 MG Orally Active 1 tablet Calcium Once a day Pantoprazole [facility] 61649303328 40 MG Orally Active 1 tablet Sodium Once a day Cyclobenzaprine [facility] 85694689879 10 MG Orally Active 1 tablet as HCl Three times a needed day Tramadol HCl [facility] 74919271116 50 MG Orally Active 1 tablet as every 6 hrs needed Doxycycline [facility] 86597739560 100 MG Orally Active 1 capsule Hyclate twice a day Zyrtec Allergy [facility] 44130926639 10 MG Orally Active 1 tablet Once a day Zoloft [facility] 40926238055 100 MG Orally Active 1 tablet Once a day Nitroglycerin [facility] 97726362676 400 MCG/SPRAY Active 1 spray Translingual Once a day as needed Azithromycin [facility] 54538843857 500 MG Orally Active as directed once a day Fluocinolone [facility] 86478425052 0.01 % Otic Active 5 applications Acetonide Twice a day into affected ear Acetic Acid [facility] 20850234273 2 % Otic Three Active 5 drops into times a day affected ear Gabapentin [facility] 57213576453 600 MG orally Active 1 tablet Three times a day Flonase [facility] 56813596954 50 MCG/ACT Active 2 spray in Nasally Once a each nostril day Spiriva Respimat [facility] 64583288508 2.5 MCG/ACT Active 2 puffs Inhalation Once a day Lantus SoloStar [facility] 04642921693 100 UNIT/ML Active 65 units Subcutaneous once a day Humalog KwikPen [facility] 30694135296 100 UNIT/ML Active as directed Subcutaneous 4 units with each meal tid Metformin HCl [facility] 29732508700 1000MG Active TAKE ONE TABLET BY MOUTH TWICE DAILY Olmesartan-Amlodi [facility] 63783277262 20-5-12.5 MG Active 1 tablet pine-HCTZ Orally Once a day PredniSONE [facility] 93632079484 10 MG Orally Active 2 tablet Once a day Plavix [facility] 66038466054 75 MG Orally Active 1 tablet Once a day Reglan [facility] 00754892253 10 MG Orally Active not defined FreeStyle Enriqueta [facility] 35724690094 - SD Active as directed Sensor System Albuterol Sulfate [facility] 85846724268 (2.5 MG/3ML) Active 3 ml as needed 0.083% Inhalation Three times a day prn sob/wheezing Albuterol Sulfate [facility] 54936615395 108 (90 Base) Active 2 puffs as MCG/ACT needed Inhalation every 6 hrs Patanase [facility] 57415776256 0.6 % Nasally Active 2 sprays in Twice a day each nostril FreeStyle Enriqueta [facility] 75039455694 - dailyk Active as directed Hardy Lasix [facility] 15073809604 20 MG Orally Active 1 tablet Once a day Results No Known Results Summary Purpose [employer] Submission
[2019-09-05 07:49] LABS: Protime INR 0.99
[2019-09-05 07:52] LABS: ALT/SGPT 32 U/L (12-78); AST/SGOT 24 U/L (15-37); Albumin 2.5 g/dL (3.4-5.0); Alkaline Phosphatase 85 U/L (45-117); BUN Blood Urea Nitrogen 29 mg/dL (7-18); Bicarbonate 35 mmol/L (21-32); Bilirubin Direct < 0.1 mg/dL (0-0.2); Bilirubin Total 0.1 mg/dL (0.2-1.0); Glucose Level 92 mg/dL (74-106); Magnesium 2.1 mg/dL (1.8-2.4); NT PRO-BNP 163 pg/mL (<125); Potassium 4.2 mmol/L (3.5-5.1); Protein, Total 6.8 g/dL (6.4-8.2); Sodium Level 137 mmol/L (136-145); Troponin (Emerg Dept Use Only) < 0.02 ng/mL (0.0-0.045)
[2019-09-05 07:55] LABS: Absolute Lymphocytes (CBC) 2.1 K/uL (0.7-4.9); Basophils % 0.6 % (0-1.3); Hematocrit 27.2 % (36.0-45.0); Lymphocytes % 19.5 % (15.3-44.8); MPV 8.4 fL (7.6-11.3); RBC Red Blood Cell Count 3.34 M/uL (3.86-4.86)
--- NOTE | 2019-09-05 08:47 | RAD REPORT ---
EXAM DESCRIPTION: CT - Chest For Pe Angio - 09/05/2019 7:45 am CLINICAL HISTORY: CHEST PAIN , patient also reports left-sided chest pain, breast pain and breast swelling recent histo ry of CVA 2 weeks earlier COMPARISON: CT chest August 2017 TECHNIQUE: Dynamically enhanced 3 mm thick images of the chest were obtained during administration o f approximately 150mL Isovue 370 IV contrast. Coronal and oblique MIP reconstruction images were gene rated and reviewed. Exam utilizes a protocol to evaluate the pulmonary arterial tree. All CT scans are performed using dose optimization technique as appropriate and may include automated exposure control or mA/KV adjustment according to patient size. FINDINGS: No pulmonary emboli are identified. No acute aortic findings. Peripheral aortic atherosclerotic calcifications are present. No pericardia l thickening or effusion. Linear scarring or atelectasis is present in the posterior gutter on the left. In the posterior right apex a 19 millimeter irregular nodule has developed since November 2016. No pleural effusion or pleu ral thickening. Mediastinum is grossly abnormal. Large mass density fills the mediastinum. Mass encircles and narrows the right main pulmonary artery. The mass is 6- 7 cm in maximum dimension and extends from the top o f the aortic arch level inferiorly into the sub antoinette region. The subcarinal component is 5 cm in di ameter. Central hilar extension of the mass or adjacent lymphadenopathy noted. No chest wall mass. A few small nonspecific left axillary lymph nodes are present. These are more prominent than the right. There is skin thickening and edema of the left breast tissue with a congested or edematous appearance to the fatty tissue of the breast. In the superior aspect of the left breast there is a 17 millimete r area of slightly more pronounced parenchyma. This is possibly a discrete mass. IMPRESSION: No pulmonary emboli identified. Large malignant mass filling of the mediastinum. Mass encircles and narrows the right main pulmonary artery. A 19 millimeter spiculated nodule is present posterior right apex. Extensive congested or edematous stranding in the left breast tissue with left breast skin thickening . Questionable 17 millimeter mass in the superior 12- 1 o'clock left breast. Given the mediastinal malignant process, it is possible that the left breast changes represent inflam matory carcinoma. Patient could potentially have a concurrent mediastinal malignant process plus exte nsive mastitis. Given the extent of mediastinal disease is more likely that the right upper lobe apex mass is a metas tatic process rather than the primary malignancy causing the mediastinal changes.
--- NOTE | 2019-09-05 09:27 | ER ---
Nurse's Notes [facility] Name: Tammy Walsh Age: 64 yrs Sex: Female : 1955 Arrival Date: 09/05/2019 Time: 06:29 Bed 3 Private MD: Diagnosis: Unspecified lump in breast;Right Lung mass;mediastinal mass;Chest pain, unspecified Presentation: 09/05 06:30 Presenting complaint: Patient states: that she has been having chest pain with nausea fc and shortness of breath since Thursday. States that her left breast is swollen. Had stroke 2 weeks ago. Transition of care: patient was not received from another setting of care. Onset of symptoms was September 02, 2019. Risk Assessment: Do you want to hurt yourself or someone else? Patient reports no desire to harm self or others. Initial Sepsis Screen: Does the patient meet any 2 criteria? RR > 20 per min. HR > 90 bpm. Yes Does the patient have a suspected source of infection? No. Patient's initial sepsis screen is negative. Care prior to arrival: None. 06:30 Method Of Arrival: Wheelchair fc 06:30 Acuity: PATRICIA 2 fc Historical: - Allergies: 07:18 Hydrocodone-Acetaminophen (Sever Itching); sg - Home Meds: 07:31 Symbicort 160-4.5 mcg/actuation inhalation HFAA 2 puffs 2 times per day [Active]; tw2 aspirin 81 mg Oral chew 1 tab once daily [Active]; atorvastatin 40 mg Oral tab 1 tab once daily [Active]; Breo Ellipta inhalation [Active]; Cartia XT 180 mg Oral cp24 2 caps once daily [Active]; Gralise 600 mg Oral Tb24 3 tabs once daily [Active]; Humalog 4units before every meal or snack. Sub-Q [Active]; hydrochlorothiazide 12.5 mg Oral cap once daily [Active]; Lantus 65 units in the morning. Sub-Q [Active]; metformin 1,000 mg Oral tab 1 tab 2 times per day [Active]; metoprolol er 200mg daily [Active]; Nitroglycerin SL [Active]; olmesartan 12.5 Oral once daily [Active]; Plavix 75 mg Oral tab 1 tab once daily [Active]; Spiriva with HandiHaler inhalation [Active]; - PMHx: 07:18 CHF; COPD; CVA; Diabetes - NIDDM; Gastroparesis; Hypertension; Myocardial infarction; sg - Immunization history:: Last tetanus immunization: unknown, Flu vaccine is not up to date. - Social history:: Smoking status: Patient uses tobacco products, smokes one-half pack cigarettes per day, Patient/guardian denies using alcohol, street drugs. - Ebola Screening: : Patient negative for fever greater than or equal to 101.5 degrees Fahrenheit, and additional compatible Ebola Virus Disease symptoms Patient denies exposure to infectious person Patient denies travel to an Ebola-affected area in the 21 days before illness onset. Screenin:06 Abuse screen: Denies threats or abuse. Nutritional screening: No deficits noted. tw2 Tuberculosis screening: No symptoms or risk factors identified. Fall Risk None identified. Assessment: 07:30 Reassessment: No changes from previously documented assessment. Patient and/or family tw2 updated on plan of care and expected duration. Pain level reassessed. Patient is alert, oriented x 3, equal unlabored respirations, skin warm/dry/pink. 07:30 General: Appears uncomfortable, obese, Behavior is cooperative. Pain: Complains of pain tw2 in chest Pain does not radiate. Pain began 2-3 days ago. Neuro: Level of Consciousness is awake, alert, obeys commands, Oriented to person, place, time, situation. Cardiovascular: Reports chest pain, shortness of breath, Heart tones S1 S2 Patient's skin is warm and dry. Respiratory: Airway is patent Respiratory effort is even, unlabored, Respiratory pattern is regular, symmetrical, Breath sounds are clear bilaterally. GI: Abdomen is round obese, Bowel sounds present X 4 quads. Reports nausea. : No signs and/or symptoms were reported regarding the genitourinary system. EENT: No signs and/or symptoms were reported regarding the EENT system. Derm: Reports swelling to LEFT breast. Musculoskeletal: Range of motion: intact in all extremities. 08:25 Reassessment: Patient appears in no apparent distress at this time. socks provided. sg 09:14 Reassessment: Darin MENDEZ at bedside with patient at this time, updating pt and pt sg family on results and POC at this time, will continue to monitor. 09:19 Reassessment: Patient appears in no apparent distress at this time. Patient and/or tw2 family updated on plan of care and expected duration. Pain level reassessed. Patient is alert, oriented x 3, equal unlabored respirations, skin warm/dry/pink. 09:50 Reassessment: Patient appears in no apparent distress at this time. No changes from tw2 previously documented assessment. Patient and/or family updated on plan of care and expected duration. Pain level reassessed. Vital Signs: 06:30 BP 101 / 71; Pulse 96; Resp 24; Temp 97.1(TE); Pulse Ox 99% on 3 lpm NC; Weight 115.21 fc kg (R); Height 5 ft. 5 in. (165.10 cm) (R); Pain 8/10; 07:29 BP 114 / 65; Pulse 92; Resp 17; Pulse Ox 99% on 3 lpm NC; tw2 09:19 BP 93 / 77; Pulse 89; Resp 17; Pulse Ox 99% on 3 lpm NC; tw2 09:50 BP 103 / 67; Pulse 87; Resp 17; Pulse Ox 99% on 3 lpm NC; tw2 06:30 Body Mass Index 42.27 (115.21 kg, 165.10 cm) fc ED Course: 06:29 Patient arrived in ED. ds1 06:30 Oxygen administration via nasal cannula \T\ 3L/min. fc 06:30 Arm band placed on Patient placed in an exam room, on a stretcher, on oxygen, on fc senior process engineer, on pulse oximetry. 06:30 Patient has correct armband on for positive identification. Placed in gown. Bed in low fc position. Call light in reach. Side rails up X2. mental health nurse on. Pulse ox on. NIBP on. 06:37 Darin Elliott NP is PHCP. pm1 06:37 Everett Yang MD is Attending Physician. pm1 06:55 Inserted 18 gauge 10 cm midline to right upper brachial vein on first attempt. Line fc with good blood return and flushes well. 07:05 Triage completed. fc 07:06 Arm band placed on. tw2 07:29 Rose Salgado, LORETO is Primary Nurse. tw2 07:46 CT Chest For PE Angio In Process Unspecified. EDMS 08:36 XRAY Chest (1 view) In Process Unspecified. EDMS 09:19 served as social work msw during breast examination at this time. tw2 09:51 IV discontinued, intact, bleeding controlled, No redness/swelling at site. Pressure tw2 dressing applied. Administered Medications: 09:37 Drug: Tylenol #3 (300 mg-30 mg) 1 tablet {Note: rass 0.} Route: PO; tw2 09:50 Follow up: Response: No adverse reaction; RASS: Alert and Calm (0) tw2 Outcome: :26 Discharge ordered by MD. pm1 09:51 Discharged to home via wheelchair, with family, with significant other. tw2 09:51 Condition: stable :51 Discharge instructions given to patient, family, significant other, Instructed on discharge instructions, follow up and referral plans. no drinking with medication, no driving heavy equipment, medication usage, Demonstrated understanding of instructions, follow-up care, medications, Prescriptions given X 2. 09:51 Patient left the ED. tw2 Signatures: Dispatcher [employer] EDMS Nj Alexander RN RN Elizabet Paris RN RN Mey Cunningham 1 Darin Elliott, [employer] POWER BALLAST MACHINE OPERATOR pm1 Rose Salgado RN RN tw2 Corrections: (The following items were deleted from the chart) 09:19 06:30 No provider procedures requiring assistance completed. tw2
--- NOTE | 2019-09-05 09:28 | EDPHYS ---
Physician Documentation [facility] Name: Tammy Walsh Age: 64 yrs Sex: Female : 1955 Arrival Date: 09/05/2019 Time: 06:29 Bed 3 Private MD: ED Physician Everett Yang HPI: 09/05 07:12 This 64 yrs old Black Female presents to ER via Wheelchair with complaints of Chest pm1 Pain. 07:12 The patient or guardian reports chest pain that is located primarily in the left pm1 breast. Onset: 2 day(s) ago. 07:12 The pain does not radiate. Associated signs and symptoms: Pertinent positives: nausea, pm1 shortness of breath, Pertinent negatives: cough, dizziness, headache, vomiting. The chest pain is described as aching and swelling to left breast. Duration: The patient or guardian reports a single episode, that is still ongoing. Modifying factors: The symptoms are alleviated by nothing. the symptoms are aggravated by nothing. Severity of pain: in the emergency department the pain is unchanged. The patient has been recently seen by a physician: The patient has been recently seen at the [facility] Emergency Department, for similar complaints labs were performed, X-rays were performed, 2 days ago. Patient with baseline shortness of breath. Uses oxygen therapy at home. Historical: - Allergies: 07:18 Hydrocodone-Acetaminophen (Sever Itching); sg - Home Meds: 07:31 Symbicort 160-4.5 mcg/actuation inhalation HFAA 2 puffs 2 times per day [Active]; tw2 aspirin 81 mg Oral chew 1 tab once daily [Active]; atorvastatin 40 mg Oral tab 1 tab once daily [Active]; Breo Ellipta inhalation [Active]; Cartia XT 180 mg Oral cp24 2 caps once daily [Active]; Gralise 600 mg Oral Tb24 3 tabs once daily [Active]; Humalog 4units before every meal or snack. Sub-Q [Active]; hydrochlorothiazide 12.5 mg Oral cap once daily [Active]; Lantus 65 units in the morning. Sub-Q [Active]; metformin 1,000 mg Oral tab 1 tab 2 times per day [Active]; metoprolol er 200mg daily [Active]; Nitroglycerin SL [Active]; olmesartan 12.5 Oral once daily [Active]; Plavix 75 mg Oral tab 1 tab once daily [Active]; Spiriva with HandiHaler inhalation [Active]; - PMHx: 07:18 CHF; COPD; CVA; Diabetes - NIDDM; Gastroparesis; Hypertension; Myocardial infarction; sg - Immunization history:: Last tetanus immunization: unknown, Flu vaccine is not up to date. - Social history:: Smoking status: Patient uses tobacco products, smokes one-half pack cigarettes per day, Patient/guardian denies using alcohol, street drugs. - Ebola Screening: : Patient negative for fever greater than or equal to 101.5 degrees Fahrenheit, and additional compatible Ebola Virus Disease symptoms Patient denies exposure to infectious person Patient denies travel to an Ebola-affected area in the 21 days before illness onset. ROS: 07:12 Constitutional: Negative for fever, chills, and weight loss, Eyes: Negative for injury, pm1 pain, redness, and discharge, ENT: Negative for injury, pain, and discharge, Neck: Negative for injury, pain, and swelling. 07:12 Back: Negative for injury and pain, MS/Extremity: Negative for injury and deformity, Skin: Negative for injury, rash, and discoloration. 07:12 Neuro: Negative for headache, weakness, numbness, tingling, and seizure. 07:12 Cardiovascular: Positive for chest pain, Negative for palpitations. 07:12 Abdomen/GI: Positive for nausea, Negative for abdominal pain, vomiting, diarrhea, constipation. Exam: 07:12 Constitutional: This is a well developed, well nourished patient who is awake, alert, pm1 and in no acute distress. Head/Face: Normocephalic, atraumatic. Eyes: Pupils equal round and reactive to light, extra-ocular motions intact. Lids and lashes normal. Conjunctiva and sclera are non-icteric and not injected. Cornea within normal limits. Periorbital areas with no swelling, redness, or edema. ENT: Nares patent. No nasal discharge, no septal abnormalities noted. Tympanic membranes are normal and external auditory canals are clear. Oropharynx with no redness, swelling, or masses, exudates, or evidence of obstruction, uvula midline. Mucous membranes moist. Neck: Trachea midline, no thyromegaly or masses palpated, and no cervical lymphadenopathy. Supple, full range of motion without nuchal rigidity, or vertebral point tenderness. No Meningismus. 07:12 Cardiovascular: Regular rate and rhythm with a normal S1 and S2. No gallops, murmurs, or rubs. Normal PMI, no JVD. No pulse deficits. Respiratory: Lungs have equal breath sounds bilaterally, clear to auscultation and percussion. No rales, rhonchi or wheezes noted. No increased work of breathing, no retractions or nasal flaring. Abdomen/GI: Soft, non-tender, with normal bowel sounds. No distension or tympany. No guarding or rebound. No evidence of tenderness throughout. Back: No spinal tenderness. No costovertebral tenderness. Full range of motion. Skin: Warm, dry with normal turgor. Normal color with no rashes, no lesions, and no evidence of cellulitis. MS/ Extremity: Pulses equal, no cyanosis. Neurovascular intact. Full, normal range of motion. 07:12 Chest/axilla: Inspection: normal, Palpation: crepitus, is not appreciated, Axilla: no acute changes, Breasts: abscess, not appreciated, cellulitis, is not appreciated, nipple discharge, is not appreciated, tenderness, that is moderate, of the left breast, from 3 to 9 o'clock. 07:12 Neuro: Orientation: is normal, Motor: is normal, moves all fours. Vital Signs: 06:30 BP 101 / 71; Pulse 96; Resp 24; Temp 97.1(TE); Pulse Ox 99% on 3 lpm NC; Weight 115.21 fc kg (R); Height 5 ft. 5 in. (165.10 cm) (R); Pain 8/10; 07:29 BP 114 / 65; Pulse 92; Resp 17; Pulse Ox 99% on 3 lpm NC; tw2 09:19 BP 93 / 77; Pulse 89; Resp 17; Pulse Ox 99% on 3 lpm NC; tw2 09:50 BP 103 / 67; Pulse 87; Resp 17; Pulse Ox 99% on 3 lpm NC; tw2 06:30 Body Mass Index 42.27 (115.21 kg, 165.10 cm) fc MDM: 06:38 Patient medically screened. pm1 09:10 ED course: Patient was here two days ago with the same complaint of chest pain and pm1 discharged home. Patient's troponin negative today. CT chest shows two new areas of metastasis, left breast and apex of right lung, that patient and family were not aware of previously. They are made aware of mediastinal mass [address] Simmons and were told that she would not be cleared for a biopsy. Patient does not want to get any chemotherapy/radiation therapy or follow up with oncology. She has already discussed this with her family and they respect her wishes. 09:15 ED course: Discussed the case with Dr. Herrera, since chest pain is mastitis or cancer pm1 pain to left breast, patient can follow up with oncology. 09:21 Data reviewed: vital signs. Data interpreted: Pulse oximetry: on room air is 99 %. pm1 Interpretation: normal. Counseling: I had a detailed discussion with the patient and/or guardian regarding: the historical points, exam findings, and any diagnostic results supporting the discharge/admit diagnosis, lab results, radiology results, the need for outpatient follow up, to return to the emergency department if symptoms worsen or persist or if there are any questions or concerns that arise at home. 09:25 ED course: Will discharge the patient home with Augmentin for possibility of mastitis, pm1 but swelling to left breast is likely due to breast Ca. 09/05 06:44 Order name: Basic Metabolic Panel; Complete Time: 07:54 pm1 09/05 06:44 Order name: CBC with Diff; Complete Time: 08:04 pm1 09/05 06:44 Order name: LFT's; Complete Time: 07:54 pm1 09/05 06:44 Order name: Magnesium; Complete Time: 07:54 pm1 09/05 06:44 Order name: NT PRO-BNP; Complete Time: 07:54 pm1 09/05 06:44 Order name: PT-INR; Complete Time: 07:54 pm1 09/05 06:44 Order name: Troponin (emerg Dept Use Only); Complete Time: 07:54 pm1 09/05 06:44 Order name: XRAY Chest (1 view) pm1 09/05 06:44 Order name: EKG; Complete Time: 06:45 pm1 09/05 06:44 Order name: Cardiac monitoring; Complete Time: 07:03 pm1 09/05 06:44 Order name: EKG - Nurse/Tech; Complete Time: 08:24 pm1 09/05 06:44 Order name: IV Saline Lock; Complete Time: 07:03 pm1 09/05 07:07 Order name: CT Chest For PE Angio; Complete Time: 08:54 pm1 09/05 06:44 Order name: Labs collected and sent; Complete Time: 07:17 pm1 09/05 06:44 Order name: O2 Per Protocol; Complete Time: 07:03 pm1 09/05 06:44 Order name: O2 Sat Monitoring; Complete Time: 07:02 pm1 Administered Medications: 09:37 Drug: Tylenol #3 (300 mg-30 mg) 1 tablet {Note: rass 0.} Route: PO; tw2 09:50 Follow up: Response: No adverse reaction; RASS: Alert and Calm (0) tw2 Disposition: 09/05/19 09:26 Discharged to Home. Impression: Unspecified lump in breast, Right Lung mass, mediastinal mass, Chest pain, unspecified. - Condition is Stable. - Discharge Instructions: Nonspecific Chest Pain. - Prescriptions for Augmentin 875- 125 mg Oral Tablet - take 1 tablet by ORAL route every 12 hours for 10 days; 20 tablet. Tylenol- Codeine #3 300-30 mg Oral Tablet - take 1 tablet by ORAL route every 6 hours As needed; 20 tablet. - Medication Reconciliation Form, Thank You Letter, Antibiotic Education, Prescription Opioid Use, Family Work Release form. - Follow up: Emergency Department; When: As needed; Reason: Worsening of condition. Follow up: Private Physician; When: 2 - 3 days; Reason: Recheck today's complaints, Continuance of care, Re-evaluation by your physician. - Problem is new. - Symptoms have improved. Addendum: 09/06/2019 11:07 Co-signature as Attending Physician, Everett Yang MD. r n Signatures: Dispatcher [employer] EDNj Acharya RN RN sg Chretien, Felicia RN Everett Hirsch MD MD rn Marinas, Patrick, NP TECHNICAL SERVICE REP pm1 Rose Salgado RN RN tw2 Corrections: (The following items were deleted from the chart) 09/05 09:51 09:26 09/05/2019 09:26 Discharged to Home. Impression: Unspecified lump in breast; tw2 Right Lung mass; mediastinal mass; Chest pain, unspecified. Condition is Stable. Forms are Family Work Release, Medication Reconciliation Form, Thank You Letter, Antibiotic Education, Prescription Opioid Use. Follow up: Emergency Department; When: As needed; Reason: Worsening of condition. Follow up: Private Physician; When: 2 - 3 days; Reason: Recheck today's complaints, Continuance of care, Re-evaluation by your physician. Problem is new. Symptoms have improved. pm1
[2019-09-05] MEDS ORDERED: CODEINE 30MG/APAP 300MG TAB ONE (09:37)
--- NOTE | 2019-09-05 09:53 | RAD REPORT ---
EXAM DESCRIPTION: RAD - Chest Single View - 09/05/2019 8:34 am CLINICAL HISTORY: Chest pain, nausea COMPARISON: September 03 TECHNIQUE: AP portable chest image was obtained [id number] hours . FINDINGS: Ill-defined focal opacification is seen in the right apex new from comparison. Heart size is normal range. Mediastinum is distorted by patient rotation. No measurable pleural effusion and no pneumothorax. No acute bony abnormality seen. No acute aortic finding seen. Hazy opacification over t he left chest soft tissues. IMPRESSION: Right lung field is clear. Left lung field is more limited due to rotation and overlying prominent breast soft tissues. Questionable small right apical mass.
[2019-09-05 10:08] VITALS: TEMP 97.1; O2SAT 99
[2019-09-05 10:12] VITALS: BP 103/67
--- NOTE | 2019-09-05 10:23 | EKG ---
Test Date: 2019-09-05 Test Time: 06:51:43 [employer] External: [place] MEASUREMENT RESULTS: Intervals: Rate: 93 MA: 210 QRSD: 68 QT: 326 QTc: 405 [place]: P: 80 MA: 210 QRS: 63 T: 65 INTERPRETIVE STATEMENTS: Sinus rhythm with 1st degree AV block Otherwise normal ECG Compared to ECG 09/03/2019 00:23:21 No significant changes Electronically Signed On 09-05-19 10:22:10 [employer]UM TANNER by Eloy Kapadia
== END 2019-09-05 09:51 | disposition home or self-care (01) ==
LOC: ER 06:28
DX: N63.0 Unspecified lump in unspecified breast (principal); R91.8 Other nonspecific abnormal finding of lung field; I10 Essential (primary) hypertension; E11.9 Type 2 diabetes mellitus without complications; J44.9 Chronic obstructive pulmonary disease, unspecified; I50.9 Heart failure, unspecified; I25.2 Old myocardial infarction; F17.210 Nicotine dependence, cigarettes, uncomplicated; Z79.01 Long term (current) use of anticoagulants; Z79.82 Long term (current) use of aspirin; Z79.4 Long term (current) use of insulin; Z88.5 Allergy status to narcotic agent
CPT/HCPCS: 93005; 85025; 80048; 36415; 83735; 85610; 80076; 84484; 83880; 71275; 71045; 99285; Q9967

== ENCOUNTER 2019-09-08 19:06 | Observation (INO) | payer OTHER ==
[2019-09-08] MEDS: METOPROLOL TAR 50 MG TAB PO SCH ×3 (06:00→21:00)
--- OUTSIDE RECORDS SUMMARY | 2019-09-08 19:09 | XMS REPORT ---
:1955 [facility] Address [address] [place] [address] Dr. Colón [address] [place] [id number] Care Team Providers Name Role Phone CLINTON [...] (BEAKER) 330 mg/dL 70-110 : TESTED AT [address] (test oppl=8510) [place], [address]: Disaster Or Damage Control Specialist/Senior Clinical Project Manager [id number] for Cha Valadez POCT-GLUCOSE [id number] 13:26:00 Test Item Value Reference Range Comments POC-GLUCOSE METER (BEAKER) 343 mg/dL 70-110 : TESTED AT [address] (test yger=0148) [facility], [address]: Disaster Or Damage Control Specialist/Senior Clinical Project Manager [id number] for TIMOTHYMOIZ ANDERSONT C-REACTIVE [id number] 11:30:00 Test Item Value Reference Range Comments C-REACTIVE PROTEIN (BEAKER) (test quet=202) 2.34 mg/dL 0.00-0.50 [id number] 11:27:00 Test Item Value Reference Range Comments FIBRINOGEN LEVEL (BEAKER) (test icsc=053) 866 mg/dl 225-434 [id number] 11:24:00 Test Item Value Reference Range Comments D-DIMER QUANTITATIVE (BEAKER) (test panm=881) 1.66 MG/L FEU <0.50 Intended Use: The [...] of thrombosis is within 95-100% range.POCT- GLUCOSE [id number] 09:05:00 Test Item Value Reference Range Comments POC-GLUCOSE METER (BEAKER) 283 mg/dL 70-110 : TESTED AT [facility] [address] [facility] (test kuxi=6332) [facility], [address]: Disaster Or Damage Control Specialist/Senior Clinical Project Manager [id number] for OMEGA, JASON RAD, CHEST, 1 VIEW, NON [id number] 07:47:00Reason for exam:->CHFFINAL REPORT CLINICAL HISTORY: CHF TECHNIQUE: 1 view of the chest. COMPARISON: 08/19/2019 IMPRESSION: Pulmonary vascular congestive findings appear slightly decreased. There is no lobar consolidation or significant pleural fluid. Cardiomegaly is unchanged. Signed: Monisha Castro MDReport Verified Date/Time: 08/22/2019 07:47:58 Reading Location: [facility] Radiology Reading Room Electronically signed by: MONISHA CASTRO M.D. on 07:47 AMBASIC METABOLIC [id number] 05:32:00 Test Item Value Reference Range Comments SODIUM (BEAKER) (test 136 meq/L 136-145 rhfh=112) POTASSIUM (BEAKER) (test 4.8 meq/L 3.5-5.1 vots=877) CHLORIDE (BEAKER) (test 98 meq/L 98-107 kvrj=412) CO2 (BEAKER) (test 31 meq/L 22-29 rzui=750) BLOOD UREA NITROGEN 26 mg/dL 7-21 (BEAKER) (test glyr=622) CREATININE (BEAKER) (test 1.54 mg/dL 0.57-1.25 sjnw=492) GLUCOSE RANDOM (BEAKER) 224 mg/dL 70-105 (test ajaf=224) CALCIUM (BEAKER) (test 9.0 mg/dL 8.4-10.2 erhu=351) EGFR (BEAKER) (test 41 mL/min/1.73 sq m ESTIMATED GFR IS NOT sveo=6099) ACCURATE CREATININE CLEARANCE IN PREDICTING GLOMERULAR FILTRATION RATE. ESTIMATED GFR IS NOT APPLICABLE FOR DIALYSIS PATIENTS. B-TYPE NATRIURETIC FACTOR (BNP)2019-08-22 05:21:00 Test Item Value Reference Range Comments B-TYPE NATRIURETIC PEPTIDE (BEAKER) (test erhn=191) 15 pg/mL 0-100 CBC W/PLT COUNT & AUTO [id number] 04:59:00 Test Item Value Reference Range Comments WHITE BLOOD CELL COUNT (BEAKER) (test wtqx=864) 9.1 K/ L 3.5-10.5 RED BLOOD CELL COUNT (BEAKER) (test qkpi=315) 3.57 M/ L 3.93-5.22 HEMOGLOBIN (BEAKER) (test haqm=583) 9.3 GM/DL 11.2-15.7 HEMATOCRIT (BEAKER) (test qwsg=121) 30.4 % 34.1-44.9 MEAN CORPUSCULAR VOLUME (BEAKER) (test cegi=315) 85.2 fL 79.4-94.8 MEAN CORPUSCULAR HEMOGLOBIN (BEAKER) (test 26.1 pg 25.6-32.2 glmb=775) MEAN CORPUSCULAR HEMOGLOBIN CONC (BEAKER) (test 30.6 GM/DL 32.2-35.5 cmki=916) RED CELL DISTRIBUTION WIDTH (BEAKER) (test 14.9 % 11.7-14.4 lglj=113) PLATELET COUNT (BEAKER) (test gcoc=273) 447 K/CU MM 150-450 MEAN PLATELET VOLUME (BEAKER) (test gthh=657) 9.4 fL 9.4-12.3 NUCLEATED RED BLOOD CELLS (BEAKER) (test 0 /100 WBC 0-0 gmcf=813) NEUTROPHILS RELATIVE PERCENT (BEAKER) (test 64 % pdon=954) LYMPHOCYTES RELATIVE PERCENT (BEAKER) (test 24 % pwmm=498) MONOCYTES RELATIVE PERCENT (BEAKER) (test 8 % xweb=207) EOSINOPHILS RELATIVE PERCENT (BEAKER) (test 2 % jklk=749) BASOPHILS RELATIVE PERCENT (BEAKER) (test 1 % hvli=644) NEUTROPHILS ABSOLUTE COUNT (BEAKER) (test 5.89 K/ L 1.56-6.13 gvns=838) LYMPHOCYTES ABSOLUTE COUNT (BEAKER) (test 2.23 K/ L 1.18-3.74 urrv=189) MONOCYTES ABSOLUTE COUNT (BEAKER) (test 0.75 K/ L 0.24-0.36 egxj=971) EOSINOPHILS ABSOLUTE COUNT (BEAKER) (test 0.18 K/ L 0.04-0.36 wmjx=656) BASOPHILS ABSOLUTE COUNT (BEAKER) (test 0.06 K/ L 0.01-0.08 pdyl=026) IMMATURE GRANULOCYTES-RELATIVE PERCENT (BEAKER) 0 % 0-1 (test ivin=4473) POCT-GLUCOSE [id number] 18:31:00 Test Item Value Reference Range Comments POC-GLUCOSE METER (BEAKER) 220 mg/dL 70-110 : TESTED AT [address] (test nwiq=4419) [facility], [address]: Disaster Or Damage Control Specialist/Senior Clinical Project Manager [id number] for LEAH, AURA POCT-GLUCOSE [id number] 18:30:00 Test Item Value Reference Range Comments POC-GLUCOSE METER (BEAKER) 186 mg/dL 70-110 : TESTED AT [address] (test mkoe=3322) [facility], [address]: Disaster Or Damage Control Specialist/Senior Clinical Project Manager [id number] for LEAH, AURA POCT-GLUCOSE [id number] 18:29:00 Test Item Value Reference Range Comments POC-GLUCOSE METER (BEAKER) 183 mg/dL 70-110 : Notified RN/MD: TESTED AT (test uuwy=7683) [address], [address]: Disaster Or Damage Control Specialist/Senior Clinical Project Manager [id number] for LEAH, AURA POCT-GLUCOSE [id number] 18:29:00 Test Item Value Reference Range Comments POC-GLUCOSE METER (BEAKER) 66 mg/dL 70-110 : Notified RN/MD: TESTED AT (test kzui=4054) [address], [address]: Disaster Or Damage Control Specialist/Senior Clinical Project Manager [id number] for LEAH, AURA POCT-GLUCOSE [id number] 18:29:00 Test Item Value Reference Range Comments POC-GLUCOSE METER (BEAKER) 49 mg/dL 70-110 : TESTED AT [address] (test qwdf=8473) [facility], [address]: Disaster Or Damage Control Specialist/Senior Clinical Project Manager [id number] for LEAH, AURA CALCIUM, [id number] 10:55:00 Test Item Value Reference Range Comments CALCIUM IONIZED (BEAKER) (test gofi=106) 1.07 mmol/L 1.12-1.27 PH, BLOOD (BEAKER) (test ovuw=0996) 7.35 [id number] 08:46:00 Test Item Value Reference Range Comments MAGNESIUM (BEAKER) (test jjim=557) 2.4 mg/dL 1.6-2.6 BASIC METABOLIC [id number] 06:27:00 Test Item Value Reference Range Comments SODIUM (BEAKER) (test 138 meq/L 136-145 yxix=222) POTASSIUM (BEAKER) (test 4.2 meq/L 3.5-5.1 bwvu=413) CHLORIDE (BEAKER) (test 99 meq/L 98-107 buue=104) CO2 (BEAKER) (test 31 meq/L 22-29 uays=328) BLOOD UREA NITROGEN 26 mg/dL 7-21 (BEAKER) (test rfka=370) CREATININE (BEAKER) (test 1.59 mg/dL 0.57-1.25 oipi=703) GLUCOSE RANDOM (BEAKER) 67 mg/dL 70-105 (test gfpj=453) CALCIUM (BEAKER) (test 9.3 mg/dL 8.4-10.2 fnde=434) EGFR (BEAKER) (test 40 mL/min/1.73 sq m ESTIMATED GFR IS NOT berp=0816) ACCURATE CREATININE CLEARANCE IN PREDICTING GLOMERULAR FILTRATION RATE. ESTIMATED GFR IS NOT APPLICABLE FOR DIALYSIS PATIENTS. CBC W/PLT COUNT & AUTO [id number] 05:23:00 Test Item Value Reference Range Comments WHITE BLOOD CELL COUNT (BEAKER) (test vryt=554) 9.9 K/ L 3.5-10.5 RED BLOOD CELL COUNT (BEAKER) (test lkco=570) 3.50 M/ L 3.93-5.22 HEMOGLOBIN (BEAKER) (test cphg=631) 9.0 GM/DL 11.2-15.7 HEMATOCRIT (BEAKER) (test jdip=118) 29.3 % 34.1-44.9 MEAN CORPUSCULAR VOLUME (BEAKER) (test zkmk=430) 83.7 fL 79.4-94.8 MEAN CORPUSCULAR HEMOGLOBIN (BEAKER) (test 25.7 pg 25.6-32.2 jldu=885) MEAN CORPUSCULAR HEMOGLOBIN CONC (BEAKER) (test 30.7 GM/DL 32.2-35.5 tyqs=532) RED CELL DISTRIBUTION WIDTH (BEAKER) (test 15.0 % 11.7-14.4 oiwo=938) PLATELET COUNT (BEAKER) (test ouuo=543) 522 K/CU MM 150-450 MEAN PLATELET VOLUME (BEAKER) (test jbgr=074) 9.5 fL 9.4-12.3 NUCLEATED RED BLOOD CELLS (BEAKER) (test 0 /100 WBC 0-0 vabw=815) NEUTROPHILS RELATIVE PERCENT (BEAKER) (test 66 % mjmr=468) LYMPHOCYTES RELATIVE PERCENT (BEAKER) (test 25 % lokp=990) MONOCYTES RELATIVE PERCENT (BEAKER) (test 7 % gnlq=535) EOSINOPHILS RELATIVE PERCENT (BEAKER) (test 1 % rehy=336) BASOPHILS RELATIVE PERCENT (BEAKER) (test 1 % bzhv=242) NEUTROPHILS ABSOLUTE COUNT (BEAKER) (test 6.46 K/ L 1.56-6.13 impm=835) LYMPHOCYTES ABSOLUTE COUNT (BEAKER) (test 2.44 K/ L 1.18-3.74 zsjr=524) MONOCYTES ABSOLUTE COUNT (BEAKER) (test 0.71 K/ L 0.24-0.36 bmcz=351) EOSINOPHILS ABSOLUTE COUNT (BEAKER) (test 0.14 K/ L 0.04-0.36 welg=539) BASOPHILS ABSOLUTE COUNT (BEAKER) (test 0.06 K/ L 0.01-0.08 bfog=723) IMMATURE GRANULOCYTES-RELATIVE PERCENT (BEAKER) 0 % 0-1 (test pkfv=6836) POCT-GLUCOSE [id number] 21:59:00 Test Item Value Reference Range Comments POC-GLUCOSE METER (BEAKER) 242 mg/dL 70-110 : Notified RN/MD: TESTED AT (test sxxq=0629) [address], [address]: Disaster Or Damage Control Specialist/Senior Clinical Project Manager [id number] for SHMUEL DUNCAN POCT-GLUCOSE [id number] 18:12:00 Test Item Value Reference Range Comments POC-GLUCOSE METER (BEAKER) 230 mg/dL 70-110 : Notified RN/MD: TESTED AT (test qvmd=7825) [address], [address]: Disaster Or Damage Control Specialist/Senior Clinical Project Manager [id number] for KEHINDE LYNN [id number] 13:39:00 Test Item Value Reference Range Comments RPR SCREEN (BEAKER) (test heuf=083) Nonreactive Nonreactive POCT-GLUCOSE [id number] 12:07:00 Test Item Value Reference Range Comments POC-GLUCOSE METER (BEAKER) 142 mg/dL 70-110 : Notified RN/MD: TESTED AT (test yfbo=4855) [address], [address]: Disaster Or Damage Control Specialist/Senior Clinical Project Manager [id number] for KEHINDE LYNN POCT-GLUCOSE [id number] 10:56:00 Test Item Value Reference Range Comments POC-GLUCOSE METER (BEAKER) 116 mg/dL 70-110 : TESTED AT [address] (test fnod=4505) [facility], [address]: Disaster Or Damage Control Specialist/Senior Clinical Project Manager [id number] for KEHINDE LYNN HEMOGLOBIN [id number] 08:52:00 Test Item Value Reference Range Comments HEMOGLOBIN A1C (BEAKER) (test wqfo=788) 10.3 % 4.3-6.1 BASIC METABOLIC [id number] 05:10:00 Test Item Value Reference Range Comments SODIUM (BEAKER) (test 138 meq/L 136-145 jclq=570) POTASSIUM (BEAKER) (test 4.8 meq/L 3.5-5.1 wqyr=449) CHLORIDE (BEAKER) (test 101 meq/L 98-107 vvsk=989) CO2 (BEAKER) (test 30 meq/L 22-29 htcl=074) BLOOD UREA NITROGEN 25 mg/dL 7-21 (BEAKER) (test orbd=625) CREATININE (BEAKER) (test 1.30 mg/dL 0.57-1.25 ywbr=403) GLUCOSE RANDOM (BEAKER) 168 mg/dL 70-105 (test jcdo=083) CALCIUM (BEAKER) (test 9.2 mg/dL 8.4-10.2 owgo=950) EGFR (BEAKER) (test 50 mL/min/1.73 sq m ESTIMATED GFR IS NOT cpew=7775) ACCURATE CREATININE CLEARANCE IN PREDICTING GLOMERULAR FILTRATION RATE. ESTIMATED GFR IS NOT APPLICABLE FOR DIALYSIS PATIENTS. CBC W/PLT COUNT & AUTO [id number] 04:56:00 Test Item Value Reference Range Comments WHITE BLOOD CELL COUNT (BEAKER) (test aioh=671) 12.3 K/ L 3.5-10.5 RED BLOOD CELL COUNT (BEAKER) (test znsk=302) 3.48 M/ L 3.93-5.22 HEMOGLOBIN (BEAKER) (test kygy=805) 9.2 GM/DL 11.2-15.7 HEMATOCRIT (BEAKER) (test uebs=739) 29.2 % 34.1-44.9 MEAN CORPUSCULAR VOLUME (BEAKER) (test wjhj=198) 83.9 fL 79.4-94.8 MEAN CORPUSCULAR HEMOGLOBIN (BEAKER) (test 26.4 pg 25.6-32.2 gcrq=147) MEAN CORPUSCULAR HEMOGLOBIN CONC (BEAKER) (test 31.5 GM/DL 32.2-35.5 clny=019) RED CELL DISTRIBUTION WIDTH (BEAKER) (test 15.1 % 11.7-14.4 caid=645) PLATELET COUNT (BEAKER) (test ozik=595) 500 K/CU MM 150-450 MEAN PLATELET VOLUME (BEAKER) (test vata=157) 10.0 fL 9.4-12.3 NUCLEATED RED BLOOD CELLS (BEAKER) (test 0 /100 WBC 0-0 sbul=692) NEUTROPHILS RELATIVE PERCENT (BEAKER) (test 71 % swei=204) LYMPHOCYTES RELATIVE PERCENT (BEAKER) (test 21 % odve=431) MONOCYTES RELATIVE PERCENT (BEAKER) (test 7 % aqas=676) EOSINOPHILS RELATIVE PERCENT (BEAKER) (test 1 % ltuq=410) BASOPHILS RELATIVE PERCENT (BEAKER) (test 1 % nowu=318) NEUTROPHILS ABSOLUTE COUNT (BEAKER) (test 8.73 K/ L 1.56-6.13 cfes=258) LYMPHOCYTES ABSOLUTE COUNT (BEAKER) (test 2.59 K/ L 1.18-3.74 djfh=686) MONOCYTES ABSOLUTE COUNT (BEAKER) (test 0.81 K/ L 0.24-0.36 yxgk=447) EOSINOPHILS ABSOLUTE COUNT (BEAKER) (test 0.10 K/ L 0.04-0.36 cccv=448) BASOPHILS ABSOLUTE COUNT (BEAKER) (test 0.06 K/ L 0.01-0.08 dijt=712) IMMATURE GRANULOCYTES-RELATIVE PERCENT (BEAKER) 0 % 0-1 (test rfxv=9091) TSH/FREE T4 IF [id number] 04:12:00 Test Item Value Reference Range Comments THYROID STIMULATING HORMONE (BEAKER) (test 0.80 uIU/mL 0.35-4.94 zmgp=581) VITAMIN B12 AND [id number] 04:12:00 Test Item Value Reference Range Comments VITAMIN B12 (BEAKER) (test fuko=918) 733 pg/mL 213-816 FOLATE (BEAKER) (test pojb=381) 10.6 ng/mL >=7.0 RAD, CHEST, 1 VIEW, NON [id number] 02:03:00Reason for exam:->respiratory distressShould this be performed [...] to be excluded clinically. Signed: Archie Ramirez [facility] Verified Date/Time: 08/20/2019 02:03:23 TROPONIN [id number] 23:15:00 Test Item Value Reference Range Comments TROPONIN I (BEAKER) (test qwkb=267) < ng/mL 0.00-0.03 Troponin I (TnI) levels [...] acidosis, acute neurological disease, and persistent tachyarrhythmia.LIPID [id number] 23:09:00 Test Item Value Reference Range Comments TRIGLYCERIDES (BEAKER) (test ftsn=349) 63 mg/dL CHOLESTEROL (BEAKER) (test nzsu=794) 124 mg/dL HDL CHOLESTEROL (CALLIE) (test vpxb=627) 38 mg/dL LDL CHOLESTEROL CALCULATED (TULIOAKER) (test 73 mg/dL wkkc=713) Triglyceride Reference Range: Low Risk <150 Borderline 150- 199 High Risk 200-499 Very High Risk >=500Cholesterol Reference Range: Low Risk <200 Borderline 200-239 High Risk > 240HDL Cholesterol Reference Range: Low Risk >=60 High Risk <40LDL Cholesterol Reference Range: Optimal <100 Near Optimal 100-129 Borderline 130-159 High 160-189 Very High >=190CT, CTANG [id number] 20:23:00FINAL REPORT CT, BRAIN/STROKE PROTOCOL, CT, CEREBRAL [...] stenosis, or proximal branch vessel occlusion. Left [employer] SALES REPRESENTATIVE is predominantly supplied by P- comm. Diminutive [...] MDReport Verified Date/Time: 08/19/2019 20:23:29 CT, CAROTID, [id number] 20:23:00FINAL REPORT CT, BRAIN/ STROKE PROTOCOL, CT, [...] stenosis, or proximal branch vessel occlusion. Left [employer] SALES REPRESENTATIVE is predominantly supplied by P- comm. Diminutive [...] Verified Date/Time: 08/19/2019 20:23:29 CT, CEREBRAL PERFUSION [id number] 20:23:00FINAL REPORT CT, BRAIN/STROKE PROTOCOL, CT, CEREBRAL [...] stenosis, or proximal branch vessel occlusion. Left [employer] SALES REPRESENTATIVE is predominantly supplied by P- comm. Diminutive [...] Esquivel Verified Date/Time: 08/19/2019 20:23:29 CT, BRAIN/STROKE [id number] 20:23:00FINAL REPORT CT, BRAIN/STROKE PROTOCOL, CT, CEREBRAL [...] stenosis, or proximal branch vessel occlusion. Left [employer] SALES REPRESENTATIVE is predominantly supplied by P- comm. Diminutive [...]
--- OUTSIDE RECORDS SUMMARY | 2019-09-08 19:10 | XMS REPORT ---
[...] Active Problem Essential hypertension I10 Active Problem custodial current use of insulin Z79.4 Active Problem [...]
--- OUTSIDE RECORDS SUMMARY | 2019-09-08 19:11 | XMS REPORT ---
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 Z79.4 Active Problem [...] End Status Dosage System Date Date Atorvastatin [facility] 42682657108 40 MG Orally Active 1 tablet Calcium Once a day Pantoprazole [facility] 14111259395 40 MG Orally Active 1 tablet Sodium Once a day Cyclobenzaprine [facility] 67562245413 10 MG Orally Active 1 tablet as HCl Three times a needed day Tramadol HCl [facility] 80751954532 50 MG Orally Active 1 tablet as every 6 hrs needed Doxycycline [facility] 32351659039 100 MG Orally Active 1 capsule Hyclate twice a day Zyrtec Allergy [facility] 46807494090 10 MG Orally Active 1 tablet Once a day Zoloft [facility] 07798467283 100 MG Orally Active 1 tablet Once a day Nitroglycerin [facility] 89874220616 400 MCG/SPRAY Active 1 spray Translingual Once a day as needed Azithromycin [facility] 36639504031 500 MG Orally Active as directed once a day Fluocinolone [facility] 57255276591 0.01 % Otic Active 5 applications Acetonide Twice a day into affected ear Acetic Acid [facility] 45257082368 2 % Otic Three Active 5 drops into times a day affected ear Gabapentin [facility] 69753469360 600 MG orally Active 1 tablet Three times a day Flonase [facility] 18826114861 50 MCG/ACT Active 2 spray in Nasally Once a each nostril day Spiriva Respimat [facility] 42529677227 2.5 MCG/ACT Active 2 puffs Inhalation Once a day Lantus SoloStar [facility] 45036281244 100 UNIT/ML Active 65 units Subcutaneous once a day Humalog KwikPen [facility] 11498638054 100 UNIT/ML Active as directed Subcutaneous 4 units with each meal tid Metformin HCl [facility] 02890628029 1000MG Active TAKE ONE TABLET BY MOUTH TWICE DAILY Olmesartan-Amlodi [facility] 21677927105 20-5-12.5 MG Active 1 tablet pine-HCTZ Orally Once a day PredniSONE [facility] 83858800308 10 MG Orally Active 2 tablet Once a day Plavix [facility] 07229958881 75 MG Orally Active 1 tablet Once a day Reglan [facility] 51522681619 10 MG Orally Active not defined FreeStyle Enriqueta [facility] 57227238695 - [place] Active as directed Sensor System Albuterol Sulfate [facility] 06364055028 (2.5 MG/3ML) Active 3 ml as needed 0.083% Inhalation Three times a day prn sob/wheezing Albuterol Sulfate [facility] 73943383616 108 (90 Base) Active 2 puffs as MCG/ACT needed Inhalation every 6 hrs Patanase [facility] 60956774852 0.6 % Nasally Active 2 sprays in Twice a day each nostril FreeStyle Enriqueta [facility] 58536867072 - dailyk Active as directed [place] Lasix [facility] 57758455751 20 MG Orally Active 1 tablet Once a day Results No Known Results Summary Purpose eClinicalWorks Submission
--- OUTSIDE RECORDS SUMMARY | 2019-09-08 19:11 | XMS REPORT ---
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
--- NOTE | 2019-09-08 20:02 | ER ---
Nurse's Notes [facility] Name: Tamym Walsh Age: 64 yrs Sex: Female : 1955 Arrival Date: 09/08/2019 Time: 19:07 Bed 4 Private MD: Micki Huff Diagnosis: Chest pain on breathing;Chest pain, unspecified;Chronic obstructive pulmonary disease with (acute) exacerbation;Obesity, unspecified;Tobacco abuse counseling;Tobacco use;Essential (primary) hypertension;Anemia, unspecified;Type 2 diabetes mellitus;Unspecified kidney failure Presentation: 09/08 19:10 Presenting complaint: Patient states: that she is having left chest pain with shortness fc of breath and nausea. Denies any vomiting. Transition of care: patient was not received from another setting of care. Onset of symptoms was September 08, 2019 at 16:00. Risk Assessment: Do you want to hurt yourself or someone else? Patient reports no desire to harm self or others. Initial Sepsis Screen: Does the patient meet any 2 criteria? RR > 20 per min. HR > 90 bpm. Yes Does the patient have a suspected source of infection? No. Patient's initial sepsis screen is negative. Care prior to arrival: None. 19:10 Method Of Arrival: Wheelchair fc 19:10 Acuity: PATRICIA 3 fc Historical: - Allergies: 19:40 Hydrocodone-Acetaminophen (Sever Itching); fc - Home Meds: 19:40 aspirin 81 mg Oral chew 1 tab once daily [Active]; atorvastatin 40 mg Oral tab 1 tab fc once daily [Active]; Breo Ellipta inhalation once daily [Active]; Cartia XT 180 mg Oral cp24 2 caps once daily [Active]; Gralise 600 mg Oral Tb24 3 tabs once daily [Active]; Humalog 4units before every meal or snack. Sub-Q [Active]; hydrochlorothiazide 12.5 mg Oral cap once daily [Active]; Lantus 65 units in the morning. Sub-Q [Active]; metformin 1,000 mg Oral tab 1 tab 2 times per day [Active]; metoprolol er 200mg daily [Active]; Nitroglycerin SL as needed [Active]; olmesartan 12.5 Oral once daily [Active]; Plavix 75 mg Oral tab 1 tab once daily [Active]; Spiriva with HandiHaler inhalation [Active]; Symbicort 160-4.5 mcg/actuation inhalation HFAA 2 puffs 2 times per day [Active]; - PMHx: 19:40 CHF; CVA; Diabetes - NIDDM; Gastroparesis; Hypertension; Myocardial infarction; COPD; fc Cancer, Breast; - Immunization history:: Last tetanus immunization: unknown, Flu vaccine is not up to date. - Social history:: Smoking status: Patient uses tobacco products, smokes one-half pack cigarettes per day, Patient/guardian denies using alcohol, street drugs. - Ebola Screening: : Patient negative for fever greater than or equal to 101.5 degrees Fahrenheit, and additional compatible Ebola Virus Disease symptoms Patient denies exposure to infectious person Patient denies travel to an Ebola-affected area in the 21 days before illness onset. - Family history:: not pertinent. Screenin:10 Abuse screen: Denies threats or abuse. Nutritional screening: No deficits noted. fc Tuberculosis screening: No symptoms or risk factors identified. Fall Risk None identified. Assessment: 19:30 General: Appears uncomfortable, obese, Behavior is cooperative, anxious. Pain: bb Complains of pain in chest Pain radiates to throat Pain currently is 8 out of 10 on a pain scale. Pain began 1 day ago. Neuro: Level of Consciousness is awake, obeys commands, listless, Oriented to person, place, situation. Cardiovascular: Heart tones S1 S2 present Capillary refill < 3 seconds Patient's skin is warm and dry. Pulses are palpable in right radial artery and left radial artery. Respiratory: Airway is patent Respiratory effort is unlabored, Breath sounds are diminished bilaterally. GI: Abdomen is obese, Bowel sounds diminished in right upper quadrant, left upper quadrant, right lower quadrant and left lower quadrant. Derm: Skin is dry, Skin is normal, Skin temperature is warm. Musculoskeletal: Circulation, motion, and sensation intact. Swelling present in left leg. 20:30 Reassessment: Patient is alert, oriented x 3, equal unlabored respirations, skin bb warm/dry/pink. IV site intact with fluids infusing, family at bedside, instructed on need for admit. Patient states feeling better. 22:03 Reassessment: pt c/o headache, Dr Figueroa notified, new orders received pt medicated bb see MAR, pt restless, oriented x 3, IV site intact, patent with fluids infusing, awaiting admit orders, family at bedside. 22:55 Reassessment: pt resting quietly, no complaints, IV site intact with fluids infusing, bb family at bedside, report called to Devin DANGELO for room 217. Vital Signs: 19:10 BP 151 / 128; Pulse 103; Resp 26; Temp 97.8(O); Pulse Ox 100% on 3 lpm NC; Weight fc 114.76 kg (R); Height 5 ft. 5 in. (165.10 cm) (R); Pain 8/10; 20:15 BP 125 / 93; Pulse 97; Resp 20 S; Pulse Ox 98% on 2 lpm NC; bb 21:38 BP 137 / 61; Pulse 94; Resp 18 S; Pulse Ox 98% on 2 lpm NC; bb 22:05 BP 141 / 73; Pulse 93; Resp 16 S; Pulse Ox 99% on 2 lpm NC; bb 19:10 Body Mass Index 42.10 (114.76 kg, 165.10 cm) ED Course: 19:07 Patient arrived in ED. as 19:07 Micki Huff MD is Private Physician. as 19:10 Arm band placed on Patient placed in an exam room, on a stretcher. fc 19:10 Patient has correct armband on for positive identification. Placed in gown. Bed in low fc position. Call light in reach. Side rails up X2. nuclear medicine officer on. Pulse ox on. NIBP on. 19:10 No provider procedures requiring assistance completed. fc 19:15 Oxygen administration via nasal cannula \T\ 2L/min. bb 19:27 Anca Holly, LORETO is Primary Nurse. bb 19:32 Triage completed. fc 19:39 Toby Figueroa MD is Attending Physician. hannah 19:50 Initial lab(s) drawn, by me, sent to lab. First set of blood cultures drawn by me. bb Accessed peripheral vein via ultrasound, utilizing dynamic ultrasound technique using per hospital protocol. 20 g 10 cm Power Pro inserted with good blood return noted labs drawn. 19:59 Kaye Eduardo MD is Hospitalizing Provider. hannah 20:22 XRAY Chest (1 view) In Process Unspecified. EDMS 21:39 Patient admitted, IV remains in place. bb 22:43 Repeat lab(s) drawn. by ED staff, sent to lab. bb Administered Medications: 20:05 Drug: NS 0.9% 1000 ml Route: IV; Rate: 125 ml/hr; Site: right upper arm; bb 22:44 Follow up: IV Status: Infusion continued upon transfer; IV Intake: 325ml bb 20:05 Drug: SOLU-Medrol 125 mg Route: IVP; Site: right upper arm; bb 21:23 Follow up: Response: No adverse reaction bb 20:05 Drug: fentaNYL (PF) 25 mcg Route: IVP; Site: right upper arm; bb 21:23 Follow up: Response: Pain is decreased bb 20:05 Drug: Aspirin 162 mg Route: PO; bb 21:24 Follow up: Response: No adverse reaction bb 20:10 Drug: Xopenex (3) 3.75 mg Route: Inhalation; bb 20:10 Drug: AtroVENT Aerosol 0.5 mg Route: Inhalation; bb 20:14 Drug: fentaNYL (PF) 25 mcg Route: IVP; Site: right upper arm; bb 21:23 Follow up: Response: Pain is decreased bb 20:15 Drug: Zofran 4 mg Route: IVP; Site: right upper arm; bb 21:23 Follow up: Response: No adverse reaction bb 20:15 Drug: Pepcid 20 mg Route: IVP; Site: right upper arm; bb 22:23 Follow up: Response: No adverse reaction bb 20:20 Drug: Lovenox 100 mg Route: Sub-Q; Site: abdomen; bb 22:22 Follow up: Response: No adverse reaction bb 20:42 Not Given (Hemodynamic Parameters): hydrALAZINE 10 mg IV at per protocol once bb 20:42 Not Given (Hemodynamic Parameters): HydrALAZINE 25 mg PO once bb 22:03 Drug: morphine 4 mg {Note: RASS 1.} Route: IVP; Site: right upper arm; bb 22:22 Follow up: Response: No adverse reaction; Pain is decreased; RASS: Drowsy (-1) bb 22:20 Drug: Insulin Regular Human 10 units {Co-Signature: jd3 (Bishop Edwards RN).} Route: bb Sub-Q; Site: right upper arm; 22:45 Follow up: Response: No adverse reaction bb Intake: 22:44 IV: 325ml; Total: 325ml. bb Outcome: 20:02 Decision to Hospitalize by Provider. hannah 21:39 Instructed on the need for admit. namrata 21:39 Condition: stable bb 22:43 Admitted to Tele accompanied by nurse, accompanied by tech, via stretcher, room 217, bb with chart, Report called to Devin DANGELO 22:56 Patient left the ED. namrata Signatures: Dispatcher [employer] EDToby Waller MD MD cha Chretien, Felicia, RN Liset Britt Brenda, RN RN bb Jonathon Davies RN jd3 Corrections: (The following items were deleted from the chart) 21:38 20:15 BP 137 / 61; Pulse 94bpm; Resp 18bpm; Spontaneous; Pulse Ox 98% 2 lpm Nasal bb Cannula; bb 22:03 22:03 morphine 4 mg IVP in right upper arm namrata ott
--- NOTE | 2019-09-08 20:03 | EDPHYS ---
Physician Documentation [facility] Name: Tammy Walsh Age: 64 yrs Sex: Female : 1955 Arrival Date: 09/08/2019 Time: 19:07 Bed 4 Private MD: Micki Huff ED Physician Toby Figueroa HPI: 09/08 19:55 This 64 yrs old Black Female presents to ER via Wheelchair with complaints of Chest hannah Pain. 19:55 The patient or guardian reports chest pain that is located primarily in the substernal hannha area. Onset: 2 day(s) ago. The pain does not radiate. Associated signs and symptoms: Pertinent positives: cough, shortness of breath. The chest pain is described as aching. Modifying factors: The symptoms are alleviated by nothing. Severity of pain: At its worst the pain was mild in the emergency department the pain is unchanged. The patient has not experienced similar symptoms in the past. Historical: - Allergies: 19:40 Hydrocodone-Acetaminophen (Sever Itching); fc - Home Meds: 19:40 aspirin 81 mg Oral chew 1 tab once daily [Active]; atorvastatin 40 mg Oral tab 1 tab fc once daily [Active]; Breo Ellipta inhalation once daily [Active]; Cartia XT 180 mg Oral cp24 2 caps once daily [Active]; Gralise 600 mg Oral Tb24 3 tabs once daily [Active]; Humalog 4units before every meal or snack. Sub-Q [Active]; hydrochlorothiazide 12.5 mg Oral cap once daily [Active]; Lantus 65 units in the morning. Sub-Q [Active]; metformin 1,000 mg Oral tab 1 tab 2 times per day [Active]; metoprolol er 200mg daily [Active]; Nitroglycerin SL as needed [Active]; olmesartan 12.5 Oral once daily [Active]; Plavix 75 mg Oral tab 1 tab once daily [Active]; Spiriva with HandiHaler inhalation [Active]; Symbicort 160-4.5 mcg/actuation inhalation HFAA 2 puffs 2 times per day [Active]; - PMHx: 19:40 CHF; CVA; Diabetes - NIDDM; Gastroparesis; Hypertension; Myocardial infarction; COPD; fc Cancer, Breast; - Immunization history:: Last tetanus immunization: unknown, Flu vaccine is not up to date. - Social history:: Smoking status: Patient uses tobacco products, smokes one-half pack cigarettes per day, Patient/guardian denies using alcohol, street drugs. - Ebola Screening: : Patient negative for fever greater than or equal to 101.5 degrees Fahrenheit, and additional compatible Ebola Virus Disease symptoms Patient denies exposure to infectious person Patient denies travel to an Ebola-affected area in the 21 days before illness onset. - Family history:: not pertinent. ROS: 19:55 Constitutional: Negative for fever, chills, and weight loss, Eyes: Negative for injury, hannah pain, redness, and discharge, ENT: Negative for injury, pain, and discharge, Neck: Negative for injury, pain, and swelling, Abdomen/GI: Negative for abdominal pain, nausea, vomiting, diarrhea, and constipation, Back: Negative for injury and pain, : Negative for injury, bleeding, discharge, and swelling, MS/Extremity: Negative for injury and deformity, Skin: Negative for injury, rash, and discoloration, Neuro: Negative for headache, weakness, numbness, tingling, and seizure, Psych: Negative for depression, anxiety, suicide ideation, homicidal ideation, and hallucinations, Allergy/Immunology: Negative for hives, rash, and allergies, Endocrine: Negative for neck swelling, polydipsia, polyuria, polyphagia, and marked weight changes. 19:55 Cardiovascular: Positive for chest pain. 19:55 Respiratory: Positive for cough, shortness of breath, wheezing, inspiratory, expiratory. Exam: 19:55 Constitutional: This is a well developed, well nourished patient who is awake, alert, hannah and in no acute distress. Head/Face: Normocephalic, atraumatic. Eyes: Pupils equal round and reactive to light, extra-ocular motions intact. Lids and lashes normal. Conjunctiva and sclera are non-icteric and not injected. Cornea within normal limits. Periorbital areas with no swelling, redness, or edema. ENT: Nares patent. No nasal discharge, no septal abnormalities noted. Tympanic membranes are normal and external auditory canals are clear. Oropharynx with no redness, swelling, or masses, exudates, or evidence of obstruction, uvula midline. Mucous membranes moist. Neck: Trachea midline, no thyromegaly or masses palpated, and no cervical lymphadenopathy. Supple, full range of motion without nuchal rigidity, or vertebral point tenderness. No Meningismus. Chest/axilla: Normal chest wall appearance and motion. Nontender with no deformity. No lesions are appreciated. Abdomen/GI: Soft, non-tender, with normal bowel sounds. No distension or tympany. No guarding or rebound. No evidence of tenderness throughout. Back: No spinal tenderness. No costovertebral tenderness. Full range of motion. Female : Normal external genitalia. Skin: Warm, dry with normal turgor. Normal color with no rashes, no lesions, and no evidence of cellulitis. MS/ Extremity: Pulses equal, no cyanosis. Neurovascular intact. Full, normal range of motion. Neuro: Awake and alert, GCS 15, oriented to person, place, time, and situation. Cranial nerves II-XII grossly intact. Motor strength 5/5 in all extremities. Sensory grossly intact. Cerebellar exam normal. Normal gait. Psych: Awake, alert, with orientation to person, place and time. Behavior, mood, and affect are within normal limits. 19:55 Cardiovascular: Rate: tachycardic, Rhythm: regular, Pulses: Pulses are 4+ in bilateral radial, brachial, femoral, popliteal, posterior tibial and and dorsalis pedis arteries.. Heart sounds: normal, Edema: is not appreciated, JVD: is not appreciated. Vital Signs: 19:10 BP 151 / 128; Pulse 103; Resp 26; Temp 97.8(O); Pulse Ox 100% on 3 lpm NC; Weight fc 114.76 kg (R); Height 5 ft. 5 in. (165.10 cm) (R); Pain 8/10; 20:15 BP 125 / 93; Pulse 97; Resp 20 S; Pulse Ox 98% on 2 lpm NC; bb 21:38 BP 137 / 61; Pulse 94; Resp 18 S; Pulse Ox 98% on 2 lpm NC; bb 22:05 BP 141 / 73; Pulse 93; Resp 16 S; Pulse Ox 99% on 2 lpm NC; bb 19:10 Body Mass Index 42.10 (114.76 kg, 165.10 cm) fc MDM: 19:39 [facility] 19:58 Data reviewed: vital signs, nurses notes, lab test result(s), EKG, radiologic studies, [facility] plain films. 09/08 19:55 Order name: Basic Metabolic Panel; Complete Time: 22:07 [facility] 09/08 19:55 Order name: CBC with Diff; Complete Time: 21:21 [facility] 09/08 19:55 Order name: LFT's; Complete Time: 22:07 [facility] 09/08 19:55 Order name: Magnesium; Complete Time: 22:07 [facility] 09/08 19:55 Order name: NT PRO-BNP; Complete Time: 22:07 [facility] 09/08 19:55 Order name: PT-INR; Complete Time: 21:21 [facility] 09/08 19:55 Order name: Troponin (emerg Dept Use Only); Complete Time: 22:07 [facility] 09/08 19:55 Order name: Blood Culture Adult (2) [facility] 09/08 20:49 Order name: Basic Metabolic Panel [facility] 09/08 20:49 Order name: Basic Metabolic Panel [facility] 09/08 20:49 Order name: CBC with Automated Diff [facility] 09/08 20:49 Order name: CBC with Automated Diff [facility] 09/08 20:49 Order name: Lipid Profile [facility] 09/08 20:49 Order name: Lipid Profile [facility] 09/08 19:55 Order name: XRAY Chest (1 view); Complete Time: 21:21 [facility] 09/08 20:49 Order name: Echo with Doppler [facility] 09/08 20:49 Order name: Lipid Profile [facility] 09/08 20:49 Order name: Lipid Profile [facility] 09/08 20:49 Order name: Troponin I [facility] 09/08 20:49 Order name: Troponin I [facility] 09/08 20:49 Order name: Troponin I [facility] 09/08 22:27 Order name: Glucose, Ancillary Testing [facility] 09/08 19:55 Order name: EKG; Complete Time: 19:57 [facility] 09/08 19:55 Order name: Cardiac monitoring; Complete Time: 20:05 [facility] 09/08 19:55 Order name: EKG - Nurse/Tech; Complete Time: 20:05 [facility] 09/08 19:55 Order name: IV Saline Lock; Complete Time: 20:05 [facility] 09/08 19:55 Order name: Labs collected and sent; Complete Time: 20:05 [facility] 09/08 19:55 Order name: O2 Per Protocol; Complete Time: 20:05 [facility] 09/08 19:55 Order name: O2 Sat Monitoring; Complete Time: 20:05 [facility] 09/08 20:49 Order name: CONS Physician Consult [facility] 09/08 20:49 Order name: Heart Healthy [facility] 09/08 20:49 Order name: EKG Electrocardiogram [facility] 09/08 20:49 Order name: EKG Electrocardiogram [facility] Administered Medications: 20:05 Drug: NS 0.9% 1000 ml Route: IV; Rate: 125 ml/hr; Site: right upper arm; bb 22:44 Follow up: IV Status: Infusion continued upon transfer; IV Intake: 325ml bb 20:05 Drug: SOLU-Medrol 125 mg Route: IVP; Site: right upper arm; bb 21:23 Follow up: Response: No adverse reaction bb 20:05 Drug: fentaNYL (PF) 25 mcg Route: IVP; Site: right upper arm; bb 21:23 Follow up: Response: Pain is decreased bb 20:05 Drug: Aspirin 162 mg Route: PO; bb 21:24 Follow up: Response: No adverse reaction bb 20:10 Drug: Xopenex (3) 3.75 mg Route: Inhalation; bb 20:10 Drug: AtroVENT Aerosol 0.5 mg Route: Inhalation; bb 20:14 Drug: fentaNYL (PF) 25 mcg Route: IVP; Site: right upper arm; bb 21:23 Follow up: Response: Pain is decreased bb 20:15 Drug: Zofran 4 mg Route: IVP; Site: right upper arm; bb 21:23 Follow up: Response: No adverse reaction bb 20:15 Drug: Pepcid 20 mg Route: IVP; Site: right upper arm; bb 22:23 Follow up: Response: No adverse reaction bb 20:20 Drug: Lovenox 100 mg Route: Sub-Q; Site: abdomen; bb 22:22 Follow up: Response: No adverse reaction bb 20:42 Not Given (Hemodynamic Parameters): hydrALAZINE 10 mg IV at per protocol once bb 20:42 Not Given (Hemodynamic Parameters): HydrALAZINE 25 mg PO once bb 22:03 Drug: morphine 4 mg {Note: RASS 1.} Route: IVP; Site: right upper arm; bb 22:22 Follow up: Response: No adverse reaction; Pain is decreased; RASS: Drowsy (-1) bb 22:20 Drug: Insulin Regular Human 10 units {Co-Signature: jd3 (Bishop Edwards RN).} Route: bb Sub-Q; Site: right upper arm; 22:45 Follow up: Response: No adverse reaction bb Disposition: 09/08/19 20:02 Hospitalization ordered by Kaye Eduardo for Inpatient Admission. Preliminary diagnosis are Chest pain on breathing, Chest pain, unspecified, Chronic obstructive pulmonary disease with (acute) exacerbation, Obesity, unspecified, Tobacco abuse counseling, Tobacco use, Essential (primary) hypertension, Anemia, unspecified, Type 2 diabetes mellitus, Unspecified kidney failure. - Bed requested for Telemetry/MedSurg (Inpatient). - Status is Inpatient Admission. bb - Condition is Fair. - Problem is new. - Symptoms have improved. UTI on Admission? No Signatures: Dispatcher [employer] EDMS Toby Figueroa MD MD cha Chretien, Felicia, RN RN Anca Holly RN RN Sun Enriquez RN RN cg Bishop Edwards RN jd3 Corrections: (The following items were deleted from the chart) : 20:02 Hospitalization Ordered by Kaye Eduardo MD for Inpatient Admission. Preliminary hannah diagnosis is Chest pain on breathing; Chest pain, unspecified; Chronic obstructive pulmonary disease with (acute) exacerbation; Obesity, unspecified; Tobacco abuse counseling; Tobacco use; Essential (primary) hypertension. Bed requested for Telemetry/MedSurg (Inpatient). Status is Inpatient Admission. Condition is Fair. Problem is new. Symptoms have improved. UTI on Admission? No. hannah 21:26 21:21 09/08/2019 20:02 Hospitalization Ordered by Kaye Eduardo MD for Inpatient cg Admission. Preliminary diagnosis is Chest pain on breathing; Chest pain, unspecified; Chronic obstructive pulmonary disease with (acute) exacerbation; Obesity, unspecified; Tobacco abuse counseling; Tobacco use; Essential (primary) hypertension; Anemia, unspecified. Bed requested for Telemetry/MedSurg (Inpatient). Status is Inpatient Admission. Condition is Fair. Problem is new. Symptoms have improved. UTI on Admission? No. hannah 22:08 21:26 09/08/2019 20:02 Hospitalization Ordered by Kaye Eduardo MD for Inpatient hannah Admission. Preliminary diagnosis is Chest pain on breathing; Chest pain, unspecified; Chronic obstructive pulmonary disease with (acute) exacerbation; Obesity, unspecified; Tobacco abuse counseling; Tobacco use; Essential (primary) hypertension; Anemia, unspecified. Bed requested for Telemetry/MedSurg (Inpatient). Status is Inpatient Admission. Condition is Fair. Problem is new. Symptoms have improved. UTI on Admission? No. cg 22:56 22:08 09/08/2019 20:02 Hospitalization Ordered by Kaye Eduardo MD for Inpatient bb Admission. Preliminary diagnosis is Chest pain on breathing; Chest pain, unspecified; Chronic obstructive pulmonary disease with (acute) exacerbation; Obesity, unspecified; Tobacco abuse counseling; Tobacco use; Essential (primary) hypertension; Anemia, unspecified; Type 2 diabetes mellitus; Unspecified kidney failure. Bed requested for Telemetry/MedSurg (Inpatient). Status is Inpatient Admission. Condition is Fair. Problem is new. Symptoms have improved. UTI on Admission? No. hannah
[2019-09-08] MEDS ORDERED: IPRATROPIUM BROM 0.5MG/2.5ML ONE (20:12)
[2019-09-08] MEDS ORDERED: METHYLPREDNISOLONE 125 MG INJ ONE (20:12)
[2019-09-08] MEDS ORDERED: HYDRALAZINE HCL 20 MG/ML VIAL ONE (20:12)
[2019-09-08] MEDS ORDERED: LEVALBUTEROL 0.63 MG/3 ML NEB ONE (20:12)
[2019-09-08] MEDS ORDERED: ASPIRIN 81 MG CHEWABLE TABLET ONE (20:12)
[2019-09-08] MEDS ORDERED: NA CHLORIDE 0.9% 1,000 ML ONE (20:13)
[2019-09-08] MEDS ORDERED: ENOXAPARIN 100 MG/ML SYR SQ ONE (20:13)
[2019-09-08] MEDS ORDERED: FAMOTIDINE 20 MG/2 ML VIAL IV ONE (20:13)
[2019-09-08] MEDS ORDERED: ONDANSETRON 4 MG/2 ML VIAL ONE (20:13)
[2019-09-08] MEDS ORDERED: HYDRALAZINE HCL 10 MG TABLET ONE (20:13)
[2019-09-08] MEDS ORDERED: FENTANYL CITR 100 MCG/2 ML ONE (20:15)
[2019-09-08] MEDS ORDERED: ACETAMINOPHEN 500 MG TAB PO PRN (20:40)
[2019-09-08] MEDS ORDERED: ALPRAZOLAM 0.25 MG TABLET PO PRN (20:40)
[2019-09-08] MEDS ORDERED: MORPHINE 4 MG/ML SYR IV PRN (20:40)
[2019-09-08] MEDS ORDERED: ONDANSETRON 4 MG/2 ML VIAL IV PRN (20:40)
[2019-09-08 21:00] LABS: Absolute Lymphocytes (CBC) 2.1 K/uL (0.7-4.9); Basophils % 1.2 % (0-1.3); Hematocrit 27.5 % (36.0-45.0); Lymphocytes % 22.5 % (15.3-44.8); MPV 8.4 fL (7.6-11.3); RBC Red Blood Cell Count 3.36 M/uL (3.86-4.86)
[2019-09-08] MEDS ORDERED: CEFTRIAXONE 1 GM/NS 50 ML 1 GM/50 ML BAG IV SCH (21:00)
--- NOTE | 2019-09-08 21:06 | RAD REPORT ---
EXAM DESCRIPTION: [facility] Single View09/08/2019 8:22 pm CLINICAL HISTORY: Chest pain COMPARISON: July 2019 FINDINGS: The lungs appear clear of acute infiltrate. The heart is mildly to moderately enlarged IMPRESSION: No acute abnormalities displayed
[2019-09-08 21:16] LABS: Protime INR 0.97
[2019-09-08 21:20] LABS: ALT/SGPT 32 U/L (12-78); AST/SGOT 27 U/L (15-37); Albumin 2.5 g/dL (3.4-5.0); Alkaline Phosphatase 90 U/L (45-117); BUN Blood Urea Nitrogen 29 mg/dL (7-18); Bicarbonate 32 mmol/L (21-32); Bilirubin Direct < 0.1 mg/dL (0-0.2); Bilirubin Total 0.1 mg/dL (0.2-1.0); Glucose Level 309 mg/dL (74-106); Magnesium 2.4 mg/dL (1.8-2.4); NT PRO-BNP 195 pg/mL (<125); Protein, Total 7.3 g/dL (6.4-8.2); Sodium Level 132 mmol/L (136-145); Troponin (Emerg Dept Use Only) < 0.02 ng/mL (0.0-0.045)
[2019-09-08] MEDS ORDERED: MORPHINE 4 MG/ML SYR ONE (21:52)
[2019-09-08] MEDS ORDERED: INSULIN -REGULAR HUMAN 50 UNIT/0.5 ML ML ONE (22:19)
[2019-09-09] MEDS ORDERED: CEFTRIAXONE/SWI 1gm 1 GM/10 ML SYR ONE (00:32)
[2019-09-09] MEDS: METHYLPREDNISOLONE 125 MG INJ IV SCH ×3 (00:41→11:53)
[2019-09-09] MEDS: METOPROLOL TAR 50 MG TAB PO SCH ×3 (00:43→21:15)
[2019-09-09] MEDS: IPRATROPIUM BROM 0.5MG/2.5ML NEB SCH ×5 (02:00→20:09)
[2019-09-09 02:07] LABS: Urine Appearance CLEAR; Urine Bilirubin NEGATIVE (NEG); Urine Blood NEGATIVE (NEG); Urine Color YELLOW; Urine Glucose 1+ (NEG); Urine Protein 2+ (NEG); Urine Urobilinogen 0.2 mg/dL (0.2-1.0); Urine pH 5.5 (5.0-7.0)
[2019-09-09 02:14] LABS: Urine Microscopic Reflex ORDER UMIC
[2019-09-09 02:36] LABS: Urine Bacteria 20-50 /HPF (<20); Urine Culture Reflex Order REFLEXED; Urine RBC NONE SEEN /HPF (NONE SEEN)
[2019-09-09 05:47] LABS: Basophils % 0.2 % (0-1.3); Hematocrit 26.6 % (36.0-45.0); Lymphocytes % 11.5 % (15.3-44.8); MPV 8.4 fL (7.6-11.3); RBC Red Blood Cell Count 3.26 M/uL (3.86-4.86)
[2019-09-09] MEDS ORDERED: GLUCAGON 1 MG/VIAL IM PRN ×3 (07:41→14:32)
[2019-09-09] MEDS ORDERED: D50W 25 GM/50 ML SYRINGE/VIAL IV PRN ×3 (07:41→14:32)
[2019-09-09 07:58] LABS: Blood Morphology Comment NOT SEEN (NOT SEEN); Platelet Estimate ADEQ
[2019-09-09] MEDS: AZITHROMYCIN IV 500 MG in NA CHLORIDE 0.9% 250 ML IVPB SCH (08:51)
[2019-09-09] MEDS: ENOXAPARIN 40 MG/0.4 ML SQ SCH (08:52)
[2019-09-09] MEDS: CEFTRIAXONE/SWI 1gm 1 GM/10 ML SYR IV SCH ×2 (08:52→21:16)
[2019-09-09] MEDS: ASPIRIN EC 81 MG TAB PO SCH (08:53)
[2019-09-09] MEDS ORDERED: ENOXAPARIN 40 MG/0.4 ML SQ SCH (09:00)
[2019-09-09] MEDS: ALBUTEROL 2.5 MG/3 ML NEB SOL NEB SCH ×2 (09:05→20:09)
[2019-09-09] MEDS: INSULIN -REGULAR HUMAN 50 UNIT/0.5 ML ML SQ SCH ×4 (09:20→21:16)
--- NOTE | 2019-09-09 09:50 | P.HP ---
Certification for Inpatient Patient admitted to: Observation With expected LOS: <2 Midnights Patient will require the following post-hospital care: None Practitioner: I am a practitioner with admitting privileges, knowledge of patient current condition, hospital course, and medical plan of care. Services: Services provided to patient in accordance with Admission requirements found in Title 42 Section 412.3 of the Code of Federal Regulations Patient History Date of Service: 09/09/19 Reason for admission: Chest pain rule out ACS History of Present Illness: Patient is a 64yo who was admitted to the hospital with chest pain and difficulty breathing. Patient has a presumed history of lung malignancy. The lung mass encases the pulmonary artery. There is also additional pulmonary lesions. Because of the identification of a breast mass and invasive carcinoma is also a possibility with metastasis to the lungs. We're not really sure exactly what we are dealing with. Her performance status is poor. Because of the existence of immunotherapy for lung cancer and oral chemotherapy for breast cancer the possibility of treatment does exist. We could get a core biopsy of the breast mass. This could get done under local anesthesia. Patient will also need a fine-needle aspiration to identify the lung lesion. We have discussed the case with family. Will see if they want further workup care her if possible or if it will follow-up at an outside facility. Allergies hydrocodone Allergy (Intermediate, Verified 09/08/19 23:32) Itching Home Medications: Atorvastatin Calcium [Lipitor*] 40 mg PO BEDTIME 08/09/19 Budesonide/Formoterol Fumarate [Symbicort 160-4.5 Mcg Inhaler] 2 puff IH BID Clopidogrel Bisulfate [Plavix*] 75 mg PO DAILY 08/09/19 Insulin Glargine Human [Lantus*] 65 units SQ DAILY 08/09/19 Insulin Lispro [Humalog*] 4 units SQ TIDWM 08/09/19 Amoxicillin 1 cap PO TID 09/09/19 Diltiazem HCl [Cartia Xt] 360 mg PO DAILY 09/09/19 Fluticasone/Vilanterol [Breo Ellipta 100-25 Mcg INH] 1 puff IN DAILY 09/09/19 Furosemide 40 mg PO BID 09/09/19 Gabapentin [Gralise] 1,800 mg PO DAILY 09/09/19 Metformin HCl [Glucophage] 1,000 mg PO BID 09/09/19 Metoprolol Succinate [Toprol Xl] 1 tab PO DAILY 09/09/19 Nitroglycerin 1 tab SL Q5MX3, Q15MX1, Q30M PRN 09/09/19 Olmesartan/Amlodipin/Hcthiazid [Tribenzor 20-5-12.5 mg Tablet] 1 each PO DAILY 09/09/19 Tiotropium [Spiriva Handihaler*] 1 spray IN DAILY 09/09/19 predniSONE [Deltasone*] 1 tab PO DAILY 09/09/19 - Past Medical/Surgical History Has patient received pneumonia vaccine in the past: Yes Diabetic: Yes -: Hypertension -: COPD, chronic oxygen use -: Diabetes mellitus type 2, insulin dependent -: CAD -: History of TIA -: Hyperlipidemia -: Obstructive sleep apnea on CPAP -: Tobacco abuse -: [place] 2003 -: DIABETIC NEUROPATHY -: lung cancer, [facility] (07/07) -: Cholecystectomy -: Tubal (ECTOPIC) -: -: Exploratory laparotomy -: Breast biopsy Psychosocial/ Personal History: Patient is , lives at home - Family History Father Medical History: Heart disease, Hypertension Mother Medical History: Hypertension, Cancer Sister Medical History: Cancer Notes: - BREAST CANCER Brother Medical History: Cancer Notes: - LUNG AND BRAIN CANCER mom Medical History: Hypertension, Cancer Notes: lung cx dad Medical History: Heart disease, Hypertension - Social History Smoking Status: Current every day smoker Alcohol use: No CD- Drugs: No Caffeine use: Yes Place of Residence: Home Review of Systems 10-point ROS is otherwise unremarkable Physical Examination - Vital Signs Temperature: 96.9 F Blood Pressure: 120/57 Pulse: 98 Respirations: 15 Pulse Ox (%): 95 - Physical Exam General: Alert, In no apparent distress, Oriented x2, Confused HEENT: Atraumatic, PERRLA, Mucous membr. moist/pink, EOMI, Sclerae nonicteric Neck: Supple, 2+ carotid pulse no bruit, No LAD, Without JVD or thyroid abnormality Respiratory: Diminished, Expiratory wheezes Cardiovascular: Regular rate/rhythm, Normal S1 S2, No murmurs Gastrointestinal: Normal bowel sounds, Soft and benign, Non-distended, No tenderness Musculoskeletal: No tenderness Integumentary: No rashes Neurological: Normal speech, Normal tone, Sensation intact, Cranial nerves 3-12 intact, Normal affect, Abnormal strength Rectal: Normal - Studies Laboratory Data (last 24 hrs) 09/08/19 19:50: PT 11.5, INR 0.97 09/08/19 19:50: WBC 9.4, Hgb 9.0 L, Hct 27.5 L, Plt Count 510 H 09/08/19 19:50: Sodium 132 L, Potassium 5.0, BUN 29 H, Creatinine 1.55 H, Glucose 309 H, Magnesium 2.4, Total Bilirubin 0.1 L, AST 27, ALT 32, Alkaline Phosphatase 90 Assessment & Plan - Problems (Diagnosis) (1) Chest pain Onset Date: 05/06/16 Current Visit: No Status: Acute Qualifiers: Chest pain type: unspecified Qualified Code(s): R07.9 - Chest pain, unspecified (2) COPD with acute exacerbation Current Visit: No Status: Acute (3) Breast mass Current Visit: Yes Status: Acute (4) Diabetes mellitus Current Visit: No Status: Acute Qualifiers: Diabetes mellitus type: type 2 (5) Hypertension Current Visit: No Status: Acute Qualifiers: Hypertension type: essential hypertension Qualified Code(s): I10 - Essential (primary) hypertension (6) Lung mass Current Visit: No Status: Acute (7) Coronary artery disease Current Visit: No Status: Chronic Qualifiers: Coronary Disease-Associated Artery/Lesion type: [place] artery [place] vs. transplanted heart: [place] heart Associated angina: with stable angina Qualified Code(s): I25.118 - Atherosclerotic heart disease of [place] coronary artery with other forms of angina pectoris (8) Essential hypertension Current Visit: No Status: Chronic (9) Hyperlipidemia Current Visit: No Status: Chronic Qualifiers: Hyperlipidemia type: mixed hyperlipidemia Qualified Code(s): E78.2 - Mixed hyperlipidemia (10) Morbid obesity Current Visit: No Status: Chronic (11) Nicotine dependence Current Visit: No Status: Chronic Qualifiers: Nicotine product type: cigarettes (12) Tachycardia Current Visit: No Status: Chronic - Plan 1. Serial troponins and EKG 2. Pulmonary consultation may be needed 3. Oncology phone consultation revealed that patient will need outpt biopsy; patient will need biopsy prior to discussion for further therapy could be recommended; 4. Heplock IV 5. O2 per protocol 6. Monitor labs closely 7. Check ABGs 8. Possible hospice if family does not further treatment or work-up for cancer. 9. GI and DVT prophylaxis Discharge Plan: Home Plan to discharge in: 48 Hours - Advance Directives Does patient have a Living Will: No Does patient have a Durable POA for Healthcare: No - Code Status/Comfort Care Code Status Assessed: Yes Code Status: Full Code Critical Care: No Time Spent Managing PTS Care (In Minutes): 45
[2019-09-09] MEDS ORDERED: INSULIN 70/30 100 UNITS/ML SQ ONE ×2 (11:29→15:00)
[2019-09-09] MEDS: FUROSEMIDE 20 MG/ 2ML VIAL IV SCH ×2 (11:57→20:00)
--- NOTE | 2019-09-09 11:57 | EKG ---
Test Date: 2019-09-09 Test Time: 07:31:36 Director Of Revenue: STACEY MEASUREMENT RESULTS: Intervals: Rate: 96 NH: 206 QRSD: 68 QT: 320 QTc: 404 [place]: P: 78 NH: 206 QRS: 61 T: 57 INTERPRETIVE STATEMENTS: Normal sinus rhythm Low voltage QRS Borderline ECG Compared to ECG 09/08/2019 19:31:15 Low QRS voltage now present Electronically Signed On 09-09-19 11:56:30 FURNITURE DETAILER by Malcolm Delacruz
--- NOTE | 2019-09-09 11:59 | EKG ---
Test Date: 2019-09-08 Test Time: 19:31:15 Supervisor Doping: SHANIQUE MEASUREMENT RESULTS: Intervals: Rate: 99 [place]: 184 QRSD: 70 QT: 314 QTc: 402 [place]: P: 82 [place]: 184 QRS: 63 T: 63 INTERPRETIVE STATEMENTS: Normal sinus rhythm Normal ECG Compared to ECG 09/05/2019 06:51:43 First degree AV block no longer present Electronically Signed On 09-09-19 11:56:57 HAND CANDLE MOLDER by Malcolm Delacruz
--- NOTE | 2019-09-09 12:17 | ECHO ---
HEIGHT: 5 ft 5 in WEIGHT: 253 lb 0 oz DATE OF STUDY: 09/09/[address]: Kaye Eduardo MD 2-DIMENSIONAL: YES M.MODE: YES DOPPLER: YES COLOR FLOW: YES TDS: YES PORTABLE: NO DEFINITY: NO BUBBLE STUDY: NO DIAGNOSIS: CHEST PAIN RULE OUT ACS CARDIAC HISTORY: CATHERIZATION: NO SURGERY: NO PROSTHETIC VALVE: NO PACEMAKER: NO MEASUREMENTS (cm) DIASTOLIC (NORMALS) SYSTOLIC (NORMALS) IVSd 1.0 (0.6-1.2) LA Diam 3.6 (1.9-4.0) LVEF 59% LVIDd 3.3 (3.5-5.7) LVIDs 2.3 (2.0-3.5) %FS 30% LVPWd 1.2 (0.6-1.2) Ao Diam 2.4 (2.0-3.7) 2 DIMENSIONAL ASSESSMENT: RIGHT ATRIUM: NORMAL LEFT ATRIUM: NORMAL RIGHT VENTRICLE: NORMAL LEFT VENTRICLE: NORMAL TRICUSPID VALVE: NORMAL MITRAL VALVE: NORMAL PULMONIC VALVE: NORMAL AORTIC VALVE: NORMAL PERICARDIAL EFFUSION: NONE AORTIC ROOT: NORMAL LEFT VENTRICULAR WALL MOTION: NORMAL DOPPLER/COLOR FLOW: NORMAL COMMENTS: TECHNICALLY DIFFICULT STUDY. GROSSLY NORMAL LEFT VENTRICULAR AND SIZE. NO EFFUSION. TECHNOLOGIST: Elo SIGALA
[2019-09-09] MEDS ORDERED: SODIUM BICARB 50 MEQ/50ML VIAL IV ONE (12:26)
[2019-09-09 13:27] LABS: Arterial Blood Carboxyhemoglob 1.3 % (0-1.5); Blood Gas Oxyhemoglobin 90.1 % (94-97); Blood O2 Saturation 91.9 % (92-98.5)
[2019-09-09] MEDS ORDERED: ALBUMIN HUMAN 25% 100 ML IV SCH (14:00)
[2019-09-09 16:44] LABS: Potassium 5.5 mmol/L (3.5-5.1)
[2019-09-09] MEDS: predniSONE 20 MG TAB PO SCH (21:13)
[2019-09-09] MEDS: INSULIN GLARGINE 100 UNITS/ML SQ SCH (21:14)
[2019-09-09] MEDS: ATORVASTATIN 40 MG TAB PO SCH (21:14)
[2019-09-10 00:25] VITALS: BMI 41.6
[2019-09-10] MEDS ORDERED: LORAZEPAM 0.5 MG TABLET PO PRN (01:01)
[2019-09-10] MEDS: IPRATROPIUM BROM 0.5MG/2.5ML NEB SCH ×3 (02:00→13:38)
[2019-09-10] MEDS: FUROSEMIDE 20 MG/ 2ML VIAL IV SCH ×3 (03:16→20:14)
[2019-09-10] MEDS ORDERED: ALBUMIN HUMAN 25% 100 ML IV ONE (04:00)
[2019-09-10] MEDS: INSULIN -REGULAR HUMAN 50 UNIT/0.5 ML ML SQ SCH ×4 (07:30→20:15)
[2019-09-10] MEDS: AZITHROMYCIN IV 500 MG in NA CHLORIDE 0.9% 250 ML IVPB SCH (08:05)
[2019-09-10] MEDS: CEFTRIAXONE/SWI 1gm 1 GM/10 ML SYR IV SCH ×2 (08:06→20:14)
[2019-09-10] MEDS: predniSONE 20 MG TAB PO SCH ×2 (08:07→20:14)
[2019-09-10] MEDS: ASPIRIN EC 81 MG TAB PO SCH (08:07)
[2019-09-10] MEDS: ENOXAPARIN 40 MG/0.4 ML SQ SCH (08:07)
[2019-09-10] MEDS: INSULIN GLARGINE 100 UNITS/ML SQ SCH (08:08)
[2019-09-10 08:24] LABS: Absolute Lymphocytes (CBC) 1.7 K/uL (0.7-4.9); Basophils % 0.3 % (0-1.3); Hematocrit 27.7 % (36.0-45.0); Lymphocytes % 8.6 % (15.3-44.8); RBC Red Blood Cell Count 3.41 M/uL (3.86-4.86)
[2019-09-10] MEDS ORDERED: DILTIAZEM HCL 180 MG SR CAP PO SCH (09:00)
[2019-09-10] MEDS ORDERED: METOPROLOL SUCCINATE PO SCH (09:00)
[2019-09-10] MEDS ORDERED: METOPROLOL XL 100 MG TAB PO SCH (09:00)
[2019-09-10 09:21] VITALS: O2SAT 96
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
[2019-09-10 11:46] LABS: Blood Morphology Comment NOTED (NOT SEEN); Platelet Estimate INCR
[2019-09-10] MEDS ORDERED: LORazepam 2 MG/ML VIAL IV PRN (16:42)
[2019-09-10 16:55] VITALS: TEMP 97
[2019-09-10] MEDS: ATORVASTATIN 40 MG TAB PO SCH (20:14)
[2019-09-10 20:16] VITALS: BP 118/73
== END 2019-09-10 20:38 | disposition hospice, home (50) ==
LOC: ER 19:06 → ERHOLD 22:07 → 2ND 22:44
PROVIDERS: ADMIT Hospitalist; ATTEND Hospitalist
DX: R07.9 Chest pain, unspecified (principal); J44.1 Chronic obstructive pulmonary disease with (acute) exacerbation; I10 Essential (primary) hypertension; G47.33 Obstructive sleep apnea (adult) (pediatric); I25.10 Atherosclerotic heart disease of native coronary artery without angina pectoris; C34.90 Malignant neoplasm of unspecified part of unspecified bronchus or lung; C79.9 Secondary malignant neoplasm of unspecified site; N63.0 Unspecified lump in unspecified breast; E11.9 Type 2 diabetes mellitus without complications; E78.5 Hyperlipidemia, unspecified; E66.01 Morbid (severe) obesity due to excess calories; Z68.41 Body mass index [BMI] 40.0-44.9, adult; F17.210 Nicotine dependence, cigarettes, uncomplicated; R00.0 Tachycardia, unspecified; Z99.81 Dependence on supplemental oxygen; Z86.73 Personal history of transient ischemic attack (TIA), and cerebral infarction without residual deficits; I25.2 Old myocardial infarction
CPT/HCPCS: 96361; 93005 ×2; 93306; 87040 ×2; 87088; 85025 ×3; 87086; 80048 ×3; 36415 ×2; 83735; 85610; 80061; 82947 ×14; 80076; 84484 ×3; 83880; 71045; 94640 ×5; 82805; 96375; 96372; 96374; 99285; J1940 ×5; J1815 ×2; J7512 ×3; J0456 ×2; J1650 ×3; J3010; P9047 ×2; J0696 ×5; J7030 ×3; J2930 ×4; J2405; G0378 ×3; 81003; 81015; J0360

== ENCOUNTER 2019-09-21 00:15 | Emergency (ER) | payer OTHER ==
--- OUTSIDE RECORDS SUMMARY | 2019-09-21 00:19 | XMS REPORT ---
:1955 [facility] Address [address] [place] [address] Care Team Providers Name Role Phone CLINTON [...] (BEAKER) 330 mg/dL 70-110 : TESTED AT [address] (test zhba=2686) [place], [address]: Manufacturing Analyst/Cafeteria Assistant [id number] for Cha Valadez POCT-GLUCOSE [id number] 13:26:00 Test Item Value Reference Range Comments POC-GLUCOSE METER (BEAKER) 343 mg/dL 70-110 : TESTED AT [address] (test ejos=6999) [facility], [address]: Manufacturing Analyst/Cafeteria Assistant [id number] for SERGEY PAUL C-REACTIVE [id number] 11:30:00 Test Item Value Reference Range Comments C-REACTIVE PROTEIN (BEAKER) (test ckpd=192) 2.34 mg/dL 0.00-0.50 [id number] 11:27:00 Test Item Value Reference Range Comments FIBRINOGEN LEVEL (BEAKER) (test yxjx=054) 866 mg/dl 225-434 [id number] 11:24:00 Test Item Value Reference Range Comments D-DIMER QUANTITATIVE (BEAKER) (test pdmc=863) 1.66 MG/L FEU <0.50 Intended Use: The [...] of thrombosis is within 95-100% range.POCT- GLUCOSE [id number] 09:05:00 Test Item Value Reference Range Comments POC-GLUCOSE METER (BEAKER) 283 mg/dL 70-110 : TESTED AT [facility] [address] (test hpjh=0575) [facility], [address]: Manufacturing Analyst/Cafeteria Assistant [id number] for OMEGA, JASON RAD, CHEST, 1 VIEW, NON [id number] 07:47:00Reason for exam:->CHFFINAL REPORT CLINICAL HISTORY: CHF TECHNIQUE: 1 view of the chest. COMPARISON: 08/19/2019 IMPRESSION: Pulmonary vascular congestive findings appear slightly decreased. There is no lobar consolidation or significant pleural fluid. Cardiomegaly is unchanged. Signed: Monisha Castro MDReport Verified Date/Time: 08/22/2019 07:47:58 Reading Location: [facility] Radiology Reading Room Electronically signed by: MONISHA CASTRO M.D. on 07:47 AMBASIC METABOLIC [id number] 05:32:00 Test Item Value Reference Range Comments SODIUM (BEAKER) (test 136 meq/L 136-145 bpdh=224) POTASSIUM (BEAKER) (test 4.8 meq/L 3.5-5.1 nblp=430) CHLORIDE (BEAKER) (test 98 meq/L 98-107 xvsm=176) CO2 (BEAKER) (test 31 meq/L 22-29 mepq=371) BLOOD UREA NITROGEN 26 mg/dL 7-21 (BEAKER) (test kpse=893) CREATININE (BEAKER) (test 1.54 mg/dL 0.57-1.25 kkhs=691) GLUCOSE RANDOM (BEAKER) 224 mg/dL 70-105 (test clll=641) CALCIUM (BEAKER) (test 9.0 mg/dL 8.4-10.2 fjal=822) EGFR (BEAKER) (test 41 mL/min/1.73 sq m ESTIMATED GFR IS NOT aibe=0708) ACCURATE CREATININE CLEARANCE IN PREDICTING GLOMERULAR FILTRATION RATE. ESTIMATED GFR IS NOT APPLICABLE FOR DIALYSIS PATIENTS. B-TYPE NATRIURETIC FACTOR (BNP)2019-08-22 05:21:00 Test Item Value Reference Range Comments B-TYPE NATRIURETIC PEPTIDE (BEAKER) (test rcck=442) 15 pg/mL 0-100 CBC W/PLT COUNT & AUTO [id number] 04:59:00 Test Item Value Reference Range Comments WHITE BLOOD CELL COUNT (BEAKER) (test fxka=310) 9.1 K/ L 3.5-10.5 RED BLOOD CELL COUNT (BEAKER) (test xefp=346) 3.57 M/ L 3.93-5.22 HEMOGLOBIN (BEAKER) (test eisq=213) 9.3 GM/DL 11.2-15.7 HEMATOCRIT (BEAKER) (test rtxe=459) 30.4 % 34.1-44.9 MEAN CORPUSCULAR VOLUME (BEAKER) (test ikng=067) 85.2 fL 79.4-94.8 MEAN CORPUSCULAR HEMOGLOBIN (BEAKER) (test 26.1 pg 25.6-32.2 oukj=167) MEAN CORPUSCULAR HEMOGLOBIN CONC (BEAKER) (test 30.6 GM/DL 32.2-35.5 zbky=712) RED CELL DISTRIBUTION WIDTH (BEAKER) (test 14.9 % 11.7-14.4 qjob=896) PLATELET COUNT (BEAKER) (test ngtg=260) 447 K/CU MM 150-450 MEAN PLATELET VOLUME (BEAKER) (test dqfm=101) 9.4 fL 9.4-12.3 NUCLEATED RED BLOOD CELLS (BEAKER) (test 0 /100 WBC 0-0 ejde=643) NEUTROPHILS RELATIVE PERCENT (BEAKER) (test 64 % ogkn=607) LYMPHOCYTES RELATIVE PERCENT (BEAKER) (test 24 % fevh=854) MONOCYTES RELATIVE PERCENT (BEAKER) (test 8 % dnlj=820) EOSINOPHILS RELATIVE PERCENT (BEAKER) (test 2 % ixuh=387) BASOPHILS RELATIVE PERCENT (BEAKER) (test 1 % pyzh=714) NEUTROPHILS ABSOLUTE COUNT (BEAKER) (test 5.89 K/ L 1.56-6.13 zsgf=287) LYMPHOCYTES ABSOLUTE COUNT (BEAKER) (test 2.23 K/ L 1.18-3.74 tttj=442) MONOCYTES ABSOLUTE COUNT (BEAKER) (test 0.75 K/ L 0.24-0.36 vmjj=124) EOSINOPHILS ABSOLUTE COUNT (BEAKER) (test 0.18 K/ L 0.04-0.36 qgtw=723) BASOPHILS ABSOLUTE COUNT (BEAKER) (test 0.06 K/ L 0.01-0.08 fimd=411) IMMATURE GRANULOCYTES-RELATIVE PERCENT (BEAKER) 0 % 0-1 (test mard=4333) POCT-GLUCOSE [id number] 18:31:00 Test Item Value Reference Range Comments POC-GLUCOSE METER (BEAKER) 220 mg/dL 70-110 : TESTED AT [address] (test ealr=9346) [facility], [address]: Manufacturing Analyst/Cafeteria Assistant [id number] for LEAH, AURA POCT-GLUCOSE [id number] 18:30:00 Test Item Value Reference Range Comments POC-GLUCOSE METER (BEAKER) 186 mg/dL 70-110 : TESTED AT [address] (test vqeo=3644) [facility], [address]: Manufacturing Analyst/Cafeteria Assistant [id number] for LEAH, AURA POCT-GLUCOSE [id number] 18:29:00 Test Item Value Reference Range Comments POC-GLUCOSE METER (BEAKER) 183 mg/dL 70-110 : Notified RN/MD: TESTED AT (test mxak=2975) [address], [address]: Manufacturing Analyst/Cafeteria Assistant [id number] for LEAH, AURA POCT-GLUCOSE [id number] 18:29:00 Test Item Value Reference Range Comments POC-GLUCOSE METER (BEAKER) 66 mg/dL 70-110 : Notified RN/MD: TESTED AT (test cmbq=0502) [address], [address]: Manufacturing Analyst/Cafeteria Assistant [id number] for LEAH, AURA POCT-GLUCOSE [id number] 18:29:00 Test Item Value Reference Range Comments POC-GLUCOSE METER (BEAKER) 49 mg/dL 70-110 : TESTED AT [address] (test lzmf=6366) [facility], [address]: Manufacturing Analyst/Cafeteria Assistant [id number] for LEAH, AURA CALCIUM, [id number] 10:55:00 Test Item Value Reference Range Comments CALCIUM IONIZED (BEAKER) (test ypxn=222) 1.07 mmol/L 1.12-1.27 PH, BLOOD (BEAKER) (test ntgb=5315) 7.35 [id number] 08:46:00 Test Item Value Reference Range Comments MAGNESIUM (BEAKER) (test emlm=683) 2.4 mg/dL 1.6-2.6 BASIC METABOLIC [id number] 06:27:00 Test Item Value Reference Range Comments SODIUM (BEAKER) (test 138 meq/L 136-145 rlkq=715) POTASSIUM (BEAKER) (test 4.2 meq/L 3.5-5.1 zwkg=995) CHLORIDE (BEAKER) (test 99 meq/L 98-107 njwb=457) CO2 (BEAKER) (test 31 meq/L 22-29 mble=880) BLOOD UREA NITROGEN 26 mg/dL 7-21 (BEAKER) (test sdzx=200) CREATININE (BEAKER) (test 1.59 mg/dL 0.57-1.25 hjri=575) GLUCOSE RANDOM (BEAKER) 67 mg/dL 70-105 (test rlum=711) CALCIUM (BEAKER) (test 9.3 mg/dL 8.4-10.2 njld=599) EGFR (BEAKER) (test 40 mL/min/1.73 sq m ESTIMATED GFR IS NOT uijb=0561) ACCURATE CREATININE CLEARANCE IN PREDICTING GLOMERULAR FILTRATION RATE. ESTIMATED GFR IS NOT APPLICABLE FOR DIALYSIS PATIENTS. CBC W/PLT COUNT & AUTO [id number] 05:23:00 Test Item Value Reference Range Comments WHITE BLOOD CELL COUNT (BEAKER) (test akwj=148) 9.9 K/ L 3.5-10.5 RED BLOOD CELL COUNT (BEAKER) (test vxej=537) 3.50 M/ L 3.93-5.22 HEMOGLOBIN (BEAKER) (test yhrm=411) 9.0 GM/DL 11.2-15.7 HEMATOCRIT (BEAKER) (test qtrh=108) 29.3 % 34.1-44.9 MEAN CORPUSCULAR VOLUME (BEAKER) (test crkl=785) 83.7 fL 79.4-94.8 MEAN CORPUSCULAR HEMOGLOBIN (BEAKER) (test 25.7 pg 25.6-32.2 uzxq=023) MEAN CORPUSCULAR HEMOGLOBIN CONC (BEAKER) (test 30.7 GM/DL 32.2-35.5 uleh=309) RED CELL DISTRIBUTION WIDTH (BEAKER) (test 15.0 % 11.7-14.4 dltp=538) PLATELET COUNT (BEAKER) (test dwik=320) 522 K/CU MM 150-450 MEAN PLATELET VOLUME (BEAKER) (test vybu=924) 9.5 fL 9.4-12.3 NUCLEATED RED BLOOD CELLS (BEAKER) (test 0 /100 WBC 0-0 ciks=746) NEUTROPHILS RELATIVE PERCENT (BEAKER) (test 66 % gxgl=661) LYMPHOCYTES RELATIVE PERCENT (BEAKER) (test 25 % rlcx=159) MONOCYTES RELATIVE PERCENT (BEAKER) (test 7 % goue=660) EOSINOPHILS RELATIVE PERCENT (BEAKER) (test 1 % awsl=040) BASOPHILS RELATIVE PERCENT (BEAKER) (test 1 % nhvd=004) NEUTROPHILS ABSOLUTE COUNT (BEAKER) (test 6.46 K/ L 1.56-6.13 tnyy=867) LYMPHOCYTES ABSOLUTE COUNT (BEAKER) (test 2.44 K/ L 1.18-3.74 gyls=591) MONOCYTES ABSOLUTE COUNT (BEAKER) (test 0.71 K/ L 0.24-0.36 rrlz=055) EOSINOPHILS ABSOLUTE COUNT (BEAKER) (test 0.14 K/ L 0.04-0.36 wrpf=002) BASOPHILS ABSOLUTE COUNT (BEAKER) (test 0.06 K/ L 0.01-0.08 yuln=639) IMMATURE GRANULOCYTES-RELATIVE PERCENT (BEAKER) 0 % 0-1 (test gijl=2722) POCT-GLUCOSE [id number] 21:59:00 Test Item Value Reference Range Comments POC-GLUCOSE METER (BEAKER) 242 mg/dL 70-110 : Notified RN/MD: TESTED AT (test gljv=3194) [address], [address]: Manufacturing Analyst/Cafeteria Assistant [id number] for SHMUEL DUNCAN POCT-GLUCOSE [id number] 18:12:00 Test Item Value Reference Range Comments POC-GLUCOSE METER (BEAKER) 230 mg/dL 70-110 : Notified RN/MD: TESTED AT (test nhvy=0197) [address], [address]: Manufacturing Analyst/Cafeteria Assistant [id number] for KEHINDE LYNN [id number] 13:39:00 Test Item Value Reference Range Comments RPR SCREEN (BEAKER) (test nhxa=426) Nonreactive Nonreactive POCT-GLUCOSE [id number] 12:07:00 Test Item Value Reference Range Comments POC-GLUCOSE METER (BEAKER) 142 mg/dL 70-110 : Notified RN/MD: TESTED AT (test ogcw=6447) [address], [address]: Manufacturing Analyst/Cafeteria Assistant [id number] for KEHINDE LYNN POCT-GLUCOSE [id number] 10:56:00 Test Item Value Reference Range Comments POC-GLUCOSE METER (BEAKER) 116 mg/dL 70-110 : TESTED AT [address] (test hpmh=6210) [facility], [address]: Manufacturing Analyst/Cafeteria Assistant [id number] for KEHINDE LYNN HEMOGLOBIN [id number] 08:52:00 Test Item Value Reference Range Comments HEMOGLOBIN A1C (BEAKER) (test vgpo=173) 10.3 % 4.3-6.1 BASIC METABOLIC [id number] 05:10:00 Test Item Value Reference Range Comments SODIUM (BEAKER) (test 138 meq/L 136-145 opdh=255) POTASSIUM (BEAKER) (test 4.8 meq/L 3.5-5.1 fdwv=433) CHLORIDE (BEAKER) (test 101 meq/L 98-107 vflu=957) CO2 (BEAKER) (test 30 meq/L 22-29 jqkv=629) BLOOD UREA NITROGEN 25 mg/dL 7-21 (BEAKER) (test enfc=329) CREATININE (BEAKER) (test 1.30 mg/dL 0.57-1.25 wtmz=381) GLUCOSE RANDOM (BEAKER) 168 mg/dL 70-105 (test evmo=440) CALCIUM (BEAKER) (test 9.2 mg/dL 8.4-10.2 nwdj=681) EGFR (BEAKER) (test 50 mL/min/1.73 sq m ESTIMATED GFR IS NOT mjxt=3363) ACCURATE CREATININE CLEARANCE IN PREDICTING GLOMERULAR FILTRATION RATE. ESTIMATED GFR IS NOT APPLICABLE FOR DIALYSIS PATIENTS. CBC W/PLT COUNT & AUTO [id number] 04:56:00 Test Item Value Reference Range Comments WHITE BLOOD CELL COUNT (BEAKER) (test yrwr=594) 12.3 K/ L 3.5-10.5 RED BLOOD CELL COUNT (BEAKER) (test nujl=454) 3.48 M/ L 3.93-5.22 HEMOGLOBIN (BEAKER) (test nwiz=339) 9.2 GM/DL 11.2-15.7 HEMATOCRIT (BEAKER) (test yphp=873) 29.2 % 34.1-44.9 MEAN CORPUSCULAR VOLUME (BEAKER) (test pmfi=472) 83.9 fL 79.4-94.8 MEAN CORPUSCULAR HEMOGLOBIN (BEAKER) (test 26.4 pg 25.6-32.2 bksv=214) MEAN CORPUSCULAR HEMOGLOBIN CONC (BEAKER) (test 31.5 GM/DL 32.2-35.5 asax=287) RED CELL DISTRIBUTION WIDTH (BEAKER) (test 15.1 % 11.7-14.4 bpmc=955) PLATELET COUNT (BEAKER) (test durn=315) 500 K/CU MM 150-450 MEAN PLATELET VOLUME (BEAKER) (test nxuf=956) 10.0 fL 9.4-12.3 NUCLEATED RED BLOOD CELLS (BEAKER) (test 0 /100 WBC 0-0 ctit=279) NEUTROPHILS RELATIVE PERCENT (BEAKER) (test 71 % lpxo=076) LYMPHOCYTES RELATIVE PERCENT (BEAKER) (test 21 % jkih=014) MONOCYTES RELATIVE PERCENT (BEAKER) (test 7 % sorz=012) EOSINOPHILS RELATIVE PERCENT (BEAKER) (test 1 % pckc=856) BASOPHILS RELATIVE PERCENT (BEAKER) (test 1 % fkbr=254) NEUTROPHILS ABSOLUTE COUNT (BEAKER) (test 8.73 K/ L 1.56-6.13 dizx=164) LYMPHOCYTES ABSOLUTE COUNT (BEAKER) (test 2.59 K/ L 1.18-3.74 clcq=462) MONOCYTES ABSOLUTE COUNT (BEAKER) (test 0.81 K/ L 0.24-0.36 elyf=196) EOSINOPHILS ABSOLUTE COUNT (BEAKER) (test 0.10 K/ L 0.04-0.36 ilsn=219) BASOPHILS ABSOLUTE COUNT (BEAKER) (test 0.06 K/ L 0.01-0.08 bfvf=999) IMMATURE GRANULOCYTES-RELATIVE PERCENT (BEAKER) 0 % 0-1 (test yojq=0974) TSH/FREE T4 IF [id number] 04:12:00 Test Item Value Reference Range Comments THYROID STIMULATING HORMONE (BEAKER) (test 0.80 uIU/mL 0.35-4.94 zfzd=310) VITAMIN B12 AND [id number] 04:12:00 Test Item Value Reference Range Comments VITAMIN B12 (BEAKER) (test qabt=589) 733 pg/mL 213-816 FOLATE (BEAKER) (test yvqv=328) 10.6 ng/mL >=7.0 RAD, CHEST, 1 VIEW, NON [id number] 02:03:00Reason for exam:->respiratory distressShould this be performed [...] to be excluded clinically. Signed: Archie Ramirez [facility] Verified Date/Time: 08/20/2019 02:03:23 TROPONIN [id number] 23:15:00 Test Item Value Reference Range Comments TROPONIN I (BEAKER) (test tvyy=956) < ng/mL 0.00-0.03 Troponin I (TnI) levels [...] acidosis, acute neurological disease, and persistent tachyarrhythmia.LIPID [id number] 23:09:00 Test Item Value Reference Range Comments TRIGLYCERIDES (BEAKER) (test aksj=331) 63 mg/dL CHOLESTEROL (BEAKER) (test ltlj=338) 124 mg/dL HDL CHOLESTEROL (BEAKER) (test uzns=000) 38 mg/dL LDL CHOLESTEROL CALCULATED (BEAKER) (test 73 mg/dL gcbl=137) Triglyceride Reference Range: Low Risk <150 Borderline 150- 199 High Risk 200-499 Very High Risk >=500Cholesterol Reference Range: Low Risk <200 Borderline 200-239 High Risk > 240HDL Cholesterol Reference Range: Low Risk >=60 High Risk <40LDL Cholesterol Reference Range: Optimal <100 Near Optimal 100-129 Borderline 130-159 High 160-189 Very High >=190CT, CTANGIO [id number] 20:23:00FINAL REPORT CT, BRAIN/STROKE PROTOCOL, CT, CEREBRAL [...] stenosis, or proximal branch vessel occlusion. Left ABATEMENT WORKER is predominantly supplied by P- comm. Diminutive [...] MD on 08/19/2019 8:16 PM. Signed: Mona [place] Verified Date/Time: 08/19/2019 20:23:29 CT, CAROTID, [id number] 20:23:00FINAL REPORT CT, BRAIN/ STROKE PROTOCOL, CT, [...] stenosis, or proximal branch vessel occlusion. Left ABATEMENT WORKER is predominantly supplied by P- comm. Diminutive [...] Verified Date/Time: 08/19/2019 20:23:29 CT, CEREBRAL PERFUSION [id number] 20:23:00FINAL REPORT CT, BRAIN/STROKE PROTOCOL, CT, CEREBRAL [...] stenosis, or proximal branch vessel occlusion. Left ABATEMENT WORKER is predominantly supplied by P- comm. Diminutive [...] Esquivel Verified Date/Time: 08/19/2019 20:23:29 CT, BRAIN/STROKE [id number] 20:23:00FINAL REPORT CT, BRAIN/STROKE PROTOCOL, CT, CEREBRAL [...] stenosis, or proximal branch vessel occlusion. Left ABATEMENT WORKER is predominantly supplied by P- comm. Diminutive [...]
[2019-09-21] MEDS ORDERED: IPRATROPIUM BROM 0.5MG/2.5ML ONE (00:21)
[2019-09-21] MEDS ORDERED: ALBUTEROL 2.5 MG/3 ML NEB SOL ONE (00:21)
--- OUTSIDE RECORDS SUMMARY | 2019-09-21 00:21 | XMS REPORT ---
[...] Active Problem Essential hypertension I10 Active Problem senior care current use of insulin Z79.4 Active Problem [...]
--- OUTSIDE RECORDS SUMMARY | 2019-09-21 00:21 | XMS REPORT ---
[...] Active Problem Essential hypertension I10 Active Problem [facility] current use of insulin Z79.4 Active Problem [...]
--- OUTSIDE RECORDS SUMMARY | 2019-09-21 00:21 | XMS REPORT ---
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 Active Assessment [...] of left lower extremity M79.89 Active Problem termite control service representative current [...] End Status Dosage System Date Date Atorvastatin [facility] 83547276030 40 MG Orally Active 1 tablet Calcium Once a day Pantoprazole [facility] 50884433476 40 MG Orally Active 1 tablet Sodium Once a day Cyclobenzaprine [facility] 41186373779 10 MG Orally Active 1 tablet as HCl Three times a needed day Tramadol HCl [facility] 28092336398 50 MG Orally Active 1 tablet as every 6 hrs needed Doxycycline [facility] 15487930660 100 MG Orally Active 1 capsule Hyclate twice a day Zyrtec Allergy [facility] 68764144294 10 MG Orally Active 1 tablet Once a day Zoloft [facility] 46495730156 100 MG Orally Active 1 tablet Once a day Nitroglycerin [facility] 25970213738 400 MCG/SPRAY Active 1 spray Translingual Once a day as needed Azithromycin [facility] 37061947893 500 MG Orally Active as directed once a day Fluocinolone [facility] 27799488202 0.01 % Otic Active 5 applications Acetonide Twice a day into affected ear Acetic Acid [facility] 37701703742 2 % Otic Three Active 5 drops into times a day affected ear Gabapentin [facility] 37732168295 600 MG orally Active 1 tablet Three times a day Flonase [facility] 68730402849 50 MCG/ACT Active 2 spray in Nasally Once a each nostril day Spiriva Respimat [facility] 59391538304 2.5 MCG/ACT Active 2 puffs Inhalation Once a day Lantus SoloStar [facility] 26958848430 100 UNIT/ML Active 65 units Subcutaneous once a day Humalog KwikPen [facility] 95721401686 100 UNIT/ML Active as directed Subcutaneous 4 units with each meal tid Metformin HCl [facility] 26416190146 1000MG Active TAKE ONE TABLET BY MOUTH TWICE DAILY Olmesartan-Amlodi [facility] 71921010574 20-5-12.5 MG Active 1 tablet pine-HCTZ Orally Once a day PredniSONE [facility] 75693332920 10 MG Orally Active 2 tablet Once a day Plavix [facility] 39118177107 75 MG Orally Active 1 tablet Once a day Reglan [facility] 34947886055 10 MG Orally Active not defined FreeStyle Enriqueta [facility] 85458437071 - [place] Active as directed Sensor System Albuterol Sulfate [facility] 98761345163 (2.5 MG/3ML) Active 3 ml as needed 0.083% Inhalation Three times a day prn sob/wheezing Albuterol Sulfate [facility] 96176894468 108 (90 Base) Active 2 puffs as MCG/ACT needed Inhalation every 6 hrs Patanase [facility] 82392301754 0.6 % Nasally Active 2 sprays in Twice a day each nostril FreeStyle Enriqueta [facility] 56979504232 - dailyk Active as directed [place] Lasix [facility] 22186296005 20 MG Orally Active 1 tablet Once a day Results No Known Results Summary Purpose eClinicalWorks Submission
--- OUTSIDE RECORDS SUMMARY | 2019-09-21 00:21 | XMS REPORT ---
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
--- OUTSIDE RECORDS SUMMARY | 2019-09-21 00:22 | XMS REPORT ---
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 Active Problem Chronic stable angina I20.8 Active Problem Stable angina I20.8 Active Problem Dermatitis L30.9 Active Problem 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 Active Problem Apnea, not elsewhere classified R06.81 Active Problem Slow transit constipation K59.01 Active Problem Cigarette nicotine dependence F17.210 Active without complication Problem Hypoglycemia associated with type 2 E11.649 Active diabetes mellitus Problem Pain in joint of right hand M25.541 Active Assessment detention current use of insulin Z79.4 Active Assessment Cigarette nicotine dependence F17.210 Active without complication Assessment Other chronic pain G89.29 Active Assessment Mass of both adrenal glands E27.8 Active Assessment Type 2 diabetes mellitus with E11.65 Active hyperglycemia Assessment Unstable angina I20.0 Active Assessment Chronic diastolic congestive heart I50.32 Active failure Assessment Cerebrovascular accident (CVA), I63.9 Active unspecified mechanism Assessment Edema, unspecified type R60.9 Active Problem Routine gynecological examination Z01.419 Active Problem Trigger index finger of right hand M65.321 Active Problem Trigger finger of right thumb M65.311 Active Problem Angina of effort I20.8 Active Problem Seasonal allergies J30.2 Active Problem Adult general medical exam Z00.00 Active Problem Other chronic pain G89.29 Active Problem Type 2 diabetes mellitus with E11.22 Active diabetic chronic kidney disease Problem Type 2 diabetes mellitus with other E11.69 Active specified complication Problem JOSUÉ (obstructive sleep apnea) G47.33 Active Problem Type 2 diabetes mellitus with other E11.29 Active diabetic kidney complication Assessment Mass of upper lobe of right lung R91.8 Active Assessment Hospital discharge follow-up Z09 Active Assessment Metastatic disease C79.9 Active Assessment Sinusitis J32.9 Active Problem Gastro-esophageal reflux disease K21.9 Active without esophagitis Problem detention current use of insulin Z79.4 Active Problem Essential hypertension I10 Active Problem Mixed hyperlipidemia E78.2 Active Problem Neuropathy G62.9 Active Problem Chronic maxillary sinusitis J32.0 Active Problem Obstructive sleep apnea G47.33 Active Problem Otalgia, right ear H92.01 Active Problem Cardiac disease I51.9 Active Problem CKD (chronic kidney disease), stage N18.3 Active III Problem Type 2 diabetes mellitus with E11.65 Active hyperglycemia Problem Chronic otitis externa of right H60.61 Active ear, unspecified type Problem Acute bronchitis, unspecified J20.9 Active organism Problem Chronic obstructive pulmonary J44.0 Active disease with acute lower respiratory infection Problem Cough productive of yellow sputum R05 Active Problem Chronic diastolic congestive heart I50.32 Active failure Problem Cerebrovascular accident (CVA), I63.9 Active unspecified mechanism Problem Metastatic disease C79.9 Active Problem Gastroparesis K31.84 Active Problem Unstable angina I20.0 Active Problem Diabetes mellitus type 2, E11.9 Active uncontrolled, without complications Problem Gastroesophageal reflux disease, K21.9 Active esophagitis presence not specified Problem Chronic obstructive pulmonary J44.9 Active disease Problem Mass of both adrenal glands E27.8 Active Problem Asthmatic bronchitis without J45.909 Active complication Problem Hypomagnesemia E83.42 Active Problem Gastroesophageal reflux disease K21.9 Active without esophagitis Problem HTN (hypertension) I10 Active Problem Depression F32.9 Active Problem Allergic rhinitis J30.9 Active Problem Hyperlipidemia E78.5 Active Problem Tachycardia R00.0 Active Problem Obesity E66.9 Active Medications Medication Code Code Instructions Start End Status Dosage System Date Date Pantoprazole [facility] 82333819334 40 MG Orally Active 1 tablet Sodium Once a day Amoxicillin [facility] 66582107740 500 MG Orally Sep 07Aug Active 1 capsule every 8 hrs 2018 Reglan [facility] 68580396887 10 MG Orally Active not defined Albuterol Sulfate [facility] 28779714810 108 (90 Base) Active 2 puffs as MCG/ACT needed Inhalation every 6 hrs Zoloft [facility] 86712889487 100 MG Orally Active 1 tablet Once a day Acetic Acid [facility] 91236218369 2 % Otic Three Active 5 drops into times a day affected ear Flonase [facility] 74224673660 50 MCG/ACT Active 2 spray in Nasally Once a each nostril day Atorvastatin [facility] 98256088212 40 MG Orally Active 1 tablet Calcium Once a day FreeStyle Enriqueta [facility] 57177451184 - [place] Active as directed Sensor System Lasix [facility] 40164303875 20 MG Orally Active 1 tablet Once a day Spiriva Respimat [facility] 73039057153 2.5 MCG/ACT Active 2 puffs Inhalation Once a day Nitroglycerin [facility] 08095597294 400 MCG/SPRAY Active 1 spray Translingual Once a day as needed Albuterol Sulfate [facility] 41056427333 (2.5 MG/3ML) Active 3 ml as needed 0.083% Inhalation Three times a day prn sob/wheezing Cyclobenzaprine [facility] 76724873260 10 MG Orally Active 1 tablet as HCl Three times a needed day Olmesartan-Amlodi [facility] 55165930724 20-5-12.5 MG Active 1 tablet pine-HCTZ Orally Once a day Zyrtec Allergy [facility] 38587350784 10 MG Orally Active 1 tablet Once a day Fluocinolone [facility] 70667174564 0.01 % Otic Active 5 applications Acetonide Twice a day into affected ear Patanase [place] 81832999211 0.6 % Nasally Active 2 sprays in Twice a day each nostril Humalog KwikPen [facility] 74579412179 100 UNIT/ML Active as directed Subcutaneous 4 units with each meal tid PredniSONE ND 87296066078 10 MG Orally Active 2 tablet Once a day Gabapentin [facility] 32232392036 600 MG orally Active 1 tablet Three times a day FreeStyle Enriqueta [facility]35039 [facility] Active as directed [place] Plavix [facility] 02851463978 75 MG Orally Active 1 tablet Once a day Lantus SoloStar ND 63494736267 100 UNIT/ML Active 65 units Subcutaneous once a day Results No Known Results Summary Purpose eClinicalWorks Submission
[2019-09-21 00:46] LABS: Arterial Blood Carboxyhemoglob 1.6 % (0-1.5); Blood Gas Oxyhemoglobin 91.8 % (94-97); Blood O2 Saturation 93.8 % (92-98.5)
[2019-09-21 01:26] LABS: Basophils % 0.4 % (0-1.3); Hematocrit 30.6 % (36.0-45.0); Lymphocytes % 16.5 % (15.3-44.8); MPV 7.8 fL (7.6-11.3); Protime INR 0.93; RBC Red Blood Cell Count 3.78 M/uL (3.86-4.86)
[2019-09-21 01:48] LABS: ALT/SGPT 39 U/L (12-78); AST/SGOT 28 U/L (15-37); Alkaline Phosphatase 79 U/L (45-117); BUN Blood Urea Nitrogen 45 mg/dL (7-18); Bicarbonate 37 mmol/L (21-32); Bilirubin Direct < 0.1 mg/dL (0-0.2); Bilirubin Total 0.3 mg/dL (0.2-1.0); Glucose Level 227 mg/dL (74-106); Potassium 4.1 mmol/L (3.5-5.1); Protein, Total 6.9 g/dL (6.4-8.2); Sodium Level 136 mmol/L (136-145); Troponin (Emerg Dept Use Only) < 0.02 ng/mL (0.0-0.045)
[2019-09-21 01:49] LABS: Magnesium 2.4 mg/dL (1.8-2.4); NT PRO-BNP 365 pg/mL (<125)
--- NOTE | 2019-09-21 03:28 | ER ---
Nurse's Notes [facility] Name: Tammy Walsh Age: 64 yrs Sex: Female : 1955 Arrival Date: 09/21/2019 Time: 00:19 Bed 3 Private MD: Diagnosis: Dyspnea, unspecified Presentation: 09/21 00:19 Presenting complaint: EMS states: Family reported pt was complaining of shortness of ea breath, was given lorazepam, at around 2200 and 40 minutes later was given Morphine, family reported pt started having difficulty breathing. upon EMS arrival pt's O2 sats were 92% on home O2 at 3 L per NC. Pt was placed on non rebreather, sats went up to 100%. BS 266. Transition of care: patient was not received from another setting of care. Onset of symptoms was September 21, 2019. Risk Assessment: Do you want to hurt yourself or someone else? Patient reports no desire to harm self or others. Initial Sepsis Screen: Does the patient meet any 2 criteria? RR > 20 per min. Does the patient have a suspected source of infection? No. Patient's initial sepsis screen is negative. Care prior to arrival: placed on non rebreather. 00:19 Method Of Arrival: EMS: [facility] ea 00:19 Acuity: PATRICIA 2 ea Triage Assessment: 00:19 General: Appears uncomfortable, Behavior is restless. Pain: Unable to use pain scale. ea FLACC scale score is 2 out of 10. Neuro: Level of Consciousness is awake, confused. Cardiovascular: Patient's skin is warm and dry. Respiratory: Airway is patent Respiratory effort is even, labored, shallow, Respiratory pattern is tachypnea. GI: Abdomen is round. Historical: - Allergies: 01:00 Hydrocodone-Acetaminophen (Sever Itching); ea - PMHx: 01:00 Myocardial infarction; Hypertension; Gastroparesis; Diabetes - NIDDM; CVA; COPD; CHF; ea Cancer, Breast; - Immunization history:: Adult Immunizations up to date. - Social history:: Smoking status: Patient/guardian denies using tobacco. - Ebola Screening: : No symptoms or risks identified at this time. Screenin:58 Abuse screen: Denies threats or abuse. Nutritional screening: No deficits noted. ea Tuberculosis screening: No symptoms or risk factors identified. Fall Risk IV access (20 points). Assessment: 01:40 Reassessment: Patient requesting to have BiPAP removed, O2 sat at 98 % on RA, patient lp1 more alert at this time, responding to family at bedside; Dr. Carreno at bedside to reassess patient and discuss plan of care. 03:00 Reassessment: Patient and/or family updated on plan of care and expected duration. Pain ea level reassessed. Pt groggy, able to answer question, respirations improved. Dr Eduardo at bedside updating pt on plan of care. 04:01 Reassessment: Patient and/or family updated on plan of care and expected duration. Pain ea level reassessed. Patient is alert, oriented x 3, equal unlabored respirations, skin warm/dry/pink. Discharge instruction given to patient and family, verbalized the understanding of instruction. Pt left ED via wheelchair accompanied by family, pt tolerating well. No s/s of pain or discomfort noted at this time. Vital Signs: 00:19 BP 134 / 61; Pulse 95; Resp 28; Temp 97; Pulse Ox 97% ; Weight 127.01 kg; Height 5 ft. ea 3 in. (160.02 cm); 01:28 BP 124 / 67; Pulse 82; Resp 24; Pulse Ox 99% on BiPAP; ea 02:06 BP 116 / 71; Pulse 82; Resp 20; Pulse Ox 95% on R/A; ea 03:50 BP 110 / 66; Pulse 80; Resp 18; Temp 97.2(TE); Pulse Ox 95% on R/A; ea 00:19 Body Mass Index 49.60 (127.01 kg, 160.02 cm) ea ED Course: 00:19 Patient arrived in ED. tw4 00:19 Jose Guadalupe Carreno MD is Attending Physician. tw4 00:19 Arm band placed on right wrist. Patient placed in an exam room, on a stretcher, on ea pulse oximetry. 00:19 Patient has correct armband on for positive identification. Placed in gown. Bed in low ea position. Call light in reach. Side rails up X2. 00:58 Triage completed. ea 01:07 Pema Kauffman, RN is Primary Nurse. ea 01:10 Missed attempt(s): 22 gauge in left hand. lp1 01:27 EKG done, by ED staff, reviewed by Jose Guadalupe Carreno MD. ea 01:32 Accessed peripheral vein via ultrasound, utilizing dynamic ultrasound technique using lp1 ,sterile technique, per hospital protocol. Clean \T\ dry. Dressing intact. Good blood return. Flushes easily. 20g to L AC. 01:34 Chest Single View XRAY In Process Unspecified. EDMS 02:08 No provider procedures requiring assistance completed. lp1 04:00 IV discontinued, intact, bleeding controlled, No redness/swelling at site. Pressure ea dressing applied. Administered Medications: No medications were administered Outcome: 03:27 Discharge ordered by . tw4 04:03 Discharged to home via wheelchair, with family. ea 04:03 Condition: stable 04:03 Discharge instructions given to patient, family, Instructed on discharge instructions, follow up and referral plans. Demonstrated understanding of instructions, follow-up care. 04:05 Patient left the ED. ea Signatures: Dispatcher [employer] EDEva Guerrero RN RN lp1 Pema Kauffman RN RN Jose Guadalupe Brewster MD MD tw4 Corrections: (The following items were deleted from the chart) 01:00 00:19 Arm band placed on right wrist. Patient placed in an exam room, on a stretcher, ea on pulse oximetry, ea
--- NOTE | 2019-09-21 03:28 | EDPHYS ---
Physician Documentation [facility] Name: Tammy Walsh Age: 64 yrs Sex: Female : 1955 Arrival Date: 09/21/2019 Time: 00:19 Bed 3 Private MD: ED Physician Jose Guadalupe Carreno HPI: 09/21 02:44 This 64 yrs old Black Female presents to ER via EMS with complaints of SOB. tw4 02:44 The patient has shortness of breath at rest. Onset: The symptoms/episode began/occurred tw4 just prior to arrival. Duration: The symptoms are continuous, but are steadily getting better. The patient's shortness of breath has no apparent modifying factors. The patient has not experienced similar symptoms in the past. Pt started having SOB after receiving Ativan and Morphine at home while on hospice. Historical: - Allergies: 01:00 Hydrocodone-Acetaminophen (Sever Itching); ea - PMHx: 01:00 Myocardial infarction; Hypertension; Gastroparesis; Diabetes - NIDDM; CVA; COPD; CHF; ea Cancer, Breast; - Immunization history:: Adult Immunizations up to date. - Social history:: Smoking status: Patient/guardian denies using tobacco. - Ebola Screening: : No symptoms or risks identified at this time. ROS: 02:44 Constitutional: Negative for fever, chills, and weight loss, Neck: Negative for injury, tw4 pain, and swelling, Cardiovascular: Negative for chest pain, palpitations, and edema, Back: Negative for injury and pain, MS/Extremity: Negative for injury and deformity, Skin: Negative for injury, rash, and discoloration. 02:44 Respiratory: Positive for shortness of breath, Negative for cough, dyspnea on exertion, hemoptysis, orthopnea, pleurisy. Exam: 02:44 Chest/axilla: Normal chest wall appearance and motion. Nontender with no deformity. tw4 No lesions are appreciated. Cardiovascular: Regular rate and rhythm with a normal S1 and S2. No gallops, murmurs, or rubs. Normal PMI, no JVD. No pulse deficits. 02:44 Abdomen/GI: Soft, non-tender, with normal bowel sounds. No distension or tympany. No guarding or rebound. No evidence of tenderness throughout. Back: No spinal tenderness. No costovertebral tenderness. Full range of motion. MS/ Extremity: Pulses equal, no cyanosis. Neurovascular intact. Full, normal range of motion. Neuro: Awake and alert, GCS 15, oriented to person, place, time, and situation. Cranial nerves II-XII grossly intact. Motor strength 5/5 in all extremities. Sensory grossly intact. Cerebellar exam normal. Normal gait. 02:44 Constitutional: The patient appears in obvious distress, mildly distressed. 02:44 Respiratory: mild respiratory distress is noted, Respirations: normal, Breath sounds: are clear throughout. Vital Signs: 00:19 BP 134 / 61; Pulse 95; Resp 28; Temp 97; Pulse Ox 97% ; Weight 127.01 kg; Height 5 ft. ea 3 in. (160.02 cm); 01:28 BP 124 / 67; Pulse 82; Resp 24; Pulse Ox 99% on BiPAP; ea 02:06 BP 116 / 71; Pulse 82; Resp 20; Pulse Ox 95% on R/A; ea 03:50 BP 110 / 66; Pulse 80; Resp 18; Temp 97.2(TE); Pulse Ox 95% on R/A; ea 00:19 Body Mass Index 49.60 (127.01 kg, 160.02 cm) ea MDM: 00:19 Patient medically screened. tw4 03:28 Differential diagnosis: Bronchitis CHF exacerbation, Pneumothorax pulmonary edema. tw4 Antibiotic administration: Not indicated. Data reviewed:. Data reviewed: lab test result(s), CBC, white blood cell count, hemoglobin, hematocrit, platelets, electrolytes, sodium, potassium, chloride, serum bicarbonate, BUN, creatinine, serum glucose, hepatic panel. Data interpreted: Pulse oximetry: Interpretation: normal. Test interpretation: by ED physician or midlevel provider: ECG, plain radiologic studies. Counseling: I had a detailed discussion with the patient and/or guardian regarding: the historical points, exam findings, and any diagnostic results supporting the discharge/admit diagnosis. Special discussion: I discussed with the patient/guardian in detail that at this point there is no indication for admission to the hospital. It is understood, however, that if the symptoms persist or worsen the patient needs to return immediately for re-evaluation. 09/21 00:44 Order name: Basic Metabolic Panel; Complete Time: 02:32 tw4 09/21 02:32 Interpretation: Normal except: CL 94; GLUC 227; BUN 45; CO2 37; CRE 1.39; GFR 47. tw4 09/21 00:44 Order name: CBC with Diff; Complete Time: 02:32 tw4 09/21 02:32 Interpretation: Normal except: WBC 12.0; RBC 3.78; HGB 10.3; HCT 30.6; PLT 490; RDW tw4 16.3; ENRIQUE% 75.2; NEUT A 9.0. 09/21 00:44 Order name: LFT's; Complete Time: 02:32 tw4 09/21 02:32 Interpretation: Normal except: ALB 3.0; GLOB 3.9; A/G 0.8. tw4 09/21 00:44 Order name: Magnesium; Complete Time: 02:32 tw4 09/21 02:33 Interpretation: Within normal limits: MG 2.4. 09/21 00:44 Order name: NT PRO-BNP; Complete Time: 02:32 tw4 09/21 02:32 Interpretation: Normal except: NT PRO-BNP 365. 4 09/21 00:44 Order name: PT-INR; Complete Time: 02:32 tw4 09/21 00:31 Order name: Chest Single View XRAY mw2 09/21 00:44 Order name: Troponin (emerg Dept Use Only); Complete Time: 02:32 tw4 09/21 02:42 Interpretation: Within normal limits: TROPED < 0.02. 09/21 00:44 Order name: EKG; Complete Time: 00:45 4 09/21 00:44 Order name: Cardiac monitoring; Complete Time: 01:30 tw4 09/21 00:44 Order name: EKG - Nurse/Tech; Complete Time: 01:29 4 09/21 00:44 Order name: IV Saline Lock; Complete Time: 01:30 tw4 09/21 00:44 Order name: Labs collected and sent; Complete Time: 01:30 tw4 09/21 00:45 Order name: ABG Arterial Blood Gas; Complete Time: 02:32 EDMS 09/21 02:33 Interpretation: Normal except: ABGHCO3 36.3; ABGPO2 74.7; ABGPCO2 56.3; VTAN7RM 91.8; tw4 ABGCOHB 1.6. 09/21 00:44 Order name: O2 Per Protocol; Complete Time: 01:29 tw4 12/04 00:44 Order name: O2 Sat Monitoring; Complete Time: EC:28 Rate is 81 beats/min. Rhythm is regular. QRS [place] is Normal. [place] interval is normal. QRS tw4 interval is normal. QT interval is normal. No Q waves. T waves are Normal. No ST changes noted. Clinical impression: Normal ECG. Interpreted by me. Reviewed by me. Administered Medications: No medications were administered Disposition: 09/21/19 03:27 Discharged to Home. Impression: Dyspnea, unspecified. - Condition is Stable. - Discharge Instructions: Shortness of Breath, Shortness of Breath, Bble-bw-Hqpm, Hospice. - Medication Reconciliation Form, Thank You Letter, Antibiotic Education, Prescription Opioid Use form. - Follow up: Private Physician; When: Upon discharge from the Emergency Department; Reason: Recheck today's complaints, Continuance of care. - Problem is new. - Symptoms have improved. Signatures: Dispatcher [employer] EDPema Newton RN RN ea Wadley, Terrence, MD MD tw4 Corrections: (The following items were deleted from the chart) 04:05 03:27 09/21/2019 03:27 Discharged to Home. Impression: Dyspnea, unspecified. Condition ea is Stable. Forms are Medication Reconciliation Form, Thank You Letter, Antibiotic Education, Prescription Opioid Use. Follow up: Private Physician; When: Upon discharge from the Emergency Department; Reason: Recheck today's complaints, Continuance of care. Problem is new. Symptoms have improved. tw4
[2019-09-21 04:15] VITALS: O2SAT 95
[2019-09-21 04:17] VITALS: BP 110/66; TEMP 97.2
--- NOTE | 2019-09-21 06:20 | EKG ---
Test Date: 2019-09-21 Test Time: 01:24:08 [employer] Manager: ELYSIA MEASUREMENT RESULTS: Intervals: Rate: 81 NC: 182 QRSD: 68 QT: 350 QTc: 406 [place]: P: 91 NC: 182 QRS: 88 T: 76 INTERPRETIVE STATEMENTS: Normal sinus rhythm Normal ECG Compared to ECG 09/09/2019 07:31:36 No significant changes Electronically Signed On 09-21-19 06:19:14 [employer] by Eloy Kapadia
--- NOTE | 2019-09-21 08:04 | RAD REPORT ---
EXAM DESCRIPTION: [place] Single View09/21/2019 1:33 am CLINICAL HISTORY: Shortness of breath COMPARISON: August 2019 FINDINGS: The lungs appear clear of acute infiltrate. The heart is mildly enlarged. Prominence of mediastinum is secondary lymphadenopathy
== END 2019-09-21 04:05 | disposition home or self-care (01) ==
LOC: ER 00:15
DX: R06.00 Dyspnea, unspecified (principal); Z88.6 Allergy status to analgesic agent
CPT/HCPCS: 36415; 71045; 80048; 80076; 82805; 83735; 83880; 84484; 85025; 85610; 93005; 99284

== ENCOUNTER 2019-09-23 17:22 | Emergency (ER) | payer OTHER ==
[~2019-09-23 17:22] MED LIST: RSI MEDICATION KIT IV ONE
[2019-09-23] MEDS ORDERED: EPINEPHrine 1 MG/10 ML SYR IV ONE (17:23)
[2019-09-23] MEDS ORDERED: NA CHLORIDE 0.9% 1,000 ML IV ONE (17:23)
--- OUTSIDE RECORDS SUMMARY | 2019-09-23 17:25 | XMS REPORT ---
:1955 [facility] [address] [place] [address] Care Team Providers Name Role Phone CLINTON [...] (BEAKER) 330 mg/dL 70-110 : TESTED AT [address] (test istj=8962) [place], [address]: Research Technician/Plumber Cub IR=[id number] for Cha Valadez POCT-GLUCOSE [id number] 13:26:00 Test Item Value Reference Range Comments POC-GLUCOSE METER (BEAKER) 343 mg/dL 70-110 : TESTED AT [address] (test hyqm=8789) [facility], [address]: Research Technician/Plumber Cub [id number] for SERGEY PAUL C-REACTIVE [id number] 11:30:00 Test Item Value Reference Range Comments C-REACTIVE PROTEIN (BEAKER) (test uehm=618) 2.34 mg/dL 0.00-0.50 [id number] 11:27:00 Test Item Value Reference Range Comments FIBRINOGEN LEVEL (BEAKER) (test ngng=561) 866 mg/dl 225-434 [id number] 11:24:00 Test Item Value Reference Range Comments D-DIMER QUANTITATIVE (BEAKER) (test ljgt=018) 1.66 MG/L FEU <0.50 Intended Use: The [...] of thrombosis is within 95-100% range.POCT- GLUCOSE [id number] 09:05:00 Test Item Value Reference Range Comments POC-GLUCOSE METER (BEAKER) 283 mg/dL 70-110 : TESTED AT [facility] [address] [facility] (test tenj=3522) [facility], [address]: Research Technician/Plumber Cub HO=[id number] for OMEGA, JASON RAD, CHEST, 1 VIEW, NON [id number] 07:47:00Reason for exam:->CHFFINAL REPORT CLINICAL HISTORY: CHF TECHNIQUE: 1 view of the chest. COMPARISON: 08/19/2019 IMPRESSION: Pulmonary vascular congestive findings appear slightly decreased. There is no lobar consolidation or significant pleural fluid. Cardiomegaly is unchanged. Signed: Monisha Castro MDReport Verified Date/Time: 08/22/2019 07:47:58 Reading Location: [facility] Radiology Reading Room Electronically signed by: MONISHA CASTRO M.D. on 07:47 AMBASIC METABOLIC [id number] 05:32:00 Test Item Value Reference Range Comments SODIUM (BEAKER) (test 136 meq/L 136-145 xtda=269) POTASSIUM (BEAKER) (test 4.8 meq/L 3.5-5.1 pauc=734) CHLORIDE (BEAKER) (test 98 meq/L 98-107 xril=204) CO2 (BEAKER) (test 31 meq/L 22-29 ombm=937) BLOOD UREA NITROGEN 26 mg/dL 7-21 (BEAKER) (test rnhk=574) CREATININE (BEAKER) (test 1.54 mg/dL 0.57-1.25 jpge=898) GLUCOSE RANDOM (BEAKER) 224 mg/dL 70-105 (test cvtr=546) CALCIUM (BEAKER) (test 9.0 mg/dL 8.4-10.2 plwz=670) EGFR (BEAKER) (test 41 mL/min/1.73 sq m ESTIMATED GFR IS NOT maoq=6318) ACCURATE CREATININE CLEARANCE IN PREDICTING GLOMERULAR FILTRATION RATE. ESTIMATED GFR IS NOT APPLICABLE FOR DIALYSIS PATIENTS. B-TYPE NATRIURETIC FACTOR (BNP)2019-08-22 05:21:00 Test Item Value Reference Range Comments B-TYPE NATRIURETIC PEPTIDE (BEAKER) (test jewr=937) 15 pg/mL 0-100 CBC W/PLT COUNT & AUTO [id number] 04:59:00 Test Item Value Reference Range Comments WHITE BLOOD CELL COUNT (BEAKER) (test dnvh=848) 9.1 K/ L 3.5-10.5 RED BLOOD CELL COUNT (BEAKER) (test pxok=226) 3.57 M/ L 3.93-5.22 HEMOGLOBIN (BEAKER) (test oiqe=185) 9.3 GM/DL 11.2-15.7 HEMATOCRIT (BEAKER) (test isso=836) 30.4 % 34.1-44.9 MEAN CORPUSCULAR VOLUME (BEAKER) (test segl=940) 85.2 fL 79.4-94.8 MEAN CORPUSCULAR HEMOGLOBIN (BEAKER) (test 26.1 pg 25.6-32.2 grqu=596) MEAN CORPUSCULAR HEMOGLOBIN CONC (BEAKER) (test 30.6 GM/DL 32.2-35.5 tziv=654) RED CELL DISTRIBUTION WIDTH (BEAKER) (test 14.9 % 11.7-14.4 jits=054) PLATELET COUNT (BEAKER) (test ponb=449) 447 K/CU MM 150-450 MEAN PLATELET VOLUME (BEAKER) (test kfmd=700) 9.4 fL 9.4-12.3 NUCLEATED RED BLOOD CELLS (BEAKER) (test 0 /100 WBC 0-0 emmo=189) NEUTROPHILS RELATIVE PERCENT (BEAKER) (test 64 % lasl=060) LYMPHOCYTES RELATIVE PERCENT (BEAKER) (test 24 % snaq=342) MONOCYTES RELATIVE PERCENT (BEAKER) (test 8 % yihc=661) EOSINOPHILS RELATIVE PERCENT (BEAKER) (test 2 % nxew=702) BASOPHILS RELATIVE PERCENT (BEAKER) (test 1 % wyyj=697) NEUTROPHILS ABSOLUTE COUNT (BEAKER) (test 5.89 K/ L 1.56-6.13 cvob=153) LYMPHOCYTES ABSOLUTE COUNT (BEAKER) (test 2.23 K/ L 1.18-3.74 iuue=800) MONOCYTES ABSOLUTE COUNT (BEAKER) (test 0.75 K/ L 0.24-0.36 zykq=050) EOSINOPHILS ABSOLUTE COUNT (BEAKER) (test 0.18 K/ L 0.04-0.36 uuuk=800) BASOPHILS ABSOLUTE COUNT (BEAKER) (test 0.06 K/ L 0.01-0.08 jtru=774) IMMATURE GRANULOCYTES-RELATIVE PERCENT (BEAKER) 0 % 0-1 (test echm=8751) POCT-GLUCOSE [id number] 18:31:00 Test Item Value Reference Range Comments POC-GLUCOSE METER (BEAKER) 220 mg/dL 70-110 : TESTED AT [address] (test frhp=8326) [facility], [address]: Research Technician/Plumber Cub YG=[id number] for LEAH, AURA POCT-GLUCOSE [id number] 18:30:00 Test Item Value Reference Range Comments POC-GLUCOSE METER (BEAKER) 186 mg/dL 70-110 : TESTED AT [address] (test ouah=9897) [facility], [address]: Research Technician/Plumber Cub EU=[id number] for LEAH, AURA POCT-GLUCOSE [id number] 18:29:00 Test Item Value Reference Range Comments POC-GLUCOSE METER (BEAKER) 183 mg/dL 70-110 : Notified RN/MD: TESTED AT (test stck=0337) [address], [address]: Research Technician/Plumber Cub HS=[id number] for LEAH, AURA POCT-GLUCOSE [id number] 18:29:00 Test Item Value Reference Range Comments POC-GLUCOSE METER (BEAKER) 66 mg/dL 70-110 : Notified RN/MD: TESTED AT (test reyb=1550) [address], [address]: Research Technician/Plumber Cub VK=[id number] for LEAH, AURA POCT-GLUCOSE [id number] 18:29:00 Test Item Value Reference Range Comments POC-GLUCOSE METER (BEAKER) 49 mg/dL 70-110 : TESTED AT [address] (test thjj=9689) [facility], [address]: Research Technician/Plumber Cub MI=[id number] for LEAH, AURA CALCIUM, [id number] 10:55:00 Test Item Value Reference Range Comments CALCIUM IONIZED (BEAKER) (test nodv=329) 1.07 mmol/L 1.12-1.27 PH, BLOOD (BEAKER) (test tiyy=0731) 7.35 [id number] 08:46:00 Test Item Value Reference Range Comments MAGNESIUM (BEAKER) (test movu=424) 2.4 mg/dL 1.6-2.6 BASIC METABOLIC [id number] 06:27:00 Test Item Value Reference Range Comments SODIUM (BEAKER) (test 138 meq/L 136-145 lacv=240) POTASSIUM (BEAKER) (test 4.2 meq/L 3.5-5.1 ugjc=466) CHLORIDE (BEAKER) (test 99 meq/L 98-107 wmdm=486) CO2 (BEAKER) (test 31 meq/L 22-29 gblw=013) BLOOD UREA NITROGEN 26 mg/dL 7-21 (BEAKER) (test szwd=022) CREATININE (BEAKER) (test 1.59 mg/dL 0.57-1.25 suvj=441) GLUCOSE RANDOM (BEAKER) 67 mg/dL 70-105 (test usqn=575) CALCIUM (BEAKER) (test 9.3 mg/dL 8.4-10.2 qwqn=069) EGFR (BEAKER) (test 40 mL/min/1.73 sq m ESTIMATED GFR IS NOT sjgc=3497) ACCURATE CREATININE CLEARANCE IN PREDICTING GLOMERULAR FILTRATION RATE. ESTIMATED GFR IS NOT APPLICABLE FOR DIALYSIS PATIENTS. CBC W/PLT COUNT & AUTO [id number] 05:23:00 Test Item Value Reference Range Comments WHITE BLOOD CELL COUNT (BEAKER) (test jieg=581) 9.9 K/ L 3.5-10.5 RED BLOOD CELL COUNT (BEAKER) (test xcio=581) 3.50 M/ L 3.93-5.22 HEMOGLOBIN (BEAKER) (test ukay=252) 9.0 GM/DL 11.2-15.7 HEMATOCRIT (BEAKER) (test adge=988) 29.3 % 34.1-44.9 MEAN CORPUSCULAR VOLUME (BEAKER) (test rsqn=521) 83.7 fL 79.4-94.8 MEAN CORPUSCULAR HEMOGLOBIN (BEAKER) (test 25.7 pg 25.6-32.2 tkgk=182) MEAN CORPUSCULAR HEMOGLOBIN CONC (BEAKER) (test 30.7 GM/DL 32.2-35.5 imrt=881) RED CELL DISTRIBUTION WIDTH (BEAKER) (test 15.0 % 11.7-14.4 pajq=920) PLATELET COUNT (BEAKER) (test kogo=297) 522 K/CU MM 150-450 MEAN PLATELET VOLUME (BEAKER) (test pdwh=363) 9.5 fL 9.4-12.3 NUCLEATED RED BLOOD CELLS (BEAKER) (test 0 /100 WBC 0-0 jrrb=859) NEUTROPHILS RELATIVE PERCENT (BEAKER) (test 66 % skvj=769) LYMPHOCYTES RELATIVE PERCENT (BEAKER) (test 25 % juqt=955) MONOCYTES RELATIVE PERCENT (BEAKER) (test 7 % nkjy=518) EOSINOPHILS RELATIVE PERCENT (BEAKER) (test 1 % qoeh=558) BASOPHILS RELATIVE PERCENT (BEAKER) (test 1 % rhkx=753) NEUTROPHILS ABSOLUTE COUNT (BEAKER) (test 6.46 K/ L 1.56-6.13 cpuq=010) LYMPHOCYTES ABSOLUTE COUNT (BEAKER) (test 2.44 K/ L 1.18-3.74 oywu=486) MONOCYTES ABSOLUTE COUNT (BEAKER) (test 0.71 K/ L 0.24-0.36 gmnv=387) EOSINOPHILS ABSOLUTE COUNT (BEAKER) (test 0.14 K/ L 0.04-0.36 xzjh=724) BASOPHILS ABSOLUTE COUNT (BEAKER) (test 0.06 K/ L 0.01-0.08 wmbz=812) IMMATURE GRANULOCYTES-RELATIVE PERCENT (BEAKER) 0 % 0-1 (test lqbl=3806) POCT-GLUCOSE [id number] 21:59:00 Test Item Value Reference Range Comments POC-GLUCOSE METER (BEAKER) 242 mg/dL 70-110 : Notified RN/MD: TESTED AT (test qcyz=3036) [address], [address]: Research Technician/Plumber Cub [id number] for SHMUEL DUNCAN POCT-GLUCOSE [id number] 18:12:00 Test Item Value Reference Range Comments POC-GLUCOSE METER (BEAKER) 230 mg/dL 70-110 : Notified RN/MD: TESTED AT (test hncv=8632) [address], [address]: Research Technician/Plumber Cub GZ=[id number] for KEHINDE LYNN [id number] 13:39:00 Test Item Value Reference Range Comments RPR SCREEN (BEAKER) (test zrau=662) Nonreactive Nonreactive POCT-GLUCOSE [id number] 12:07:00 Test Item Value Reference Range Comments POC-GLUCOSE METER (BEAKER) 142 mg/dL 70-110 : Notified RN/MD: TESTED AT (test cusk=1907) [address], [address]: Research Technician/Plumber Cub CG=[id number] for KEHINDE LYNN POCT-GLUCOSE [id number] 10:56:00 Test Item Value Reference Range Comments POC-GLUCOSE METER (BEAKER) 116 mg/dL 70-110 : TESTED AT [address] (test eiay=2649) [facility], [address]: Research Technician/Plumber Cub RF=[id number] for KEHINDE LYNN HEMOGLOBIN [id number] 08:52:00 Test Item Value Reference Range Comments HEMOGLOBIN A1C (BEAKER) (test gsry=383) 10.3 % 4.3-6.1 BASIC METABOLIC [id number] 05:10:00 Test Item Value Reference Range Comments SODIUM (BEAKER) (test 138 meq/L 136-145 gffa=488) POTASSIUM (BEAKER) (test 4.8 meq/L 3.5-5.1 enqd=644) CHLORIDE (BEAKER) (test 101 meq/L 98-107 dkop=046) CO2 (BEAKER) (test 30 meq/L 22-29 wkfw=225) BLOOD UREA NITROGEN 25 mg/dL 7-21 (BEAKER) (test dnjh=240) CREATININE (BEAKER) (test 1.30 mg/dL 0.57-1.25 qrzx=095) GLUCOSE RANDOM (BEAKER) 168 mg/dL 70-105 (test xwuq=355) CALCIUM (BEAKER) (test 9.2 mg/dL 8.4-10.2 xdiy=332) EGFR (BEAKER) (test 50 mL/min/1.73 sq m ESTIMATED GFR IS NOT fhon=9125) ACCURATE CREATININE CLEARANCE IN PREDICTING GLOMERULAR FILTRATION RATE. ESTIMATED GFR IS NOT APPLICABLE FOR DIALYSIS PATIENTS. CBC W/PLT COUNT & AUTO [id number] 04:56:00 Test Item Value Reference Range Comments WHITE BLOOD CELL COUNT (BEAKER) (test yhpb=173) 12.3 K/ L 3.5-10.5 RED BLOOD CELL COUNT (BEAKER) (test tcks=724) 3.48 M/ L 3.93-5.22 HEMOGLOBIN (BEAKER) (test rcwj=762) 9.2 GM/DL 11.2-15.7 HEMATOCRIT (BEAKER) (test fyqz=835) 29.2 % 34.1-44.9 MEAN CORPUSCULAR VOLUME (BEAKER) (test buzu=370) 83.9 fL 79.4-94.8 MEAN CORPUSCULAR HEMOGLOBIN (BEAKER) (test 26.4 pg 25.6-32.2 hjax=025) MEAN CORPUSCULAR HEMOGLOBIN CONC (BEAKER) (test 31.5 GM/DL 32.2-35.5 puhl=723) RED CELL DISTRIBUTION WIDTH (BEAKER) (test 15.1 % 11.7-14.4 wvlp=394) PLATELET COUNT (BEAKER) (test mpal=001) 500 K/CU MM 150-450 MEAN PLATELET VOLUME (BEAKER) (test hegs=062) 10.0 fL 9.4-12.3 NUCLEATED RED BLOOD CELLS (BEAKER) (test 0 /100 WBC 0-0 vavk=503) NEUTROPHILS RELATIVE PERCENT (BEAKER) (test 71 % yten=419) LYMPHOCYTES RELATIVE PERCENT (BEAKER) (test 21 % odgb=738) MONOCYTES RELATIVE PERCENT (BEAKER) (test 7 % ntce=381) EOSINOPHILS RELATIVE PERCENT (BEAKER) (test 1 % facx=028) BASOPHILS RELATIVE PERCENT (BEAKER) (test 1 % klsi=412) NEUTROPHILS ABSOLUTE COUNT (BEAKER) (test 8.73 K/ L 1.56-6.13 bidp=192) LYMPHOCYTES ABSOLUTE COUNT (BEAKER) (test 2.59 K/ L 1.18-3.74 amxd=382) MONOCYTES ABSOLUTE COUNT (BEAKER) (test 0.81 K/ L 0.24-0.36 zmbl=847) EOSINOPHILS ABSOLUTE COUNT (BEAKER) (test 0.10 K/ L 0.04-0.36 vrvf=946) BASOPHILS ABSOLUTE COUNT (BEAKER) (test 0.06 K/ L 0.01-0.08 wwzx=958) IMMATURE GRANULOCYTES-RELATIVE PERCENT (BEAKER) 0 % 0-1 (test qohl=0773) TSH/FREE T4 IF [id number] 04:12:00 Test Item Value Reference Range Comments THYROID STIMULATING HORMONE (BEAKER) (test 0.80 uIU/mL 0.35-4.94 rpoh=305) VITAMIN B12 AND [id number] 04:12:00 Test Item Value Reference Range Comments VITAMIN B12 (BEAKER) (test elcc=321) 733 pg/mL 213-816 FOLATE (BEAKER) (test lmtx=391) 10.6 ng/mL >=7.0 RAD, CHEST, 1 VIEW, NON [id number] 02:03:00Reason for exam:->respiratory distressShould this be performed [...] to be excluded clinically. Signed: Archie Ramirez [facility] Verified Date/Time: 08/20/2019 02:03:23 TROPONIN [id number] 23:15:00 Test Item Value Reference Range Comments TROPONIN I (BEAKER) (test tiho=514) < ng/mL 0.00-0.03 Troponin I (TnI) levels [...] acidosis, acute neurological disease, and persistent tachyarrhythmia.LIPID [id number] 23:09:00 Test Item Value Reference Range Comments TRIGLYCERIDES (BEAKER) (test korc=676) 63 mg/dL CHOLESTEROL (BEAKER) (test kppy=905) 124 mg/dL HDL CHOLESTEROL (BEAKER) (test jaia=646) 38 mg/dL LDL CHOLESTEROL CALCULATED (BEAKER) (test 73 mg/dL ftjx=661) Triglyceride Reference Range: Low Risk <150 Borderline 150- 199 High Risk 200-499 Very High Risk >=500Cholesterol Reference Range: Low Risk <200 Borderline 200-239 High Risk > 240HDL Cholesterol Reference Range: Low Risk >=60 High Risk <40LDL Cholesterol Reference Range: Optimal <100 Near Optimal 100-129 Borderline 130-159 High 160-189 Very High >=190CT, CTANGIO [id number] 20:23:00FINAL REPORT CT, BRAIN/STROKE PROTOCOL, CT, CEREBRAL [...] stenosis, or proximal branch vessel occlusion. Left MEDICAL CODING SPECIALIST is predominantly supplied by P- comm. Diminutive [...] [place] Verified Date/Time: 08/19/2019 20:23:29 CT, CAROTID, [id number] 20:23:00FINAL REPORT CT, BRAIN/ STROKE PROTOCOL, CT, [...] stenosis, or proximal branch vessel occlusion. Left MEDICAL CODING SPECIALIST is predominantly supplied by P- comm. Diminutive [...] Verified Date/Time: 08/19/2019 20:23:29 CT, CEREBRAL PERFUSION [id number] 20:23:00FINAL REPORT CT, BRAIN/STROKE PROTOCOL, CT, CEREBRAL [...] stenosis, or proximal branch vessel occlusion. Left MEDICAL CODING SPECIALIST is predominantly supplied by P- comm. Diminutive [...] [place] Verified Date/Time: 08/19/2019 20:23:29 CT, BRAIN/STROKE [id number] 20:23:00FINAL REPORT CT, BRAIN/STROKE PROTOCOL, CT, CEREBRAL [...] stenosis, or proximal branch vessel occlusion. Left MEDICAL CODING SPECIALIST is predominantly supplied by P- comm. Diminutive [...]
--- OUTSIDE RECORDS SUMMARY | 2019-09-23 17:26 | XMS REPORT ---
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 [...] End Status Dosage System Date Date Atorvastatin [facility] 33489163819 40 MG Orally Active 1 tablet Calcium Once a day Pantoprazole [facility] 52877805556 40 MG Orally Active 1 tablet Sodium Once a day Cyclobenzaprine [facility] 97846000941 10 MG Orally Active 1 tablet as HCl Three times a needed day Tramadol HCl [facility] 06075513905 50 MG Orally Active 1 tablet as every 6 hrs needed Doxycycline [facility] 45112151321 100 MG Orally Active 1 capsule Hyclate twice a day Zyrtec Allergy [facility] 40041515216 10 MG Orally Active 1 tablet Once a day Zoloft [facility] 17440732275 100 MG Orally Active 1 tablet Once a day Nitroglycerin [facility] 40210032036 400 MCG/SPRAY Active 1 spray Translingual Once a day as needed Azithromycin [facility] 01574016837 500 MG Orally Active as directed once a day Fluocinolone [facility] 88473927909 0.01 % Otic Active 5 applications Acetonide Twice a day into affected ear Acetic Acid [facility] 80960962859 2 % Otic Three Active 5 drops into times a day affected ear Gabapentin [facility] 22462322810 600 MG orally Active 1 tablet Three times a day Flonase [facility] 39331914701 50 MCG/ACT Active 2 spray in Nasally Once a each nostril day Spiriva Respimat [facility] 67581828392 2.5 MCG/ACT Active 2 puffs Inhalation Once a day Lantus SoloStar [facility] 53171197875 100 UNIT/ML Active 65 units Subcutaneous once a day Humalog KwikPen [facility] 04313198550 100 UNIT/ML Active as directed Subcutaneous 4 units with each meal tid Metformin HCl [facility] 73215612502 1000MG Active TAKE ONE TABLET BY MOUTH TWICE DAILY Olmesartan-Amlodi [facility] 39517016394 20-5-12.5 MG Active 1 tablet pine-HCTZ Orally Once a day PredniSONE [facility] 17566252130 10 MG Orally Active 2 tablet Once a day Plavix [facility] 01647186200 75 MG Orally Active 1 tablet Once a day Reglan [facility] 93578851266 10 MG Orally Active not defined FreeStyle Enriqueta [facility] 38700006425 - [place] Active as directed Sensor System Albuterol Sulfate [facility] 93187181562 (2.5 MG/3ML) Active 3 ml as needed 0.083% Inhalation Three times a day prn sob/wheezing Albuterol Sulfate [facility] 66943442148 108 (90 Base) Active 2 puffs as MCG/ACT needed Inhalation every 6 hrs Patanase [facility] 18179951874 0.6 % Nasally Active 2 sprays in Twice a day each nostril FreeStyle Enriqueta [facility] 41913844293 - dailyk Active as directed [place] Lasix [facility] 07474101818 20 MG Orally Active 1 tablet Once a day Results No Known Results Summary Purpose eClinicalWorks Submission
--- OUTSIDE RECORDS SUMMARY | 2019-09-23 17:26 | XMS REPORT ---
[...] Active Problem Essential hypertension I10 Active Problem USP current use of insulin Z79.4 Active Problem [...]
--- OUTSIDE RECORDS SUMMARY | 2019-09-23 17:27 | XMS REPORT ---
[...] joint of right hand M25.541 Active Assessment intermediate current use of insulin Z79.4 Active Assessment [...] reflux disease K21.9 Active without esophagitis Problem intermediate current use of insulin Z79.4 Active Problem [...] End Status Dosage System Date Date Pantoprazole [facility] 89608992033 40 MG Orally Active 1 tablet Sodium Once a day Amoxicillin [facility] 45213726366 500 MG Orally Sep 07Aug Active 1 capsule every 8 hrs 2018 Reglan [facility] 15352998322 10 MG Orally Active not defined Albuterol Sulfate [facility] 09721102097 108 (90 Base) Active 2 puffs as MCG/ACT needed Inhalation every 6 hrs Zoloft [facility] 25065584918 100 MG Orally Active 1 tablet Once a day Acetic Acid [facility] 31625555741 2 % Otic Three Active 5 drops into times a day affected ear Flonase [facility] 78516831583 50 MCG/ACT Active 2 spray in Nasally Once a each nostril day Atorvastatin [facility] 42059488199 40 MG Orally Active 1 tablet Calcium Once a day FreeStyle Enriqueta [facility] 01317569602 - [place] Active as directed Sensor System Lasix [facility] 84506388729 20 MG Orally Active 1 tablet Once a day Spiriva Respimat [facility] 38938381985 2.5 MCG/ACT Active 2 puffs Inhalation Once a day Nitroglycerin [facility] 73515164049 400 MCG/SPRAY Active 1 spray Translingual Once a day as needed Albuterol Sulfate [facility] 87017537336 (2.5 MG/3ML) Active 3 ml as needed 0.083% Inhalation Three times a day prn sob/wheezing Cyclobenzaprine [facility] 34418110261 10 MG Orally Active 1 tablet as HCl Three times a needed day Olmesartan-Amlodi [facility] 90518589340 20-5-12.5 MG Active 1 tablet pine-HCTZ Orally Once a day Zyrtec Allergy [facility] 63179309561 10 MG Orally Active 1 tablet Once a day Fluocinolone [facility] 34999378586 0.01 % Otic Active 5 applications Acetonide Twice a day into affected ear Patanase ND 50004039443 0.6 % Nasally Active 2 sprays in Twice a day each nostril Humalog KwikPen [facility] 53233405633 100 UNIT/ML Active as directed Subcutaneous 4 units with each meal tid PredniSONE ND 46378503489 10 MG Orally Active 2 tablet Once a day Gabapentin [facility] 34884465385 600 MG orally Active 1 tablet Three times a day FreeStyle Enriqueta [facility] 10167545622 - [place] [facility] Active as directed [place] Plavix [facility] 45056235257 75 MG Orally Active 1 tablet Once a day Lantus SoloStar ND 68282117607 100 UNIT/ML Active 65 units Subcutaneous once a day Results No Known Results Summary Purpose eClinicalWorks Submission
--- OUTSIDE RECORDS SUMMARY | 2019-09-23 17:27 | XMS REPORT ---
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
--- NOTE | 2019-09-23 18:33 | ER ---
Nurse's Notes [facility] Name: Tammy Walsh Age: 64 yrs Sex: Female : 1955 Arrival Date: 09/23/2019 Time: 17:42 Bed 2 Private MD: Diagnosis: Cardiopulmonary Arrest Presentation: 09/23 17:21 Presenting complaint: EMS states: Pt's family called 911 after pt became unresponsive aa5 and fell down to floor. CPR in progress at this time. 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 17:21 Care prior to arrival: IO to left leg. Compressions began at 16:45. aa5 17:21 Method Of Arrival: EMS: [facility] aa5 17:21 Acuity: PATRICIA 1 aa5 17:21 Transition of care: patient was not received from another setting of care. Onset of aa5 symptoms was September 23, 2019. 17:21 Risk Assessment: Do you want to hurt yourself or someone else? Unable to obtain. aa5 17:21 Care prior to arrival: Oral intubation, Using Alvin tube. aa5 Historical: - Allergies: 17:28 Hydrocodone-Acetaminophen (Sever Itching); aa5 - PMHx: 17:28 Cancer, Breast; CHF; COPD; CVA; Diabetes - NIDDM; Gastroparesis; Hypertension; aa5 Myocardial infarction; - Immunization history:: Adult Immunizations unknown. - Social history:: Smoking status: unknown. - Ebola Screening: : Unable to complete screening because. Assessment: 17:21 General: Behavior is unresponsive. Cardiovascular: CPR in progress . aa5 17:21 Respiratory: Airway via oral intubation. GI: Abdomen is round distended. Derm: Skin is aa5 dry, Skin is normal, Skin temperature is warm. 17:22 CPR assessment: unresponsive, pupils fixed \T\ dilated, intubated, pulses present w/ aa5 compressions. 17:22 EENT: Swelling noted to scleras. . aa5 17:23 Cardiac rhythm is PEA. aa5 17:23 Reassessment: CPR continued . aa5 17:25 Reassessment: Alvin tube removed by MD and pt re-intubated using ET tube . aa5 17:25 Cardiac rhythm is PEA. aa5 17:25 Reassessment: CPR continued . aa5 17:27 Cardiac rhythm is PEA. aa5 17:27 Reassessment: CPR continued . aa5 17:29 Cardiac rhythm is PEA. aa5 17:29 Reassessment: CPR continued . aa5 17:31 Cardiac rhythm is PEA. aa5 17:31 Reassessment: CPR continued . aa5 17:33 Cardiac rhythm is PEA. aa5 17:33 Reassessment: 2 missed OG tube placement attempts by Esther Albarado RN. aa5 17:33 Reassessment: CPR continued . aa5 17:36 Cardiac rhythm is PEA. aa5 17:36 Reassessment: Dr. Pretty attempting to place OG tube using GlideScope. . aa5 17:36 Reassessment: CPR continued . aa5 17:38 Reassessment: Unsuccessful OG tube placement attempt by Dr. Pretty. . aa5 18:36 Reassessment: Awaiting for Glass Cleaning Machine Tender . aa5 19:00 Reassessment: Glass Cleaning Machine Tender Jamey at bedside . aa5 19:00 Reassessment: Report given to LORETO Baum. aa5 19:25 Reassessment: Called [email or web address], spoke with Ms. Padilla. They are arranging ca1 transport to continuous pickling line pickler helper body. Notified and confirmed with son Ramos. 19:39 Reassessment: Valerie of [place] [email or web address] called and said that [place] [email or web address] ca1 and the Registered Representative will be Jonathan. Spoke with Ramos the son re Valerie's instructions. 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 Vital Signs: 17:23 Pulse 0; aa5 17:25 Pulse 0; aa5 17:27 Pulse 0; aa5 17:28 Pulse Ox 75% on ETT ambu; aa5 17:29 Pulse 0; aa5 17:31 Pulse Ox 87% on ETT ambu; aa5 17:31 Pulse 0; aa5 17:33 Pulse 0; aa5 17:34 Pulse Ox 100% on ETT ambu; aa5 17:36 Temp 96.2(R); Pulse Ox 100% on ETT ambu; aa5 17:36 Pulse 0; aa5 ED Course: 17:21 Patient arrived in ED. aa5 17:25 Assisted provider with intubation using 7.5 mm ETT via oral route. ET tube secured at aa5 23cm at the lips. Set up intubation tray. Intubated by Barry Pretty MD Placement verified by CO2 detector w/ + color change, auscultating bilateral breath sounds. 17:28 Arm band placed on. aa5 17:45 Kasey Swenson, RN is Primary Nurse. aa5 17:47 Triage completed. aa5 18:10 Barry Pretty MD is Attending Physician. kdr 18:28 Barry Pretty MD is Pronouncing Provider. kdr Administered Medications: 17:22 Drug: EPINEPHrine 0.1mg/mL 1:10,000 1 mg Route: IVP; Site: Other; aa5 17:25 Follow up: Response: No change in condition aa5 17:25 Drug: EPINEPHrine 0.1mg/mL 1:10,000 1 mg Route: IVP; Site: Other; aa5 17:28 Follow up: Response: No change in condition aa5 17:28 Drug: EPINEPHrine 0.1mg/mL 1:10,000 1 mg Route: IVP; Site: Other; aa5 17:31 Follow up: Response: No change in condition aa5 17:31 Drug: EPINEPHrine 0.1mg/mL 1:10,000 1 mg Route: IVP; Site: Other; aa5 17:34 Follow up: Response: No change in condition aa5 17:34 Drug: EPINEPHrine 0.1mg/mL 1:10,000 1 mg Route: IVP; Site: Other; aa5 17:37 Follow up: Response: No change in condition aa5 17:37 Drug: EPINEPHrine 0.1mg/mL 1:10,000 1 mg Route: IVP; Site: Other; aa5 17:40 Follow up: Response: No change in condition aa5 Point of Care Testing: Blood Glucose: 17:27 Blood Glucose: 121 mg/dL; aa5 Ranges: Outcome: 17:41 Patient : Time of 17:41 Pronounced by Barry Pretty MD aa5 17:41 Condition: 20:25 Patient left the ED. ca1 Signatures: Barry Pretty MD MD [facility] Anca Holly RN RN bb Kasey Swenson RN RN aa5 Sarika Sneed RN RN ca1 Corrections: (The following items were deleted from the chart) 17:43 17:42 Patient arrived in ED. aa5 aa5 18:19 17:36 Pulse Ox 100% ET / Ambu; aa5 aa5 19:40 19:25 Reassessment: Called [employer], spoke with Valerie. They are arranging ca1 transport to continuous pickling line pickler helper body ca1
--- NOTE | 2019-09-23 18:34 | EDPHYS ---
Physician Documentation [facility] Name: Tammy Walsh Age: 64 yrs Sex: Female : 1955 Arrival Date: 09/23/2019 Time: 17:42 Bed 2 Private MD: ED Physician Barry Pretty HPI: 09/23 18:38 This 64 yrs old Black Female presents to ER via EMS with complaints of CPR. kdr 18:38 Preceding the arrest, the patient collapsed, was found down The patient had slumped kdr over and did not regain consciousness . The arrest occurred at home. Pre-hospital course: The arrest was witnessed Bystanders at the scene did not perform CPR. EMS care prior to arrival: initiation of ACLS, Time elapsed prior to ACLS is unknown. ACLS details: See nursing notes. The patient has not experienced similar symptoms in the past. The patient has been recently seen by a physician: The patient was seen here two days ago for SOB thought to be related to administration of pain and sedation medications. Historical: - Allergies: 17:28 Hydrocodone-Acetaminophen (Sever Itching); aa5 - PMHx: 17:28 Cancer, Breast; CHF; COPD; CVA; Diabetes - NIDDM; Gastroparesis; Hypertension; aa5 Myocardial infarction; - Immunization history:: Adult Immunizations unknown. - Social history:: Smoking status: unknown. - Ebola Screening: : Unable to complete screening because. ROS: 18:38 Constitutional: Unresponsive on arrrival kdr 18:38 Unable to obtain ROS due to patient is on ventilator. Exam: 18:38 Constitutional: This is a well developed, well nourished obese patient who is kdr unresponsive with CPR in progress Head/Face: Normocephalic, atraumatic. Eyes: Pupils fixed and dialated Neck: Trachea midline, no thyromegaly or masses palpated, and no cervical lymphadenopathy. Supple, full range of motion without nuchal rigidity, or vertebral point tenderness. No Meningismus. Chest/axilla: Normal chest wall appearance and motion. Nontender with no deformity. No lesions are appreciated. 18:38 Cardiovascular: Rate: bradycardic, Rhythm: agonal rhythm , Pulses: not palpable, Heart sounds: none, Edema: is not appreciated. Vital Signs: 17:23 Pulse 0; aa5 17:25 Pulse 0; aa5 17:27 Pulse 0; aa5 17:28 Pulse Ox 75% on ETT ambu; aa5 17:29 Pulse 0; aa5 17:31 Pulse Ox 87% on ETT ambu; aa5 17:31 Pulse 0; aa5 17:33 Pulse 0; aa5 17:34 Pulse Ox 100% on ETT ambu; aa5 17:36 Temp 96.2(R); Pulse Ox 100% on ETT ambu; aa5 17:36 Pulse 0; aa5 MDM: 18:33 Patient medically screened. kdr 18:38 Data reviewed: vital signs, nurses notes. kdr 09/23 17:43 Order name: glucometer results - FOR PT WITH NO ID aa5 Administered Medications: 17:22 Drug: EPINEPHrine 0.1mg/mL 1:10,000 1 mg Route: IVP; Site: Other; aa5 17:25 Follow up: Response: No change in condition aa5 17:25 Drug: EPINEPHrine 0.1mg/mL 1:10,000 1 mg Route: IVP; Site: Other; aa5 17:28 Follow up: Response: No change in condition aa5 17:28 Drug: EPINEPHrine 0.1mg/mL 1:10,000 1 mg Route: IVP; Site: Other; aa5 17:31 Follow up: Response: No change in condition aa5 17:31 Drug: EPINEPHrine 0.1mg/mL 1:10,000 1 mg Route: IVP; Site: Other; aa5 17:34 Follow up: Response: No change in condition aa5 17:34 Drug: EPINEPHrine 0.1mg/mL 1:10,000 1 mg Route: IVP; Site: Other; aa5 17:37 Follow up: Response: No change in condition aa5 17:37 Drug: EPINEPHrine 0.1mg/mL 1:10,000 1 mg Route: IVP; Site: Other; aa5 17:40 Follow up: Response: No change in condition aa5 Point of Care Testing: Blood Glucose: 17:27 Blood Glucose: 121 mg/dL; aa5 Ranges: Critical Glucose Levels:Adult <50 mg/dl or >400 mg/dl <40 mg/dl or >180 mg/dl Disposition: 18:28 . kdr Disposition: Patient pronounced on 09/23/19 17:41 by Barry Pretty. Impression: Cardiopulmonary Arrest. - Released to Home. Signatures: Dispatcher [employer] EDMS Barry Pretty MD MD kdr Kasey Swenson RN RN aa5 Sarika Sneed RN RN ca1 Corrections: (The following items were deleted from the chart) 20:25 18:33 09/23/2019 18:33 Patient pronounced on 09/23/2019 at 17:41 by Barry Pretty. ca1 Impression: Cardiopulmonary Arrest. Released to Home. kdr
[2019-09-23 21:55] VITALS: O2SAT 100
[2019-09-23 21:57] VITALS: TEMP 96.2
== END 2019-09-23 20:25 | disposition expired ==
LOC: ER 17:22
PROC: 0BH17EZ Insertion of Endotracheal Airway into Trachea, Via Natural or Artificial Opening (ICD-10-PCS; principal; 2019-09-23)
DX: I46.9 Cardiac arrest, cause unspecified (principal); I10 Essential (primary) hypertension; Z88.5 Allergy status to narcotic agent; Z85.3 Personal history of malignant neoplasm of breast
CPT/HCPCS: 36415; 82947; 31500; 96374; 92950; 99285; J0171; J7030